=== PATIENT | male | born 1965 | race Caucasian/White ===

== ENCOUNTER 2020-09-05 17:37 | Inpatient (IN) | payer OTHER, SELFPAY ==
--- NOTE | ~2020-09-05 | CT_ITS ---
EXAMINATION: CT ABDOMEN AND PELVIS WITH CONTRAST CLINICAL INFORMATION: Mid abdominal pain COMPARISON: None TECHNIQUE: Multidetector volumetric images were obtained from the superior aspect of the liver through the pubic symphysis following administration 85 mL of Omnipaque 350 intravenous contrast. Sagittal and coronal reformatted images were obtained on the technologist's workstation. Oral contrast: Yes This CT examination was performed using dose optimization techniques as appropriate, variously including the following: *Automated exposure control *Adjustment of mA and/or kV according to patient size (this includes techniques or standardized protocols for targeted exams where dose is matched to indication/reason for exam; i.e. extremities or head) *Use of iterative reconstruction technique DLP: 749 mGy-cm FINDINGS: LUNG BASES: The visualized lung bases are unremarkable. LIVER, GALLBLADDER, AND BILIARY TREE: The liver is low in attenuation suggestive of fatty infiltration. There is mild intra and extrahepatic biliary duct dilatation. The common bile duct measures 1.2 cm. The gallbladder is upper normal in size. There is dependent high attenuation is normal for sludge or small stones. PANCREAS: The pancreas enhances normally. There is a infiltration of the peripancreatic fat. There is a small amount of fluid seen adjacent to the head of the pancreas and in the bilateral pararenal fascia. SPLEEN: Unremarkable. ADRENAL GLANDS: Unremarkable. KIDNEYS AND URETERS: There is a 7 mm lesion exophytic to the lateral mid right kidney. Hounsfield units following contrast measure 47 not compatible with a simple cyst. Is uncertain whether this represents a complex cyst or a solid lesion. The kidneys are otherwise unremarkable. BLADDER: Unremarkable. GASTROINTESTINAL TRACT: There is wall thickening of the duodenum adjacent to the head of the pancreas, stranding of the surrounding fat and small amount of surrounding fluid. It is uncertain whether this is reactive secondary to pancreatitis or could represent primary duodenitis. ABDOMINAL WALL: There is a small umbilical hernia containing fat. There may be a small left inguinal hernia containing fat. LYMPH NODES: There are small peripancreatic lymph nodes. No enlarged lymph nodes are seen. VASCULAR: There is evidence of atherosclerotic disease. No aneurysm is seen. PELVIC VISCERA: Unremarkable. OSSEOUS STRUCTURES: There are degenerative changes of the spine. CT/CT abdomen pelvis w con IMPRESSION: Fatty liver. Mild intrahepatic and extrahepatic biliary duct dilatation. Upper normal-size gallbladder. Question small gallstones versus sludge in the gallbladder. Fat stranding and small amount of fluid surrounding the pancreas questionable for pancreatitis. Wall thickening of the duodenum adjacent to the head of the pancreas and stranding of the surrounding fat and small amount of fluid. This may be reactive related to pancreatitis. Differential would include a primary duodenal process/duodenitis.
--- NOTE | ~2020-09-05 | US_ITS ---
EXAMINATION: US ABDOMEN LIMITED CLINICAL INFORMATION: evaluate stones in gallbladder, ? need for surg. COMPARISON: CT from the same date. TECHNIQUE: Real-time imaging of the gallbladder. FINDINGS: LIVER: Imaged portion of the liver is echogenic, consistent with steatosis. Focal fatty sparing is seen near the gallbladder fossa. The liver contour is normal. There is no intrahepatic biliary duct dilatation seen. Intrahepatic biliary ducts (marked as CBD) measure up to 3 mm in diameter. The common bile duct itself was not measured in the extrahepatic location. GALLBLADDER: Hydropic. No evidence of stones, sludge, polyps, wall thickening or pericholecystic fluid. US/US abdomen limited IMPRESSION: No cholelithiasis is identified on these images. Gallbladder is hydropic without evidence of acute cholecystitis.
[2020-09-05 17:53] VITALS: BP 137/61; PULSE 101; RESP 28; TEMP 35.8; O2SAT 97; BMI 31.5
--- NOTE | 2020-09-05 18:38 | ECG_ITS ---
Test Reason : ABD PAIN Blood Pressure : / mmHG Vent. Rate : 100 BPM Atrial Rate : 098 BPM P-R Int : 000 ms QRS Dur : 070 ms QT Int : 526 ms P-R-T Axes : 000 014 031 degrees QTc Int : 678 ms Normal sinus rhythm Prolonged QT Abnormal ECG When compared with ECG of 28-OCT-2018 16:42, QT has lengthened Referred By: Genaro Barney Electronically Signed By:MAYNOR CLIFTON MD
[2020-09-05 19:06] LABS: MANUAL DIFF FLAG NO
[2020-09-05 19:09] LABS: Basophils Absolute Auto 0.1 X10*3/uL (0.0-0.2); Basophils Percent Auto 0.3 % (0-2); Eosinophils Percent Auto 0.1 % (0-4); Hematocrit 47.6 % (42-52); Hemoglobin 16.9 g/dl (14.0-18.0); Imm Gran Abs Auto 0.09 X10*3/uL (0.00-0.03); Imm Gran Pct Auto 0.6 % (0.0-0.4); Lymphocytes Absolute Auto 0.5 X10*3/uL (1.2-4.9); Lymphocytes Percent Auto 3.3 % (20-40); Mean Corpuscular HGB Conc 35.5 g/dl (31.0-36.0); Mean Corpuscular Hemoglobin 35.1 pg (27.0-33.0); Mean Platelet Volume 10.9 fL (9.4-12.4); Monocytes Absolute Auto 1.2 X10*3/uL (0.1-1.2); Monocytes Percent Auto 7.4 % (2-11); Neutrophils Absolute Auto 14.1 X10*3/uL (2.0-8.3); Neutrophils Percent Auto 88.3 % (45-73); Platelet Count 190 X10*3/uL (160-400); Red Blood Count 4.81 X10*6/uL (4.60-5.80); White Blood Count 15.9 X10*3/uL (4.8-10.8)
[2020-09-05] MEDS: Famotidine/PF 20 MG/2 ML VIAL IVPUSH (19:33)
[2020-09-05] MEDS: Metoclopramide HCl 10 MG/2 ML VIAL IVPUSH (19:33)
[2020-09-05] MEDS: 0.9 % Sodium Chloride 1,000 ML 999 ML IV (19:33)
[2020-09-05 19:35] LABS: Ethanol 20 mg/dL
[2020-09-05 19:40] LABS: Troponin-I High Sensitivity < 3.5 ng/L (<3.5-35.0)
[2020-09-05 19:54] LABS: Alanine Aminotransferase 147 U/L (0-40); Albumin Level 3.9 g/dL (3.5-5.0); Alkaline Phosphatase 89 U/L (39-117); Anion Gap 19 (12-20); Aspartate Amino Transferase 201 U/L (5-37); Bilirubin Direct 2.1 mg/dL (0.0-0.5); Bilirubin Total 2.9 mg/dL (0.0-1.0); Blood Urea Nitrogen 7 mg/dL (9-16); Calcium 9.6 mg/dL (8.4-10.2); Carbon Dioxide 21 mmol/L (22-29); Chloride 102 mmol/L (96-108); Creatinine Clr Calc Pharmacy 123.7; Estimated Glomerular Filt Rate > 60; Glucose Random 90 mg/dL (60-115); Potassium 3.3 mmol/L (3.3-5.1); Sodium 139 mmol/L (135-145); Total Protein 7.9 g/dL (6.5-8.0)
[2020-09-05 20:09] LABS: Lipase 4552 U/L (8-78)
[2020-09-05] MEDS: Famotidine 20 MG TABLET PO (20:19)
[2020-09-05] MEDS: Magnesium Hydrox/Alum Hydrox 30 ML ORAL.SUSP PO (20:19)
[2020-09-05] MEDS: PHENobarb/Hyoscy/Atropine/Scop 10 ML ELIXIR PO (20:19)
[2020-09-05] MEDS: Lidocaine HCl Viscous 2 % 15 ML SOLUTION MUCOUS MEM (20:19)
[2020-09-05 20:49] VITALS: BP 167/70; PULSE 105; RESP 18; O2SAT 98
[2020-09-05] MEDS: iohexoL 350 MG/ML 100 ML INFUS..BTL IV (21:17)
--- NOTE | 2020-09-05 21:38 | ED.ABDPAIN ---
HPI - Abdominal Pain General Chief Complaint: Abdominal Pain <ARMAND Bender Last Filed: 09/05/20 21:48> Stated Complaint: acute abdominal pain <ARMAND Bender Last Filed: 09/05/20 21:48> Time Seen by Provider: 09/05/20 19:51 <ARMAND Bender Last Filed: 09/05/20 21:48> Source: patient <ARMAND Bender Last Filed: 09/05/20 21:48> Mode of arrival: ambulatory <ARMAND Bender Last Filed: 09/05/20 21:48> Limitations: no limitations <ARMAND Bender Last Filed: 09/05/20 21:48> History of Present Illness HPI narrative: patient presents to ED for abdominal pain in the mid gastric area after doing cocaine, heroin, and drinking lots of alcohol. Patient does not want detox. Patient wants to find out why he is having abdominal pain. Patient states also nausea and vomiting. <ARMAND Bender Last Filed: 09/05/20 21:48> MD elicited complaint: abdominal pain <ARMAND Bender Last Filed: 09/05/20 21:48> Related Data Home Medications: Home Medications Medication Instructions Recorded Confirmed amlodipine 1 tab PO DAILY 09/05/20 09/05/20 <ARMAND Bender Last Filed: 09/05/20 21:48> Allergies/Adverse Reactions: Allergies Allergy/AdvReac Type Severity Reaction Status Date / Time No Known Allergies Allergy Unverified 11/23/19 15:10 [No Known Allergies*] <ARMAND Bender Last Filed: 09/05/20 21:48> Review of Systems Review of Systems Yes all other systems are reviewed and are negative <ARMAND Bender Last Filed: 09/05/20 21:48> Constitutional: Reports as per HPI and Reports no additional constitutional complaints <ARMAND Bender Last Filed: 09/05/20 21:48> Eyes: Reports as per HPI and Reports no additional eye complaints <ARMAND Bender Last Filed: 09/05/20 21:48> Reports system reviewed and no additional complaints, except as documented and Reports as per HPI <ARMAND Bender Last Filed: 09/05/20 21:48> Cardiovascular: Reports as per HPI and Reports no additional cardiovascular complaints <ARMAND Bender Last Filed: 09/05/20 21:48> Respiratory: Reports as per HPI and Reports no additional respiratory complaints <ARMAND Bender Last Filed: 09/05/20 21:48> Gastrointestinal: Reports as per HPI, Reports no additional gastrointestinal complaints, Reports abdominal pain, Reports nausea and Reports vomiting <ARMAND Bender Last Filed: 09/05/20 21:48> Genitourinary: Reports no additional male genitourinary complaints and Reports as per HPI <ARMAND Bender Last Filed: 09/05/20 21:48> Musculoskeletal: Reports no additional musculoskeletal complaints and Reports as per HPI <ARMAND Bender Last Filed: 09/05/20 21:48> Reports system reviewed and no additional complaints, except as documented and Reports as per HPI <ARMAND Bender Last Filed: 09/05/20 21:48> Psychiatric: Reports no additional psychiatric complaints and Reports as per HPI <ARMAND Bender Last Filed: 09/05/20 21:48> Physical Exam Vital Signs: Vital Signs: Last Vital Signs Temp 99.4 F 09/05/20 23:41 Pulse 104 H 09/05/20 23:41 Resp 18 09/05/20 23:41 BP 154/96 H 09/05/20 23:41 Pulse Ox 95 09/05/20 23:41 Body Mass Index 31.5 <ARMAND Bender Last Filed: 09/05/20 21:48> Vital Signs: Last Vital Signs Temp 99.4 F 09/05/20 23:41 Pulse 104 H 09/05/20 23:41 Resp 18 09/05/20 23:41 BP 154/96 H 09/05/20 23:41 Pulse Ox 95 09/05/20 23:41 Body Mass Index 31.5 <Maryanne Gonsales PA-C - Last Filed: 09/05/20 23:56> Const: General: cooperative, healthy appearing, comfortable, no acute distress, well developed, alert and awake <ARMAND Bender Last Filed: 09/05/20 21:48> Orientation/consciousness: patient oriented x3 <ARMAND Bender Aleks Last Filed: 09/05/20 21:48> HENMT: Head: Yes normal to inspection, Yes No palpable skull fracture present, Yes normocephalic, Yes atraumatic and No abrasion <ARMAND Bender Aleks Last Filed: 09/05/20 21:48> Eyes: General: appearance normal, both eyes and all related structures <ARMAND Bender Last Filed: 09/05/20 21:48> Neck: Neck: Yes normal visual inspection, Yes full ROM, Yes no lymphadenopathy, Yes no meningeal signs, Yes trachea midline, Yes supple and No tender <ARMAND Bender Last Filed: 09/05/20 21:48> Chest: Chest palpation & inspection: normal inspection of the chest and normal palpation of entire chest wall <ARMAND Bender Aleks Filed: 09/05/20 21:48> Resp: Effort & Inspection: normal respiratory effort and able to speak in complete sentences <ARMAND Bender Last Filed: 09/05/20 21:48> Auscultation: clear to auscultation bilaterally <ARMAND Bender Last Filed: 09/05/20 21:48> Cardio: Jugular venous distension: no JVD <ARMAND Bender Aleks Last Filed: 09/05/20 21:48> Heart sounds: S1 normal heart sound present and S2 normal heart sound present <ARMAND Bender Last Filed: 09/05/20 21:48> GI: Inspection: Yes normal to inspection and No abdominal wall ecchymosis <ARMAND Bender Last Filed: 09/05/20 21:48> Palpation (GI): Soft to palpation, not firm, Tenderness to palpation present (GI) in the epigastrum, no guarding and not rigid <ARMAND Bender Last Filed: 09/05/20 21:48> : General: No CVA tenderness and Yes no CVA tenderness <ARMAND Bender Aleks Last Filed: 09/05/20 21:48> Back/Spine/Pelvis: Back: no CVA tenderness, No CVA tenderness and No back tenderness <ARMAND Bender - Last Filed: 09/05/20 21:48> Skin: General skin exam: no rashes or lesions noted and elasticity normal <ARMAND Bender - Last Filed: 09/05/20 21:48> Neuro: General: patient oriented x3, gait normal, no meningeal signs and CN's II-XI intact bilaterally <ARMAND Bender - Last Filed: 09/05/20 21:48> Cranial nerves: Yes CN's II-XII intact bilaterally <ARMAND Bender - Last Filed: 09/05/20 21:48> Extrem: General: Yes normal to inspection and Yes full ROM <ARMAND Bender - Last Filed: 09/05/20 21:48> Psych: Appearance: grossly normal, well kempt and not disheveled <ARMAND Bender - Last Filed: 09/05/20 21:48> Course Course Course Narrative: Patient will have medical evaluation including labs, EKG, and be given GI cocktail. <ARMAND Bender - Last Filed: 09/05/20 21:48> Reevaluation(s) Reevaluation #1: Patient's troponin negative. Patient's lipase came back over 4000. patient most likely has alcoholic pancreatitis but was sent for CT scan to make sure there is no gallstones. Hospitalist, Dr. Cisneros made aware of case. morphine given on top of GI cocktail. Case signed out to Maryanne <ARMAND Bender - Last Filed: 09/05/20 21:48> CT was unclear if gallstones or sludge in the gallbladder so hospitalist requested ultrasound. Ultrasound showed no stones in the gallbladder, patient to be admitted for alcoholic pancreatitis. [address] [id number] Scan ReportSigned with Addenda Patient: Ye Blanco TMR#: [id number]: 1965Acct:[id number]/Sex: 55 / MADM Date: 09/05/20Loc: [address] Dr: Ordering Physician: RAY GOLDEN Date of Service: 09/05/20 Procedure(s): CT abdomen pelvis w con Accession Number(s): [id number] cc: RAY GOLDEN~ ADDENDUMAddendum: 7 mm right renal lesion not compatible with a simple cyst. Complex cyst and solid mass should be considered. Follow-up elective renal ultrasound recommended. If the lesion cannot be visualized by ultrasound, contrast-enhanced CT or MRI of the kidneys would be recommended. Addendum Dictated By:FERNIE VÁSQUEZ MDAddendum Signed By:<Electronically signed by FERNIE VÁSQUEZ MD in [place]>09/05/202229Addendum Cosigned By:DD/ TD/TT: / EXAMINATION: CT ABDOMEN AND PELVIS WITH CONTRAST CLINICAL INFORMATION: Mid abdominal pain COMPARISON: None TECHNIQUE: Multidetector volumetric images were obtained from the superior aspect of the liver through the pubic symphysis following administration 85 mL of Omnipaque 350 intravenous contrast. Sagittal and coronal reformatted images were obtained on the technologist's workstation. Oral contrast: Yes This CT examination was performed using dose optimization techniques as appropriate, variously including the following: *Automated exposure control *Adjustment of mA and/or kV according to patient size (this includes techniques or standardized protocols for targeted exams where dose is matched to indication/reason for exam; i.e. extremities or head) *Use of iterative reconstruction technique DLP: 749 mGy-cm FINDINGS: LUNG BASES: The visualized lung bases are unremarkable. LIVER, GALLBLADDER, AND BILIARY TREE: The liver is low in attenuation suggestive of fatty infiltration. There is mild intra and extrahepatic biliary duct dilatation. The common bile duct measures 1.2 cm. The gallbladder is upper normal in size. There is dependent high attenuation is normal for sludge or small stones. PANCREAS: The pancreas enhances normally. There is a infiltration of the peripancreatic fat. There is a small amount of fluid seen adjacent to the head of the pancreas and in the bilateral pararenal fascia. SPLEEN: Unremarkable. ADRENAL GLANDS: Unremarkable. KIDNEYS AND URETERS: There is a 7 mm lesion exophytic to the lateral mid right kidney. Hounsfield units following contrast measure 47 not compatible with a simple cyst. Is uncertain whether this represents a complex cyst or a solid lesion. The kidneys are otherwise unremarkable. BLADDER: Unremarkable. GASTROINTESTINAL TRACT: There is wall thickening of the duodenum adjacent to the head of the pancreas, stranding of the surrounding fat and small amount of surrounding fluid. It is uncertain whether this is reactive secondary to pancreatitis or could represent primary duodenitis. ABDOMINAL WALL: There is a small umbilical hernia containing fat. There may be a small left inguinal hernia containing fat. LYMPH NODES: There are small peripancreatic lymph nodes. No enlarged lymph nodes are seen. VASCULAR: There is evidence of atherosclerotic disease. No aneurysm is seen. PELVIC VISCERA: Unremarkable. OSSEOUS STRUCTURES: There are degenerative changes of the spine. CT/CT abdomen pelvis w con IMPRESSION: Fatty liver. Mild intrahepatic and extrahepatic biliary duct dilatation. Upper normal-size gallbladder. Question small gallstones versus sludge in the gallbladder. Fat stranding and small amount of fluid surrounding the pancreas questionable for pancreatitis. Wall thickening of the duodenum adjacent to the head of the pancreas and stranding of the surrounding fat and small amount of fluid. This may be reactive related to pancreatitis. Differential would include a primary duodenal process/duodenitis. Dictated By:FERNIE VÁSQUEZ MDSigned By:<Electronically signed by FERNIE VÁSQUEZ MD in [place]>09/05/202149 DD/ 58TD/TT: Slubber Machine Operator: [address] [id number] ReportSigned Patient: Ye Blanco TMR#: [id number]: 1965Acct:[id number]/Sex: 55 / MADM Date: 09/05/20Loc: E[address] Dr: Ordering Physician: Maryanne Gonsales PA-C Date of Service: 09/05/20 Procedure(s): US abdomen limited Accession Number(s): [id number] cc: Maryanne Gonsales PA-C~ EXAMINATION: US ABDOMEN LIMITED CLINICAL INFORMATION: evaluate stones in gallbladder, ? need for surg. COMPARISON: CT from the same date. TECHNIQUE: Real-time imaging of the gallbladder. FINDINGS: LIVER: Imaged portion of the liver is echogenic, consistent with steatosis. Focal fatty sparing is seen near the gallbladder fossa. The liver contour is normal. There is no intrahepatic biliary duct dilatation seen. Intrahepatic biliary ducts (marked as CBD) measure up to 3 mm in diameter. The common bile duct itself was not measured in the extrahepatic location. GALLBLADDER: Hydropic. No evidence of stones, sludge, polyps, wall thickening or pericholecystic fluid. US/US abdomen limited IMPRESSION: No cholelithiasis is identified on these images. Gallbladder is hydropic without evidence of acute cholecystitis. Dictated By:GIOVANNI ISABEL MDSigned By:<Electronically signed by GIOVANNI ISABEL MD in [place]>09/05/202327 DD/ TD/TT: Slubber Machine Operator: JOSEPH . <Maryanne Gonsales PA-C - Last Filed: 09/05/20 23:56> Time: 21:43 <ARMAND Bender - Last Filed: 09/05/20 21:48> MDM - Abdominal Pain MDM Narrative Medical decision making narrative: pancreatitis <ARMAND Bender - Last Filed: 09/05/20 21:48> Lab Data Result diagrams: : 09/05/20 19:01 09/05/20 19:01 <ARMAND Bender - Last Filed: 09/05/20 21:48> Labs: Lab Results 09/05/20 09/05/20 09/05/20 Range/Units 19:01 19:01 19:01 WBC 15.9 H (4.8-10.8) X10*3/uL RBC 4.81 (4.60-5.80) X10*6/uL Hgb 16.9 (14.0-18.0) g/dl Hct 47.6 (42-52) % MCV 99.0 H (80-98) fL MCH 35.1 H (27.0-33.0) pg MCHC 35.5 (31.0-36.0) g/dl RDW 13.0 (11.0-16.0) % Plt Count 190 (160-400) X10*3/uL MPV 10.9 (9.4-12.4) fL Immature Gran % (Auto) 0.6 H (0.0-0.4) % Neut % (Auto) 88.3 H (45-73) % Lymph % (Auto) 3.3 L (20-40) % Lagrange % (Auto) 7.4 (2-11) % Eos % (Auto) 0.1 (0-4) % Baso % (Auto) 0.3 (0-2) % Lymph # (Auto) 0.5 L (1.2-4.9) X10*3/uL Lagrange # (Auto) 1.2 (0.1-1.2) X10*3/uL Eos # (Auto) 0.0 (0.0-0.4) X10*3/uL Baso # (Auto) 0.1 (0.0-0.2) X10*3/uL Abs Immat Gran (auto) 0.09 H (0.00-0.03) X10*3/uL Absolute Neuts (auto) 14.1 H (2.0-8.3) X10*3/uL Absolute Nucleated RBC 0.000 (0.0-0.012) X10*3/uL Nucleated RBC % (auto) 0.0 (0.0-0.2) /100WBC Sodium 139 (135-145) mmol/L Potassium 3.3 (3.3-5.1) mmol/L Chloride 102 (96-108) mmol/L Carbon Dioxide 21 L (22-29) mmol/L Anion Gap 19 (12-20) BUN 7 L (9-16) mg/dL Creatinine 0.78 (0.5-1.4) mg/dL Estim Creat Clear Calc 123.7 Estimated GFR > 60 Random Glucose 90 (60-115) mg/dL Calcium 9.6 (8.4-10.2) mg/dL Magnesium 1.6 (1.6-2.6) mg/dL Total Bilirubin 2.9 H (0.0-1.0) mg/dL Direct Bilirubin 2.1 H (0.0-0.5) mg/dL AST 201 H (5-37) U/L ALT 147 H (0-40) U/L Alkaline Phosphatase 89 (39-117) U/L Troponin I High Sens < 3.5 (<3.5-35.0) ng/L Total Protein 7.9 (6.5-8.0) g/dL Albumin 3.9 (3.5-5.0) g/dL Lipase 4552 H (8-78) U/L Ethyl Alcohol mg/dL 09/05/20 Range/Units 19:01 WBC (4.8-10.8) X10*3/uL RBC (4.60-5.80) X10*6/uL Hgb (14.0-18.0) g/dl Hct (42-52) % MCV (80-98) fL MCH (27.0-33.0) pg MCHC (31.0-36.0) g/dl RDW (11.0-16.0) % Plt Count (160-400) X10*3/uL MPV (9.4-12.4) fL Immature Gran % (Auto) (0.0-0.4) % Neut % (Auto) (45-73) % Lymph % (Auto) (20-40) % Lagrange % (Auto) (2-11) % Eos % (Auto) (0-4) % Baso % (Auto) (0-2) % Lymph # (Auto) (1.2-4.9) X10*3/uL Lagrange # (Auto) (0.1-1.2) X10*3/uL Eos # (Auto) (0.0-0.4) X10*3/uL Baso # (Auto) (0.0-0.2) X10*3/uL Abs Immat Gran (auto) (0.00-0.03) X10*3/uL Absolute Neuts (auto) (2.0-8.3) X10*3/uL Absolute Nucleated RBC (0.0-0.012) X10*3/uL Nucleated RBC % (auto) (0.0-0.2) /100WBC Sodium (135-145) mmol/L Potassium (3.3-5.1) mmol/L Chloride (96-108) mmol/L Carbon Dioxide (22-29) mmol/L Anion Gap (12-20) BUN (9-16) mg/dL Creatinine (0.5-1.4) mg/dL Estim Creat Clear Calc Estimated GFR Random Glucose (60-115) mg/dL Calcium (8.4-10.2) mg/dL Magnesium (1.6-2.6) mg/dL Total Bilirubin (0.0-1.0) mg/dL Direct Bilirubin (0.0-0.5) mg/dL AST (5-37) U/L ALT (0-40) U/L Alkaline Phosphatase (39-117) U/L Troponin I High Sens (<3.5-35.0) ng/L Total Protein (6.5-8.0) g/dL Albumin (3.5-5.0) g/dL Lipase (8-78) U/L Ethyl Alcohol 20 mg/dL <ARMAND Bender - Last Filed: 09/05/20 21:48> Lab Results 09/05/20 09/05/20 09/05/20 Range/Units 19:01 19:01 19:01 WBC 15.9 H (4.8-10.8) X10*3/uL RBC 4.81 (4.60-5.80) X10*6/uL Hgb 16.9 (14.0-18.0) g/dl Hct 47.6 (42-52) % MCV 99.0 H (80-98) fL MCH 35.1 H (27.0-33.0) pg MCHC 35.5 (31.0-36.0) g/dl RDW 13.0 (11.0-16.0) % Plt Count 190 (160-400) X10*3/uL MPV 10.9 (9.4-12.4) fL Immature Gran % (Auto) 0.6 H (0.0-0.4) % Neut % (Auto) 88.3 H (45-73) % Lymph % (Auto) 3.3 L (20-40) % Lagrange % (Auto) 7.4 (2-11) % Eos % (Auto) 0.1 (0-4) % Baso % (Auto) 0.3 (0-2) % Lymph # (Auto) 0.5 L (1.2-4.9) X10*3/uL [place]range # (Auto) 1.2 (0.1-1.2) X10*3/uL Eos # (Auto) 0.0 (0.0-0.4) X10*3/uL Baso # (Auto) 0.1 (0.0-0.2) X10*3/uL Abs Immat Gran (auto) 0.09 H (0.00-0.03) X10*3/uL Absolute Neuts (auto) 14.1 H (2.0-8.3) X10*3/uL Absolute Nucleated RBC 0.000 (0.0-0.012) X10*3/uL Nucleated RBC % (auto) 0.0 (0.0-0.2) /100WBC Sodium 139 (135-145) mmol/L Potassium 3.3 (3.3-5.1) mmol/L Chloride 102 (96-108) mmol/L Carbon Dioxide 21 L (22-29) mmol/L Anion Gap 19 (12-20) BUN 7 L (9-16) mg/dL Creatinine 0.78 (0.5-1.4) mg/dL Estim Creat Clear Calc 123.7 Estimated GFR > 60 Random Glucose 90 (60-115) mg/dL Calcium 9.6 (8.4-10.2) mg/dL Magnesium 1.6 (1.6-2.6) mg/dL Total Bilirubin 2.9 H (0.0-1.0) mg/dL Direct Bilirubin 2.1 H (0.0-0.5) mg/dL AST 201 H (5-37) U/L ALT 147 H (0-40) U/L Alkaline Phosphatase 89 (39-117) U/L Troponin I High Sens < 3.5 (<3.5-35.0) ng/L Total Protein 7.9 (6.5-8.0) g/dL Albumin 3.9 (3.5-5.0) g/dL Lipase 4552 H (8-78) U/L Ethyl Alcohol mg/dL 09/05/20 Range/Units 19:01 WBC (4.8-10.8) X10*3/uL RBC (4.60-5.80) X10*6/uL Hgb (14.0-18.0) g/dl Hct (42-52) % MCV (80-98) fL MCH (27.0-33.0) pg MCHC (31.0-36.0) g/dl RDW (11.0-16.0) % Plt Count (160-400) X10*3/uL MPV (9.4-12.4) fL Immature Gran % (Auto) (0.0-0.4) % Neut % (Auto) (45-73) % Lymph % (Auto) (20-40) % Lagrange % (Auto) (2-11) % Eos % (Auto) (0-4) % Baso % (Auto) (0-2) % Lymph # (Auto) (1.2-4.9) X10*3/uL Lagrange # (Auto) (0.1-1.2) X10*3/uL Eos # (Auto) (0.0-0.4) X10*3/uL Baso # (Auto) (0.0-0.2) X10*3/uL Abs Immat Gran (auto) (0.00-0.03) X10*3/uL Absolute Neuts (auto) (2.0-8.3) X10*3/uL Absolute Nucleated RBC (0.0-0.012) X10*3/uL Nucleated RBC % (auto) (0.0-0.2) /100WBC Sodium (135-145) mmol/L Potassium (3.3-5.1) mmol/L Chloride (96-108) mmol/L Carbon Dioxide (22-29) mmol/L Anion Gap (12-20) BUN (9-16) mg/dL Creatinine (0.5-1.4) mg/dL Estim Creat Clear Calc Estimated GFR Random Glucose (60-115) mg/dL Calcium (8.4-10.2) mg/dL Magnesium (1.6-2.6) mg/dL Total Bilirubin (0.0-1.0) mg/dL Direct Bilirubin (0.0-0.5) mg/dL AST (5-37) U/L ALT (0-40) U/L Alkaline Phosphatase (39-117) U/L Troponin I High Sens (<3.5-35.0) ng/L Total Protein (6.5-8.0) g/dL Albumin (3.5-5.0) g/dL Lipase (8-78) U/L Ethyl Alcohol 20 mg/dL <Maryanne Gonsales PA-C - Last Filed: 09/05/20 23:56> ECG Data Interpretation: Accelerated Junctional Rhythm. reticular 100. QRS 70. QTC 678 <ARMAND Bender - Last Filed: 09/05/20 21:48> Discharge Plan Discharge Clinical Impression: Pancreatitis <ARMAND Bender - Last Filed: 09/05/20 21:48> Patient Disposition: Admitted As Inpatient <ARMAND Bender - Last Filed: 09/05/20 21:48> Prescriptions: No Action amlodipine 10 mg tablet 1 tab PO DAILY RF: 0 <ARMAND Bender - Last Filed: 09/05/20 21:48> PMFSH Past Medical History Medical History: Medical History (Updated 09/05/20 @ 23:56 by Maryanne Gonsales PA-C) Drug abuse <ARMAND Bender - Last Filed: 09/05/20 21:48> Social History Social History: Social History Alcohol intake: current Patient Tobacco Use Status: Tobacco use Unknown Use of substances other than those prescribed or required for medical reasons: Yes Substance Use Type: Heroin Substance Use Frequency: Chronic Longstanding Last Used Substance: Just Prior to Admission Any prior treatment program specific to substance use: No Advance Directives: No Advance Directives Information Provided: No <ARMAND Bender - Last Filed: 09/05/20 21:48>
[2020-09-05] MEDS: Morphine Sulfate 4 MG/ML CARTRIDGE IVPUSH (21:48)
[2020-09-05 22:06] LABS: Magnesium 1.6 mg/dL (1.6-2.6)
[2020-09-05 23:41] VITALS: BP 154/96; PULSE 104; RESP 18; TEMP 37.4; O2SAT 95
[2020-09-05 23:56] LABS: COVID-19 Test Negative (Negative)
[2020-09-06] VITALS (7 sets, daily range): BP systolic 143–174; BP diastolic 80–91; PULSE 93–119; RESP 16–20; TEMP 36.6–37.2; O2SAT 94–97
--- NOTE | 2020-09-06 | ECG_ITS ---
Test Reason : follow up QTc prolongation Blood Pressure : / mmHG Vent. Rate : 098 BPM Atrial Rate : 098 BPM P-R Int : 176 ms QRS Dur : 068 ms QT Int : 338 ms P-R-T Axes : 021 002 -19 degrees QTc Int : 431 ms Normal sinus rhythm Nonspecific T wave abnormality Abnormal ECG When compared with ECG of 05-SEP-2020 18:53, T wave inversion more evident in Inferior leads Nonspecific T wave abnormality now evident in Lateral leads QT has shortened Referred By: Ace Worrell Electronically Signed By:MAYNOR CLIFTON MD
[2020-09-06] MEDS: Ketorolac Tromethamine 30 MG/ML VIAL IVPUSH (00:02)
[2020-09-06] MEDS: Lactated Ringers 1,000 ML 200 ML IVCONT ×2 (01:07→07:53)
[2020-09-06] MEDS: Potassium Chloride Packet 20 MEQ PACKET 40 MEQ PO ×2 (01:09→04:25)
[2020-09-06] MEDS: PHENobarbitaL sodium 130 MG/ML VIAL 292 MG IM (01:20)
[2020-09-06] MEDS: Magnesium Sulfate/H2O 2 GM/50 ML PIGGYBACK IV (01:20)
[2020-09-06] MEDS: Enoxaparin Sodium 40 MG/0.4 ML SYRINGE SUBCUT ×2 (01:39→02:00)
[2020-09-06] MEDS: Morphine Sulfate 4 MG/ML CARTRIDGE IVPUSH ×6 (01:56→23:41)
[2020-09-06] MEDS: PHENobarbitaL sodium 130 MG/ML VIAL 219 MG IM ×2 (04:24→06:46)
[2020-09-06 05:59] LABS: MANUAL DIFF FLAG NO
[2020-09-06 06:11] LABS: Basophils Percent Auto 0.1 % (0-2); Hematocrit 43.7 % (42-52); Imm Gran Abs Auto 0.09 X10*3/uL (0.00-0.03); Imm Gran Pct Auto 0.6 % (0.0-0.4); Lymphocytes Absolute Auto 0.9 X10*3/uL (1.2-4.9); Lymphocytes Percent Auto 6.1 % (20-40); Mean Corpuscular HGB Conc 34.3 g/dl (31.0-36.0); Mean Corpuscular Volume 101.9 fL (80-98); Mean Platelet Volume 11.2 fL (9.4-12.4); Monocytes Absolute Auto 1.2 X10*3/uL (0.1-1.2); Monocytes Percent Auto 8.6 % (2-11); Neutrophils Absolute Auto 11.7 X10*3/uL (2.0-8.3); Neutrophils Percent Auto 84.6 % (45-73); Platelet Count 170 X10*3/uL (160-400); Red Blood Count 4.29 X10*6/uL (4.60-5.80); Red Cell Distribution Width 13.4 % (11.0-16.0); White Blood Count 13.9 X10*3/uL (4.8-10.8)
--- NOTE | 2020-09-06 06:14 | P.HPHOSP_ITS ---
History of Present Illness Date of Service: 09/05/20 Chief Complaint: abdominal pain 55-year-old male with past medical history of hypertension and alcohol abuse who presents to the hospital with abdominal pain. Patient reports the abdominal pain is localized to the epigastric region, nonradiating, 10/10, worse with laying down, associated with chills, no fever, nausea and vomiting, no diarrhea constipation. symptoms started this morning. Patient denies having any chest pain, no urinary symptoms and no lower extremity edema. No headache or change in vision. No weakness numbness or tingling. patient reports that he drinks about 5 out of 7 times a week, drinks beer, 6-12 beers a day. patient also uses heroin almost daily last use day of admission on arrival vital significant for temp of 96.5?, heart rate of 101, respiratory rate of 28, blood pressure 137/61, satting 97% on room air Labs are significant for WBC count of 15.9, hemoglobin of 16.9, BUN of 2.9, direct bili of 2.1, AST of 201, ALT of 147, lipase of 4552, COVID-19 negative, CT of the abdomen showed fatty liver, mild intrahepatic and extrahepatic biliary duct dilatation, upper normal size gallbladder, question small galls tones versus sludge in the gallbladder, fat stranding and small amount of fluid surrounding the pancreas questionable pancreatitis. Ultrasound of the abdomen was negative for cholecystitis, or cholelithiasis. rest of the review of system negative except as mentioned past medical history as below Review of Systems Review of Systems: Yes all other systems are reviewed and are negative [facility] Medical History (Updated 09/06/20 @ 06:18 by Tyler Hawkins MD) Drug abuse Hypertension Social History Household Members: None Housing: Apartment Do you presently have visiting nurse or other home services: No Alcohol intake: current Patient Tobacco Use Status: Tobacco use Unknown Tobacco use type: Cigarette Smoked in Last 30 Days: Yes Patient Interested in Nicotine Replacement: No Use of substances other than those prescribed or required for medical reasons: Yes Substance Use Type: Heroin Substance Use Frequency: Occasionally Last Used Substance: Just Prior to Admission Currently Displaying Signs/Symptoms of Drug Intoxication Withdrawal: No Any prior treatment program specific to substance use: Yes (methadone) Have you been hit, kicked, punched, or otherwise hurt by someone within the past year? If so, by whom?: No Do you feel safe in your current relationship?: Yes Is there a partner from a previous relationship who is making you feel unsafe now?: No Are you made to feel afraid or neglected: No Advance Directives: No Advance Directives Information Provided: No Advance Directives on File: No Do you have thoughts of harming others: None Do you have a plan to hurt others: No Plan Recently lost weight without trying: No Nutrition Risks: No Nutritional Risk Poor oral hygiene: No Meds Allergies Allergy/AdvReac Type Severity Reaction Status Date / Time No Known Allergies Allergy Unverified 11/23/19 15:10 [No Known Allergies*] Active Medications: Current Medications Generic Name Dose Route Start Last Admin Trade Name Freq PRN Reason Stop Dose Admin Acetaminophen 650 mg 09/05/20 23:49 Acetaminophen Supp 650 Mg Supp.Rect KS Q6H PRN Pain, Mild (Pain Scale 1-3) Amlodipine Besylate 10 mg 09/06/20 09:00 Amlodipine Besylate 10 Mg Tablet PO DAILY BELKIS Protocol Docusate Sodium 100 mg 09/05/20 23:49 Docusate Sodium 100 Mg Capsule PO DAILY PRN Constipation Enoxaparin Sodium 40 mg 09/05/20 01:00 09/06/20 02:00 Enoxaparin Sodium 40 Mg/0.4 Ml Syringe SUBCUT 40 mg Q24H BELKIS Administration Lactated Ringer's 1,000 mls @ 200 mls/hr 09/05/20 23:48 09/06/20 01:07 Lr IVCONT 200 mls/hr .Q5H BELKIS Administration Morphine Sulfate 4 mg 09/05/20 23:50 09/06/20 01:56 Morphine Sulfate 4 Mg/Ml Cartridge IVPUSH 4 mg Q4H PRN Administration Pain, Severe (Pain Scale 7-10) Pharmacy Consult 1 each 09/05/20 23:49 Consult Rx Etoh Phenob Dosing MISCELLANE 09/05/20 23:50 ONCE ONE Protocol Phenobarbital Sodium 219 mg 09/06/20 04:00 09/06/20 04:24 Phenobarbital Sodium 130 Mg/Ml Vial IM 09/06/20 07:01 219 mg Q3H BELKIS Administration Sodium Chloride 3 ml 09/06/20 00:00 09/06/20 01:09 0.9 % Sodium Chloride Flush 3 Ml Syringe IVFLUSH Not Given QSHIFT [facility] Home Medications Medication Instructions Recorded Confirmed Last Taken Type amlodipine 1 tab PO DAILY 09/05/20 09/05/20 Unknown History Physical Exam Vital Signs and Narrative: Vital Signs: Last Vital Signs Temp 98.4 F 09/06/20 01:16 Pulse 119 H 09/06/20 01:16 Resp 18 09/06/20 01:16 BP 174/85 H 09/06/20 01:16 Pulse Ox 97 09/06/20 01:16 Body Mass Index 31.5 Const: Other: patient sitting upright in bed, leaning forward, diaphoretic General: cooperative and no acute distress Orientation/consciousness: patient oriented x3 Eyes: General: appearance normal, both eyes and all related structures Resp: Effort & Inspection: normal respiratory effort and able to speak in complete sentences Cardio: Rate: regular rate Rhythm: regular rhythm GI: Other: significant tenderness in the epigastric region Palpation (GI): Soft to palpation Skin: General skin exam: no rashes or lesions noted Neuro: General: patient oriented x3 Cognition (Neuro): normal cognition Extrem: General: Yes normal to inspection and Yes no pedal edema Results Labs CBC and Chem 7: 09/05/20 19:01 09/05/20 19:01 Labs: Laboratory Results - last 24 hr 09/05/20 09/05/20 09/05/20 19:01 19:01 19:01 MCV 99.0 H MCH 35.1 H MCHC 35.5 RDW 13.0 Plt Count 190 MPV 10.9 Immature Gran % (Auto) 0.6 H Neut % (Auto) 88.3 H Lymph % (Auto) 3.3 L Stewart % (Auto) 7.4 Eos % (Auto) 0.1 Baso % (Auto) 0.3 Lymph # (Auto) 0.5 L Stewart # (Auto) 1.2 Eos # (Auto) 0.0 Baso # (Auto) 0.1 Abs Immat Gran (auto) 0.09 H Absolute Neuts (auto) 14.1 H Absolute Nucleated RBC 0.000 Nucleated RBC % (auto) 0.0 Anion Gap 19 Estim Creat Clear Calc 123.7 Estimated GFR > 60 Random Glucose 90 Calcium 9.6 Magnesium 1.6 Total Bilirubin 2.9 H Direct Bilirubin 2.1 H AST 201 H ALT 147 H Alkaline Phosphatase 89 Troponin I High Sens < 3.5 Total Protein 7.9 Albumin 3.9 Lipase 4552 H Ethyl Alcohol COVID-19 (SUSAN) COVID-19 Clin Com 09/05/20 09/05/20 19:01 23:34 MCV MCH MCHC RDW Plt Count MPV Immature Gran % (Auto) Neut % (Auto) Lymph % (Auto) Stewart % (Auto) Eos % (Auto) Baso % (Auto) Lymph # (Auto) Stewart # (Auto) Eos # (Auto) Baso # (Auto) Abs Immat Gran (auto) Absolute Neuts (auto) Absolute Nucleated RBC Nucleated RBC % (auto) Anion Gap Estim Creat Clear Calc Estimated GFR Random Glucose Calcium Magnesium Total Bilirubin Direct Bilirubin AST ALT Alkaline Phosphatase Troponin I High Sens Total Protein Albumin Lipase Ethyl Alcohol 20 COVID-19 (SUSAN) Negative COVID-19 Clin Com See Note Imaging Radiologist's Impressions: Impressions Abdomen/Pelvis CT 09/05/20 20:59 IMPRESSION: Fatty liver. Mild intrahepatic and extrahepatic biliary duct dilatation. Upper normal-size gallbladder. Question small gallstones versus sludge in the gallbladder. Fat stranding and small amount of fluid surrounding the pancreas questionable for pancreatitis. Wall thickening of the duodenum adjacent to the head of the pancreas and stranding of the surrounding fat and small amount of fluid. This may be reactive related to pancreatitis. Differential would include a primary duodenal process/duodenitis. Abdomen Ultrasound 09/05/20 22:37 IMPRESSION: No cholelithiasis is identified on these images. Gallbladder is hydropic without evidence of acute cholecystitis. Assessment and Plan (1) Acute alcoholic pancreatitis: Status: Acute (2) Alcohol abuse: Status: Acute 55-year-old male with past medical history of alcohol abuse as well as hypertension who presents to the hospital with abdominal pain found to have acute pancreatitis # acute alcoholic pancreatitis - patient daily drinker, - no evidence of gallstones on abdominal ultrasound, although CT abdomen showed possible sludge versus small stones there is no cholecystitis - hemodynamically stable - will start him on IV fluids - pain control - NPO # alcohol abuse with potential withdrawal - will start him on phenobarb protocol - thiamine and folic acid supplement # hypertension - elevated most likely secondary to pain - resume home amlodipine DVT prophylaxis: Lovenox Quality Stroke Does the patient have a stroke diagnosis?: No VTE Prior VTE?: No VTE Risk Level:: Medical - moderate - high VTE Device Contraindication: Treatment Not Indicated VTE Drug Contraindication: N/A - Med Ordered
[2020-09-06 07:17] LABS: Blood Urea Nitrogen 8 mg/dL (9-16); Calcium 8.8 mg/dL (8.4-10.2); Creatinine Clr Calc Pharmacy 119.1; Estimated Glomerular Filt Rate > 60; Glucose Random 84 mg/dL (60-115)
[2020-09-06 07:26] LABS: Anion Gap 14 (12-20); Carbon Dioxide 25 mmol/L (22-29); Chloride 104 mmol/L (96-108); Potassium 5.4 mmol/L (3.3-5.1); Sodium 138 mmol/L (135-145)
[2020-09-06] MEDS: amLODIPine Besylate 10 MG TABLET PO (07:54)
[2020-09-06] MEDS: Thiamine HCL 200 MG/2 ML VIAL 100 MG IVPUSH (07:54)
[2020-09-06] MEDS: Folic Acid 1 MG TABLET PO (07:54)
[2020-09-06] MEDS: 0.9 % Sodium Chloride 1,000 ML 200 ML IVCONT (08:19)
[2020-09-06 08:24] LABS: Magnesium 2.5 mg/dL (1.6-2.6)
--- NOTE | 2020-09-06 09:41 | MHC.CM.PN ---
EMR REVIEWED, PT ADMITTED W/ETOH RELATED PANCREATITIS, CM MET W/PT WHO IS A&O X4, REPORTS HE LIVES ALONE IS FULLY INDEPENDENT AND HAS NO DME/HOME SERVICES, PT HAS HC IN [place] FOR METHADONE MAINTENANCE AND REPORTS HE HAS A COUNSELOR THAT HE SEES THERE, PT DENIES NEED FOR ADDITION SA TX, CARE/TEAM OR RECOVERY SUPPORT, PT UNABLE TO RECALL NAME OF PCP HOWEVER PCP VERIFIED BY CM AND IS [facility] [place]. PT OFFERED ASSISTANCE W/HCP HOWEVER PT DECLINING AT THIS TIME, EDUCATION PROVIDED. D/C PLAN: HOME W/RESUMP OF METHADONE MAINT AND MOM FOR TRANPSORT
--- NOTE | 2020-09-06 10:29 | HO.PM.IMPN ---
Subjective Subjective Date of Service: 09/06/20 Interval History: the patient was seen and evaluated this morning Laying in bed, complaining of pain in his abdomen but nausea feeling improved Denies any fever, chills or shortness of breath No reported other overnight events. Systemic review: No fever, chills or weakness No chest pain, palpitation No shortness of breath or coughing still having abdominal pain but the nausea has improved No urinary symptoms No any rash or wounds Physical Exam Vital Signs: Vital Signs: Last Vital Signs Temp 97.8 F 09/06/20 07:28 Pulse 95 09/06/20 07:54 Resp 19 09/06/20 07:28 BP 147/91 H 09/06/20 07:54 Pulse Ox 95 09/06/20 07:28 Body Mass Index 31.5 Const: Other: Constitutional : Alert, oriented, not in distress Neck : Normal inspection, Supple Cardiovascular : RRR, S1 S2, no lower extremity edema Respiratory : Good bilateral air entry, no crackles, wheezes or rhonchi Gastrointestinal: soft, lax, Normal bowel sounds, epigastric tenderness Skin : Warm/Dry, No rash Neurological : Alert & oriented x3, No focal deficit, no withdrawal symptoms seen Objective Data Current Medications Generic Name Dose Route Start Last Admin Trade Name Freq PRN Reason Stop Dose Admin Acetaminophen 650 mg 09/05/20 23:49 Acetaminophen Supp 650 Mg Supp.Rect NC Q6H PRN Pain, Mild (Pain Scale 1-3) Amlodipine Besylate 10 mg 09/06/20 09:00 09/06/20 07:54 Amlodipine Besylate 10 Mg Tablet PO 10 mg DAILY BELKIS Administration Protocol Clonidine HCl 0.1 mg 09/06/20 09:44 Clonidine Hcl 0.1 Mg Tablet PO TID PRN anxiety/restlessness Protocol Docusate Sodium 100 mg 09/05/20 23:49 Docusate Sodium 100 Mg Capsule PO DAILY PRN Constipation Enoxaparin Sodium 40 mg 09/05/20 01:00 09/06/20 07:19 Enoxaparin Sodium 40 Mg/0.4 Ml Syringe SUBCUT Not Given Q24H BELKIS Folic Acid 1 mg 09/06/20 09:00 09/06/20 07:54 Folic Acid 1 Mg Tablet PO 1 mg DAILY BELKIS Administration Sodium Chloride 1,000 mls @ 200 mls/hr 09/06/20 09:00 09/06/20 08:19 Ns IVCONT 09/06/20 13:59 200 mls/hr .Q5H BELKIS Administration Medication 1 each 09/06/20 09:00 No Benzodiazepines MISCELLANE DAILY [facility] Methadone HCl 70 mg 09/07/20 09:00 Methadone Hcl 1 Mg/0.1 Ml Oral.Conc PO DAILY [facility] Morphine Sulfate 4 mg 09/05/20 23:50 09/06/20 06:50 Morphine Sulfate 4 Mg/Ml Cartridge IVPUSH 4 mg Q4H PRN Administration Pain, Severe (Pain Scale 7-10) Phenobarbital 45 mg 09/06/20 21:00 Phenobarbital 15 Mg Tablet PO 09/08/20 09:01 BID BELKIS Phenobarbital 15 mg 09/08/20 21:00 Phenobarbital 15 Mg Tablet PO 09/10/20 09:01 BID BELKIS Phenobarbital 15 mg 09/10/20 21:00 Phenobarbital 15 Mg Tablet PO 09/11/20 21:01 BEDTIME [facility] Sodium Chloride 3 ml 09/06/20 00:00 09/06/20 07:54 0.9 % Sodium Chloride Flush 3 Ml Syringe IVFLUSH Not Given QSHIFT [facility] Thiamine HCl 100 mg 09/06/20 09:00 09/06/20 07:54 Thiamine Hcl 200 Mg/2 Ml Vial IVPUSH 100 mg DAILY BELKIS Administration Labs CBC & Chem 7: 09/06/20 05:36 09/06/20 05:36 Labs: Laboratory Results - last 24 hr 09/05/20 09/05/20 09/05/20 19:01 19:01 19:01 WBC 15.9 H RBC 4.81 Hgb 16.9 Hct 47.6 MCV 99.0 H MCH 35.1 H MCHC 35.5 RDW 13.0 Plt Count 190 MPV 10.9 Immature Gran % (Auto) 0.6 H Neut % (Auto) 88.3 H Lymph % (Auto) 3.3 L Mcpherson % (Auto) 7.4 Eos % (Auto) 0.1 Baso % (Auto) 0.3 Lymph # (Auto) 0.5 L Mcpherson # (Auto) 1.2 Eos # (Auto) 0.0 Baso # (Auto) 0.1 Abs Immat Gran (auto) 0.09 H Absolute Neuts (auto) 14.1 H Absolute Nucleated RBC 0.000 Nucleated RBC % (auto) 0.0 Sodium 139 Potassium 3.3 Chloride 102 Carbon Dioxide 21 L Anion Gap 19 BUN 7 L Creatinine 0.78 Estim Creat Clear Calc 123.7 Estimated GFR > 60 Random Glucose 90 Calcium 9.6 Magnesium 1.6 Total Bilirubin 2.9 H Direct Bilirubin 2.1 H AST 201 H ALT 147 H Alkaline Phosphatase 89 Troponin I High Sens < 3.5 Total Protein 7.9 Albumin 3.9 Lipase 4552 H Ethyl Alcohol COVID-19 (SUSAN) COVID-19 Clin Com 09/05/20 09/05/20 09/06/20 19:01 23:34 05:36 WBC 13.9 H RBC 4.29 L Hgb 15.0 Hct 43.7 MCV 101.9 H MCH 35.0 H MCHC 34.3 RDW 13.4 Plt Count 170 MPV 11.2 Immature Gran % (Auto) 0.6 H Neut % (Auto) 84.6 H Lymph % (Auto) 6.1 L Mcpherson % (Auto) 8.6 Eos % (Auto) 0.0 Baso % (Auto) 0.1 Lymph # (Auto) 0.9 L Mcpherson # (Auto) 1.2 Eos # (Auto) 0.0 Baso # (Auto) 0.0 Abs Immat Gran (auto) 0.09 H Absolute Neuts (auto) 11.7 H Absolute Nucleated RBC 0.000 Nucleated RBC % (auto) 0.0 Sodium Potassium Chloride Carbon Dioxide Anion Gap BUN Creatinine Estim Creat Clear Calc Estimated GFR Random Glucose Calcium Magnesium Total Bilirubin Direct Bilirubin AST ALT Alkaline Phosphatase Troponin I High Sens Total Protein Albumin Lipase Ethyl Alcohol 20 COVID-19 (SUSAN) Negative COVID-19 Clin Com See Note 09/06/20 05:36 WBC RBC Hgb Hct MCV MCH MCHC RDW Plt Count MPV Immature Gran % (Auto) Neut % (Auto) Lymph % (Auto) Mcpherson % (Auto) Eos % (Auto) Baso % (Auto) Lymph # (Auto) Mcpherson # (Auto) Eos # (Auto) Baso # (Auto) Abs Immat Gran (auto) Absolute Neuts (auto) Absolute Nucleated RBC Nucleated RBC % (auto) Sodium 138 Potassium 5.4 H D Chloride 104 Carbon Dioxide 25 Anion Gap 14 BUN 8 L Creatinine 0.81 Estim Creat Clear Calc 119.1 Estimated GFR > 60 Random Glucose 84 Calcium 8.8 D Magnesium 2.5 Total Bilirubin Direct Bilirubin AST ALT Alkaline Phosphatase Troponin I High Sens Total Protein Albumin Lipase Ethyl Alcohol COVID-19 (SUSAN) COVID-19 Clin Com Quality Stroke Does the patient have a stroke diagnosis?: No VTE Prior VTE?: No VTE Risk Level:: Medical - moderate - high VTE Device Contraindication: Treatment Not Indicated VTE Drug Contraindication: N/A - Med Ordered Assessment and Plan (1) Acute alcoholic pancreatitis: Status: Acute (2) Alcohol abuse: Status: Acute Assessment and Plan: 55-year-old male with past medical history of alcohol abuse as well as hypertension who presents to the hospital with abdominal pain found to have acute pancreatitis # acute alcoholic pancreatitis no evidence of gallstones on abdominal ultrasound, although CT abdomen showed possible sludge versus small stones continue IV fluids morphine for pain control start clear liquids # alcohol abuse with potential withdrawal continue phenobarb protocol continue thiamine and folic acid supplement # history of drug abuse Start home dose methadone # prolonged QTC QTC of 678 at time of admission Recheck magnesium and repeat EKG Correct electrolytes # hypertension elevated most likely secondary to pain resume home amlodipine DVT prophylaxis Lovenox
[2020-09-06 15:18] LABS: Anion Gap 10 (12-20); Blood Urea Nitrogen 8 mg/dL (9-16); Calcium 8.6 mg/dL (8.4-10.2); Carbon Dioxide 26 mmol/L (22-29); Chloride 104 mmol/L (96-108); Creatinine Clr Calc Pharmacy 135.9; Estimated Glomerular Filt Rate > 60; Glucose Random 70 mg/dL (60-115); Potassium 4.8 mmol/L (3.3-5.1); Sodium 135 mmol/L (135-145)
[2020-09-06] MEDS: 0.9 % Sodium Chloride Flush 3 ML SYRINGE IVFLUSH ×2 (15:33→22:02)
[2020-09-06] MEDS: PHENobarbitaL 15 MG TABLET 45 MG PO (19:25)
[2020-09-07 03:34] VITALS: BP 139/92; PULSE 104; RESP 18; TEMP 36.8; O2SAT 94
[2020-09-07 06:53] LABS: Hematocrit 42.7 % (42-52); Mean Corpuscular HGB Conc 35.1 g/dl (31.0-36.0); Mean Corpuscular Volume 102.4 fL (80-98); Mean Platelet Volume 11.4 fL (9.4-12.4); Platelet Count 158 X10*3/uL (160-400); Red Blood Count 4.17 X10*6/uL (4.60-5.80); Red Cell Distribution Width 13.3 % (11.0-16.0); White Blood Count 14.6 X10*3/uL (4.8-10.8)
[2020-09-07 07:17] LABS: Anion Gap 16 (12-20); Blood Urea Nitrogen 9 mg/dL (9-16); Calcium 8.6 mg/dL (8.4-10.2); Carbon Dioxide 20 mmol/L (22-29); Chloride 100 mmol/L (96-108); Creatinine Clr Calc Pharmacy 130.4; Estimated Glomerular Filt Rate > 60; Glucose Random 65 mg/dL (60-115); Potassium 3.9 mmol/L (3.3-5.1); Sodium 132 mmol/L (135-145)
[2020-09-07 07:24] VITALS: BP 157/97; PULSE 104; RESP 17; TEMP 36.8; O2SAT 96
[2020-09-07] MEDS: Thiamine HCL 200 MG/2 ML VIAL 100 MG IVPUSH (08:12)
[2020-09-07] MEDS: PHENobarbitaL 15 MG TABLET 45 MG PO (08:12)
[2020-09-07] MEDS: Folic Acid 1 MG TABLET PO (08:12)
[2020-09-07] MEDS: amLODIPine Besylate 10 MG TABLET PO (08:12)
[2020-09-07] MEDS: 0.9 % Sodium Chloride Flush 3 ML SYRINGE IVFLUSH (08:13)
[2020-09-07] MEDS: Morphine Sulfate 4 MG/ML CARTRIDGE IVPUSH ×2 (08:20→12:53)
--- NOTE | 2020-09-07 10:00 | MHC.CM.PN ---
MALE 55 DXPANCREATITIS PATIENT IS DISCHARGED TO HOME WITH ASSIST FROM FAMILY INCLUDING TRANSPORTATION HOME. HE DECLINED [facility] RECOVERY SERVICES CONSULT.
--- NOTE | 2020-09-07 10:42 | PM.DS ---
DS: Providers Provider Date of Service: 09/07/20 Date of admission: 09/05/20 23:48 Primary care physician: Unknown Physician DS: Diagnosis Discharge Diagnosis (1) Acute alcoholic pancreatitis: Status: Acute (2) Alcohol abuse: Status: Acute DS: Medications Discharge Medications Home Medications: Home Medications Medication Instructions Recorded Confirmed amlodipine 1 tab PO DAILY 09/05/20 09/05/20 methadone 67 mg PO DAILY 09/06/20 09/06/20 DS: Summary Hospital Course Hospital Course: admission note HPI 55-year-old male with past medical history of hypertension and alcohol abuse who presents to the hospital with abdominal pain. Patient reports the abdominal pain is localized to the epigastric region, nonradiating, 10/10, worse with laying down, associated with chills, no fever, nausea and vomiting, no diarrhea constipation. symptoms started this morning. Patient denies having any chest pain, no urinary symptoms and no lower extremity edema. No headache or change in vision. No weakness numbness or tingling. patient reports that he drinks about 5 out of 7 times a week, drinks beer, 6-12 beers a day. patient also uses heroin almost daily last use day of admission on arrival vital significant for temp of 96.5?, heart rate of 101, respiratory rate of 28, blood pressure 137/61, satting 97% on room air Labs are significant for WBC count of 15.9, hemoglobin of 16.9, BUN of 2.9, direct bili of 2.1, AST of 201, ALT of 147, lipase of 4552, COVID-19 negative, CT of the abdomen showed fatty liver, mild intrahepatic and extrahepatic biliary duct dilatation, upper normal size gallbladder, question small gallstones versus sludge in the gallbladder, fat stranding and small amount of fluid surrounding the pancreas questionable pancreatitis. Ultrasound of the abdomen was negative for cholecystitis, or cholelithiasis. Hospital course Patient was admitted for treatment of acute alcoholic pancreatitis. He was started with IV fluids and IV pain medication and kept NPO for the 1st day. He showed some improvement in the pain and clear liquids were started which he tolerated very well. His pain level decreased significantly and was able to ambulate and eat with no reported pain or vomiting. This morning he asked to be discharged home as he will continue to advance his diet slowly over the next few days. He was advised to quit alcohol completely. He was treated with phenobarbital protocol for history of alcohol abuse and high risk for withdrawal. He did not develop withdrawal symptoms during the hospital stay. Time Spent with Patient Time attestation: Total time spent providing and/or coordinating discharge services: Discharge coordination time: Greater than 30 minutes Quality: Stroke Does the patient have a stroke diagnosis?: No Physical Exam Vital Signs: Vital Signs: Last Vital Signs Temp 98.2 F 09/07/20 07:24 Pulse 104 H 09/07/20 07:24 Resp 17 09/07/20 07:24 BP 157/97 H 09/07/20 07:24 Pulse Ox 96 09/07/20 07:24 Body Mass Index 31.5 Const: Other: Constitutional : Alert, oriented, not in distress Neck : Normal inspection, Supple Cardiovascular : RRR, S1 S2, no lower extremity edema Respiratory : Good bilateral air entry, no crackles, wheezes or rhonchi Gastrointestinal: soft, lax, Normal bowel sounds, No more epigastric tenderness Skin : Warm/Dry, No rash Neurological : Alert & oriented x3, No focal deficit, no withdrawal symptoms seen DS: Data Data Completed and Pending Labs on day of discharge: Laboratory Results - last 24 hr 09/06/20 09/07/20 09/07/20 14:39 05:51 05:51 WBC 14.6 H RBC 4.17 L Hgb 15.0 Hct 42.7 MCV 102.4 H MCH 36.0 H MCHC 35.1 RDW 13.3 Plt Count 158 L MPV 11.4 Absolute Nucleated RBC 0.000 Nucleated RBC % (auto) 0.0 Sodium 135 132 L Potassium 4.8 3.9 Chloride 104 100 Carbon Dioxide 26 20 L Anion Gap 10 L 16 BUN 8 L 9 Creatinine 0.71 0.74 Estim Creat Clear Calc 135.9 130.4 Estimated GFR > 60 > 60 Random Glucose 70 65 Calcium 8.6 8.6 Discharge Plan Discharge Patient Disposition: Home, Self-Care Discharge Diagnosis: Acute alcoholic pancreatitis Referrals: Physician,Unknown [Primary Care Provider] - 1 Week Discharge Medications: Continued amlodipine 10 mg tablet 1 tab PO DAILY RF: 0 methadone 5 mg/5 mL Solution 67 mg PO DAILY RF: 0 Discharge Orders: Discharge Order (Routine); Ordered 09/07/20 Ordered By: Ace Worrell Diet: advance to usual diet Activity on Discharge: As tolerated Stand Alone Forms: Patient Portal Discharge page Care Plan Goals: Read below Health Concerns: Read below Plan of Treatment: you were admitted to the hospital for evaluation of abdominal pain. Images of your abdomen were consistent with inflammation of the pancreas. You were treated with IV fluids and pain medication with good response as your diet was advanced slowly over the hospital course. Assessment: Continue to advance your diet slowly over the next week or 2 Drink plenty of water and avoid alcohol totally Can use Advil or Tylenol for pain control
[2020-09-07 11:40] VITALS: BP 133/75; PULSE 90; RESP 17; TEMP 36.7; O2SAT 97
== END 2020-09-07 14:23 | disposition home or self-care (01) | DRG 282 ==
LOC: HO.ED 23:56 → HO.S3 09-06 00:26
PROVIDERS: Physician Assistant; Admitting Provider Internal Medicine; Emergency Provider Internal Medicine; PCP Nurse Practitioner Family; Visit Provider Student in an Organized Health Care Education/Training Program
DX: K85.20 Alcohol induced acute pancreatitis without necrosis or infection (principal); F11.20 Opioid dependence, uncomplicated; I10 Essential (primary) hypertension; R94.31 Abnormal electrocardiogram [ECG] [EKG]; F10.10 Alcohol abuse, uncomplicated; Z20.822 Contact with and (suspected) exposure to COVID-19; Z79.899 Other long term (current) drug therapy
CPT/HCPCS: 36415; 74177; 76705; 80048; 80053; 80076; 82077; 83690; 83735; 84484; 85025; 85027; 87635; 93005; 99285; J1650; J1885; J2270; J2560; J2765; J3411; J3475; Q9967

== ENCOUNTER 2022-01-16 16:27 | Inpatient (IN) | payer OTHER, SELFPAY ==
--- NOTE | ~2022-01-16 | US_ITS ---
EXAMINATION: US DUPLEX ARTERIAL VENOUS CLINICAL INFORMATION: Portal vein thrombosis evaluation. Jaundice. Intrahepatic segments of portal vein not well visualized on MR imaging. COMPARISON: Abdomen MRI from 01/17/2022. Abdomen CT from 01/16/2022. TECHNIQUE: Sonographic imaging of the abdomen is performed. Also, duplex Doppler imaging of portal, hepatic and splenic vessels is performed. FINDINGS: ANATOMIC FINDINGS Cirrhotic liver has nodular surface contour. No focal lesions are seen. Splenomegaly is present. The spleen measures up to 14.9 cm maximum dimension. Gallbladder is hydropic and contains sludge and a few small stones. The gallbladder wall is minimally thickened, likely reactive to the hepatic disease. The visualized proximal common duct measures up to 0.8 cm diameter. The distal duct is obscured by bowel gas. Moderate volume of ascites is seen within the abdomen. DOPPLER IMAGING FINDINGS Portal veins - The right and left portal veins are small in caliber, and not well evaluated with Doppler ultrasound. There is hepatopedal flow within the left portal vein. The diminutive right portal vein is not well seen; unable to document flow within the right portal vein. However, there is opacification of the right portal vein with contrast on 01/16/2022 and 01/17/2022. No portal vein thrombus is seen on the recent CT and MRI exams. There is no significant flow visualized within the main portal vein. Although this is suggestive of thrombosis, there can be lack of visualization of flow in portal venous hypertension. It is important to note that there is no thrombus in the main portal vein on the recent contrast enhanced exams of 01/16/2022 and 01/17/2022. Splenic vein - The visualized splenic vein is normal. Hepatic veins and IVC - The hepatic veins are patent and have normal flow direction. Inferior vena cava is unremarkable. Hepatic artery - The common hepatic artery is patent with peak velocity of 160 cm/sec. The right and left hepatic arteries have normal waveforms. US/US duplex arterial venous comp IMPRESSION: Cirrhotic liver, splenomegaly and ascites. This Doppler imaging examination suggests possibility of thrombosis involving the main portal vein and right portal vein. However, no thrombus is present within these veins on the contrast-enhanced exams from 01/16/2022 or 01/17/2022. The intrahepatic portal veins are not well evaluated due to their small caliber and it is possible that there is lack of well-defined flow in portal veins to the presence of portal hypertension. Hydropic gallbladder contains sludge and stones. Common bile duct is mildly dilated (0.8 cm diameter). There was no choledocholithiasis on the recent MRI from 01/17/2022.
--- NOTE | ~2022-01-16 | MR_ITS ---
EXAMINATION: MR ABDOMEN WITHOUT AND WITH CONTRAST CLINICAL INFORMATION: Jaundice. Clinical concern for common duct calculus. Clinical concern for portal vein thrombosis. COMPARISON: Portions of a CT 01/16/22 TECHNIQUE: MR abdomen was performed without and with use of 10 mL intravenous Gadavist gadolinium contrast. Postcontrast images are performed in multiphase dynamic sequences. Imaging was performed in 3 planes. Thick slab MRCP was attempted FINDINGS: The study is significantly limited. LUNG BASES: There is a small amount of right pleural fluid. There is right lower lung disease. The distal esophagus is not well evaluated. LIVER, GALLBLADDER, AND BILIARY TREE: The right lobe of the liver measures 18.1 cm. The liver contour is irregular. The background hepatic signal is heterogeneous. Multiphasic postcontrast examination is markedly limited. There is no convincing early enhancing liver lesion. My level of confidence is relatively low. The common duct is dilated and measures up to 1.3 cm. The central intrahepatic bile ducts are dilated. No convincing choledocholithiasis. The gallbladder is distended. No definite gallbladder mass. PANCREAS: The pancreas is relatively atrophic. No suspicious mass demonstrated SPLEEN: The spleen is enlarged. The spleen measures 13.6 cm. This is between 1 and 2 standard deviations above the mean expected. ADRENAL GLANDS: No suspicious abnormality KIDNEYS AND URETERS: The lower aspect of the kidneys is not included. This does not allow characterization of a small lesion in the lateral lower right kidney. No dilation of the urinary collecting system. GASTROINTESTINAL TRACT: Limited. ABDOMINAL WALL: Motion limits assessment. No large hernia demonstrated LYMPH NODES: No measurably enlarged lymph nodes. There is a moderate amount of intraperitoneal fluid. VASCULAR: Deangelo aortic aneurysm. The upper aspect of the superior mesenteric vein enhances. The central portion of the portal vein enhances. However, the portal vein is not well visualized at the arthur hepatis or within the central intraparenchymal segments. I cannot exclude either partial thrombus or cavernous transformation as previously suggested. Motion limits detail. OSSEOUS STRUCTURES: No suspicious focal lesion. MR/MR abdomen wo/w con IMPRESSION: Limited study. The gallbladder is distended. There is dilation of the intra and extrahepatic bile ducts without a definite mass. Attempts at MRCP were limited but there is no definite choledocholithiasis. Findings suggest chronic liver disease with portal hypertension including splenomegaly and ascites. The central portion of the portal vein enhances but the intrahepatic segments are not well visualized and thrombus could be present. This study does not allow characterization of small renal masses. Right pleural fluid and right lung base disease.
--- NOTE | ~2022-01-16 | XR_ITS ---
EXAMINATION: XR CHEST CLINICAL INFORMATION: Weakness, rule out pneumonia COMPARISON: 10/04/2018 TECHNIQUE: Frontal view of the chest was obtained. FINDINGS: New coarse interstitial opacity. No focal consolidation or mass. No pleural effusion or pneumothorax. Cardiomediastinal silhouette within normal. No acute osseous abnormality. XR/XR chest 1V IMPRESSION: New coarse interstitial opacity. This can be seen in the setting of bronchitis, interstitial pneumonitis (including viral COVID pneumonitis) or pulmonary edema.
--- NOTE | ~2022-01-16 | XR_ITS ---
EXAMINATION: XR CHEST CLINICAL INFORMATION: Shortness of breath. COMPARISON: Chest x-ray 01/16/2022 TECHNIQUE: Frontal view of the chest was obtained. 10:56 PM FINDINGS: No significant abnormality is noted involving the heart, lungs, mediastinum, bony thorax or soft tissues. XR/XR chest 1V IMPRESSION: Unremarkable examination.
--- NOTE | ~2022-01-16 | US_ITS ---
EXAMINATION: US ABDOMEN LIMITED CLINICAL INFORMATION: Check for ascites. COMPARISON: Previous MRI 01/17/2022 TECHNIQUE: Limited 4 quadrant abdominal ultrasound FINDINGS: Very small amount of ascites seen in the right upper quadrant only adjacent to the liver. US/US abdomen limited IMPRESSION: There are small amount of ascites.
--- NOTE | ~2022-01-16 | NM_ITS ---
EXAMINATION: NM-BILIARY TRACT IMAGING STUDY CLINICAL INDICATION: Elevated bilirubin. Suspected gallbladder obstruction. COMPARISON: Limited abdominal ultrasound done on 01/18/2022, MRI of the abdomen done on 01/17/2022 and abdominal ultrasound and CT of the abdomen and pelvis, both done on 01/16/2022. TECHNIQUE: Scintillation camera images were obtained over the abdomen for an observation of 60 minutes following the intravenous administration of 6 millicuries technetium 99m mebrofenin. Subsequently, delayed images were obtained up to 3.5 hours post injection. FINDINGS: There is good concentration of activity in the liver by 5 minutes post injection. Biliary activity is well visualized by 25 minutes, and there is good visualization of small bowel activity by 35 minutes. The gallbladder remains nonvisualized throughout the entire study up to 3.5 hours post injection. NM/NM hepatobiliary wo pharm IMPRESSION: 1. Nonvisualized gallbladder up to 3.5 hours post injection. Differential diagnostic consideration would include physiologic changes including distended gallbladder (as was documented on multiple prior studies in this particular patient) as well as contracted gallbladder versus pathologic process such as acute cholecystitis. Further differentiation cannot be made based on this imaging appearance alone. 2.The common bile duct is patent. Liver function appears normal.
--- NOTE | ~2022-01-16 | CT_ITS ---
EXAMINATION: CT ABDOMEN AND PELVIS WITH CONTRAST CLINICAL INFORMATION: Abdominal distention. Bilirubin of 19.8. Elevated lipase. COMPARISON: 09/05/2020 TECHNIQUE: Multidetector volumetric images were obtained from the superior aspect of the liver through the pubic symphysis following administration 85 mL of Omnipaque 350 intravenous contrast. Sagittal and coronal reformatted images were obtained on the technologist's workstation. Oral contrast: No This CT examination was performed using dose optimization techniques as appropriate, variously including the following: *Automated exposure control *Adjustment of mA and/or kV according to patient size (this includes techniques or standardized protocols for targeted exams where dose is matched to indication/reason for exam; i.e. extremities or head) *Use of iterative reconstruction technique FINDINGS: LUNG BASES: Small right pleural effusion. Right base consolidation with air bronchograms, most likely atelectasis.. Minimal left base atelectasis. Bilateral gynecomastia. Normal heart size. Enlarged epicardial lymph nodes are seen at the midline anteriorly. No coronary artery calcification. LIVER, GALLBLADDER, AND BILIARY TREE: Liver remains enlarged with a nodular contour consistent with cirrhosis. No focal liver lesion seen. Diminutive portal veins are seen. The main portal vein is far smaller than on the prior study suggesting cavernous transformation. There is intrahepatic biliary ductal dilatation with the dilated common bile duct to 1.5 cm. The gallbladder is significantly distended. No gallbladder wall thickening. There is pericholecystic fluid, a nonspecific finding in the setting of ascites. There is dependent layering density consistent with sludge or noncalcified gallstones. PANCREAS: There is some fluid and fat stranding adjacent the pancreas, a nonspecific finding in the setting of ascites elsewhere. No pancreatic mass. SPLEEN: The spleen is enlarged measuring 17 cm anterior to posterior. ADRENAL GLANDS: Unremarkable. KIDNEYS AND URETERS: Again seen is an 8 mm enhancing exophytic structure from the lateral cortex left mid kidney in image 53/110. No calculi or hydronephrosis. BLADDER: Unremarkable. GASTROINTESTINAL TRACT: Small hiatal hernia. Stomach and small bowel are nondilated. There is right-sided colonic wall thickening with the distribution suggesting portal colopathy. Moderate volume of ascites is present with fluid along both paracolic gutters and dependently in to the pelvis. There is perihepatic and perisplenic free fluid. ABDOMINAL WALL: There is anasarca. Anterior abdominal wall collateral vessels are present. LYMPH NODES: Prominent to mildly enlarged upper retroperitoneal and arthur hepatis lymph nodes are present. VASCULAR: Normal caliber aorta. There are gastric, esophageal, and splenic varices. PELVIC VISCERA: Unremarkable. OSSEOUS STRUCTURES: Unremarkable. CT/CT abdomen pelvis w IV con IMPRESSION: Nodular hepatic contour suggests cirrhosis. Suspect cavernous transformation of the portal vein. Ascites, varices, and splenomegaly in keeping with portal hypertension. Distended gallbladder with pericholecystic fluid, a nonspecific finding given the presence of ascites. Similarly there is some fat stranding adjacent the head of the pancreas but there is fluid elsewhere in the retroperitoneum. Dilated common bile duct, at most 1.5 cm with intrahepatic biliary ductal dilatation as well. The findings are similar to the prior study from 2020. Again seen is an 8 mm indeterminate lesion exophytic from the lateral cortex of the right mid kidney. This could represent a hyperdense cyst or solid mass. Recommend renal protocol CT or MRI for definitive evaluation.
--- NOTE | ~2022-01-16 | US_ITS ---
EXAMINATION: US ABDOMEN LIMITED CLINICAL INFORMATION: Right upper quadrant pain. COMPARISON: CT earlier the same day TECHNIQUE: Real-time imaging of the right upper quadrant abdominal viscera. FINDINGS: PANCREAS: Pancreas obscured by bowel gas. LIVER: The liver is enlarged. There is a nodular hepatic contour consistent with cirrhosis. Coarse heterogeneous echotexture. No focal liver lesion seen. Dilated intrahepatic bile ducts are seen. Perihepatic ascites is present. GALLBLADDER: Gallbladder wall is thickened, a nonspecific finding in the setting of ascites. Dependent echogenic bile or sludge. No shadowing gallstones. COMMON BILE DUCT: Normal in caliber measuring 0.6 cm in diameter. RIGHT KIDNEY: 1.8 cm hypoechoic structure with low level internal echoes in the lateral cortex of the right kidney. No hydronephrosis. No renal calculi or focal parenchymal lesions. The kidney measures 11.2 cm in maximum dimension. FREE FLUID: None. US/US abdomen limited IMPRESSION: Limited study. Cirrhotic liver. Dilated intrahepatic bile ducts and perihepatic ascites are again noted. Gallbladder wall thickening with dependent echogenic bile or sludge. There is a 1.8 cm hypoechoic structure with low-level internal echoes in the lateral cortex of the right mid kidney. It is not certain if this corresponds to the 8 mm exophytic lesion of concern in the right kidney. Renal protocol CT or MRI is still preferred for definitive evaluation.
[2022-01-16 16:48] VITALS: BP 118/51; BP 158/82; PULSE 106; PULSE 98; RESP 18; TEMP 36.8; O2SAT 95; BMI 30.7
--- NOTE | 2022-01-16 17:00 | ED_ITS ---
HPI - General Adult General Chief complaint: Weakness Stated complaint: weakness Time Seen by Provider: 01/16/22 16:59 Source: patient and EMS Mode of arrival: EMS Limitations: no limitations History of Present Illness HPI narrative: This is a 56-year-old male past medical history significant for alcohol abuse, hypertension, substance abuse, hepatitis-C presenting to the emergency department with complaints of weakness, abdominal bloating, painless jaundice for the past week and a half. Patient tells me his skin color was normal up to a week and a half ago he tells me his skin is now all yellow, reports slight discomfort in the abdomen she tells me it is pretty distended when compared to usual. He reports he has never had jaundice before. Patient tells me stopped drinking 10 days ago he typically drinks 1 pt of vodka a day. He reports he used to use IV drugs years ago. However not currently using. He reports some shortness of breath and swelling to lower extremities bilaterally. Patient denies chest pain, nausea, vomiting, fevers, chills, headache, vision changes. Related Data Home Medications Medication Instructions Recorded Confirmed methadone 5 mg/5 mL oral solution 67 mg PO DAILY 09/06/20 01/16/22 Allergies Allergy/AdvReac Type Severity Reaction Status Date / Time No Known Allergies Allergy Unverified 11/23/19 15:10 [No Known Allergies*] Review of Systems Review of Systems: Constitutional : No Weight loss, No Fever, No Chills, No Fatigue, No Malaise ENT/Mouth : No sore throat, No Rhinorrhea Eyes: No Eye Pain, No Swelling, No Redness Cardiovascular : No Chest Pain, No SOB, No Dyspnea on Exertion, No Orthopnea, No Edema, No Palpitations Respiratory : No Cough, No Sputum, No Wheezing Gastrointestinal : No Nausea, No Vomiting, No Diarrhea, No Constipation, + abdominal Pain, No Hematochezia, No Melena Genitourinary : No Dysuria, No Urinary Frequency, No Hematuria, Musculoskeletal : No joint pain, No Myalgias, No Joint Swelling Skin : No Skin Lesions, No rash, + abnormal skin color Neuro : No Weakness, No Numbness, No Dizziness, No Headache Psych : No Anxiety/Panic, No Depression All other systems reviewed and are negative Yes all other systems are reviewed and are negative PMFSH Past Medical History Attestation statement: The following information was validated with the patient. Source: old records reviewed and nursing notes reviewed Medical History Alcohol abuse Drug abuse Hypertension Social History Social History Household Members: None Housing: Apartment Do you presently have visiting nurse or other home services: No Alcohol intake: current Patient Tobacco Use Status: Tobacco use Unknown Tobacco use type: Cigarette Substance Use Type: Heroin Advance Directives: No Advance Directives Information Provided: Yes service: No Current occupational status: unemployed Physical Exam ED Vital Signs: Vital Signs - 24 hr 01/16/22 16:48 01/16/22 19:38 01/16/22 20:27 Temperature 98.2 F 97.9 F 98.3 F Pulse Rate 98 100 96 Respiratory Rate 18 19 15 Blood Pressure 118/51 L 120/59 L 122/66 Pulse Oximetry 95 92 92 Oxygen Delivery Method Room Air Room Air Room Air Oxygen Flow Rate 01/16/22 21:50 Temperature 98.2 F Pulse Rate 93 Respiratory Rate 16 Blood Pressure 136/71 Pulse Oximetry 95 Oxygen Delivery Method Nasal Cannula Oxygen Flow Rate 3 BMI result Body Mass Index 30.7 Appearance: Alert.? Oriented X3.? No acute distress.? Head: Normocephalic, atraumatic, no step-offs or deformities Eyes: Pupils equal, round and reactive to light.? Bilateral icteric sclera. Mouth: Patient with tongue fasciculations. Neck: Normal inspection.? Neck supple.? CVS: Normal heart rate and rhythm.? Pulses normal.? Respiratory: No respiratory distress.? Breath sounds normal.? Abdomen: Soft and nontender. Abdomen distended positive fluid wave..? Skin: Skin warm and dry. Significant jaundice of skin throughout. Normal skin turgor.? Extremities: No lower extremity edema.? No calf ttp. 5/5 strength to bilateral upper and lower extremities. Asterixis noted to bilateral upper extremities. Back: No midline tenderness, no C-spine tenderness, full range of motion, no CVA tenderness bilaterally Neuro: Oriented X 3.? No motor deficit.? No sensory deficit. CN 2-12 intact Course Reevaluation(s) Reevaluation #1: CBC with significant leukocytosis 21.0, macrocytic anemia noted likley secondary to chronic alcohol abuse. Patient's sodium is noted to be 129, noted to have an acute kidney injury, which deviates highly from patient's baseline. Random glucose of 59, will give patient sugar. Patient's total bilirubin 19.8, AST 127 and ALT 65, alk-phos also elevated 146. All of these concerning for possible malignancy and or obstructing process. Ammonia level of 63 concerning for hepatic encephalopathy. Albumin level 1.9 will give albumin at this time. Lipase 445 concerning for pancreatitis. BNP 264, will give 40 of lasix. Lactic and cultures pending. Time: 18:28 Reevaluation #2: Lactic acid negative. CT of the abdomen and pelvis with no acute findings. I discussed this case with Dr. Gatito MEDINA who tells me he recommends a diagnostic paracentesis tonight to rule out SBP, he also recommends an MRI with and without contrast to check for CBD stones given the dilated CBD and further evaluate for any liver masses, portal vein thrombosis or other etiologies. Also recommend sending an alpha-fetoprotein level. Time: 20:58 Reevaluation #3: Patient will be admitted to the hospitalist for further intervention and treatment. Discussed case with hospitalist who accepts admission. Will attempt to do a diagnostic paracentesis after PT INR is back. Medications Administered Discontinued Medications Generic Name Dose Route Start Last Admin Trade Name Freq PRN Reason Stop Dose Admin Furosemide 40 mg 01/16/22 18:28 01/16/22 19:52 Furosemide 40 Mg/4 Ml Vial IVPUSH 01/16/22 18:29 40 mg STAT STA Administration Protocol Ceftriaxone Sodium 1 gm/ 50 mls @ 100 mls/hr 01/16/22 18:26 01/16/22 20:39 Sodium Chloride IV 01/16/22 18:55 Infused ONCE ONE Infusion Albumin Human 100 mls @ 100 mls/hr 01/16/22 18:30 01/16/22 22:27 Kedbumin 25 % IV 01/16/22 20:29 Infused Q1H BELKIS Infusion Sodium Chloride 500 mls @ 500 mls/hr 01/16/22 19:15 01/16/22 21:21 Ns IV 01/16/22 20:14 Not Given .Q1H BELKIS Sodium Chloride 1,000 mls @ 999 mls/hr 01/16/22 19:15 01/16/22 22:27 Ns IV 01/16/22 20:15 Infused .Q1H1M BELKIS Infusion Iohexol 100 ml 01/16/22 19:29 01/16/22 19:29 Iohexol 350 Mg/Ml 100 Ml Infus..Btl IV 01/16/22 19:30 85 ml ONCE ONE Administration Medical Decision Making MDM Narrative Medical decision making narrative: [id number] 56 year old male m presents with weakness, fatigue, malaise, painless jaundice as well as abdominal distension a little over week. PE- jaundice throughout skin, abdomen distended, rrr, lungs clear, neuro non focal. Patient noted to have tongue fasciculations and asterixis upon exam. Concerns for possible pancreatic cancer, hepatitis, pancreatitis, ascites and hepatic encephalopathy, obstructing process. Unlikely Budd-Chiari syndrome, acute abdomen, spontaneous bacterial peritonitis Plan- labs, imaging, urine, ekg Medical Records Medical records reviewed: Yes I reviewed the patient's medical records. Lab Data Lab results reviewed: Yes I reviewed the patient's lab results. Result diagrams: 01/16/22 17:25 01/16/22 21:37 Labs: Lab Results 01/16/22 01/16/22 01/16/22 Range/Units 17:25 17:25 17:25 WBC 21.0 H (4.8-10.8) X10*3/uL RBC 3.14 L (4.60-5.80) X10*6/uL Hgb 11.5 L (14.0-18.0) g/dl Hct 32.1 L (42.0-52.0) % MCV 102.2 H (80.0-98.0) fL MCH 36.6 H (27.0-33.0) pg MCHC 35.8 (31.0-36.0) g/dl RDW 15.6 (11.0-16.0) % Plt Count 226 (160-400) X10*3/uL MPV 10.1 (9.4-12.4) fL Immature Gran % (Auto) 1.0 H (0.0-0.4) % Neut % (Auto) 88.4 H (45-73) % Lymph % (Auto) 4.3 L (20-40) % [place] % (Auto) 6.1 (2-11) % Eos % (Auto) 0.1 (0-4) % Baso % (Auto) 0.1 (0-2) % Lymph # (Auto) 0.9 L (1.2-4.9) X10*3/uL [place] # (Auto) 1.3 H (0.1-1.2) X10*3/uL Eos # (Auto) 0.0 (0.0-0.4) X10*3/uL Baso # (Auto) 0.0 (0.0-0.2) X10*3/uL Abs Immat Gran (auto) 0.21 H (0.00-0.03) X10*3/uL Absolute Neuts (auto) 18.6 H (2.0-8.3) x10*3/uL Absolute Nucleated RBC 0.000 (0.0-0.012) X10*3/uL Nucleated RBC % (auto) 0.0 (0.0-0.2) /100WBC PT (10.0-13.1) SEC INR (0.9-1.1) Sodium 129 L (135-145) mmol/L Potassium 4.4 (3.3-5.1) mmol/L Chloride 97 (96-108) mmol/L Carbon Dioxide 21 L (22-29) mmol/L Anion Gap 15 (12-20) BUN 34 H (9-16) mg/dL Creatinine 1.58 H (0.5-1.4) mg/dL Estim Creat Clear Calc 61.3 Estimated GFR 45 Random Glucose 59 L* (60-115) mg/dL Lactic Acid (0.5-2.0) mmol/L Calcium 7.7 L D (8.4-10.2) mg/dL Magnesium 2.0 (1.6-2.6) mg/dL Total Bilirubin 19.8 H (0.0-1.0) mg/dL Direct Bilirubin 12.6 H (0.0-0.5) mg/dL AST 127 H (5-37) U/L ALT 65 H (0-40) U/L Alkaline Phosphatase 146 H D (39-117) U/L Ammonia (13-55) umol/L B-Natriuretic Peptide (<100) pg/mL Total Protein 7.2 (6.5-8.0) g/dL Albumin 1.9 L D (3.5-5.0) g/dL Lipase 445 H (8-78) U/L Urine Color Urine Appearance Urine pH (5.0-9.0) Ur Specific [place] (1.005-1.025) Urine Protein (Neg-Trace) mg/dL Urine Glucose (UA) (Negative) mg/dL Urine Ketones (Negative) mg/dL Urine Blood (Negative) Urine Nitrite (Negative) Ur Leukocyte Esterase (Negative) COVID-19 (SUSAN) Negative (Negative) COVID-19 Clin Com See Note Influenza Type A (PCR) (Negative) Influenza Type B (PCR) (Negative) RSV RNA Qual (PCR) (Negative) SARS-CoV-2 RNA (RT-PCR) (Negative) 01/16/22 01/16/22 01/16/22 Range/Units 17:25 17:45 18:44 WBC (4.8-10.8) X10*3/uL RBC (4.60-5.80) X10*6/uL Hgb (14.0-18.0) g/dl Hct (42.0-52.0) % MCV (80.0-98.0) fL MCH (27.0-33.0) pg MCHC (31.0-36.0) g/dl RDW (11.0-16.0) % Plt Count (160-400) X10*3/uL MPV (9.4-12.4) fL Immature Gran % (Auto) (0.0-0.4) % Neut % (Auto) (45-73) % Lymph % (Auto) (20-40) % [place]on % (Auto) (2-11) % Eos % (Auto) (0-4) % Baso % (Auto) (0-2) % Lymph # (Auto) (1.2-4.9) X10*3/uL [place] # (Auto) (0.1-1.2) X10*3/uL Eos # (Auto) (0.0-0.4) X10*3/uL Baso # (Auto) (0.0-0.2) X10*3/uL Abs Immat Gran (auto) (0.00-0.03) X10*3/uL Absolute Neuts (auto) (2.0-8.3) x10*3/uL Absolute Nucleated RBC (0.0-0.012) X10*3/uL Nucleated RBC % (auto) (0.0-0.2) /100WBC PT (10.0-13.1) SEC INR (0.9-1.1) Sodium (135-145) mmol/L Potassium (3.3-5.1) mmol/L Chloride (96-108) mmol/L Carbon Dioxide (22-29) mmol/L Anion Gap (12-20) BUN (9-16) mg/dL Creatinine (0.5-1.4) mg/dL Estim Creat Clear Calc Estimated GFR Random Glucose (60-115) mg/dL Lactic Acid 1.9 (0.5-2.0) mmol/L Calcium (8.4-10.2) mg/dL Magnesium (1.6-2.6) mg/dL Total Bilirubin (0.0-1.0) mg/dL Direct Bilirubin (0.0-0.5) mg/dL AST (5-37) U/L ALT (0-40) U/L Alkaline Phosphatase (39-117) U/L Ammonia 63 H (13-55) umol/L B-Natriuretic Peptide 264 H (<100) pg/mL Total Protein (6.5-8.0) g/dL Albumin (3.5-5.0) g/dL Lipase (8-78) U/L Urine Color Urine Appearance Urine pH (5.0-9.0) Ur Specific [place] (1.005-1.025) Urine Protein (Neg-Trace) mg/dL Urine Glucose (UA) (Negative) mg/dL Urine Ketones (Negative) mg/dL Urine Blood (Negative) Urine Nitrite (Negative) Ur Leukocyte Esterase (Negative) COVID-19 (SUSAN) (Negative) COVID-19 Clin Com Influenza Type A (PCR) (Negative) Influenza Type B (PCR) (Negative) RSV RNA Qual (PCR) (Negative) SARS-CoV-2 RNA (RT-PCR) (Negative) 01/16/22 01/16/22 01/16/22 Range/Units 20:20 21:37 21:37 WBC (4.8-10.8) X10*3/uL RBC (4.60-5.80) X10*6/uL Hgb (14.0-18.0) g/dl Hct (42.0-52.0) % MCV (80.0-98.0) fL MCH (27.0-33.0) pg MCHC (31.0-36.0) g/dl RDW (11.0-16.0) % Plt Count (160-400) X10*3/uL MPV (9.4-12.4) fL Immature Gran % (Auto) (0.0-0.4) % Neut % (Auto) (45-73) % Lymph % (Auto) (20-40) % [place] % (Auto) (2-11) % Eos % (Auto) (0-4) % Baso % (Auto) (0-2) % Lymph # (Auto) (1.2-4.9) X10*3/uL [place] # (Auto) (0.1-1.2) X10*3/uL Eos # (Auto) (0.0-0.4) X10*3/uL Baso # (Auto) (0.0-0.2) X10*3/uL Abs Immat Gran (auto) (0.00-0.03) X10*3/uL Absolute Neuts (auto) (2.0-8.3) x10*3/uL Absolute Nucleated RBC (0.0-0.012) X10*3/uL Nucleated RBC % (auto) (0.0-0.2) /100WBC PT 36.5 H (10.0-13.1) SEC INR 3.0 H (0.9-1.1) Sodium 131 L (135-145) mmol/L Potassium 3.7 (3.3-5.1) mmol/L Chloride 99 (96-108) mmol/L Carbon Dioxide 20 L (22-29) mmol/L Anion Gap 16 (12-20) BUN 33 H (9-16) mg/dL Creatinine 1.47 H (0.5-1.4) mg/dL Estim Creat Clear Calc 65.9 Estimated GFR 49 Random Glucose 69 (60-115) mg/dL Lactic Acid (0.5-2.0) mmol/L Calcium 7.3 L (8.4-10.2) mg/dL Magnesium (1.6-2.6) mg/dL Total Bilirubin 16.9 H (0.0-1.0) mg/dL Direct Bilirubin (0.0-0.5) mg/dL AST 103 H (5-37) U/L ALT 55 H (0-40) U/L Alkaline Phosphatase 118 H (39-117) U/L Ammonia (13-55) umol/L B-Natriuretic Peptide (<100) pg/mL Total Protein 6.4 L (6.5-8.0) g/dL Albumin 2.0 L (3.5-5.0) g/dL Lipase (8-78) U/L Urine Color Urine Appearance Urine pH (5.0-9.0) Ur Specific [place] (1.005-1.025) Urine Protein (Neg-Trace) mg/dL Urine Glucose (UA) (Negative) mg/dL Urine Ketones (Negative) mg/dL Urine Blood (Negative) Urine Nitrite (Negative) Ur Leukocyte Esterase (Negative) COVID-19 (SUSAN) (Negative) COVID-19 Clin Com Influenza Type A (PCR) NEGATIVE (Negative) Influenza Type B (PCR) NEGATIVE (Negative) RSV RNA Qual (PCR) NEGATIVE (Negative) SARS-CoV-2 RNA (RT-PCR) NEGATIVE (Negative) 01/16/22 Range/Units 21:53 WBC (4.8-10.8) X10*3/uL RBC (4.60-5.80) X10*6/uL Hgb (14.0-18.0) g/dl Hct (42.0-52.0) % MCV (80.0-98.0) fL MCH (27.0-33.0) pg MCHC (31.0-36.0) g/dl RDW (11.0-16.0) % Plt Count (160-400) X10*3/uL MPV (9.4-12.4) fL Immature Gran % (Auto) (0.0-0.4) % Neut % (Auto) (45-73) % Lymph % (Auto) (20-40) % [place] % (Auto) (2-11) % Eos % (Auto) (0-4) % Baso % (Auto) (0-2) % Lymph # (Auto) (1.2-4.9) X10*3/uL [place] # (Auto) (0.1-1.2) X10*3/uL Eos # (Auto) (0.0-0.4) X10*3/uL Baso # (Auto) (0.0-0.2) X10*3/uL Abs Immat Gran (auto) (0.00-0.03) X10*3/uL Absolute Neuts (auto) (2.0-8.3) x10*3/uL Absolute Nucleated RBC (0.0-0.012) X10*3/uL Nucleated RBC % (auto) (0.0-0.2) /100WBC PT (10.0-13.1) SEC INR (0.9-1.1) Sodium (135-145) mmol/L Potassium (3.3-5.1) mmol/L Chloride (96-108) mmol/L Carbon Dioxide (22-29) mmol/L Anion Gap (12-20) BUN (9-16) mg/dL Creatinine (0.5-1.4) mg/dL Estim Creat Clear Calc Estimated GFR Random Glucose (60-115) mg/dL Lactic Acid (0.5-2.0) mmol/L Calcium (8.4-10.2) mg/dL Magnesium (1.6-2.6) mg/dL Total Bilirubin (0.0-1.0) mg/dL Direct Bilirubin (0.0-0.5) mg/dL AST (5-37) U/L ALT (0-40) U/L Alkaline Phosphatase (39-117) U/L Ammonia (13-55) umol/L B-Natriuretic Peptide (<100) pg/mL Total Protein (6.5-8.0) g/dL Albumin (3.5-5.0) g/dL Lipase (8-78) U/L Urine Color Dark Yellow Urine Appearance Clear Urine pH 6.0 (5.0-9.0) Ur Specific [place] 1.015 (1.005-1.025) Urine Protein Negative (Neg-Trace) mg/dL Urine Glucose (UA) Negative (Negative) mg/dL Urine Ketones Negative (Negative) mg/dL Urine Blood Negative (Negative) Urine Nitrite Negative (Negative) Ur Leukocyte Esterase Negative (Negative) COVID-19 (SUSAN) (Negative) COVID-19 Clin Com Influenza Type A (PCR) (Negative) Influenza Type B (PCR) (Negative) RSV RNA Qual (PCR) (Negative) SARS-CoV-2 RNA (RT-PCR) (Negative) Critical Care Time Critical Care Time Critical Care Time: Yes Total Critical Care Time: 45 Attestation: I attest to this time spent taking care of the patient, obtaining history, physical, reviewing labs, imaging, speaking to my attending, speaking to specialist. Discharge Plan Discharge Clinical Impression: Jaundice, Abdominal distension, Ascites, CEASAR (acute kidney injury) Patient Disposition: Admitted As Inpatient
[2022-01-16 17:29] LABS: MANUAL DIFF FLAG NO
[2022-01-16 17:32] LABS: Basophils Percent Auto 0.1 % (0-2); Eosinophils Percent Auto 0.1 % (0-4); Hematocrit 32.1 % (42.0-52.0); Hemoglobin 11.5 g/dl (14.0-18.0); Imm Gran Abs Auto 0.21 X10*3/uL (0.00-0.03); Lymphocytes Absolute Auto 0.9 X10*3/uL (1.2-4.9); Lymphocytes Percent Auto 4.3 % (20-40); Mean Corpuscular HGB Conc 35.8 g/dl (31.0-36.0); Mean Corpuscular Hemoglobin 36.6 pg (27.0-33.0); Mean Corpuscular Volume 102.2 fL (80.0-98.0); Mean Platelet Volume 10.1 fL (9.4-12.4); Monocytes Absolute Auto 1.3 X10*3/uL (0.1-1.2); Monocytes Percent Auto 6.1 % (2-11); Neutrophils Absolute Auto 18.6 x10*3/uL (2.0-8.3); Neutrophils Percent Auto 88.4 % (45-73); Platelet Count 226 X10*3/uL (160-400); Red Blood Count 3.14 X10*6/uL (4.60-5.80); Red Cell Distribution Width 15.6 % (11.0-16.0)
[2022-01-16 17:49] LABS: B Type Natriuretic Peptide 264 pg/mL (<100)
[2022-01-16 17:53] LABS: Alanine Aminotransferase 65 U/L (0-40); Albumin Level 1.9 g/dL (3.5-5.0); Alkaline Phosphatase 146 U/L (39-117); Anion Gap 15 (12-20); Aspartate Amino Transferase 127 U/L (5-37); Bilirubin Total 19.8 mg/dL (0.0-1.0); Blood Urea Nitrogen 34 mg/dL (9-16); Calcium 7.7 mg/dL (8.4-10.2); Carbon Dioxide 21 mmol/L (22-29); Chloride 97 mmol/L (96-108); Creatinine Clr Calc Pharmacy 61.3; Estimated Glomerular Filt Rate 45; Glucose Random 59 mg/dL (60-115); Lipase 445 U/L (8-78); Potassium 4.4 mmol/L (3.3-5.1); Sodium 129 mmol/L (135-145); Total Protein 7.2 g/dL (6.5-8.0)
[2022-01-16 17:54] LABS: COVID-19 Test Negative (Negative); IDNOW Serial# 16C4AD1C
[2022-01-16 18:05] LABS: Ammonia 63 umol/L (13-55)
[2022-01-16 19:12] LABS: Lactic Acid 1.9 mmol/L (0.5-2.0)
[2022-01-16 19:29] LABS: Bilirubin Direct 12.6 mg/dL (0.0-0.5)
[2022-01-16] MEDS: iohexoL 350 MG/ML 100 ML INFUS..BTL IV (19:29)
[2022-01-16 19:38] VITALS: BP 120/59; PULSE 100; RESP 19; TEMP 36.6; O2SAT 92
[2022-01-16] MEDS: Furosemide 40 MG/4 ML VIAL IVPUSH (19:52)
[2022-01-16] MEDS: Albumin Human 25 % 100 ML IV ×2 (19:52→21:20)
[2022-01-16] MEDS: cefTRIAXone sodium 1 GM in 0.9 % Sodium Chloride 50 ML IV (20:03)
[2022-01-16 20:27] VITALS: BP 122/66; PULSE 96; RESP 15; TEMP 36.8; O2SAT 92
[2022-01-16] MEDS: 0.9 % Sodium Chloride 1,000 ML 999 ML IV (20:42)
--- NOTE | 2022-01-16 20:45 | PC.NURSE ---
Pt O2Sat at 90% RA. Patient placed on 2L of O2 NC. Patient is now at 94% O2.
--- NOTE | 2022-01-16 21:00 | PC.NURSE ---
Pt a&o, no sob or chest pain, Medicated per May. Notified CHEMO Rios
[2022-01-16 21:13] LABS: Influenza A PCR NEGATIVE (Negative); Influenza B PCR NEGATIVE (Negative); Resp Syncy Virus RNA Qual PCR NEGATIVE (Negative); SARS COV2 PCR INHOUSE NEGATIVE (Negative)
--- NOTE | 2022-01-16 21:24 | PC.NURSE ---
medicated per May and notified CHEMO Rios
[2022-01-16 21:49] LABS: Prothrombin Time 36.5 SEC (10.0-13.1)
[2022-01-16 21:50] VITALS: BP 136/71; PULSE 93; RESP 16; TEMP 36.8; O2SAT 95
--- NOTE | 2022-01-16 21:51 | PHA.MEDREC ---
Pharmacy Consult ? Medication Reconciliation Pharmacy has completed the medication reconciliation. Patient states the only regular medication he takes is 67 mg of methadone daily that he gets through the [facility] clinic.
[2022-01-16 22:00] LABS: Appearance Urine Clear; Color Urine Dark Yellow; Glucose Urine UA Negative (Negative); Leukocyte Esterase Urine Negative (Negative); Nitrite Urine Negative (Negative); Specific Gravity - Urine 1.015 (1.005-1.025); Urine Blood Negative (Negative); Urine Ketones Negative (Negative); Urine Protein Negative (Neg-Trace)
[2022-01-16 22:09] LABS: Alanine Aminotransferase 55 U/L (0-40); Alkaline Phosphatase 118 U/L (39-117); Anion Gap 16 (12-20); Aspartate Amino Transferase 103 U/L (5-37); Bilirubin Total 16.9 mg/dL (0.0-1.0); Blood Urea Nitrogen 33 mg/dL (9-16); Calcium 7.3 mg/dL (8.4-10.2); Carbon Dioxide 20 mmol/L (22-29); Chloride 99 mmol/L (96-108); Creatinine Clr Calc Pharmacy 65.9; Estimated Glomerular Filt Rate 49; Glucose Random 69 mg/dL (60-115); Potassium 3.7 mmol/L (3.3-5.1); Sodium 131 mmol/L (135-145); Total Protein 6.4 g/dL (6.5-8.0)
--- NOTE | 2022-01-16 23:28 | P.HPHOSP_ITS ---
History of Present Illness Date of Service: 01/16/22 Chief Complaint: Abdominal distension This is a 56-year-old male with pertinent history of alcohol use disorder, substance use disorder, hepatitis-C (unclear treatment status) who presents to the emergency department with complaints of abdominal distension. Patient states for the last 10 days he has had worsening abdominal discomfort with distention. Also noticed yellowing discoloration of his skin. He has been extremely weak over the last 7-10 days. Patient denies similar complaints in the past. He does consume 1 workup per day but states he has not had a drink in a week. Also admits to IV drug use, last used many years ago. His abdominal discomfort is generalized, constant , nonradiating and without any relieving factors. Patient denies fever, chills, chest discomfort, palpitations. He also noticed change in color of his urine and stool. In the emergency department, patient was found to have leukocytosis, elevated liver enzymes and imaging with dilated bile duct. GI was consulted from the ER who will evaluate the patient in a.m.. Review of Systems Constitutional: Constitutional: Reports fatigue and Reports weakness Cardiovascular: Cardiovascular: Reports no additional cardiovascular complaints Respiratory: Respiratory: Reports no additional respiratory complaints Gastrointestinal: Gastrointestinal: Reports abdominal pain, Reports bloating and Reports change in stool character Genitourinary: Genitourinary: Reports no additional male genitourinary complaints Neurologic: Reports weakness Endocrine: Endocrine: Reports fatigue ON LICENSE OF [facility] Medical History (Updated 01/16/22 @ 23:36 by Josh Alicea MD) Alcohol abuse Drug abuse Hypertension Social History Household Members: None Housing: Apartment Do you presently have visiting nurse or other home services: No Alcohol intake: current Patient Tobacco Use Status: Tobacco use Unknown Tobacco use type: Cigarette Substance Use Type: Heroin Advance Directives: No Advance Directives Information Provided: Yes service: No Current occupational status: unemployed Meds Allergies Allergy/AdvReac Type Severity Reaction Status Date / Time No Known Allergies Allergy Unverified 11/23/19 15:10 [No Known Allergies*] Active Medications: Current Medications Ceftriaxone Sodium 2 gm/ (Sodium Chloride) 50 mls @ 100 mls/hr IV DAILY BELKIS Lactulose (Lactulose 20 Gm/30 Ml Solution) 20 gm PO QID BELKIS Melatonin (Melatonin 3 Mg Tablet) 6 mg PO BEDTIME PRN PRN Reason: Insomnia Ondansetron HCl (Ondansetron Hcl 4 Mg/2 Ml Vial) 4 mg IVPUSH Q8H PRN PRN Reason: Nausea and Vomiting Pharmacy Consult (Consult Rx Perform Med Rec) 1 each MISCELLANE ONCE PRN PRN Reason: Consult order Sodium Chloride (0.9 % Sodium Chloride Flush 3 Ml Syringe) 3 ml IVFLUSH [facility]SHIFT [facility] Home Medications Medication Instructions Recorded Confirmed Last Taken Type methadone 5 mg/5 mL oral solution 67 mg PO DAILY 09/06/20 01/16/22 01/16/22 History Physical Exam Vital Signs and Narrative: Vital Signs: Last Vital Signs Temp 98.2 F 01/16/22 21:50 Pulse 93 01/16/22 21:50 Resp 16 01/16/22 21:50 BP 136/71 01/16/22 21:50 Pulse Ox 95 01/16/22 21:50 O2 Del Method 01/16/22 21:50 O2 Flow Rate 3 01/16/22 21:50 BMI result Body Mass Index 30.7 Middle-aged male lying in bed in no distress Neck supple Regular rate and rhythm, S1-S2 heard decreased sounds at bases, no wheezing appreciated Abdomen distended and firm, fluid thrill present, generalized discomfort with palpation Patient is awake, alert and oriented to self, place, time and person ; no focal motor deficit Psych: Normal mood Results Labs CBC and Chem 7: 01/16/22 17:25 01/16/22 21:37 Labs: Laboratory Results - last 24 hr 01/16/22 01/16/22 01/16/22 17:25 17:25 17:25 MCV 102.2 H MCH 36.6 H MCHC 35.8 RDW 15.6 Plt Count 226 MPV 10.1 Immature Gran % (Auto) 1.0 H Neut % (Auto) 88.4 H Lymph % (Auto) 4.3 L [place] % (Auto) 6.1 Eos % (Auto) 0.1 Baso % (Auto) 0.1 Lymph # (Auto) 0.9 L [place] # (Auto) 1.3 H Eos # (Auto) 0.0 Baso # (Auto) 0.0 Abs Immat Gran (auto) 0.21 H Absolute Neuts (auto) 18.6 H Absolute Nucleated RBC 0.000 Nucleated RBC % (auto) 0.0 PT INR Anion Gap 15 Estim Creat Clear Calc 61.3 Estimated GFR 45 Random Glucose 59 L* Lactic Acid Calcium 7.7 L D Magnesium 2.0 Total Bilirubin 19.8 H Direct Bilirubin 12.6 H AST 127 H ALT 65 H Alkaline Phosphatase 146 H D Ammonia B-Natriuretic Peptide Total Protein 7.2 Albumin 1.9 L D Lipase 445 H Urine Color Urine Appearance Urine pH Ur Specific [place] Urine Protein Urine Glucose (UA) Urine Ketones Urine Blood Urine Nitrite Ur Leukocyte Esterase COVID-19 (SUSAN) Negative COVID-19 Clin Com See Note Influenza Type A (PCR) Influenza Type B (PCR) RSV RNA Qual (PCR) SARS-CoV-2 RNA (RT-PCR) 01/16/22 01/16/22 01/16/22 17:25 17:45 18:44 MCV MCH MCHC RDW Plt Count MPV Immature Gran % (Auto) Neut % (Auto) Lymph % (Auto) [place] % (Auto) Eos % (Auto) Baso % (Auto) Lymph # (Auto) [place] # (Auto) Eos # (Auto) Baso # (Auto) Abs Immat Gran (auto) Absolute Neuts (auto) Absolute Nucleated RBC Nucleated RBC % (auto) PT INR Anion Gap Estim Creat Clear Calc Estimated GFR Random Glucose Lactic Acid 1.9 Calcium Magnesium Total Bilirubin Direct Bilirubin AST ALT Alkaline Phosphatase Ammonia 63 H B-Natriuretic Peptide 264 H Total Protein Albumin Lipase Urine Color Urine Appearance Urine pH Ur Specific [place] Urine Protein Urine Glucose (UA) Urine Ketones Urine Blood Urine Nitrite Ur Leukocyte Esterase COVID-19 (SUSAN) COVID-19 Clin Com Influenza Type A (PCR) Influenza Type B (PCR) RSV RNA Qual (PCR) SARS-CoV-2 RNA (RT-PCR) 01/16/22 01/16/22 01/16/22 20:20 21:37 21:37 MCV MCH MCHC RDW Plt Count MPV Immature Gran % (Auto) Neut % (Auto) Lymph % (Auto) [place] % (Auto) Eos % (Auto) Baso % (Auto) Lymph # (Auto) [place] # (Auto) Eos # (Auto) Baso # (Auto) Abs Immat Gran (auto) Absolute Neuts (auto) Absolute Nucleated RBC Nucleated RBC % (auto) PT 36.5 H INR 3.0 H Anion Gap 16 Estim Creat Clear Calc 65.9 Estimated GFR 49 Random Glucose 69 Lactic Acid Calcium 7.3 L Magnesium Total Bilirubin 16.9 H Direct Bilirubin AST 103 H ALT 55 H Alkaline Phosphatase 118 H Ammonia B-Natriuretic Peptide Total Protein 6.4 L Albumin 2.0 L Lipase Urine Color Urine Appearance Urine pH Ur Specific [place] Urine Protein Urine Glucose (UA) Urine Ketones Urine Blood Urine Nitrite Ur Leukocyte Esterase COVID-19 (SUSAN) COVID-19 Clin Com Influenza Type A (PCR) NEGATIVE Influenza Type B (PCR) NEGATIVE RSV RNA Qual (PCR) NEGATIVE SARS-CoV-2 RNA (RT-PCR) NEGATIVE 01/16/22 21:53 MCV MCH MCHC RDW Plt Count MPV Immature Gran % (Auto) Neut % (Auto) Lymph % (Auto) [place] % (Auto) Eos % (Auto) Baso % (Auto) Lymph # (Auto) [place] # (Auto) Eos # (Auto) Baso # (Auto) Abs Immat Gran (auto) Absolute Neuts (auto) Absolute Nucleated RBC Nucleated RBC % (auto) PT INR Anion Gap Estim Creat Clear Calc Estimated GFR Random Glucose Lactic Acid Calcium Magnesium Total Bilirubin Direct Bilirubin AST ALT Alkaline Phosphatase Ammonia B-Natriuretic Peptide Total Protein Albumin Lipase Urine Color Dark Yellow Urine Appearance Clear Urine pH 6.0 Ur Specific [place] 1.015 Urine Protein Negative Urine Glucose (UA) Negative Urine Ketones Negative Urine Blood Negative Urine Nitrite Negative Ur Leukocyte Esterase Negative COVID-19 (SUSAN) COVID-19 Clin Com Influenza Type A (PCR) Influenza Type B (PCR) RSV RNA Qual (PCR) SARS-CoV-2 RNA (RT-PCR) Imaging Radiologist's Impressions: Impressions Chest X-Ray 01/16/22 18:25 IMPRESSION: New coarse interstitial opacity. This can be seen in the setting of bronchitis, interstitial pneumonitis (including viral COVID pneumonitis) or pulmonary edema. Abdomen/Pelvis CT 01/16/22 19:38 IMPRESSION: Nodular hepatic contour suggests cirrhosis. Suspect cavernous transformation of the portal vein. Ascites, varices, and splenomegaly in keeping with portal hypertension. Distended gallbladder with pericholecystic fluid, a nonspecific finding given the presence of ascites. Similarly there is some fat stranding adjacent the head of the pancreas but there is fluid elsewhere in the retroperitoneum. Dilated common bile duct, at most 1.5 cm with intrahepatic biliary ductal dilatation as well. The findings are similar to the prior study from 2020. Again seen is an 8 mm indeterminate lesion exophytic from the lateral cortex of the right mid kidney. This could represent a hyperdense cyst or solid mass. Recommend renal protocol CT or MRI for definitive evaluation. Abdomen Ultrasound 01/16/22 20:49 IMPRESSION: Limited study. Cirrhotic liver. Dilated intrahepatic bile ducts and perihepatic ascites are again noted. Gallbladder wall thickening with dependent echogenic bile or sludge. There is a 1.8 cm hypoechoic structure with low-level internal echoes in the lateral cortex of the right mid kidney. It is not certain if this corresponds to the 8 mm exophytic lesion of concern in the right kidney. Renal protocol CT or MRI is still preferred for definitive evaluation. Chest X-Ray 01/16/22 23:11 IMPRESSION: Unremarkable examination. Assessment and Plan (1) Decompensation of cirrhosis of liver: Status: Acute (2) Jaundice: Status: Acute (3) CEASAR (acute kidney injury): Status: Acute (4) Alcohol abuse: Status: Acute (5) Drug abuse: Status: Acute Plan This is a 56-year-old male with pertinent history of alcohol use disorder, substance use disorder, hepatitis-C (unclear treatment status) who presents to the emergency department with complaints of abdominal distension. #. Jaundice #. Imaging evidence of dilated ducts -unclear etiology. Obtaining MRI to further delineate etiology. GI consulted from the ER, appreciate assistance. AFP pending #. Acute decompensated liver cirrhosis -likely due to alcohol use. Initiated lactulose. Defer diuretics due to low normal blood pressure. Initiated ceftriaxone until SBP ruled out. Diagnostic paracentesis pending #. Elevated ammonia -initiated lactulose as above #. Acute kidney injury, Stage I -pre-renal. Received crystalloids and colloids in the ER. Monitor creatinine urine output with resuscitation. Avoid nephrotoxins. #. ?1.8cm hypoechoic lesion in right kidney -MRI pending #. Alcohol use disorder - States last drink was [address] on CIWA protocol. Initiated thiamine and folic acid #. Substance use disorder - states has not used IV drugs in many years. UDS pending #. Coagulopathy due to liver disease -hold anticoagulation DVT Prophylaxis: Mechanical. Hold anticoagulation as INR is supratherapeutic Low-salt diet Full code Admit as inpatient and will require two night minimum hospital stay for evaluation and treatment of jaundice and decompensated cirrhosis. GI consult pending Quality Stroke Does the patient have a stroke diagnosis?: No VTE Prior VTE?: No VTE Risk Level:: Medical - moderate - high VTE Device Contraindication: N/A - Device Ordered VTE Drug Contraindication: Treatment Not Indicated
[2022-01-17] VITALS (8 sets, daily range): BP systolic 114–146; BP diastolic 57–70; PULSE 69–91; RESP 12–18; TEMP 35.6–36.9; O2SAT 92–96; BMI 32.1
[2022-01-17] MEDS: Lactulose 20 GM/30 ML SOLUTION PO ×5 (00:35→20:03)
[2022-01-17] MEDS: Lidocaine HCl 1 % 20 ML VIAL SUBCUT (01:24)
[2022-01-17 01:52] LABS: MN% 63.3 %; PMN% 36.7 %; WBC Peritoneal Fluid 0.195 X10*3/uL
[2022-01-17 02:21] LABS: RBC Peritoneal Fluid < 0.002 X10*6/uL
[2022-01-17 02:39] LABS: BF Shift QC OK YES
[2022-01-17 02:40] LABS: Lymphocyte Peritoneal Fl 10 %; Monocytes Peritoneal Fl 17 %; Neutrophils Peritoneal Fluid 33 %
[2022-01-17 02:41] LABS: Other Peritioneal Fl 40 %
[2022-01-17 03:30] LABS: Total Protein Peritoneal Fluid 0.8 GM/DL
[2022-01-17 03:40] LABS: Albumin Peritoneal Fluid 0.2 GM/DL
[2022-01-17 03:42] LABS: Amphetamine Screen Urine Not Detected (Not Detect); Barbiturates, Urine Not Detected (Not Detect); Benzodiazepines Screen Urine Not Detected (Not Detect); Cannabinoid Screen Urine Not Detected (Not Detect); Cocaine Screen Urine Not Detected (Not Detect); Fentanyl, urine Not Detected (Not Detect); Opiate Screen Urine Not Detected (Not Detect); Phencyclidine Screen Urine Not Detected (Not Detect)
[2022-01-17 05:54] LABS: MANUAL DIFF FLAG NO
[2022-01-17 06:00] LABS: Basophils Percent Auto 0.1 % (0-2); Eosinophils Absolute Auto 0.1 X10*3/uL (0.0-0.4); Eosinophils Percent Auto 0.5 % (0-4); Hematocrit 28.6 % (42.0-52.0); Imm Gran Abs Auto 0.13 X10*3/uL (0.00-0.03); Imm Gran Pct Auto 0.9 % (0.0-0.4); Lymphocytes Absolute Auto 1.5 X10*3/uL (1.2-4.9); Lymphocytes Percent Auto 9.8 % (20-40); Mean Corpuscular Hemoglobin 36.1 pg (27.0-33.0); Mean Corpuscular Volume 103.2 fL (80.0-98.0); Mean Platelet Volume 9.8 fL (9.4-12.4); Monocytes Absolute Auto 1.4 X10*3/uL (0.1-1.2); Monocytes Percent Auto 9.2 % (2-11); Neutrophils Absolute Auto 11.9 x10*3/uL (2.0-8.3); Neutrophils Percent Auto 79.5 % (45-73); Platelet Count 186 X10*3/uL (160-400); Red Blood Count 2.77 X10*6/uL (4.60-5.80); Red Cell Distribution Width 15.5 % (11.0-16.0); White Blood Count 14.9 X10*3/uL (4.8-10.8)
[2022-01-17 06:17] LABS: Alanine Aminotransferase 52 U/L (0-40); Albumin Level 2.1 g/dL (3.5-5.0); Alkaline Phosphatase 109 U/L (39-117); Anion Gap 11 (12-20); Aspartate Amino Transferase 95 U/L (5-37); Bilirubin Total 15.4 mg/dL (0.0-1.0); Blood Urea Nitrogen 32 mg/dL (9-16); Calcium 7.8 mg/dL (8.4-10.2); Carbon Dioxide 25 mmol/L (22-29); Chloride 100 mmol/L (96-108); Creatinine Clr Calc Pharmacy 74.5; Estimated Glomerular Filt Rate 55; Glucose Random 81 mg/dL (60-115); Potassium 3.4 mmol/L (3.3-5.1); Sodium 133 mmol/L (135-145); Total Protein 6.5 g/dL (6.5-8.0)
[2022-01-17 07:59] LABS: Glucose, Whole Blood 75 mg/dL (60-115)
[2022-01-17] MEDS: Folic Acid 1 MG TABLET PO (08:25)
[2022-01-17] MEDS: Thiamine HCL 100 MG in 0.9 % Sodium Chloride 100 ML 202 MG IV (08:25)
[2022-01-17] MEDS: 0.9 % Sodium Chloride Flush 3 ML SYRINGE IVFLUSH ×2 (08:27→20:09)
[2022-01-17] MEDS: cefTRIAXone sodium 2 GM in 0.9 % Sodium Chloride 50 ML IV (10:36)
--- NOTE | 2022-01-17 10:46 | MHC.CM.PN ---
PT REPORTS HE LIVES ALONE AND IS INDEPENDENT WITH CARE PT DENIES USE OF DME AND REPORTS HE ATTENDS [facility] IN [place] DAILY FOR MMT HE REPORTS HE HAS A HCP NAMING HIS MOTHER HIS AGENT HE IS DELILAH ANDERSON PCP: TERRY LOVELL DCP: HOME RESUME OUTPATIENT METHADONE TREATMENT PT TO ARRANGE TRANSPORT
--- NOTE | 2022-01-17 12:19 | P.PNIM_ITS ---
Subjective Subjective Date of Service: 01/17/22 Interval History: No acute issues overnight Review of Systems Denies chest pain Denies shortness of breath Denies nausea vomiting diarrhea Denies fever chills Physical Exam Vital Signs: Vital Signs: Last Vital Signs Temp 97.8 F 01/17/22 11:31 Pulse 82 01/17/22 11:31 Resp 18 01/17/22 11:31 BP 131/67 01/17/22 11:31 Pulse Ox 95 01/17/22 11:31 O2 Del Method 01/17/22 11:31 O2 Flow Rate 2 01/17/22 03:17 BMI result Body Mass Index 32.1 Const: Other: Awake alert no acute distress HEENT: Other: Scleral icterus Resp: Other: Clear to auscultation bilaterally no rales rhonchi or wheezes Cardio: Other: No S4; positive S1-S2; no S3 murmurs rubs or gallops GI: Other: Soft distended without palpable fluid wave. Quiet bowel sounds Extrem: Other: No edema bilaterally Objective Data Active Medications Folic Acid (Folic Acid 1 Mg Tablet) 1 mg PO DAILY [facility] Last Admin: 01/17/22 08:25 Dose: 1 mg Documented By: GABBI Thiamine HCl 100 mg/ Sodium (Chloride) 101 mls @ 202 mls/hr IV DAILY [facility] Last Infusion: 01/17/22 09:07 Dose: 0 mls/hr Documented By: TAD Ceftriaxone Sodium 2 gm/ (Sodium Chloride) 50 mls @ 100 mls/hr IV Q24H [facility] Last Infusion: 01/17/22 11:51 Dose: 0 mls/hr Documented By: GABBI Phytonadione 10 mg/ Sodium (Chloride) 51 mls @ 51 mls/hr IV ONCE ONE Stop: 01/17/22 12:28 Lactulose (Lactulose 20 Gm/30 Ml Solution) 20 gm PO QID [facility] Last Admin: 01/17/22 08:26 Dose: 20 gm Documented By: GABBI Melatonin (Melatonin 3 Mg Tablet) 6 mg PO BEDTIME PRN PRN Reason: Insomnia Ondansetron HCl (Ondansetron Hcl 4 Mg/2 Ml Vial) 4 mg IVPUSH Q8H PRN PRN Reason: Nausea and Vomiting Pharmacy Consult (Consult Rx Perform Med Rec) 1 each MISCELLANE ONCE PRN PRN Reason: Consult order Sodium Chloride (0.9 % Sodium Chloride Flush 3 Ml Syringe) 3 ml IVFLUSH QSHIFT [facility] Last Admin: 01/17/22 08:27 Dose: 3 ml Documented By: GABBI Labs CBC & Chem 7: 01/17/22 05:45 01/17/22 05:45 Labs: Laboratory Results - last 24 hr 01/16/22 01/16/22 01/16/22 17:25 17:25 17:25 MCV 102.2 H MCH 36.6 H MCHC 35.8 RDW 15.6 Plt Count 226 MPV 10.1 Immature Gran % (Auto) 1.0 H Neut % (Auto) 88.4 H Lymph % (Auto) 4.3 L [place] % (Auto) 6.1 Eos % (Auto) 0.1 Baso % (Auto) 0.1 Lymph # (Auto) 0.9 L [place] # (Auto) 1.3 H Eos # (Auto) 0.0 Baso # (Auto) 0.0 Abs Immat Gran (auto) 0.21 H Absolute Neuts (auto) 18.6 H Absolute Nucleated RBC 0.000 Nucleated RBC % (auto) 0.0 PT INR Anion Gap 15 Estim Creat Clear Calc 61.3 Estimated GFR 45 POC Glucose Random Glucose 59 L* Lactic Acid Calcium 7.7 L D Magnesium 2.0 Total Bilirubin 19.8 H Direct Bilirubin 12.6 H AST 127 H ALT 65 H Alkaline Phosphatase 146 H D Ammonia B-Natriuretic Peptide Total Protein 7.2 Albumin 1.9 L D Lipase 445 H Urine Color Urine Appearance Urine pH Ur Specific [place] Urine Protein Urine Glucose (UA) Urine Ketones Urine Blood Urine Nitrite Ur Leukocyte Esterase Peritoneal WBC Peritoneal RBC Periton Neutrophils Periton Lymphocytes Peritoneal Monocytes Peritoneal Other Cells Peritoneal Tot Protein Peritoneal Albumin Urine Opiates Screen Urine Fentanyl Screen Ur Barbiturates Screen Ur Phencyclidine Scrn Ur Amphetamines Screen U Benzodiazepines Scrn Urine Cocaine Screen U Marijuana (THC) Screen COVID-19 (SUSAN) Negative COVID-19 Clin Com See Note Hepatitis C Ab (EIA) Influenza Type A (PCR) Influenza Type B (PCR) RSV RNA Qual (PCR) SARS-CoV-2 RNA (RT-PCR) 01/16/22 01/16/22 01/16/22 17:25 17:45 18:44 MCV MCH MCHC RDW Plt Count MPV Immature Gran % (Auto) Neut % (Auto) Lymph % (Auto) [place] % (Auto) Eos % (Auto) Baso % (Auto) Lymph # (Auto) [place] # (Auto) Eos # (Auto) Baso # (Auto) Abs Immat Gran (auto) Absolute Neuts (auto) Absolute Nucleated RBC Nucleated RBC % (auto) PT INR Anion Gap Estim Creat Clear Calc Estimated GFR POC Glucose Random Glucose Lactic Acid 1.9 Calcium Magnesium Total Bilirubin Direct Bilirubin AST ALT Alkaline Phosphatase Ammonia 63 H B-Natriuretic Peptide 264 H Total Protein Albumin Lipase Urine Color Urine Appearance Urine pH Ur Specific [place] Urine Protein Urine Glucose (UA) Urine Ketones Urine Blood Urine Nitrite Ur Leukocyte Esterase Peritoneal WBC Peritoneal RBC Periton Neutrophils Periton Lymphocytes Peritoneal Monocytes Peritoneal Other Cells Peritoneal Tot Protein Peritoneal Albumin Urine Opiates Screen Urine Fentanyl Screen Ur Barbiturates Screen Ur Phencyclidine Scrn Ur Amphetamines Screen U Benzodiazepines Scrn Urine Cocaine Screen U Marijuana (THC) Screen COVID-19 (SUSAN) COVID-19 Clin Com Hepatitis C Ab (EIA) Influenza Type A (PCR) Influenza Type B (PCR) RSV RNA Qual (PCR) SARS-CoV-2 RNA (RT-PCR) 01/16/22 01/16/22 01/16/22 20:20 21:37 21:37 MCV MCH MCHC RDW Plt Count MPV Immature Gran % (Auto) Neut % (Auto) Lymph % (Auto) [place] % (Auto) Eos % (Auto) Baso % (Auto) Lymph # (Auto) [place] # (Auto) Eos # (Auto) Baso # (Auto) Abs Immat Gran (auto) Absolute Neuts (auto) Absolute Nucleated RBC Nucleated RBC % (auto) PT 36.5 H INR 3.0 H Anion Gap 16 Estim Creat Clear Calc 65.9 Estimated GFR 49 POC Glucose Random Glucose 69 Lactic Acid Calcium 7.3 L Magnesium Total Bilirubin 16.9 H Direct Bilirubin AST 103 H ALT 55 H Alkaline Phosphatase 118 H Ammonia B-Natriuretic Peptide Total Protein 6.4 L Albumin 2.0 L Lipase Urine Color Urine Appearance Urine pH Ur Specific [place] Urine Protein Urine Glucose (UA) Urine Ketones Urine Blood Urine Nitrite Ur Leukocyte Esterase Peritoneal WBC Peritoneal RBC Periton Neutrophils Periton Lymphocytes Peritoneal Monocytes Peritoneal Other Cells Peritoneal Tot Protein Peritoneal Albumin Urine Opiates Screen Urine Fentanyl Screen Ur Barbiturates Screen Ur Phencyclidine Scrn Ur Amphetamines Screen U Benzodiazepines Scrn Urine Cocaine Screen U Marijuana (THC) Screen COVID-19 (SUSAN) COVID-19 Clin Com Hepatitis C Ab (EIA) Influenza Type A (PCR) NEGATIVE Influenza Type B (PCR) NEGATIVE RSV RNA Qual (PCR) NEGATIVE SARS-CoV-2 RNA (RT-PCR) NEGATIVE 01/16/22 01/17/22 01/17/22 21:53 00:41 01:38 MCV MCH MCHC RDW Plt Count MPV Immature Gran % (Auto) Neut % (Auto) Lymph % (Auto) [place] % (Auto) Eos % (Auto) Baso % (Auto) Lymph # (Auto) [place] # (Auto) Eos # (Auto) Baso # (Auto) Abs Immat Gran (auto) Absolute Neuts (auto) Absolute Nucleated RBC Nucleated RBC % (auto) PT INR Anion Gap Estim Creat Clear Calc Estimated GFR POC Glucose Random Glucose Lactic Acid Calcium Magnesium Total Bilirubin Direct Bilirubin AST ALT Alkaline Phosphatase Ammonia B-Natriuretic Peptide Total Protein Albumin Lipase Urine Color Dark Yellow Urine Appearance Clear Urine pH 6.0 Ur Specific [place] 1.015 Urine Protein Negative Urine Glucose (UA) Negative Urine Ketones Negative Urine Blood Negative Urine Nitrite Negative Ur Leukocyte Esterase Negative Peritoneal WBC Peritoneal RBC Periton Neutrophils Periton Lymphocytes Peritoneal Monocytes Peritoneal Other Cells Peritoneal Tot Protein Peritoneal Albumin Urine Opiates Screen Not Detected Urine Fentanyl Screen Not Detected Ur Barbiturates Screen Not Detected Ur Phencyclidine Scrn Not Detected Ur Amphetamines Screen Not Detected U Benzodiazepines Scrn Not Detected Urine Cocaine Screen Not Detected U Marijuana (THC) Screen Not Detected COVID-19 (SUSAN) COVID-19 Clin Com Hepatitis C Ab (EIA) Cancelled Influenza Type A (PCR) Influenza Type B (PCR) RSV RNA Qual (PCR) SARS-CoV-2 RNA (RT-PCR) 01/17/22 01/17/22 01/17/22 01:38 01:38 01:38 MCV MCH MCHC RDW Plt Count MPV Immature Gran % (Auto) Neut % (Auto) Lymph % (Auto) [place] % (Auto) Eos % (Auto) Baso % (Auto) Lymph # (Auto) [place] # (Auto) Eos # (Auto) Baso # (Auto) Abs Immat Gran (auto) Absolute Neuts (auto) Absolute Nucleated RBC Nucleated RBC % (auto) PT INR Anion Gap Estim Creat Clear Calc Estimated GFR POC Glucose Random Glucose Lactic Acid Calcium Magnesium Total Bilirubin Direct Bilirubin AST ALT Alkaline Phosphatase Ammonia B-Natriuretic Peptide Total Protein Albumin Lipase Urine Color Urine Appearance Urine pH Ur Specific [place] Urine Protein Urine Glucose (UA) Urine Ketones Urine Blood Urine Nitrite Ur Leukocyte Esterase Peritoneal WBC 0.195 Peritoneal RBC < 0.002 Periton Neutrophils 33 Periton Lymphocytes 10 Peritoneal Monocytes 17 Peritoneal Other Cells 40 Peritoneal Tot Protein 0.8 Peritoneal Albumin 0.2 Urine Opiates Screen Urine Fentanyl Screen Ur Barbiturates Screen Ur Phencyclidine Scrn Ur Amphetamines Screen U Benzodiazepines Scrn Urine Cocaine Screen U Marijuana (THC) Screen COVID-19 (SUSAN) COVID-19 Clin Com Hepatitis C Ab (EIA) Influenza Type A (PCR) Influenza Type B (PCR) RSV RNA Qual (PCR) SARS-CoV-2 RNA (RT-PCR) 01/17/22 01/17/22 01/17/22 05:45 05:45 07:37 MCV 103.2 H MCH 36.1 H MCHC 35.0 RDW 15.5 Plt Count 186 MPV 9.8 Immature Gran % (Auto) 0.9 H Neut % (Auto) 79.5 H Lymph % (Auto) 9.8 L [place] % (Auto) 9.2 Eos % (Auto) 0.5 Baso % (Auto) 0.1 Lymph # (Auto) 1.5 [place] # (Auto) 1.4 H Eos # (Auto) 0.1 Baso # (Auto) 0.0 Abs Immat Gran (auto) 0.13 H Absolute Neuts (auto) 11.9 H Absolute Nucleated RBC 0.000 Nucleated RBC % (auto) 0.0 PT INR Anion Gap 11 L Estim Creat Clear Calc 74.5 Estimated GFR 55 POC Glucose 75 Random Glucose 81 Lactic Acid Calcium 7.8 L D Magnesium Total Bilirubin 15.4 H Direct Bilirubin AST 95 H ALT 52 H Alkaline Phosphatase 109 Ammonia B-Natriuretic Peptide Total Protein 6.5 Albumin 2.1 L Lipase Urine Color Urine Appearance Urine pH Ur Specific [place] Urine Protein Urine Glucose (UA) Urine Ketones Urine Blood Urine Nitrite Ur Leukocyte Esterase Peritoneal WBC Peritoneal RBC Periton Neutrophils Periton Lymphocytes Peritoneal Monocytes Peritoneal Other Cells Peritoneal Tot Protein Peritoneal Albumin Urine Opiates Screen Urine Fentanyl Screen Ur Barbiturates Screen Ur Phencyclidine Scrn Ur Amphetamines Screen U Benzodiazepines Scrn Urine Cocaine Screen U Marijuana (THC) Screen COVID-19 (SUSAN) COVID-19 Clin Com Hepatitis C Ab (EIA) Influenza Type A (PCR) Influenza Type B (PCR) RSV RNA Qual (PCR) SARS-CoV-2 RNA (RT-PCR) Microbiology Microbiology Results: Microbiology 01/16/22 18:44 Blood Culture - Preliminary Blood - Venous Prelim: GNR Gram Stain only 01/17/22 01:38 Gram Stain - Final Ascites Fluid Assessment and Plan (1) Decompensation of cirrhosis of liver: Status: Acute (2) CEASAR (acute kidney injury): Status: Acute Plan This is a 56-year-old male with pertinent history of alcohol use disorder, substance use disorder, hepatitis-C (unclear treatment status) who presents to the emergency department with complaints of abdominal distension. 1.Acute decompensated liver cirrhosis -peritoneal fluid cultures pending continue empiric ceftriaxone -total bili slowly trending downward -hepatitis serologies pending -continue lactulose as order.. . Follow ammonia 2.Acute renal insufficiency -normalized with fluids -cautious IV fluids -follow renals/divalents 3.Hyperprothrombinemia -oral dose of vitamin K -follow-up PT INR in a.m. 4.Alcohol use disorder -CIWA -thiamin and folate 5.Opioid Use Disorder -continue methadone outpatient dosing -addiction medicine consult Full code No anticoagulation at this time secondary to liver disease Patient require ongoing hospitalization to treat alcohol withdrawal Quality Stroke Does the patient have a stroke diagnosis?: No VTE Prior VTE?: No VTE Risk Level:: Medical - moderate - high VTE Device Contraindication: N/A - Device Ordered VTE Drug Contraindication: Treatment Not Indicated
[2022-01-17] MEDS: methADONE HCl 20 MG/2 ML ORAL.CONC 70 MG PO (13:17)
[2022-01-17] MEDS: Phytonadione (Vit K1) 10 MG in 0.9 % Sodium Chloride 50 ML 51 MG IV (14:42)
--- NOTE | 2022-01-17 17:11 | PM.EVENT ---
Event Note Date of Service: 01/17/22 Event Note: GI Consult-Full note dictated Imp: 56 yo male with advanced liver disease due to EtOH and reported chronic Hep C presenting with hepatic decompensation with associated ascites, jaundice, and coagulopathy. There has been no reported GI bleeding. He presently feels OK and denies abdominal pain or any GI symptoms. He has been afebrile. He is tolerating his diet. His last use of EtOH was reportedly 11 days ago. His w/u has revealed no sign of SBP based on cell count of ascites, but he has 1 out of 2 blood cx with GNR. Imaging revealed a dilated CBD on CT, but MRI with MRCP is pending. He does not appear encephalopathic. Rec: Check MRI report when available to R/O CBD stones, liver mass, portal vein thrombosis. Continue antibiotics pending final cultures. Follow LFT's, PT/INR, renal function. Check AFP level when it returns. Start po diuretics once things are more stable and follow renal function. Would hold off on any steroids re: presumed EtOH-hepatitis given suspicion of infection. I advised patient of the severity of his liver disease and need for senior living abstinence from alcohol. Thanks
[2022-01-18] VITALS: BP 139/72; PULSE 79; RESP 16; TEMP 36.7; O2SAT 94
--- NOTE | 2022-01-18 02:54 | CONS_ITS ---
DATE OF SERVICE: 01/17/2022 REASON FOR CONSULTATION: Jaundice, ascites, and abnormal imaging of the bile duct. HISTORY OF PRESENT ILLNESS: This has been obtained from the patient and the medical record. The patient is a 56-year-old male with a longstanding history of alcohol abuse and reported underlying chronic hepatitis C that has never been treated. The patient provides a good history. The patient reports that he stopped drinking about 11 days ago. Prior to that, he was having at least a half a pint of alcohol daily. He describes a history of hepatitis C in the past, but this has never been treated. The patient describes the onset of jaundice and increasing abdominal girth, which prompted his ER visit. He denies any abdominal pain or fevers. He denies any associated vomiting, melena, nor hematochezia. He does describe having been told of liver disease in the past. He was admitted here in September of 2020 with pancreatitis secondary to alcohol abuse. During that admission in September of 2020, his total bilirubin was 2.9, direct bilirubin was 2.1, AST was 201, ALT 147, and alkaline phosphatase was 89. The lipase level was over 4500. During that admission, he did have an abdominal ultrasound that was negative for gallstones. A CT scan in September of 2020 described a common bile duct of 1.2 cm. The patient denies any hospitalizations since that time. Since being here in the hospital, he does report that he is feeling somewhat better. He has been afebrile. He is tolerating his diet. He denies any abdominal pain at the present time. He denies any new medication at home. He denies any known history of liver disease in the family members. He denies any recent drug use. MEDICATIONS: At home apparently only included methadone. His medications here in the hospital include IV ceftriaxone, lactulose, melatonin, methadone, Zofran, thiamine. He did receive a dose of vitamin K. PAST MEDICAL HISTORY: Chronic liver disease in relation to alcohol and hepatitis C. Alcohol-induced pancreatitis. He denies history of CO, diabetes, stroke, lung disease, or kidney disease. His only surgery is elbow surgery. SOCIAL HISTORY: He is single. He is a former smoker. Alcohol as above. Previous substance abuse. REVIEW OF SYSTEMS: CONSTITUTIONAL: He has been feeling somewhat poorly at home with fatigue and some anorexia. CARDIAC: No chest pain. PULMONARY: No cough. No hemoptysis. GI: As above. URINARY: He denies any dysuria or hematuria. PHYSICAL EXAMINATION: GENERAL: The patient is a jaundiced but alert, comfortable-appearing male, in no distress. Icteric sclerae. Multiple spider angiomata on his chest. CHEST: Clear. CARDIAC: Normal S1 and S2. ABDOMEN: Distended with ascites but soft and nontender. No palpable mass. EXTREMITIES: Reveal minimal bipedal edema. NEUROLOGIC: He is alert and oriented with no asterixis. LABORATORY DATA: White count 21,000 on admission and 14.9 today. Hemoglobin 10.0, MCV 103, platelets 186,000. PT was 36.5 with INR 3.0 on admission. Sodium 133, potassium 3.4, chloride 32, creatinine 1.33. Total bilirubin was 16.9 on admission and today is 15.4. AST was 103 yesterday, 95 today. ALT was 55 yesterday and 52 today. Alkaline phosphatase was 109 today. Albumin 2.1. Alpha fetoprotein levels pending. His abdominal ultrasound on this admission revealed findings consistent with cirrhosis, dilated intrahepatic bile ducts, no gallstones, and common duct measuring [address] of the abdomen on this admission describes cirrhosis, a dilated common bile duct of 1.5 cm but no obvious stones, ascites, varices. He did have a paracentesis with a white blood cell count of only 195 and 33% neutrophils. Gram stain was negative. He does have 1 of 2 blood cultures positive for gram-negative rods. IMPRESSION: The patient is a 56-year-old male with chronic alcohol abuse and reported underlying chronic hepatitis C that has never been treated, who presents with hepatic decompensation evidenced by jaundice, ascites, and coagulopathy. There has been no evidence of GI bleeding. He does not appear to be grossly encephalopathic. There is no evidence of spontaneous bacterial peritonitis based on the cell count of his ascites, although he does have one blood culture with gram-negative rods thus far. At this point, I will continue supportive care. The MRI report will be important to check to be sure that we are not dealing with any common bile duct stones contributing to the clinical picture, liver mass, or portal vein thrombosis. I would continue antibiotics for the time being pending the final cultures. I do assume there is a component of alcohol-induced hepatitis, but I would hold off on steroids given the presumed infection at this time. He has an alpha-fetoprotein level pending, which will be important to assess for any component of hepatoma along with the MRI report. He will need oral diuretics at some point, but I would hold off on that for the time being until things are more stable. I have reviewed the severity of his liver disease with the patient in detail and advised him of the need for long-term sobriety if he has any hopes of both short-term and long-term survival. He did understand this. If the MRCP does show choledocholithiasis, then he may need ERCP at some point as well. Thank you for the consultation. MD TORRI Luque/ALEKSEY / [id number] MTDD
[2022-01-18 03:49] VITALS: BP 138/75; PULSE 83; RESP 18; TEMP 36.4; O2SAT 94
[2022-01-18 07:03] LABS: MANUAL DIFF FLAG NO
[2022-01-18 07:07] LABS: Basophils Absolute Auto 0.1 X10*3/uL (0.0-0.2); Basophils Percent Auto 0.4 % (0-2); Eosinophils Absolute Auto 0.2 X10*3/uL (0.0-0.4); Eosinophils Percent Auto 1.3 % (0-4); Hematocrit 29.2 % (42.0-52.0); Hemoglobin 10.1 g/dl (14.0-18.0); Imm Gran Abs Auto 0.13 X10*3/uL (0.00-0.03); Imm Gran Pct Auto 1.1 % (0.0-0.4); Lymphocytes Absolute Auto 1.5 X10*3/uL (1.2-4.9); Lymphocytes Percent Auto 12.9 % (20-40); Mean Corpuscular HGB Conc 34.6 g/dl (31.0-36.0); Mean Corpuscular Hemoglobin 36.2 pg (27.0-33.0); Mean Corpuscular Volume 104.7 fL (80.0-98.0); Mean Platelet Volume 10.1 fL (9.4-12.4); Monocytes Absolute Auto 1.2 X10*3/uL (0.1-1.2); Monocytes Percent Auto 10.2 % (2-11); Neutrophils Absolute Auto 8.5 x10*3/uL (2.0-8.3); Neutrophils Percent Auto 74.1 % (45-73); Platelet Count 182 X10*3/uL (160-400); Red Blood Count 2.79 X10*6/uL (4.60-5.80); Red Cell Distribution Width 15.3 % (11.0-16.0); White Blood Count 11.4 X10*3/uL (4.8-10.8)
[2022-01-18 07:29] LABS: Alanine Aminotransferase 54 U/L (0-40); Albumin Level 2.1 g/dL (3.5-5.0); Alkaline Phosphatase 115 U/L (39-117); Anion Gap 14 (12-20); Aspartate Amino Transferase 92 U/L (5-37); Blood Urea Nitrogen 28 mg/dL (9-16); Calcium 7.8 mg/dL (8.4-10.2); Carbon Dioxide 24 mmol/L (22-29); Chloride 101 mmol/L (96-108); Creatinine Clr Calc Pharmacy 89.2; Estimated Glomerular Filt Rate > 60; Glucose Fasting 72 mg/dL (60-99); Potassium 3.4 mmol/L (3.3-5.1); Sodium 136 mmol/L (135-145); Total Protein 6.6 g/dL (6.5-8.0)
[2022-01-18 08:00] VITALS: BP 129/71; PULSE 69; RESP 19; TEMP 36.2; O2SAT 94
[2022-01-18] MEDS: Folic Acid 1 MG TABLET PO (08:58)
[2022-01-18] MEDS: Thiamine HCL 100 MG in 0.9 % Sodium Chloride 100 ML 202 MG IV (08:58)
[2022-01-18] MEDS: 0.9 % Sodium Chloride Flush 3 ML SYRINGE IVFLUSH ×2 (08:59→14:56)
[2022-01-18] MEDS: methADONE HCl 20 MG/2 ML ORAL.CONC 70 MG PO (08:59)
[2022-01-18] MEDS: Lactulose 20 GM/30 ML SOLUTION PO ×4 (09:11→20:29)
[2022-01-18] MEDS: cefTRIAXone sodium 2 GM in 0.9 % Sodium Chloride 50 ML IV (11:04)
--- NOTE | 2022-01-18 11:17 | HO.PM.IMPN ---
Subjective Subjective Date of Service: 01/18/22 Interval History: Abd discomfort improved No hematemesis or melena Stopped EtOH 12+ days ago Review of Systems Review of Systems: Yes all other systems are reviewed and are negative Physical Exam Vital Signs: Vital Signs: Last Vital Signs Temp 97.1 F 01/18/22 08:00 Pulse 69 01/18/22 08:00 Resp 19 01/18/22 08:00 BP 129/71 01/18/22 08:00 Pulse Ox 94 01/18/22 08:00 O2 Del Method 01/18/22 08:00 O2 Flow Rate 2.0 01/18/22 08:00 BMI result Body Mass Index 32.1 Gen: in no acute distress HEENT: sclera icteric, moist mucus membranes Neck: supple Lungs: clear to auscultation bilaterally Heart: regular rate and rhythm, no murmurs Abd: soft, non-tender, non-tense ascites present Ext: 1+ leg edema Skin: warm/well-perfused Neuro: alert and oriented x3, no focal findings, no asterixis Psych: appropriate affect Objective Data Active Medications Folic Acid (Folic Acid 1 Mg Tablet) 1 mg PO DAILY [facility] Last Admin: 01/18/22 08:58 Dose: 1 mg Documented By: MIKO Thiamine HCl 100 mg/ Sodium (Chloride) 101 mls @ 202 mls/hr IV DAILY [facility] Last Infusion: 01/18/22 09:31 Dose: 0 mls/hr Documented By: MIKO Ceftriaxone Sodium 2 gm/ (Sodium Chloride) 50 mls @ 100 mls/hr IV Q24H [facility] Last Admin: 01/18/22 11:04 Dose: 100 mls/hr Documented By: MIKO Lactulose (Lactulose 20 Gm/30 Ml Solution) 20 gm PO QID [facility] Last Admin: 01/18/22 09:11 Dose: 20 gm Documented By: IMKO Melatonin (Melatonin 3 Mg Tablet) 6 mg PO BEDTIME PRN PRN Reason: Insomnia Methadone HCl (Methadone Hcl 20 Mg/2 Ml Oral.Conc) 70 mg PO DAILY [facility] Last Admin: 01/18/22 08:59 Dose: 70 mg Documented By: MIKO Ondansetron HCl (Ondansetron Hcl 4 Mg/2 Ml Vial) 4 mg IVPUSH Q8H PRN PRN Reason: Nausea and Vomiting Pharmacy Consult (Consult Rx Perform Med Rec) 1 each MISCELLANE ONCE PRN PRN Reason: Consult order Sodium Chloride (0.9 % Sodium Chloride Flush 3 Ml Syringe) 3 ml IVFLUSH QSHIFT [facility] Last Admin: 01/18/22 08:59 Dose: 3 ml Documented By: MIKO Labs CBC & Chem 7: 01/18/22 05:35 01/18/22 05:35 Labs: Laboratory Results - last 24 hr 01/18/22 01/18/22 05:35 05:35 MCV 104.7 H MCH 36.2 H MCHC 34.6 RDW 15.3 Plt Count 182 MPV 10.1 Immature Gran % (Auto) 1.1 H Neut % (Auto) 74.1 H Lymph % (Auto) 12.9 L [place] % (Auto) 10.2 Eos % (Auto) 1.3 Baso % (Auto) 0.4 Lymph # (Auto) 1.5 [place] # (Auto) 1.2 Eos # (Auto) 0.2 Baso # (Auto) 0.1 Abs Immat Gran (auto) 0.13 H Absolute Neuts (auto) 8.5 H Absolute Nucleated RBC 0.000 Nucleated RBC % (auto) 0.0 Anion Gap 14 Estim Creat Clear Calc 89.2 Estimated GFR > 60 Fasting Glucose 72 Calcium 7.8 L Total Bilirubin 12.0 H AST 92 H ALT 54 H Alkaline Phosphatase 115 Total Protein 6.6 Albumin 2.1 L Impressions Abdomen MRI 01/17/22 14:15 IMPRESSION: Limited study. The gallbladder is distended. There is dilation of the intra and extrahepatic bile ducts without a definite mass. Attempts at MRCP were limited but there is no definite choledocholithiasis. Findings suggest chronic liver disease with portal hypertension including splenomegaly and ascites. The central portion of the portal vein enhances but the intrahepatic segments are not well visualized and thrombus could be present. This study does not allow characterization of small renal masses. Right pleural fluid and right lung base disease. Microbiology Microbiology Results: Microbiology 01/17/22 01:38 Gram Stain - Final Ascites Fluid Anaerobic Culture - Preliminary No growth to date. Body Fluid Culture - Preliminary No growth to date. 01/16/22 18:44 Blood Culture - Preliminary Blood - Venous Gram negative alejandrina 01/16/22 18:44 Blood Culture - Preliminary Blood - Venous No growth after 24 hours. Assessment and Plan (1) Decompensation of cirrhosis of liver: Status: Acute (2) CEASAR (acute kidney injury): Status: Acute Plan d#3 56yo M with AUD + untreated HCV presenting with ascites # GNR bacteremia from BCx 01/16/22 - ceftriaxone d#3, follow speciation + susceptibilities # ascites - cell count <SBP threshold, follow Cx - start furosemide + spironolactone when more stable # CEASAR # hypoNa - prerenal/hypovolemic, improved with IV fluids # EtOH hepatitis - no steroids given infection - Tbili improving # decompensated cirrhosis - AFP pending - US to r/o PVT # coagulopathy - given vitamin K PO , recheck INR in AM # HCV infection - GI f/u for treatment, viral load pending # AUD - CIWA - thiamine, folate - Addiction Medicine consult # OUD - continue methadone outpt dosing # VTE ppx: SCDs In my clinical judgment, the patient requires continued inpatient hospitalization for the following reasons: IV ABX Quality Stroke Does the patient have a stroke diagnosis?: No VTE Prior VTE?: No VTE Risk Level:: Medical - moderate - high VTE Device Contraindication: N/A - Device Ordered VTE Drug Contraindication: Treatment Not Indicated
[2022-01-18 11:29] VITALS: BP 133/66; PULSE 73; RESP 18; TEMP 36.3; O2SAT 95
[2022-01-18 16:44] VITALS: BP 130/62; PULSE 74; RESP 14; TEMP 36.6; O2SAT 94
[2022-01-18] MEDS: metroNIDAZOLE/NS 500 MG/100 ML PIGGYBACK 100 MG IV (18:30)
[2022-01-18 19:26] VITALS: BP 130/70; PULSE 71; RESP 18; TEMP 36.2; O2SAT 95
[2022-01-19] VITALS (7 sets, daily range): BP systolic 122–135; BP diastolic 57–71; PULSE 64–89; RESP 16–18; TEMP 36.7–37.1; O2SAT 92–96
[2022-01-19] MEDS: metroNIDAZOLE/NS 500 MG/100 ML PIGGYBACK 100 MG IV ×3 (01:10→18:00)
[2022-01-19] MEDS: 0.9 % Sodium Chloride Flush 3 ML SYRINGE IVFLUSH ×4 (01:10→23:23)
[2022-01-19 05:32] LABS: MANUAL DIFF FLAG NO
[2022-01-19 05:38] LABS: Basophils Absolute Auto 0.1 X10*3/uL (0.0-0.2); Basophils Percent Auto 0.6 % (0-2); Eosinophils Absolute Auto 0.2 X10*3/uL (0.0-0.4); Hematocrit 30.2 % (42.0-52.0); Hemoglobin 10.4 g/dl (14.0-18.0); Imm Gran Abs Auto 0.25 X10*3/uL (0.00-0.03); Lymphocytes Absolute Auto 1.9 X10*3/uL (1.2-4.9); Lymphocytes Percent Auto 15.7 % (20-40); Mean Corpuscular HGB Conc 34.4 g/dl (31.0-36.0); Mean Corpuscular Hemoglobin 36.1 pg (27.0-33.0); Mean Corpuscular Volume 104.9 fL (80.0-98.0); Mean Platelet Volume 9.9 fL (9.4-12.4); Monocytes Absolute Auto 1.4 X10*3/uL (0.1-1.2); Monocytes Percent Auto 11.4 % (2-11); Neutrophils Absolute Auto 8.3 x10*3/uL (2.0-8.3); Neutrophils Percent Auto 68.3 % (45-73); Platelet Count 168 X10*3/uL (160-400); Red Blood Count 2.88 X10*6/uL (4.60-5.80); Red Cell Distribution Width 14.9 % (11.0-16.0); White Blood Count 12.2 X10*3/uL (4.8-10.8)
[2022-01-19 05:56] LABS: Alanine Aminotransferase 53 U/L (0-40); Alkaline Phosphatase 114 U/L (39-117); Anion Gap 10 (12-20); Aspartate Amino Transferase 84 U/L (5-37); Bilirubin Total 10.6 mg/dL (0.0-1.0); Blood Urea Nitrogen 19 mg/dL (9-16); Calcium 7.8 mg/dL (8.4-10.2); Carbon Dioxide 26 mmol/L (22-29); Chloride 104 mmol/L (96-108); Creatinine Clr Calc Pharmacy 116.5; Estimated Glomerular Filt Rate > 60; Glucose Fasting 80 mg/dL (60-99); Magnesium 2.4 mg/dL (1.6-2.6); Sodium 137 mmol/L (135-145); Total Protein 6.7 g/dL (6.5-8.0)
[2022-01-19 08:41] LABS: HIV AB/AG Nonreactive (Nonreactive); HIV Num 1 0.05 S/CO (0.00-0.99)
[2022-01-19 09:08] LABS: HBS Num1 14.32 mIU/mL (0-7.99); HBc Num1 7.13 S/CO (0.00-0.79); HBsAGNum1 0.22 S/CO (0.00-0.99); Hepatitis B Surface Antigen Negative (Negative); ~HepC Num1 14.11 S/CO (0.00-0.79); ~Hepatitis B Surface Antibody REACTIVE (Nonreactive); ~Hepatitis C Antibody Reactive (Nonreactive)
[2022-01-19] MEDS: Thiamine HCL 100 MG in 0.9 % Sodium Chloride 100 ML 202 MG IV (11:03)
[2022-01-19] MEDS: methADONE HCl 20 MG/2 ML ORAL.CONC 70 MG PO (11:04)
[2022-01-19] MEDS: Folic Acid 1 MG TABLET PO (11:05)
[2022-01-19] MEDS: Potassium Chloride ER 20 MEQ TAB.ER.PRT 40 MEQ PO (11:06)
[2022-01-19] MEDS: Lactulose 20 GM/30 ML SOLUTION PO ×3 (11:08→18:01)
[2022-01-19 12:40] LABS: HBc Num2 7.65 S/CO; HBc Num3 7.49 S/CO; Hepatitis B Core Antibody Reactive (Nonreactive)
--- NOTE | 2022-01-19 13:05 | HO.PM.IMPN ---
Subjective Subjective Date of Service: 01/19/22 Interval History: c/o abd distension but no pain no N/V Review of Systems Review of Systems: Yes all other systems are reviewed and are negative Physical Exam Vital Signs: Vital Signs: Last Vital Signs Temp 98.3 F 01/19/22 11:50 Pulse 78 01/19/22 11:50 Resp 18 01/19/22 11:50 BP 129/62 01/19/22 11:50 Pulse Ox 95 01/19/22 11:50 O2 Del Method 01/19/22 11:50 O2 Flow Rate 2 01/19/22 11:50 BMI result Body Mass Index 32.1 Gen: in no acute distress HEENT: sclera icteric, moist mucus membranes Neck: supple Lungs: clear to auscultation bilaterally Heart: regular rate and rhythm, no murmurs Abd: soft, non-tender, non-tense ascites present more than yesterday Ext: 1+ leg edema Skin: warm/well-perfused Neuro: alert and oriented x3, no focal findings, no asterixis Psych: appropriate affect Objective Data Active Medications Folic Acid (Folic Acid 1 Mg Tablet) 1 mg PO DAILY [facility] Last Admin: 01/19/22 11:05 Dose: 1 mg Documented By: MARGARITO Thiamine HCl 100 mg/ Sodium (Chloride) 101 mls @ 202 mls/hr IV DAILY [facility] Last Infusion: 01/19/22 11:51 Dose: 0 mls/hr Documented By: MARGARITO Ceftriaxone Sodium 2 gm/ (Sodium Chloride) 50 mls @ 100 mls/hr IV Q24H [facility] Last Infusion: 01/18/22 11:55 Dose: 0 mls/hr Documented By: MIKO Metronidazole (Flagyl) 500 mg in 100 mls @ 100 mls/hr IV Q8H [facility] Last Admin: 01/19/22 13:00 Dose: 100 mls/hr Documented By: MARGARITO Lactulose (Lactulose 20 Gm/30 Ml Solution) 20 gm PO QID [facility] Last Admin: 01/19/22 11:08 Dose: 20 gm Documented By: MARGARITO Melatonin (Melatonin 3 Mg Tablet) 6 mg PO BEDTIME PRN PRN Reason: Insomnia Methadone HCl (Methadone Hcl 20 Mg/2 Ml Oral.Conc) 70 mg PO DAILY [facility] Last Admin: 01/19/22 11:04 Dose: 70 mg Documented By: MARGARITO Ondansetron HCl (Ondansetron Hcl 4 Mg/2 Ml Vial) 4 mg IVPUSH Q8H PRN PRN Reason: Nausea and Vomiting Pharmacy Consult (Consult Rx Perform Med Rec) 1 each MISCELLANE ONCE PRN PRN Reason: Consult order Sodium Chloride (0.9 % Sodium Chloride Flush 3 Ml Syringe) 3 ml IVFLUSH QSHIFT [facility] Last Admin: 01/19/22 11:04 Dose: 3 ml Documented By: MARGARITO Labs CBC & Chem 7: 01/19/22 05:21 01/19/22 05:22 Labs: Laboratory Results - last 24 hr 01/17/22 01/19/22 01/19/22 00:41 05:21 05:22 MCV 104.9 H MCH 36.1 H MCHC 34.4 RDW 14.9 Plt Count 168 MPV 9.9 Immature Gran % (Auto) 2.0 H Neut % (Auto) 68.3 Lymph % (Auto) 15.7 L [place] % (Auto) 11.4 H Eos % (Auto) 2.0 Baso % (Auto) 0.6 Lymph # (Auto) 1.9 [place] # (Auto) 1.4 H Eos # (Auto) 0.2 Baso # (Auto) 0.1 Abs Immat Gran (auto) 0.25 H Absolute Neuts (auto) 8.3 Absolute Nucleated RBC 0.000 Nucleated RBC % (auto) 0.0 PT INR Anion Gap 10 L Estim Creat Clear Calc 116.5 Estimated GFR > 60 Fasting Glucose 80 Calcium 7.8 L Magnesium 2.4 Total Bilirubin 10.6 H AST 84 H ALT 53 H Alkaline Phosphatase 114 Total Protein 6.7 Albumin 2.0 L Hep Bs Antigen Negative Hep Bs Antibody REACTIVE Hep B Core Total Ab Reactive Hepatitis C Ab (EIA) Reactive H HIV 1&2 Ab/P24 Ag 4thGn 01/19/22 01/19/22 05:22 05:22 MCV MCH MCHC RDW Plt Count MPV Immature Gran % (Auto) Neut % (Auto) Lymph % (Auto) [place] % (Auto) Eos % (Auto) Baso % (Auto) Lymph # (Auto) [place] # (Auto) Eos # (Auto) Baso # (Auto) Abs Immat Gran (auto) Absolute Neuts (auto) Absolute Nucleated RBC Nucleated RBC % (auto) PT 24.0 H INR 2.0 H Anion Gap Estim Creat Clear Calc Estimated GFR Fasting Glucose Calcium Magnesium Total Bilirubin AST ALT Alkaline Phosphatase Total Protein Albumin Hep Bs Antigen Hep Bs Antibody Hep B Core Total Ab Hepatitis C Ab (EIA) HIV 1&2 Ab/P24 Ag 4thGn Nonreactive Impressions Doppler Study Ultrasound 01/18/22 13:44 IMPRESSION: Cirrhotic liver, splenomegaly and ascites. This Doppler imaging examination suggests possibility of thrombosis involving the main portal vein and right portal vein. However, no thrombus is present within these veins on the contrast-enhanced exams from 01/16/2022 or 01/17/2022. The intrahepatic portal veins are not well evaluated due to their small caliber and it is possible that there is lack of well-defined flow in portal veins to the presence of portal hypertension. Hydropic gallbladder contains sludge and stones. Common bile duct is mildly dilated (0.8 cm diameter). There was no choledocholithiasis on the recent MRI from 01/17/2022. Hepatobiliary Scan Nuclear Medicine 01/19/22 12:00 IMPRESSION: 1. Nonvisualized gallbladder up to 3.5 hours post injection. Differential diagnostic consideration would include physiologic changes including distended gallbladder (as was documented on multiple prior studies in this particular patient) as well as contracted gallbladder versus pathologic process such as acute cholecystitis. Further differentiation cannot be made based on this imaging appearance alone. 2.The common bile duct is patent. Liver function appears normal. Microbiology Microbiology Results: Microbiology 01/17/22 01:38 Gram Stain - Final Ascites Fluid Anaerobic Culture - Preliminary No growth to date. Body Fluid Culture - Final No growth after 2 days 01/16/22 18:44 Blood Culture - Final Blood - Venous Escherichia coli 01/16/22 18:44 Blood Culture - Preliminary Blood - Venous Gram negative alejandrina 01/17/22 01:38 Gram Stain - Final Ascites Fluid Routine Culture - Final Assessment and Plan (1) Decompensation of cirrhosis of liver: Status: Acute (2) CEASAR (acute kidney injury): Status: Acute Plan d#4 56yo M with AUD + untreated HCV presenting with ascites # GNR bacteremia from BCx 01/16/22 - ceftriaxone d#4, follow speciation + susceptibilities [E coli rodriguez-sensitive in 1 bottle, GNR in anaerobic bottle- added metronidazole 01/18] # ascites - cell count <SBP threshold, follow Cx - repeat para tomorrow - start furosemide + spironolactone tomorrow # CEASAR # hypoNa - prerenal/hypovolemic, resolved after IV fluids # hypoK - replete, recheck in AM # EtOH hepatitis - no steroids given infection - Tbili improving # decompensated cirrhosis - AFP pending - US to r/o PVT # coagulopathy - given vitamin K PO , recheck INR in AM # HCV infection - GI f/u for treatment, viral load pending # AUD - CIWA - thiamine, folate - Addiction Medicine consult # OUD - continue methadone outpt dosing # VTE ppx: SCDs In my clinical judgment, the patient requires continued inpatient hospitalization for the following reasons: IV ABX Quality Stroke Does the patient have a stroke diagnosis?: No VTE Prior VTE?: No VTE Risk Level:: Medical - moderate - high VTE Device Contraindication: N/A - Device Ordered VTE Drug Contraindication: Treatment Not Indicated
[2022-01-19] MEDS: cefTRIAXone sodium 2 GM in 0.9 % Sodium Chloride 50 ML IV (14:33)
--- NOTE | 2022-01-19 15:04 | MHC.CLN ---
NUTRITION CONSULT FOR POOR PO. PATIENT REPORTED THAT NOT EATING WELL PRIOR TO ADMISSION. CURRENT INTAKE APPEARS GOOD. DOES NOT WANT NUTRITIONAL SUPPLEMENT. DIET=2 GRAM SODIUM. CONTINUE CURRENT DIET.
[2022-01-20] VITALS (7 sets, daily range): BP systolic 116–140; BP diastolic 61–78; PULSE 66–78; RESP 16–18; TEMP 36.4–37; O2SAT 94–95
[2022-01-20] MEDS: metroNIDAZOLE/NS 500 MG/100 ML PIGGYBACK 100 MG IV ×2 (01:35→09:34)
[2022-01-20 05:57] LABS: Basophils Absolute Auto 0.1 X10*3/uL (0.0-0.2); Basophils Percent Auto 0.5 % (0-2); Eosinophils Absolute Auto 0.3 X10*3/uL (0.0-0.4); Eosinophils Percent Auto 1.9 % (0-4); Hematocrit 30.7 % (42.0-52.0); Hemoglobin 10.3 g/dl (14.0-18.0); Imm Gran Abs Auto 0.44 X10*3/uL (0.00-0.03); Imm Gran Pct Auto 2.9 % (0.0-0.4); Lymphocytes Percent Auto 13.2 % (20-40); MANUAL DIFF FLAG SCAN; Mean Corpuscular HGB Conc 33.6 g/dl (31.0-36.0); Mean Corpuscular Hemoglobin 35.8 pg (27.0-33.0); Mean Corpuscular Volume 106.6 fL (80.0-98.0); Mean Platelet Volume 10.3 fL (9.4-12.4); Monocytes Absolute Auto 1.6 X10*3/uL (0.1-1.2); Monocytes Percent Auto 10.8 % (2-11); Neutrophils Absolute Auto 10.6 x10*3/uL (2.0-8.3); Neutrophils Percent Auto 70.7 % (45-73); Platelet Count 165 X10*3/uL (160-400); Red Blood Count 2.88 X10*6/uL (4.60-5.80); Red Cell Distribution Width 14.7 % (11.0-16.0); SCAN SMEAR FLAG 1
[2022-01-20 06:06] LABS: INTERNATIONAL NORM RATIO 2.1 (0.9-1.1)
[2022-01-20 06:10] LABS: Alanine Aminotransferase 55 U/L (0-40); Alkaline Phosphatase 119 U/L (39-117); Anion Gap 9 (12-20); Aspartate Amino Transferase 80 U/L (5-37); Bilirubin Total 9.7 mg/dL (0.0-1.0); Blood Urea Nitrogen 15 mg/dL (9-16); Calcium 7.8 mg/dL (8.4-10.2); Carbon Dioxide 27 mmol/L (22-29); Chloride 105 mmol/L (96-108); Creatinine Clr Calc Pharmacy 122.3; Estimated Glomerular Filt Rate > 60; Glucose Fasting 93 mg/dL (60-99); Glucose Random 92 mg/dL (60-115); Magnesium 2.4 mg/dL (1.6-2.6); Potassium 3.9 mmol/L (3.3-5.1); Sodium 137 mmol/L (135-145); Total Protein 6.9 g/dL (6.5-8.0)
[2022-01-20 06:16] LABS: SLIDE REVIEW VERIFIED
[2022-01-20 09:07] LABS: Immature Retic Fraction 18.8 % (2.3-13.4); Retic HGB Equivalent 39.8 pg (30.0-35.0); Reticulocyte Percent 2.2 % (0.5-1.8); Reticulocytes Absolute 0.063 X10*6/uL (0.026-0.095)
[2022-01-20] MEDS: Lactulose 20 GM/30 ML SOLUTION PO (09:29)
[2022-01-20] MEDS: Folic Acid 1 MG TABLET PO (09:29)
[2022-01-20] MEDS: Thiamine HCL 100 MG TABLET PO (09:29)
[2022-01-20] MEDS: 0.9 % Sodium Chloride Flush 3 ML SYRINGE IVFLUSH ×3 (09:30→21:42)
[2022-01-20] MEDS: methADONE HCl 20 MG/2 ML ORAL.CONC 70 MG PO (09:30)
[2022-01-20 09:47] LABS: C Reactive Protein 2.97 mg/dL (< or = 0.50); Lactate Dehydrogenase 207 U/L (118-273)
[2022-01-20 09:54] LABS: Folate 4.9 ng/mL (> or = 4.0); Vitamin B12 > 2000 pg/mL (200-900)
[2022-01-20] MEDS: cefTRIAXone sodium 2 GM in 0.9 % Sodium Chloride 50 ML IV (10:57)
--- NOTE | 2022-01-20 11:38 | P.PNIM_ITS ---
Subjective Subjective Date of Service: 01/20/22 Interval History: very minimal ascites on US c/o 10 BM/day no abd pain no fever Review of Systems Review of Systems: Yes all other systems are reviewed and are negative Physical Exam Vital Signs: Vital Signs: Last Vital Signs Temp 98.3 F 01/20/22 11:24 Pulse 66 01/20/22 11:24 Resp 18 01/20/22 11:24 BP 127/78 01/20/22 11:24 Pulse Ox 94 01/20/22 11:24 O2 Del Method 01/20/22 11:24 O2 Flow Rate 2 01/19/22 19:16 BMI result Body Mass Index 32.1 Gen: in no acute distress HEENT: sclera icteric, moist mucus membranes Neck: supple Lungs: clear to auscultation bilaterally Heart: regular rate and rhythm, no murmurs Abd: soft, non-tender Ext: 1+ leg edema Skin: warm/well-perfused Neuro: alert and oriented x3, no focal findings, no asterixis Psych: appropriate affect ? Objective Data Active Medications Folic Acid (Folic Acid 1 Mg Tablet) 1 mg PO DAILY [facility] B[facility]S AT [facility] Last Admin: 01/20/22 09:29 Dose: 1 mg Documented By: CANDIDO Ceftriaxone Sodium 2 gm/ (Sodium Chloride) 50 mls @ 100 mls/hr IV Q24H [facility]S [facility] 234 BEDS AT [facility] Last Admin: 01/20/22 10:57 Dose: 100 mls/hr Documented By: CANDIDO Metronidazole (Flagyl) 500 mg in 100 mls @ 100 mls/hr IV Q8H [facility]S [facility] 234 BEDS AT [facility] Last Infusion: 01/20/22 10:51 Dose: 100 mls/hr Documented By: CANDIDO Lactulose (Lactulose 20 Gm/30 Ml Solution) 20 gm PO QID COUNTS [facility]CLUDE 234 BEDS AT [facility] Last Admin: 01/20/22 09:29 Dose: 20 gm Documented By: CANDIDO Melatonin (Melatonin 3 Mg Tablet) 6 mg PO BEDTIME PRN PRN Reason: Insomnia Methadone HCl (Methadone Hcl 20 Mg/2 Ml Oral.Conc) 70 mg PO DAILY [facility]S [facility] Last Admin: 01/20/22 09:30 Dose: 70 mg Documented By: CANDIDO Comments: Ondansetron HCl (Ondansetron Hcl 4 Mg/2 Ml Vial) 4 mg IVPUSH Q8H PRN PRN Reason: Nausea and Vomiting Pharmacy Consult (Consult Rx Perform Med Rec) 1 each MISCELLANE ONCE PRN PRN Reason: Consult order Sodium Chloride (0.9 % Sodium Chloride Flush 3 Ml Syringe) 3 ml IVFLUSH QSHIFT [facility]S [facility]CLUDE 234 BEDS AT [facility] Last Admin: 01/20/22 09:30 Dose: 3 ml Documented By: CANDIDO Thiamine HCl (Thiamine Hcl 100 Mg Tablet) 100 mg PO DAILY [facility] 234 BEDS AT [facility] Last Admin: 01/20/22 09:29 Dose: 100 mg Documented By: CANDIDO Labs CBC & Chem 7: 01/20/22 05:34 01/20/22 05:34 Labs: Laboratory Results - last 24 hr 01/17/22 01/20/22 01/20/22 00:41 05:34 05:34 MCV 106.6 H MCH 35.8 H MCHC 33.6 RDW 14.7 Plt Count 165 MPV 10.3 Immature Gran % (Auto) 2.9 H Neut % (Auto) 70.7 Lymph % (Auto) 13.2 L [place] % (Auto) 10.8 Eos % (Auto) 1.9 Baso % (Auto) 0.5 Lymph # (Auto) 2.0 [place] # (Auto) 1.6 H Eos # (Auto) 0.3 Baso # (Auto) 0.1 Abs Immat Gran (auto) 0.44 H Absolute Neuts (auto) 10.6 H Absolute Nucleated RBC 0.000 Nucleated RBC % (auto) 0.0 Smear Tech's Comments VERIFIED Absolute Retic 0.063 Percent Retic 2.2 H Immature Retic Fraction 18.8 H Retic Hgb Equivalent 39.8 H PT INR Anion Gap 9 L Estim Creat Clear Calc 122.3 Estimated GFR > 60 Random Glucose 92 Fasting Glucose 93 Calcium 7.8 L Magnesium 2.4 Total Bilirubin 9.7 H AST 80 H ALT 55 H Alkaline Phosphatase 119 H Lactate Dehydrogenase 207 C-Reactive Protein 2.97 H Total Protein 6.9 Albumin 2.0 L Vitamin B12 Folate Hep B Core Total Ab Reactive 01/20/22 01/20/22 05:34 05:34 MCV MCH MCHC RDW Plt Count MPV Immature Gran % (Auto) Neut % (Auto) Lymph % (Auto) [place] % (Auto) Eos % (Auto) Baso % (Auto) Lymph # (Auto) [place] # (Auto) Eos # (Auto) Baso # (Auto) Abs Immat Gran (auto) Absolute Neuts (auto) Absolute Nucleated RBC Nucleated RBC % (auto) Smear Tech's Comments Absolute Retic Percent Retic Immature Retic Fraction Retic Hgb Equivalent PT 25.0 H INR 2.1 H Anion Gap Estim Creat Clear Calc Estimated GFR Random Glucose Fasting Glucose Calcium Magnesium Total Bilirubin AST ALT Alkaline Phosphatase Lactate Dehydrogenase C-Reactive Protein Total Protein Albumin Vitamin B12 > 2000 H Folate 4.9 Hep B Core Total Ab Impressions Hepatobiliary Scan Nuclear Medicine 01/19/22 12:00 IMPRESSION: 1. Nonvisualized gallbladder up to 3.5 hours post injection. Differential diagnostic consideration would include physiologic changes including distended gallbladder (as was documented on multiple prior studies in this particular patient) as well as contracted gallbladder versus pathologic process such as acute cholecystitis. Further differentiation cannot be made based on this imaging appearance alone. 2.The common bile duct is patent. Liver function appears normal. Abdomen Ultrasound 01/20/22 08:49 IMPRESSION: There are small amount of ascites. Microbiology Microbiology Results: Microbiology 01/16/22 18:44 Blood Culture - Final Blood - Venous Escherichia coli 01/17/22 01:38 Gram Stain - Final Ascites Fluid Anaerobic Culture - Preliminary No growth to date. Body Fluid Culture - Final No growth after 2 days 01/16/22 18:44 Blood Culture - Final Blood - Venous Escherichia coli Assessment and Plan (1) Decompensation of cirrhosis of liver: Status: Acute (2) CEASAR (acute kidney injury): Status: Acute Plan d#5 56yo M with AUD + untreated HCV presenting with ascites # E coli bacteremia - from BCx 01/16/22 - ceftriaxone d#07/19, d/c metronidazole - plan to complete course as outpt with cefuroxime # ascites - cell count <SBP threshold, follow Cx- no growth to date - start furosemide 20 mg + spironolactone 50 mg daily today # CEASAR # hypoNa - prerenal/hypovolemic, resolved after IV fluids # hypoK - repleted # EtOH hepatitis - no steroids given infection - Tbili continues to improve # decompensated cirrhosis - AFP pending - no AC for PVT per discussion with GI # coagulopathy - given vitamin K PO, INR improved, probably not further correctable due to cirrhosis # HCV infection - outpt GI f/u for treatment, viral load pending # AUD - CIWA - thiamine, folate - Addiction Medicine consult # OUD - continue methadone outpt dosing # VTE ppx: SCDs In my clinical judgment, the patient requires continued inpatient hospitalization for the following reasons: IV ABX, pending ascites final culture Quality Stroke Does the patient have a stroke diagnosis?: No VTE Prior VTE?: No VTE Risk Level:: Medical - moderate - high VTE Device Contraindication: N/A - Device Ordered VTE Drug Contraindication: Treatment Not Indicated
[2022-01-20] MEDS: Furosemide 20 MG TABLET PO (11:52)
[2022-01-20] MEDS: Spironolactone 25 MG TABLET 50 MG PO (11:52)
--- NOTE | 2022-01-20 15:20 | P.CDIC_ITS ---
CDI Concurrent Query Documentation Clarification: PHYSICIAN'S DOCUMENTATION REQUEST Date of Query: 01/20/22 1520 Patient Name: Ye Blanco Admit Date: 01/16/22 Dear Doctor, A review of the medical record indicates additional documentation may be needed. Please review below and update the documentation accordingly. Clinical Indicators: Is there a diagnosis that correlates with the findings below: Risk Factors/Clinical Indicators/Treatments Per provider note on 01/20/22: HCV infection - outpt GI f/u for treatment, viral load pending Per provider note on 01/19/22: + untreated HCV Labs: Hepatitis C Anibody on 01/17: REACTIVE H Based on the above, could you clarify in the Progress Notes the appropriate diagnosis, if significant, that supports the above abnormalities and additional evaluation, monitoring, and/or treatment rendered: * Acute HCV * Chronic HCV * Labs indicate a diagnosis of (please specify) * Other (please specify) * Unable to determine Use of terms such as suspected, likely, concern for, or probable (associated with a specific diagnosis that is being evaluated, monitored, or treated as if it exists) are acceptable and can be coded in the inpatient setting, when documented at the time of discharge. Thank you, Sobia Giron MS, RN, CCRN Extension: [phone] Please use your independent medical judgment in providing your response. THIS QUERY IS PART OF THE PERMANENT MEDICAL RECORD Provider Response: Other Other Diagnosis: chronic hcv
--- NOTE | 2022-01-20 17:05 | HO.ADDICT_ITS ---
History of Present Illness Date of Service: 01/20/2022 Chief Complaint: Abdominal bloating Reason for Consult: history of AUD and REBA HPI Narrative: Patient is a 56 year old male currently medically admitted with decompensated liver cirrhosis. COnsult requested secondary to recenty history of alcohol use Patient seen in room 360. Awake, alert, pleasant and engaged in interview--however providing very brief responses Reporting he has not had any alcohol in about 2 weeks. Is not currently on any medications for alcohol use disorder. Not engaged with any recovery supports Declines any referrals or resources related to AUD. Declined further discussion regarding AUD Review of Systems Constitutional: Reports as per HPI and Reports no additional constitutional complaints Diagnostics Vital Signs (24Hr): Vital Signs - 24 hr 01/19/22 19:16 01/20/22 00:00 01/20/22 04:00 Temperature 98.6 F 98 F 98.6 F Pulse Rate 89 70 70 Respiratory Rate 18 17 17 Blood Pressure 125/67 140/69 H 125/68 Pulse Oximetry 92 94 95 Oxygen Delivery Method Nasal Cannula Room Air Room Air Oxygen Flow Rate 2 01/20/22 07:47 01/20/22 11:24 01/20/22 15:34 Temperature 98.5 F 98.3 F 97.5 F Pulse Rate 78 66 67 Respiratory Rate 18 18 16 Blood Pressure 139/69 127/78 116/66 Pulse Oximetry 95 94 95 Oxygen Delivery Method Room Air Room Air Room Air Oxygen Flow Rate BMI result Body Mass Index 32.1 Labs Results: 01/20/22 05:34 01/20/22 05:34 Labs: Laboratory Results - last 48 hr 01/17/22 01/19/22 01/19/22 00:41 05:21 05:22 WBC 12.2 H RBC 2.88 L Hgb 10.4 L Hct 30.2 L MCV 104.9 H MCH 36.1 H MCHC 34.4 RDW 14.9 Plt Count 168 MPV 9.9 Immature Gran % (Auto) 2.0 H Neut % (Auto) 68.3 Lymph % (Auto) 15.7 L Winn % (Auto) 11.4 H Eos % (Auto) 2.0 Baso % (Auto) 0.6 Lymph # (Auto) 1.9 Winn # (Auto) 1.4 H Eos # (Auto) 0.2 Baso # (Auto) 0.1 Abs Immat Gran (auto) 0.25 H Absolute Neuts (auto) 8.3 Absolute Nucleated RBC 0.000 Nucleated RBC % (auto) 0.0 Smear Tech's Comments Absolute Retic Percent Retic Immature Retic Fraction Retic Hgb Equivalent PT INR Sodium 137 Potassium 3.0 L Chloride 104 Carbon Dioxide 26 Anion Gap 10 L BUN 19 H Creatinine 0.85 Estim Creat Clear Calc 116.5 Estimated GFR > 60 Random Glucose Fasting Glucose 80 Calcium 7.8 L Magnesium 2.4 Total Bilirubin 10.6 H AST 84 H ALT 53 H Alkaline Phosphatase 114 Lactate Dehydrogenase C-Reactive Protein Total Protein 6.7 Albumin 2.0 L Vitamin B12 Folate Hep Bs Antigen Negative Hep Bs Antibody REACTIVE Hep B Core Total Ab Reactive Hep B Core IgM Ab Cancelled Hepatitis C Ab (EIA) Reactive H HIV 1&2 Ab/P24 Ag 4thGn 01/19/22 01/19/22 01/20/22 05:22 05:22 05:34 WBC 15.0 H RBC 2.88 L Hgb 10.3 L Hct 30.7 L MCV 106.6 H MCH 35.8 H MCHC 33.6 RDW 14.7 Plt Count 165 MPV 10.3 Immature Gran % (Auto) 2.9 H Neut % (Auto) 70.7 Lymph % (Auto) 13.2 L Winn % (Auto) 10.8 Eos % (Auto) 1.9 Baso % (Auto) 0.5 Lymph # (Auto) 2.0 Winn # (Auto) 1.6 H Eos # (Auto) 0.3 Baso # (Auto) 0.1 Abs Immat Gran (auto) 0.44 H Absolute Neuts (auto) 10.6 H Absolute Nucleated RBC 0.000 Nucleated RBC % (auto) 0.0 Smear Tech's Comments VERIFIED Absolute Retic 0.063 Percent Retic 2.2 H Immature Retic Fraction 18.8 H Retic Hgb Equivalent 39.8 H PT 24.0 H INR 2.0 H Sodium Potassium Chloride Carbon Dioxide Anion Gap BUN Creatinine Estim Creat Clear Calc Estimated GFR Random Glucose Fasting Glucose Calcium Magnesium Total Bilirubin AST ALT Alkaline Phosphatase Lactate Dehydrogenase C-Reactive Protein Total Protein Albumin Vitamin B12 Folate Hep Bs Antigen Hep Bs Antibody Hep B Core Total Ab Hep B Core IgM Ab Hepatitis C Ab (EIA) HIV 1&2 Ab/P24 Ag 4thGn Nonreactive 01/20/22 01/20/22 01/20/22 05:34 05:34 05:34 WBC RBC Hgb Hct MCV MCH MCHC RDW Plt Count MPV Immature Gran % (Auto) Neut % (Auto) Lymph % (Auto) Winn % (Auto) Eos % (Auto) Baso % (Auto) Lymph # (Auto) Winn # (Auto) Eos # (Auto) Baso # (Auto) Abs Immat Gran (auto) Absolute Neuts (auto) Absolute Nucleated RBC Nucleated RBC % (auto) Smear Tech's Comments Absolute Retic Percent Retic Immature Retic Fraction Retic Hgb Equivalent PT 25.0 H INR 2.1 H Sodium 137 Potassium 3.9 D Chloride 105 Carbon Dioxide 27 Anion Gap 9 L BUN 15 Creatinine 0.81 Estim Creat Clear Calc 122.3 Estimated GFR > 60 Random Glucose 92 Fasting Glucose 93 Calcium 7.8 L Magnesium 2.4 Total Bilirubin 9.7 H AST 80 H ALT 55 H Alkaline Phosphatase 119 H Lactate Dehydrogenase 207 C-Reactive Protein 2.97 H Total Protein 6.9 Albumin 2.0 L Vitamin B12 > 2000 H Folate 4.9 Hep Bs Antigen Hep Bs Antibody Hep B Core Total Ab Hep B Core IgM Ab Hepatitis C Ab (EIA) HIV 1&2 Ab/P24 Ag 4thGn Imaging Radiology Impressions: ITS Impressions Chest X-Ray 01/16/22 18:25 IMPRESSION: New coarse interstitial opacity. This can be seen in the setting of bronchitis, interstitial pneumonitis (including viral COVID pneumonitis) or pulmonary edema. Abdomen/Pelvis CT 01/16/22 19:38 IMPRESSION: Nodular hepatic contour suggests cirrhosis. Suspect cavernous transformation of the portal vein. Ascites, varices, and splenomegaly in keeping with portal hypertension. Distended gallbladder with pericholecystic fluid, a nonspecific finding given the presence of ascites. Similarly there is some fat stranding adjacent the head of the pancreas but there is fluid elsewhere in the retroperitoneum. Dilated common bile duct, at most 1.5 cm with intrahepatic biliary ductal dilatation as well. The findings are similar to the prior study from 2020. Again seen is an 8 mm indeterminate lesion exophytic from the lateral cortex of the right mid kidney. This could represent a hyperdense cyst or solid mass. Recommend renal protocol CT or MRI for definitive evaluation. Abdomen Ultrasound 01/16/22 20:49 IMPRESSION: Limited study. Cirrhotic liver. Dilated intrahepatic bile ducts and perihepatic ascites are again noted. Gallbladder wall thickening with dependent echogenic bile or sludge. There is a 1.8 cm hypoechoic structure with low-level internal echoes in the lateral cortex of the right mid kidney. It is not certain if this corresponds to the 8 mm exophytic lesion of concern in the right kidney. Renal protocol CT or MRI is still preferred for definitive evaluation. Chest X-Ray 01/16/22 23:11 IMPRESSION: Unremarkable examination. Abdomen MRI 01/17/22 14:15 IMPRESSION: Limited study. The gallbladder is distended. There is dilation of the intra and extrahepatic bile ducts without a definite mass. Attempts at MRCP were limited but there is no definite choledocholithiasis. Findings suggest chronic liver disease with portal hypertension including splenomegaly and ascites. The central portion of the portal vein enhances but the intrahepatic segments are not well visualized and thrombus could be present. This study does not allow characterization of small renal masses. Right pleural fluid and right lung base disease. Doppler Study Ultrasound 01/18/22 13:44 IMPRESSION: Cirrhotic liver, splenomegaly and ascites. This Doppler imaging examination suggests possibility of thrombosis involving the main portal vein and right portal vein. However, no thrombus is present within these veins on the contrast-enhanced exams from 01/16/2022 or 01/17/2022. The intrahepatic portal veins are not well evaluated due to their small caliber and it is possible that there is lack of well-defined flow in portal veins to the presence of portal hypertension. Hydropic gallbladder contains sludge and stones. Common bile duct is mildly dilated (0.8 cm diameter). There was no choledocholithiasis on the recent MRI from 01/17/2022. Hepatobiliary Scan Nuclear Medicine 01/19/22 12:00 IMPRESSION: 1. Nonvisualized gallbladder up to 3.5 hours post injection. Differential diagnostic consideration would include physiologic changes including distended gallbladder (as was documented on multiple prior studies in this particular patient) as well as contracted gallbladder versus pathologic process such as acute cholecystitis. Further differentiation cannot be made based on this imaging appearance alone. 2.The common bile duct is patent. Liver function appears normal. Abdomen Ultrasound 01/20/22 08:49 IMPRESSION: There are small amount of ascites. Mental Status Exam Mental Status Exam Patient Appearance: Appropriate Level of Consciousness: Awake, Appropriate and Alert Patient Behavior: Appropriate and Guarded Thought Process: Intact Judgement: Good Medications Medications Current Medications Folic Acid (Folic Acid 1 Mg Tablet) 1 mg PO DAILY [facility] Last Admin: 01/20/22 09:29 Dose: 1 mg Furosemide (Furosemide 20 Mg Tablet) 20 mg PO DAILY [facility]; Protocol Last Admin: 01/20/22 11:52 Dose: 20 mg Ceftriaxone Sodium 2 gm/ (Sodium Chloride) 50 mls @ 100 mls/hr IV Q24H [facility] Last Infusion: 01/20/22 11:48 Dose: Infused Lactulose (Lactulose 20 Gm/30 Ml Solution) 20 gm PO DAILY [facility] Last Admin: 01/20/22 11:53 Dose: Not Given Melatonin (Melatonin 3 Mg Tablet) 6 mg PO BEDTIME PRN PRN Reason: Insomnia Methadone HCl (Methadone Hcl 20 Mg/2 Ml Oral.Conc) 70 mg PO DAILY [facility] Last Admin: 01/20/22 09:30 Dose: 70 mg Ondansetron HCl (Ondansetron Hcl 4 Mg/2 Ml Vial) 4 mg IVPUSH Q8H PRN PRN Reason: Nausea and Vomiting Pharmacy Consult (Consult Rx Perform Med Rec) 1 each MISCELLANE ONCE PRN PRN Reason: Consult order Sodium Chloride (0.9 % Sodium Chloride Flush 3 Ml Syringe) 3 ml IVFLUSH QSHIFT [facility] Last Admin: 01/20/22 16:04 Dose: 3 ml Spironolactone (Spironolactone 25 Mg Tablet) 50 mg PO DAILY [facility]; Protocol Last Admin: 01/20/22 11:52 Dose: 50 mg Thiamine HCl (Thiamine Hcl 100 Mg Tablet) 100 mg PO DAILY [facility] Last Admin: 01/20/22 09:29 Dose: 100 mg Allergies Allergies Allergy/AdvReac Type Severity Reaction Status Date / Time No Known Allergies Allergy Unverified 11/23/19 15:10 [No Known Allergies*] Assessment & Plan Assessment & Plan (1) Alcohol use disorder, severe, dependence: Status: Acute Code(s): F10.20 - Alcohol dependence, uncomplicated Assessment and Plan: * declined referrals or resources * no further follow up indicated at this time I spent ___25___ minutes with the patient and/or on the patient floor today, greater than?50% of which was spent counseling/coordinating care. [facility] Past Medical History Medical History (Updated 01/20/22 @ 17:57 by Kamala Arroyo CNP) Alcohol abuse Drug abuse Hypertension Social History Social History Household Members: None Housing: Apartment Do you presently have visiting nurse or other home services: No Alcohol intake: current Patient Tobacco Use Status: Former Tobacco user Quit Date: 5 months ago Tobacco use type: Cigarette Substance Use Type: Heroin service: No Current occupational status: unemployed
[2022-01-21 03:20] VITALS: BP 134/69; PULSE 63; RESP 18; TEMP 36.6; O2SAT 96
[2022-01-21 06:23] LABS: Hematocrit 29.6 % (42.0-52.0); Mean Corpuscular HGB Conc 33.8 g/dl (31.0-36.0); Mean Corpuscular Hemoglobin 36.1 pg (27.0-33.0); Mean Corpuscular Volume 106.9 fL (80.0-98.0); Mean Platelet Volume 10.8 fL (9.4-12.4); Platelet Count 147 X10*3/uL (160-400); Red Blood Count 2.77 X10*6/uL (4.60-5.80); Red Cell Distribution Width 14.5 % (11.0-16.0); White Blood Count 13.4 X10*3/uL (4.8-10.8)
[2022-01-21 06:48] LABS: Alanine Aminotransferase 48 U/L (0-40); Albumin Level 1.8 g/dL (3.5-5.0); Alkaline Phosphatase 101 U/L (39-117); Anion Gap 11 (12-20); Aspartate Amino Transferase 73 U/L (5-37); Bilirubin Total 9.7 mg/dL (0.0-1.0); Blood Urea Nitrogen 13 mg/dL (9-16); Calcium 7.5 mg/dL (8.4-10.2); Carbon Dioxide 25 mmol/L (22-29); Chloride 104 mmol/L (96-108); Creatinine Clr Calc Pharmacy 137.6; Estimated Glomerular Filt Rate > 60; Glucose Random 67 mg/dL (60-115); Magnesium 2.1 mg/dL (1.6-2.6); Potassium 3.5 mmol/L (3.3-5.1); Sodium 136 mmol/L (135-145); Total Protein 6.6 g/dL (6.5-8.0)
[2022-01-21 07:50] VITALS: BP 126/67; PULSE 75; RESP 19; TEMP 36.3; O2SAT 94
[2022-01-21 07:51] LABS: Hepatitis A Antibody IgM 0.22 Index (0-0.79); ~Hepatitis A Antibody IgM Nonreactive (Nonreactive)
[2022-01-21] MEDS: Spironolactone 25 MG TABLET 50 MG PO (08:15)
[2022-01-21] MEDS: Furosemide 20 MG TABLET PO (08:15)
[2022-01-21] MEDS: Folic Acid 1 MG TABLET PO (08:15)
[2022-01-21] MEDS: Thiamine HCL 100 MG TABLET PO (08:15)
[2022-01-21] MEDS: Lactulose 20 GM/30 ML SOLUTION PO (08:15)
[2022-01-21] MEDS: 0.9 % Sodium Chloride Flush 3 ML SYRINGE IVFLUSH (08:16)
[2022-01-21] MEDS: methADONE HCl 20 MG/2 ML ORAL.CONC 70 MG PO (08:16)
[2022-01-21 11:51] VITALS: BP 108/56; PULSE 75; RESP 17; TEMP 36.8; O2SAT 97
--- NOTE | 2022-01-21 12:14 | P.DS_ITS ---
DS: Providers Provider Date of Service: 01/21/22 Date of admission: 01/16/22 23:18 Date of discharge: 01/21/22 Primary care physician: Renny Allen MD Consults: 01/16/22 21:19 Consult to Gastroenterology Stat Consulting Provider: Rolo Mederos Reason for consultation: Elevated transaminases, bilirubin, jaundice 01/18/22 11:29 Addiction Medicine Routine Consulting Provider: Addiction Covering Reason for consultation: AUD DS: Diagnosis Discharge Diagnosis (1) Alcohol use disorder, severe, dependence: Status: Acute (2) Decompensation of cirrhosis of liver: Status: Acute (3) Jaundice: Status: Acute (4) Ascites: Status: Acute (5) CEASAR (acute kidney injury): Status: Acute (6) E coli bacteremia: Status: Acute (7) Alcoholic hepatitis: Status: Acute (8) Chronic hepatitis C virus infection: Status: Acute (9) Hyponatremia: Status: Acute (10) Hypokalemia: Status: Acute DS: Summary Hospital Course Hospital Course: from admission H+P by hospitalist Trinity Alicea MD, 01/16/22: This is a 56-year-old male with pertinent history of alcohol use disorder, substance use disorder, hepatitis-C (unclear treatment status) who presents to the emergency department with complaints of abdominal distension.? Patient states for the last 10 days he has had worsening abdominal discomfort with distention.? Also noticed yellowing discoloration of his skin.? He has been extremely weak over the last 7-10 days.? Patient denies similar complaints in the past.? He does consume 1 workup per day but states he has not had a drink in a week.? Also admits to IV drug use, last used many years ago. His abdominal discomfort is generalized, constant , nonradiating and without any relieving factors.? Patient denies fever, chills, chest discomfort, palpitations.? He also noticed change in color of his urine and stool. In the emergency department, patient was found to have leukocytosis, elevated liver enzymes and imaging with dilated bile duct.? GI was consulted from the ER who will evaluate the patient in a.m.. 56yo M with AUD + untreated chronic HCV presenting with ascites, admitted to the medical/surgical floor. Hospital course by problem: # E coli bacteremia - From [facility] 01/16/22, rodriguez-sensitive. Treated with 6 days of IV ceftriaxone, discharged on 8 days of PO cefuroxime to complete total 14 days. # ascites - Cell count below SBP threshold and no growth from culture. Started furosemide 20 mg + spironolactone? 50 mg daily and advised to follow low-sodium diet. CMP should be rechecked in 1 week. Ascites cytology pending. # CEASAR # hypoNa - Prerenal/hypovolemic. Resolved after IV fluids. # hypoK - Repleted # EtOH hepatitis - No steroids given infection. Bilirubin improved over course of hospitalization. Not thought to have significant gallbladder disease. # decompensated cirrhosis - AFP pending. Likely chronic portal venous thrombosis; no anticoagulation per discussion with Gastroenterology. # coagulopathy - Given vitamin K PO and INR improved; probably not further correctable due to cirrhosis. # chronic HCV infection - Needs outpt GI follow-up for treatment; viral load pending. # AUD - Abstinent for 10 days prior to admission. No signs of withdrawal. Given t hiamine and folate. Addiction Medicine consulted and patient declined further assistance such as MAT or counseling. He was discharged home with instructions to follow up with Primary Care and Gastroenterology. Time Spent with Patient Time attestation: Total time spent providing and/or coordinating discharge services: 35 Discharge coordination time: Greater than 30 minutes Quality: Safe Use of Opioids Does Pt have an Active Cancer Diagnosis on the Problem List?: No Quality: Stroke Does the patient have a stroke diagnosis?: No Physical Exam Vital Signs: Vital Signs: Last Vital Signs Temp 98.2 F 01/21/22 11:51 Pulse 75 01/21/22 11:51 Resp 17 01/21/22 11:51 BP 108/56 L 01/21/22 11:51 Pulse Ox 97 01/21/22 11:51 O2 Del Method 01/21/22 11:51 O2 Flow Rate 2 01/19/22 19:16 BMI result Body Mass Index 32.1 Gen: in no acute distress HEENT: sclera icteric, moist mucus membranes Neck: supple Lungs: clear to auscultation bilaterally Heart: regular rate and rhythm, no murmurs Abd: soft, non-tender Ext: trace eg edema Skin: warm/well-perfused Neuro: alert and oriented x3, no focal findings, no asterixis Psych: appropriate affect DS: Data Data Completed and Pending Completed studies during hospitalization [Text1]: Laboratory Results WBC 13.4 X10*3/uL (4.8-10.8) H 01/21/22 05:15 RBC 2.77 X10*6/uL (4.60-5.80) L 01/21/22 05:15 Hgb 10.0 g/dl (14.0-18.0) L 01/21/22 05:15 Hct 29.6 % (42.0-52.0) L 01/21/22 05:15 MCV 106.9 fL (80.0-98.0) H 01/21/22 05:15 MCH 36.1 pg (27.0-33.0) H 01/21/22 05:15 MCHC 33.8 g/dl (31.0-36.0) 01/21/22 05:15 RDW 14.5 % (11.0-16.0) 01/21/22 05:15 Plt Count 147 X10*3/uL (160-400) L 01/21/22 05:15 MPV 10.8 fL (9.4-12.4) 01/21/22 05:15 Immature Gran % (Auto) 2.9 % (0.0-0.4) H 01/20/22 05:34 Neut % (Auto) 70.7 % (45-73) 01/20/22 05:34 Lymph % (Auto) 13.2 % (20-40) L 01/20/22 05:34 [place] % (Auto) 10.8 % (2-11) 01/20/22 05:34 Eos % (Auto) 1.9 % (0-4) 01/20/22 05:34 Baso % (Auto) 0.5 % (0-2) 01/20/22 05:34 Lymph # (Auto) 2.0 X10*3/uL (1.2-4.9) 01/20/22 05:34 [place] # (Auto) 1.6 X10*3/uL (0.1-1.2) H 01/20/22 05:34 Eos # (Auto) 0.3 X10*3/uL (0.0-0.4) 01/20/22 05:34 Baso # (Auto) 0.1 X10*3/uL (0.0-0.2) 01/20/22 05:34 Abs Immat Gran (auto) 0.44 X10*3/uL (0.00-0.03) H 01/20/22 05:34 Absolute Neuts (auto) 10.6 x10*3/uL (2.0-8.3) H 01/20/22 05:34 Absolute Nucleated RBC 0.000 X10*3/uL (0.0-0.012) 01/21/22 05:15 Nucleated RBC % (auto) 0.0 /100WBC (0.0-0.2) 01/21/22 05:15 Smear Tech's Comments VERIFIED 01/20/22 05:34 Absolute Retic 0.063 X10*6/uL (0.026-0.095) 01/20/22 05:34 Percent Retic 2.2 % (0.5-1.8) H 01/20/22 05:34 Immature Retic Fraction 18.8 % (2.3-13.4) H 01/20/22 05:34 Retic Hgb Equivalent 39.8 pg (30.0-35.0) H 01/20/22 05:34 PT 25.0 SEC (10.0-13.1) H 01/20/22 05:34 INR 2.1 (0.9-1.1) H 01/20/22 05:34 Sodium 136 mmol/L (135-145) 01/21/22 05:15 Potassium 3.5 mmol/L (3.3-5.1) 01/21/22 05:15 Chloride 104 mmol/L (96-108) 01/21/22 05:15 Carbon Dioxide 25 mmol/L (22-29) 01/21/22 05:15 Anion Gap 11 (12-20) L 01/21/22 05:15 BUN 13 mg/dL (9-16) 01/21/22 05:15 Creatinine 0.72 mg/dL (0.5-1.4) 01/21/22 05:15 Estim Creat Clear Calc 137.6 01/21/22 05:15 Estimated GFR > 60 01/21/22 05:15 POC Glucose 75 mg/dL (60-115) 01/17/22 07:37 Random Glucose 67 mg/dL (60-115) 01/21/22 05:15 Fasting Glucose 93 mg/dL (60-99) 01/20/22 05:34 Lactic Acid 1.9 mmol/L (0.5-2.0) 01/16/22 18:44 Calcium 7.5 mg/dL (8.4-10.2) L 01/21/22 05:15 Magnesium 2.1 mg/dL (1.6-2.6) 01/21/22 05:15 Total Bilirubin 9.7 mg/dL (0.0-1.0) H 01/21/22 05:15 Direct Bilirubin 12.6 mg/dL (0.0-0.5) H 01/16/22 17:25 AST 73 U/L (5-37) H 01/21/22 05:15 ALT 48 U/L (0-40) H 01/21/22 05:15 Alkaline Phosphatase 101 U/L (39-117) 01/21/22 05:15 Ammonia 63 umol/L (13-55) H 01/16/22 17:45 Lactate Dehydrogenase 207 U/L (118-273) 01/20/22 05:34 C-Reactive Protein 2.97 mg/dL (< or = 0.50) H 01/20/22 05:34 B-Natriuretic Peptide 264 pg/mL (<100) H 01/16/22 17:25 Total Protein 6.6 g/dL (6.5-8.0) 01/21/22 05:15 Albumin 1.8 g/dL (3.5-5.0) L 01/21/22 05:15 Lipase 445 U/L (8-78) H 01/16/22 17:25 Vitamin B12 > 2000 pg/mL (200-900) H 01/20/22 05:34 Folate 4.9 ng/mL (> or = 4.0) 01/20/22 05:34 Urine Color Dark Yellow 01/16/22 21:53 Urine Appearance Clear 01/16/22 21:53 Urine pH 6.0 (5.0-9.0) 01/16/22 21:53 Ur Specific [place] 1.015 (1.005-1.025) 01/16/22 21:53 Urine Protein Negative mg/dL (Neg-Trace) 01/16/22 21:53 Urine Glucose (UA) Negative mg/dL (Negative) 01/16/22 21:53 Urine Ketones Negative mg/dL (Negative) 01/16/22 21:53 Urine Blood Negative (Negative) 01/16/22 21:53 Urine Nitrite Negative (Negative) 01/16/22 21:53 Ur Leukocyte Esterase Negative (Negative) 01/16/22 21:53 Peritoneal WBC 0.195 X10*3/uL 01/17/22 01:38 Peritoneal RBC < 0.002 X10*6/uL 01/17/22 01:38 Periton Neutrophils 33 % 01/17/22 01:38 Periton Lymphocytes 10 % 01/17/22 01:38 Peritoneal Monocytes 17 % 01/17/22 01:38 Peritoneal Other Cells 40 % 01/17/22 01:38 Peritoneal Tot Protein 0.8 GM/DL 01/17/22 01:38 Peritoneal Albumin 0.2 GM/DL 01/17/22 01:38 Urine Opiates Screen Not Detected (Not Detect) 01/17/22 01:38 Urine Fentanyl Screen Not Detected (Not Detect) 01/17/22 01:38 Ur Barbiturates Screen Not Detected (Not Detect) 01/17/22 01:38 Ur Phencyclidine Scrn Not Detected (Not Detect) 01/17/22 01:38 Ur Amphetamines Screen Not Detected (Not Detect) 01/17/22 01:38 U Benzodiazepines Scrn Not Detected (Not Detect) 01/17/22 01:38 Urine Cocaine Screen Not Detected (Not Detect) 01/17/22 01:38 U Marijuana (THC) Screen Not Detected (Not Detect) 01/17/22 01:38 COVID-19 (SUSAN) Negative (Negative) 01/16/22 17:25 COVID-19 Clin Com See Note 01/16/22 17:25 Hepatitis A IgM Ab Nonreactive (Nonreactive) 01/17/22 00:41 Hep Bs Antigen Negative (Negative) 01/17/22 00:41 Hep Bs Antibody REACTIVE (Nonreactive) 01/17/22 00:41 Hep B Core Total Ab Reactive (Nonreactive) 01/17/22 00:41 Hep B Core IgM Ab Cancelled 01/17/22 00:41 Hepatitis C Ab (EIA) Cancelled 01/17/22 00:41 Hepatitis C Ab (EIA) Reactive (Nonreactive) H 01/17/22 00:41 HIV 1&2 Ab/P24 Ag 4thGn Nonreactive (Nonreactive) 01/19/22 05:22 Influenza Type A (PCR) NEGATIVE (Negative) 01/16/22 20:20 Influenza Type B (PCR) NEGATIVE (Negative) 01/16/22 20:20 RSV RNA Qual (PCR) NEGATIVE (Negative) 01/16/22 20:20 SARS-CoV-2 RNA (RT-PCR) NEGATIVE (Negative) 01/16/22 20:20 Impressions Abdomen/Pelvis CT 01/16/22 19:38 IMPRESSION: Nodular hepatic contour suggests cirrhosis. Suspect cavernous transformation of the portal vein. Ascites, varices, and splenomegaly in keeping with portal hypertension. Distended gallbladder with pericholecystic fluid, a nonspecific finding given the presence of ascites. Similarly there is some fat stranding adjacent the head of the pancreas but there is fluid elsewhere in the retroperitoneum. Dilated common bile duct, at most 1.5 cm with intrahepatic biliary ductal dilatation as well. The findings are similar to the prior study from 2020. Again seen is an 8 mm indeterminate lesion exophytic from the lateral cortex of the right mid kidney. This could represent a hyperdense cyst or solid mass. Recommend renal protocol CT or MRI for definitive evaluation. Chest X-Ray 01/16/22 23:11 IMPRESSION: Unremarkable examination. Abdomen MRI 01/17/22 14:15 IMPRESSION: Limited study. The gallbladder is distended. There is dilation of the intra and extrahepatic bile ducts without a definite mass. Attempts at MRCP were limited but there is no definite choledocholithiasis. Findings suggest chronic liver disease with portal hypertension including splenomegaly and ascites. The central portion of the portal vein enhances but the intrahepatic segments are not well visualized and thrombus could be present. This study does not allow characterization of small renal masses. Right pleural fluid and right lung base disease. Doppler Study Ultrasound 01/18/22 13:44 IMPRESSION: Cirrhotic liver, splenomegaly and ascites. This Doppler imaging examination suggests possibility of thrombosis involving the main portal vein and right portal vein. However, no thrombus is present within these veins on the contrast-enhanced exams from 01/16/2022 or 01/17/2022. The intrahepatic portal veins are not well evaluated due to their small caliber and it is possible that there is lack of well-defined flow in portal veins to the presence of portal hypertension. Hydropic gallbladder contains sludge and stones. Common bile duct is mildly dilated (0.8 cm diameter). There was no choledocholithiasis on the recent MRI from 01/17/2022. Hepatobiliary Scan Nuclear Medicine 01/19/22 12:00 IMPRESSION: 1. Nonvisualized gallbladder up to 3.5 hours post injection. Differential diagnostic consideration would include physiologic changes including distended gallbladder (as was documented on multiple prior studies in this particular patient) as well as contracted gallbladder versus pathologic process such as acute cholecystitis. Further differentiation cannot be made based on this imaging appearance alone. 2.The common bile duct is patent. Liver function appears normal. Abdomen Ultrasound 01/20/22 08:49 IMPRESSION: There are small amount of ascites. Pending studies at discharge: Pending at discharge 01/20/22 08:42 Cytology [PTH] Routine Discharge Plan Discharge Anticipated Discharge Date/Time: 01/21/22 12:04 Patient Disposition: Home, Self-Care Discharge Diagnosis: # E coli bacteremia # ascites # acute kidney injury # hyponatremia # hypokalemia # alcoholic hepatitis # decompensated cirrhosis # coagulopathy # HCV infection # alcohol use disorder Referrals: Renny Allen MD [Primary Care Provider] - 1 Week Rolo Mederos [Physician] - 1 Week Discharge Medications: New folic acid 1 mg Tablet 1 mg PO DAILY Qty: 30 0RF furosemide 20 mg Tablet 20 mg PO DAILY Qty: 30 0RF Protocol: Hold for SBP< HOLD for SBP < : 90 thiamine mononitrate (vit B1) 100 mg Tablet 100 mg PO DAILY Qty: 30 0RF lactulose 20 gram/30 mL Solution 20 g PO DAILY Qty: 1500 0RF Rx Instructions: Titrate to achieve 3 soft bowel movements daily cefuroxime axetil 500 mg tablet 500 mg PO BID Qty: 16 0RF spironolactone 50 mg tablet 50 mg PO DAILY Qty: 30 0RF Continued methadone 5 mg/5 mL Solution 67 mg PO DAILY Discharge Orders: Discharge Order (Routine); Ordered 01/21/22 Ordered By: Jimena Maher Diet: Low salt diet Activity on Discharge: As tolerated Stand Alone Forms: Patient Portal Discharge page Other Ambulatory Orders: Comprehensive Met. Panel (Routine) Timeframe: 1 Week Facility: [facility] - Location: Laboratory Ordered By: Jimena Maher Care Plan Goals: cure infection healthy liver Health Concerns: # E coli bacteremia - take cefuroxime 500 mg twice daily for 8 days # ascites - low-sodium (less than 2000 mg/d) diet - take spironolactone 50 mg daily plus furosemide 20 mg daily - check labs in 1 week [CMP] # acute kidney injury - resolved # hyponatremia - resolved # hypokalemia - resolved # alcoholic hepatitis - improving; avoid alcohol # decompensated cirrhosis - avoid alcohol; follow up with Dr Rolo Mederos from GI # coagulopathy - improved # HCV infection - follow up with Dr Rolo Mederos from GI for treatment # alcohol use disorder - avoid alcohol Please follow up with your primary care doctor within 1 week. Return to the hospital if you experience recurrent or worsening symptoms. Plan of Treatment: see above Assessment: See Discharge Summary.
--- NOTE | 2022-01-21 12:29 | MHC.CM.PN ---
PT MEDICALLY CLEARED FOR D/C HOME NO NEW SERVICES AND RESUMP OF [facility], PT TO ARRANGE TRANSPORT.
[2022-01-21 13:45] LABS: Alpha Fetoprotein 1.9 ng/mL (<6.1)
[2022-01-21 19:16] LABS: HCV Log PCR <1.18 NOT DETECTED Log IU/mL (NOT DETECTED); HepC Viral Load <15 NOT DETECTED IU/mL (NOT DETECTED)
== END 2022-01-21 14:32 | disposition home or self-care (01) | DRG 280 ==
LOC: HO.ED 21:03 → HO.EDOVER 23:23 → HO.S3 01-17 03:12
PROVIDERS: Hospitalist; Physician Assistant; Admitting Provider Student in an Organized Health Care Education/Training Program; Emergency Provider Student in an Organized Health Care Education/Training Program; PCP Internal Medicine; Visit Provider Family Medicine
DX: K70.31 Alcoholic cirrhosis of liver with ascites (principal); K70.11 Alcoholic hepatitis with ascites; N17.9 Acute kidney failure, unspecified; D68.4 Acquired coagulation factor deficiency; R78.81 Bacteremia; F10.20 Alcohol dependence, uncomplicated; E87.6 Hypokalemia; B96.20 Unspecified Escherichia coli [E. coli] as the cause of diseases classified elsewhere; B18.2 Chronic viral hepatitis C; F11.20 Opioid dependence, uncomplicated; Z20.822 Contact with and (suspected) exposure to COVID-19; Z87.891 Personal history of nicotine dependence; Z79.899 Other long term (current) drug therapy
CPT/HCPCS: 0241U; 36415; 71045; 74177; 74183; 76705; 78226; 80053; 80307; 81003; 82042; 82105; 82140; 82248; 82607; 82746; 82947; 83605; 83615; 83690; 83735; 83880; 84157; 85025; 85027; 85045; 85610; 86140; 86704; 86705; 86706; 86709; 86803; 87040; 87070; 87073; 87077; 87186; 87205; 87340; 87389; 87522; 87635; 89051; 93975; 96361; 96365; 96366; 96367; 96375; 97161; 99285; A9537; A9585; J0696; J1940; J3411; J3430; P9047; Q9967

== ENCOUNTER 2022-02-18 14:16 | Outpatient (REF) | payer OTHER, SELFPAY ==
[2022-02-18 16:36] LABS: Imm Gran Abs Auto 0.02 X10*3/uL (0.00-0.03); Imm Gran Pct Auto 0.4 % (0.0-0.4); MANUAL DIFF FLAG SCAN; PLT CLUMP 1; SCAN SMEAR FLAG 1
[2022-02-18 16:38] LABS: Basophils Absolute Auto 0.1 X10*3/uL (0.0-0.2); Basophils Percent Auto 1.6 % (0-2); Eosinophils Absolute Auto 0.2 X10*3/uL (0.0-0.4); Eosinophils Percent Auto 3.7 % (0-4); Hematocrit 35.6 % (42.0-52.0); Hemoglobin 12.1 g/dl (14.0-18.0); Lymphocytes Absolute Auto 1.2 X10*3/uL (1.2-4.9); Lymphocytes Percent Auto 22.7 % (20-40); Mean Corpuscular Hemoglobin 35.1 pg (27.0-33.0); Mean Corpuscular Volume 103.2 fL (80.0-98.0); Mean Platelet Volume 11.5 fL (9.4-12.4); Monocytes Absolute Auto 0.6 X10*3/uL (0.1-1.2); Monocytes Percent Auto 10.8 % (2-11); Neutrophils Absolute Auto 3.1 x10*3/uL (2.0-8.3); Neutrophils Percent Auto 60.8 % (45-73); Red Blood Count 3.45 X10*6/uL (4.60-5.80); Red Cell Distribution Width 13.5 % (11.0-16.0)
[2022-02-18 16:55] LABS: Anion Gap 11 (12-20); Blood Urea Nitrogen 15 mg/dL (9-16); Calcium 8.9 mg/dL (8.4-10.2); Carbon Dioxide 26 mmol/L (22-29); Chloride 102 mmol/L (96-108); Estimated Glomerular Filt Rate > 60; Glucose Random 109 mg/dL (60-115); Potassium 4.6 mmol/L (3.3-5.1); Sodium 134 mmol/L (135-145)
[2022-02-18 16:56] LABS: Platelet Count 98 X10*3/uL (160-400); White Blood Count 5.1 X10*3/uL (4.8-10.8)
[2022-02-18 16:57] LABS: SLIDE REVIEW VERIFIED
== END 2022-02-18 14:17 | disposition home or self-care (01) ==
LOC: HO.HMGCLDS 14:16
PROVIDERS: PCP Internal Medicine; Visit Provider Internal Medicine
DX: R53.83 Other fatigue (principal); E87.1 Hypo-osmolality and hyponatremia
CPT/HCPCS: 36415; 80048; 85025

== ENCOUNTER 2022-02-19 12:13 | Outpatient (REF) | payer OTHER, SELFPAY ==
[2022-02-19 14:04] LABS: INTERNATIONAL NORM RATIO 1.5 (0.9-1.1); Prothrombin Time 17.2 SEC (10.0-13.1)
[2022-02-19 15:02] LABS: Alanine Aminotransferase 43 U/L (0-40); Albumin Level 2.9 g/dL (3.5-5.0); Alkaline Phosphatase 97 U/L (39-117); Aspartate Amino Transferase 61 U/L (5-37); Bilirubin Direct 2.6 mg/dL (0.0-0.5); Total Protein 7.6 g/dL (6.5-8.0)
== END 2022-02-19 12:14 | disposition home or self-care (01) ==
LOC: HO.HMGCLDS 12:13
PROVIDERS: PCP Internal Medicine; Visit Provider Internal Medicine
DX: K70.31 Alcoholic cirrhosis of liver with ascites (principal)
CPT/HCPCS: 36415; 80076; 85610

== ENCOUNTER 2022-03-16 08:21 | Outpatient (REF) | payer OTHER, SELFPAY ==
[2022-03-16 11:16] LABS: MANUAL DIFF FLAG NO
[2022-03-16 11:30] LABS: Basophils Absolute Auto 0.1 X10*3/uL (0.0-0.2); Basophils Percent Auto 1.1 % (0-2); Eosinophils Absolute Auto 0.2 X10*3/uL (0.0-0.4); Eosinophils Percent Auto 4.9 % (0-4); Hematocrit 31.1 % (42.0-52.0); Hemoglobin 10.3 g/dl (14.0-18.0); Imm Gran Abs Auto 0.01 X10*3/uL (0.00-0.03); Imm Gran Pct Auto 0.2 % (0.0-0.4); Lymphocytes Absolute Auto 1.8 X10*3/uL (1.2-4.9); Lymphocytes Percent Auto 38.6 % (20-40); Mean Corpuscular HGB Conc 33.1 g/dl (31.0-36.0); Mean Corpuscular Hemoglobin 33.9 pg (27.0-33.0); Mean Corpuscular Volume 102.3 fL (80.0-98.0); Mean Platelet Volume 10.7 fL (9.4-12.4); Monocytes Absolute Auto 0.6 X10*3/uL (0.1-1.2); Monocytes Percent Auto 13.7 % (2-11); Neutrophils Absolute Auto 1.9 x10*3/uL (2.0-8.3); Neutrophils Percent Auto 41.5 % (45-73); Platelet Count 106 X10*3/uL (160-400); Red Blood Count 3.04 X10*6/uL (4.60-5.80); Red Cell Distribution Width 14.3 % (11.0-16.0); White Blood Count 4.5 X10*3/uL (4.8-10.8)
== END 2022-03-16 08:22 | disposition home or self-care (01) ==
LOC: HO.HMGCLDS 08:21
PROVIDERS: PCP Internal Medicine; Visit Provider Internal Medicine
DX: D64.9 Anemia, unspecified (principal); R53.83 Other fatigue
CPT/HCPCS: 36415; 85025

== ENCOUNTER 2022-04-09 09:36 | Outpatient (REF) | payer OTHER, SELFPAY ==
[2022-04-09 11:21] LABS: MANUAL DIFF FLAG NO
[2022-04-09 11:38] LABS: Basophils Percent Auto 0.7 % (0-2); Eosinophils Absolute Auto 0.4 X10*3/uL (0.0-0.4); Eosinophils Percent Auto 6.1 % (0-4); Hematocrit 29.3 % (42.0-52.0); Hemoglobin 9.8 g/dl (14.0-18.0); Imm Gran Abs Auto 0.02 X10*3/uL (0.00-0.03); Imm Gran Pct Auto 0.3 % (0.0-0.4); Lymphocytes Absolute Auto 1.7 X10*3/uL (1.2-4.9); Lymphocytes Percent Auto 30.1 % (20-40); Mean Corpuscular HGB Conc 33.4 g/dl (31.0-36.0); Mean Corpuscular Hemoglobin 34.5 pg (27.0-33.0); Mean Corpuscular Volume 103.2 fL (80.0-98.0); Mean Platelet Volume 10.6 fL (9.4-12.4); Monocytes Absolute Auto 0.7 X10*3/uL (0.1-1.2); Monocytes Percent Auto 12.9 % (2-11); Neutrophils Absolute Auto 2.9 x10*3/uL (2.0-8.3); Neutrophils Percent Auto 49.9 % (45-73); Platelet Count 135 X10*3/uL (160-400); Red Blood Count 2.84 X10*6/uL (4.60-5.80); White Blood Count 5.7 X10*3/uL (4.8-10.8)
[2022-04-09 12:04] LABS: Alanine Aminotransferase 20 U/L (0-40); Albumin Level 2.9 g/dL (3.5-5.0); Alkaline Phosphatase 65 U/L (39-117); Anion Gap 8 (12-20); Aspartate Amino Transferase 34 U/L (5-37); Bilirubin Total 2.4 mg/dL (0.0-1.0); Blood Urea Nitrogen 14 mg/dL (9-16); Calcium 8.6 mg/dL (8.4-10.2); Carbon Dioxide 26 mmol/L (22-29); Chloride 109 mmol/L (96-108); Cholesterol 149 mg/dL; Estimated Glomerular Filt Rate > 60; Glucose Fasting 89 mg/dL (60-99); HDL Cholesterol 43 mg/dL; LDL Cholesterol Calculated 86 mg/dl; Potassium 4.7 mmol/L (3.3-5.1); Sodium 138 mmol/L (135-145); Total Protein 6.5 g/dL (6.5-8.0); Triglycerides 101 mg/dL
== END 2022-04-09 09:37 | disposition home or self-care (01) ==
LOC: HO.HMGCLDS 09:36
PROVIDERS: PCP Internal Medicine; Visit Provider Internal Medicine
DX: R53.83 Other fatigue (principal); E78.5 Hyperlipidemia, unspecified
CPT/HCPCS: 36415; 80053; 80061; 85025

== ENCOUNTER 2022-04-25 11:26 | Outpatient (REF) | payer OTHER, SELFPAY ==
[2022-04-25 13:34] LABS: MANUAL DIFF FLAG NO
[2022-04-25 13:37] LABS: Basophils Absolute Auto 0.1 X10*3/uL (0.0-0.2); Basophils Percent Auto 1.1 % (0-2); Eosinophils Absolute Auto 0.3 X10*3/uL (0.0-0.4); Eosinophils Percent Auto 6.3 % (0-4); Hematocrit 31.9 % (42.0-52.0); Hemoglobin 10.6 g/dl (14.0-18.0); Imm Gran Abs Auto 0.02 X10*3/uL (0.00-0.03); Imm Gran Pct Auto 0.4 % (0.0-0.4); Lymphocytes Absolute Auto 1.9 X10*3/uL (1.2-4.9); Mean Corpuscular HGB Conc 33.2 g/dl (31.0-36.0); Mean Corpuscular Hemoglobin 34.1 pg (27.0-33.0); Mean Corpuscular Volume 102.6 fL (80.0-98.0); Mean Platelet Volume 10.7 fL (9.4-12.4); Monocytes Absolute Auto 0.8 X10*3/uL (0.1-1.2); Monocytes Percent Auto 15.5 % (2-11); Neutrophils Absolute Auto 2.1 x10*3/uL (2.0-8.3); Neutrophils Percent Auto 40.7 % (45-73); Platelet Count 128 X10*3/uL (160-400); Red Blood Count 3.11 X10*6/uL (4.60-5.80); Red Cell Distribution Width 14.3 % (11.0-16.0); White Blood Count 5.2 X10*3/uL (4.8-10.8)
[2022-04-25 13:59] LABS: Alanine Aminotransferase 19 U/L (0-40); Albumin Level 3.2 g/dL (3.5-5.0); Alkaline Phosphatase 62 U/L (39-117); Anion Gap 15 (12-20); Aspartate Amino Transferase 36 U/L (5-37); Bilirubin Total 2.1 mg/dL (0.0-1.0); Blood Urea Nitrogen 18 mg/dL (9-16); Calcium 9.2 mg/dL (8.4-10.2); Carbon Dioxide 26 mmol/L (22-29); Chloride 101 mmol/L (96-108); Estimated Glomerular Filt Rate > 60; Glucose Fasting 86 mg/dL (60-99); Potassium 4.1 mmol/L (3.3-5.1); Sodium 138 mmol/L (135-145); Total Protein 7.4 g/dL (6.5-8.0)
== END 2022-04-25 11:27 | disposition home or self-care (01) ==
LOC: HO.HMGCLDS 11:26
PROVIDERS: PCP Internal Medicine; Visit Provider Internal Medicine
DX: R53.83 Other fatigue (principal); K74.60 Unspecified cirrhosis of liver; R18.8 Other ascites
CPT/HCPCS: 36415; 80053; 85025

== ENCOUNTER 2022-05-12 09:49 | Outpatient (REF) | payer OTHER, SELFPAY ==
--- NOTE | ~2022-05-12 | US_ITS ---
EXAMINATION: Complete abdominal ultrasound with Doppler CLINICAL INFORMATION: Alcoholic cirrhosis, rule out portal vein thrombosis. COMPARISON: Doppler ultrasound 01/18/2022. TECHNIQUE: Real-time imaging of the abdominal viscera. Color and spectral Doppler evaluation of the abdominal vasculature. FINDINGS: LIVER: Cirrhotic liver with nodular contour and heterogeneous parenchyma. No discrete liver mass. No intrahepatic ductal dilatation. SPLENIC VEIN: Patent with normal waveform. HEPATIC VEINS: Patent with normal waveforms. PORTAL VEINS: Patent with normal waveforms and hepatopetal flow. HEPATIC ARTERIES: Normal upstroke and diastolic flow. INFERIOR VENA CAVA: Patent with normal waveform. GALLBLADDER: Cholelithiasis without evidence of cholecystitis. COMMON BILE DUCT: Mildly dilated measuring 1.1 cm which is a chronic appearance. No choledocholithiasis demonstrated. PANCREAS: Normal. The visualized pancreatic head and body are normal in appearance. The remainder of the pancreas is obscured from visualization by the overlying bowel gas. RIGHT KIDNEY: There is a small exophytic anechoic lesion consistent with a simple cyst measuring 1.0 cm from the lateral mid kidney. No hydronephrosis. No renal calculi or focal parenchymal lesions. The kidney measures 10.3 cm in maximum dimension LEFT KIDNEY: Normal. No hydronephrosis. No renal calculi or focal parenchymal lesions. The kidney measures 10.8 cm in maximum dimension. SPLEEN: Enlarged measuring 13.6 cm. ABDOMINAL AORTA: The visualized proximal segment is normal in caliber. FREE FLUID: None. US/US duplex arterial venous comp IMPRESSION: Cirrhotic liver. No discrete liver mass. No ascites. The Doppler study demonstrates normally directed flow in the portal venous system without evidence of thrombosis. There is portal hypertension with an enlarged spleen. Cholelithiasis without evidence of cholecystitis. Chronic mildly dilated common bile duct measuring 1.1 cm.
--- NOTE | ~2022-05-12 | US_ITS ---
EXAMINATION: Complete abdominal ultrasound with Doppler CLINICAL INFORMATION: Alcoholic cirrhosis, rule out portal vein thrombosis. COMPARISON: Doppler ultrasound 01/18/2022. TECHNIQUE: Real-time imaging of the abdominal viscera. Color and spectral Doppler evaluation of the abdominal vasculature. FINDINGS: LIVER: Cirrhotic liver with nodular contour and heterogeneous parenchyma. No discrete liver mass. No intrahepatic ductal dilatation. SPLENIC VEIN: Patent with normal waveform. HEPATIC VEINS: Patent with normal waveforms. PORTAL VEINS: Patent with normal waveforms and hepatopetal flow. HEPATIC ARTERIES: Normal upstroke and diastolic flow. INFERIOR VENA CAVA: Patent with normal waveform. GALLBLADDER: Cholelithiasis without evidence of cholecystitis. COMMON BILE DUCT: Mildly dilated measuring 1.1 cm which is a chronic appearance. No choledocholithiasis demonstrated. PANCREAS: Normal. The visualized pancreatic head and body are normal in appearance. The remainder of the pancreas is obscured from visualization by the overlying bowel gas. RIGHT KIDNEY: There is a small exophytic anechoic lesion consistent with a simple cyst measuring 1.0 cm from the lateral mid kidney. No hydronephrosis. No renal calculi or focal parenchymal lesions. The kidney measures 10.3 cm in maximum dimension LEFT KIDNEY: Normal. No hydronephrosis. No renal calculi or focal parenchymal lesions. The kidney measures 10.8 cm in maximum dimension. SPLEEN: Enlarged measuring 13.6 cm. ABDOMINAL AORTA: The visualized proximal segment is normal in caliber. FREE FLUID: None. US/US abdomen complete IMPRESSION: Cirrhotic liver. No discrete liver mass. No ascites. The Doppler study demonstrates normally directed flow in the portal venous system without evidence of thrombosis. There is portal hypertension with an enlarged spleen. Cholelithiasis without evidence of cholecystitis. Chronic mildly dilated common bile duct measuring 1.1 cm.
[2022-05-12 11:15] LABS: MANUAL DIFF FLAG NO
[2022-05-12 11:36] LABS: Basophils Percent Auto 0.8 % (0-2); Eosinophils Absolute Auto 0.3 X10*3/uL (0.0-0.4); Eosinophils Percent Auto 4.9 % (0-4); Hemoglobin 10.6 g/dl (14.0-18.0); Imm Gran Abs Auto 0.02 X10*3/uL (0.00-0.03); Imm Gran Pct Auto 0.4 % (0.0-0.4); Lymphocytes Absolute Auto 1.7 X10*3/uL (1.2-4.9); Lymphocytes Percent Auto 33.4 % (20-40); Mean Corpuscular HGB Conc 34.2 g/dl (31.0-36.0); Mean Corpuscular Hemoglobin 34.5 pg (27.0-33.0); Mean Platelet Volume 10.4 fL (9.4-12.4); Monocytes Absolute Auto 0.7 X10*3/uL (0.1-1.2); Neutrophils Absolute Auto 2.4 x10*3/uL (2.0-8.3); Neutrophils Percent Auto 46.5 % (45-73); Platelet Count 121 X10*3/uL (160-400); Red Blood Count 3.07 X10*6/uL (4.60-5.80); White Blood Count 5.2 X10*3/uL (4.8-10.8)
[2022-05-12 12:40] LABS: Alanine Aminotransferase 29 U/L (0-40); Albumin Level 3.1 g/dL (3.5-5.0); Alkaline Phosphatase 63 U/L (39-117); Anion Gap 11 (12-20); Aspartate Amino Transferase 46 U/L (5-37); Blood Urea Nitrogen 17 mg/dL (9-16); Calcium 8.7 mg/dL (8.4-10.2); Carbon Dioxide 28 mmol/L (22-29); Chloride 103 mmol/L (96-108); Cholesterol 148 mg/dL; Estimated Glomerular Filt Rate > 60; Glucose Fasting 89 mg/dL (60-99); HDL Cholesterol 45 mg/dL; LDL Cholesterol Calculated 90 mg/dl; Potassium 4.2 mmol/L (3.3-5.1); Sodium 138 mmol/L (135-145); Triglycerides 67 mg/dL
[2022-05-21 20:08] LABS: Estradiol Free 0.37 pg/mL; Estradiol, Ultrasensitive 18 pg/mL (< OR = 29)
== END 2022-05-12 09:50 | disposition home or self-care (01) ==
LOC: HO.HMGCLDS 09:49
PROVIDERS: PCP Internal Medicine; Visit Provider Internal Medicine
DX: R53.83 Other fatigue (principal); E78.00 Pure hypercholesterolemia, unspecified; R53.81 Other malaise; K76.9 Liver disease, unspecified
CPT/HCPCS: 36415; 76700; 80053; 80061; 82670; 82681; 85025; 93975

== ENCOUNTER → 2022-05-27 13:57 | Outpatient (REF) | payer OTHER, SELFPAY ==
--- NOTE | 2022-05-27 14:06 | CA_ITS ---
Transthoracic Echocardiogram Patient (Last, First, Middle): Ye Blanco T Gender: Male Date of : 1965 Age: 56 Procedure Date: 05/27/2022 Procedure Type: Transthoracic Echocardiogram Location: OP Height: 180.34 cm Weight: 99.79 kg BSA: 2.20 m2 Heart Rate: 61 bpm BP: 120 / 60 mmHg Special Delivery Carrier: SOL Referring MD: Renny Allen MD Game Manager: Braulio Shelton MD Symptoms: NEW AORTIC MURMUR Study Quality: Adequate ECG Rhythm: Sinus Conclusions: - 1. Normal LV systolic function with mild LVH 2. Mildly dilated left atrium 3. Mild fibrocalcific aortic valve changes noted without clear aortic stenosis 4. Mildly dilated ascending aorta 5. No gross pericardial effusion Findings Left Ventricle Normal left ventricular size and systolic function. There is mildly increased left ventricular wall thickness. The visually estimated ejection fraction is between 60-65%. Spectral Doppler is indicative of a normal filling pattern. Right Ventricle Normal right ventricular cavity size and systolic function. Atria The left atrium is mildly dilated. Interatrial shunt cannot be excluded. The right atrium is normal in size. Aortic Valve There is mild calcification of the aortic valve. There is mild thickening of the aortic valve. There is no aortic valve stenosis. There is no aortic valve regurgitation. increased gradient across aortic valve, without any obvious stenosis Mitral Valve There is mild anterior and posterior mitral leaflet thickening. There is trace mitral valve regurgitation. There is no mitral valve stenosis. Pulmonic Valve The pulmonic valve was not well visualized. Tricuspid Valve Likely normal tricuspid valve structure and function. Tricuspid regurgitation envelope is inadequate for calculation of right ventricular systolic pressure. Normal right atrial pressure. Great Vessels The pulmonary artery was not well visualized. There is mild dilatation of the ascending aorta measuring 3.80 cm. Venous The inferior vena cava is normal in size and collapses greater than 50% with inspiration. Pericardium/Pleural There is no evidence of pericardial effusion. Prior Study Comparison No prior study available for comparison. Measurements 2D Linear Measurements IVSd: 1.31 0.6-0.9/0.6-1.0 cm LVIDd: 4.38 3.9-5.3/4.2-5.9 cm LVIDd Index: 1.99 2.4-3.2/2.2-3.1 cm/m2 LVIDs: 2.41 2.0-3.6 cm LVPWd: 1.34 0.7-1.1 cm LA Diam: 3.90 2.7-3.8/3.0-4.0 cm LAIDs Index: 1.77 1.5-2.3 cm/m2 LV Mass: 273.94 67-162/88-224 g LV Mass Index: 124.52 43-95/49-115 g/m2 LVOT Diam: 2.00 3.0+(-)1.3 cm 2D Systolic Function EF 4C: 57.20 >55% EF 2C: 63.30 >55% EF BiP: 60.10 >55% Mitral Valve MV Pk E: 1.28 MV PK A: 1.05 MV Decel Time: 223.00 E/A: 1.20 E'Lateral: 12.00 E'Medial: 8.49 E/E' Med: 15.10 E/E' Lat: 10.70 PHT: 65.00 MVA PHT: 3.38 Decel [place]: 5.73 Aortic Valve AoV Pk Norris: 1.95 AoV Mn Norris: 1.42 AoV VTI: 0.41 AoV Pk Grad: 15.00 Aov Mn Grad: 9.00 CHRISTIE Cont.VTI: 2.64 LVOT LVOT Pk Norris: 1.77 LVOT Mn Norris: 1.16 LVOT VTI: 0.34 LVOT Pk Grad: 13.00 LVOT Mn Grad: 7.00 LVOT Diam: 2.00 LVOT Area: 3.14 Diastolic Function MV Pk E: 1.28 MV Pk A: 1.05 E/A: 1.20 E'Medial: 8.49 E/E' Med: 15.10 E' Laterial: 12.00 E/E' Lat: 10.70 Right Ventricle TAPSE (mm): 29.50 TVS' Norris: 21.90 Tricuspid Valve RA Press: 3.00 Great Vessels Aorta Sinus of Valsalva: 3.40 2.0-3.5 cm Ao Asc: 3.80 2.1-3.4 cm Pulmonary Valve PV Pk Norris: 1.36 Peak PV Grad: 7.00 Updated in Other Vendor System with Status of Final Braulio Shelton MD electronically signed on 05/28/2022 9:09:50 AM with status of Final
== END ==
LOC: HO.CARD 13:57
PROVIDERS: Visit Provider Internal Medicine
DX: R01.1 Cardiac murmur, unspecified (principal)
CPT/HCPCS: 93306

== ENCOUNTER 2022-06-15 11:54 | Outpatient (REF) | payer OTHER, SELFPAY ==
--- NOTE | ~2022-06-15 | XR_ITS ---
EXAMINATION: XR LUMBOSACRAL SPINE CLINICAL INFORMATION: Low back pain. COMPARISON: CT abdomen and pelvis 01/16/2022. TECHNIQUE: Three views of the lumbosacral spine. FINDINGS: There is a scoliosis convex to the right. Vertebral body heights are well maintained. There is mild disc space narrowing at L4-L5. Spondylitic endplate changes are present at most levels with some sclerosis and endplate osteophytes. No fractures or bony destructive lesions. Vascular calcifications are present. XR/XR lumbar spine 2-3V IMPRESSION: Scoliosis and mild degenerative changes. No acute finding.
== END 2022-06-15 11:55 | disposition home or self-care (01) ==
LOC: HO.HMGCX 11:54
PROVIDERS: PCP Internal Medicine; Visit Provider Internal Medicine
DX: M54.50 Low back pain, unspecified (principal)
CPT/HCPCS: 72100

== ENCOUNTER 2023-05-21 09:34 | Outpatient (REF) | payer MEDICAID, SELFPAY ==
--- NOTE | ~2023-05-21 | US_ITS ---
EXAMINATION: US ABDOMEN LIMITED CLINICAL INFORMATION: Rule out ascites. COMPARISON: Ultrasound abdomen complete 05/12/2022. Ultrasound abdomen limited 01/20/2022. CT abdomen and pelvis 01/16/2022. TECHNIQUE: Real-time imaging of the abdomen. FINDINGS: Targeted ultrasound images were obtained by the bb shot packer of the area of concern as indicated by the patient in the upper, and lower right and left quadrants of the abdomen as well as umbilical region and midline and demonstrated no discrete ascites. Limited visualization due to bowel gas. Radiologist was not in attendance. Images were later provided for interpretation. US/US abdomen limited IMPRESSION: No discrete ascites identified in the areas of concern as indicated by the patient in the abdomen.
== END 2023-05-21 09:35 | disposition home or self-care (01) ==
LOC: HO.HMGCX 09:34
PROVIDERS: PCP Internal Medicine; Visit Provider Internal Medicine
DX: R18.8 Other ascites (principal)
CPT/HCPCS: 76705

== ENCOUNTER 2024-07-20 14:05 | Outpatient (REF) | payer MEDICAID, SELFPAY ==
--- NOTE | ~2024-07-20 | XR_ITS ---
EXAMINATION: XR LUMBOSACRAL SPINE CLINICAL INFORMATION: LOW BACK PAIN COMPARISON: None available. TECHNIQUE: Three views of the lumbosacral spine. FINDINGS: There is normal lumbar lordosis. There is mild dextroscoliosis of dorsolumbar spine. The vertebral heights and alignment is normal. The disc heights are preserved. There is mild ventral spondylosis mid lumbar spine. No lytic or sclerotic process seen. SI joints are symmetrical and normal. XR/XR lumbar spine 2-3V IMPRESSION: Mild dextroscoliosis of dorsolumbar spine with ventral spondylosis L3-4 and L4-5 disc levels. Electronically signed by: Markie Pulido MD 07/20/2024 04:16 PM EDT
--- OUTSIDE RECORDS SUMMARY | 2024-07-20 14:49 | XMS_ITS ---
Author Organization [facility] Address [address] [place] [id number] Care Team Providers Care Java Web User Interface Developer Name Role Phone Tiffany GIBSON, Renny Primary Care Provider Unavailab Rolo Alfonso [facility] [phone] REASON FOR VISIT Patient presents today for cirrhosis Medications Medication SIG (Take, Route, Frequency, Duration) Notes Start Date End Date Status Spironolactone 50 MG Oral for 30 Active Furosemide 20 MG Oral for 30 A ctive Thiamine HCl 100 MG Oral for 30 Active Cefuroxime Axetil 500 MG Oral for 8 Not-Taking Folic Acid 1 MG Oral for 30 Ac tive Methadone HCl Active Encounters Encounter Location Date Provider Diagnosis [facility] [address] [address] 02/02/2023 Rolo Mederos Plan Of Treatment No Information Progress Notes * COREY ACOSTAOB:1965 (58 yo M)Acc No.[id number]:02/02/2023 Progress Notes Patient:?SKY ACOSTA Provider:?Rolo Mederos MD :1965???Age:57 Y???Sex:Male Bassem e:02/02/2023 [facility] Pcp:Renny Allen MD Subjective: * Chief Complaints: * ???1. Patient presents today for cirrhosis. * Medical History:? * Medications:?Taking Methadon e HCl , Taking Furosemide 20 MG Tablet Oral , Taking Spironolactone 50 MG Tablet Oral , Taking Thiamine HCl 100 MG Tablet Oral , Taking Folic Acid 1 MG Tablet Oral , Not-Taking/PRN Cefuroxime Axetil 500 MG Tablet Oral Objective: * Vitals:? Assessment: Plan: * Treatment: * * The named appointment provid er may or may not be the originator of this progress note, and it is not deemed complete until electronically signed by the appointment provider. Sign off status: Pending * Provider:?Rolo Mederos MD Date:? 023 Generated for Vincent mary/Tasneem/Leanderitting on:?07/20/2024 02:49 PM EDT
--- OUTSIDE RECORDS SUMMARY | 2024-07-20 14:49 | XMS_ITS | Patient Health Record ---
Author Organization [facility] Address [address] [place] [address] Care Team Providers Care Bead Supervisor Name Role Phone Renny Allen MD Primary Care Provider Rolo Delgado [phone] Allergies No Known Allergies Reason For Referral No Information Medications Medication SIG (Take, Route, Frequency, Duration) Notes Start Date End Date Status Methadone HCl Active Spironolactone 50 MG Oral for 30 Active Furosemide 20 MG Oral for 30 A ctive Thiamine HCl 100 MG Oral for 30 Active Cefuroxime Axetil 500 MG Oral for 8 Not-Taking Folic Acid 1 MG Oral for 30 Ac tive Immunizations Vaccine Route Administration Date Status Comme nts Influenza Unknown 02/19/2022 Refused Social History Tobacco Use: Social History Observation Description Date Details (start date - stop date) Former Smoker NA - NA Tobacco Use/Smoking Question Answer Notes Patient is a former smoker How long has it been since you last smoked? 6-12 months Alcohol Screen Question Answer Notes Did you have a drink containing alcohol in the p ast year? No Points 0 Interpretation Negative Section Notes: Nonsmoker since 08/2021; subs tance abuse but abstinent and on methadone as of the 01/2022 office visit; alcohol abuse with sobriety since 01/16/22 hospitalization Nonsmoker since 08/2021; subs tance abuse but abstinent and on methadone as of the 01/2022 office visit; alcohol abuse with sobriety since his 01/2022 hospitalization Nonsmoker since 08/2021; subs tance abuse but abstinent and on methadone as of the 01/2022 office visit; alcohol abuse with sobriety since his 01/2022 hospitalization Problems Problem Type SNOMED Code ICD Code Onset Dates Problem Status W/U Status Risk Notes Problem 816968933 Colon cancer screening (Z12.11) Active confirmed Problem 953309885 History of adenomatous polyp of colon (Z86.010) Active confirmed Problem Alcoholic cirrhosis (493792528) Alcoholic cirrhosis of liver with ascites (K70.31) Active confirmed Problem 253345764 Chronic hepatiti s C without hepatic coma (B18.2) Active confirmed Problem 084982851 Hepatitis C antibody test positive (R76.8) Active confirmed Problem 100375082 Lower extremity edema (R60.0) Active confirmed Problem 69252470 Hepatic encephalopathy (K76.82) Active confirmed Plan Of Treatment Pending Test Test Name Order Date CHEM 7 PROFILE 07/31/2022 BUN 04/28/2022 LIVER PROFILE 08/01/2015 LIVER PROFILE 02/19/2022 LIVER PROFILE 07/31/2022 LIVER PROFILE 04/28/2022 CBC w DIFF 07/31/2022 CBC w DIFF 04/28/2022 CBC w/o DIFF 08/01/2015 ALPHA-FETOPROTEIN,TUMOR MARKER 3 HEPATITIS C VIRAL LOAD 08/01/2015 HEPATITIS C GENOTYPE 08/01/2015 CT COLON SCREENING NO CONTRAST 6 HCV LIVER FIBROSIS, FIBRO TEST 6 Prothrombin Time INR 07/31/2022 Prothrombin Time INR 04/28/2022 Electrolytes 04/28/2022 Creatinine 04/28/2022 Ammonia 04/28/2022 Ammonia 07/31/2022 US abdomen complete 04/28/2022 Future Test Test Name Order Date COLONOSCOPY 08/01/2015 Insurance Providers Payer Name Payer Address Payer Phone Subscriber Number Group Number Insured Name Patient Relationship to Insured Coverage Start Date Coverage End Date [facility] [address] [place] [id number] SKY ORDOÑEZ Self - patient is the insured Medical (General) History Medical History History ICD Code Positive hepatitis C antibod y but nondetectable hepatitis C viral load in January of 2022-he never had to be treated for the hepatitis C- Substance abuse, but currently abstinent and on methadone Colonoscopy in 2015 was limi jolie to the sigmoid colon with removal of a tubular adenoma. 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 This improved with supportive care and abstinence. He did not require steroids. Gallstones-asymptomatic as of the 07/2022 OV Abdominal ultrasound in 2022 was negative for ascites and negative for portal vein thrombosis Surgical History Surgery Date(Month/Year) Elbow surgery
--- OUTSIDE RECORDS SUMMARY | 2024-07-20 14:49 | XMS_ITS ---
Author Organization [facility] Address [address] [place] [address] Care Team Providers Care Cultural Anthropology Professor Name Role Phone Renny Allen MD Primary Care Provider Unavailab Rolo Alfonso [phone] Encounters Encounter Location Date Provider Diagnosis [facility] [address] [place] [address] 02/02/2023 Rolo Mederos Plan Of Treatment No Information Progress Notes * KARLA, DANICURTOB:1965 (57 yo M)Acc No.[id number]:02/02/2023 Patient:?SKY ACOSTA :1965???Age:57 Y???Sex:Male Address:[address] [place] [address] [facility] [place] [address] * true * Date:? Generated for Vincent mary/Tasneem/eTransmitting on:?07/20/2024 02:48 PM EDT
== END 2024-07-20 14:06 | disposition home or self-care (01) ==
LOC: HO.HMGCX 14:05
PROVIDERS: PCP Internal Medicine; Visit Provider Internal Medicine
DX: M54.50 Low back pain, unspecified (principal)
CPT/HCPCS: 72100

== ENCOUNTER → 2024-07-20 14:15 | Outpatient (BNV) | payer MEDICAID, SELFPAY | PROVIDERS: PCP Internal Medicine; Visit Provider Radiology Diagnostic Radiology | DX: M47.896 Other spondylosis, lumbar region (principal) | CPT/HCPCS: 72100 ==

== ENCOUNTER 2024-10-31 14:22 | Outpatient (AMB) | payer MEDICARE, MEDICAID, SELFPAY ==
--- NOTE | 2024-10-31 14:26 | A.OFFPC_ITS ---
Vital Signs 10/31/24 14:30 Height 5 ft 10 in Weight 328 lb BMI 47.1 BP 160/80 H Blood Pressure Location Rt brachial Position Sitting Respiration 20 Pulse 102 H Pulse Source Pulse Oximeter Temp 97 F Temp Source Temporal Artery Scan Pulse Oximetry (%) 95 Oxygen Delivery Method Room Air Intake Visit Reasons: Routine-Mugg pt - see comments Field Case Manager Required: No Accompanied by: Self / Same As Patient Allergies No Known Allergies (No Known Allergies*) Allergy (Verified 10/31/24 14:27) Tobacco use date assessed: 10/31/24 HPI HPI Comments History of Present Illness Details The patient is a 59-year-old male presenting with shortness of breath and lower extremity edema. The shortness of breath has been progressively worsening over the past month. The patient notes significant difficulty breathing upon exertion and reports gaining over 100 pounds in the last three years, which he believes is contributing to his current condition. He denies chest pain or wheezing. The lower extremity edema has been developing for approximately three to four months. The patient admits to leg swelling without identifying factors that exacerbate or relieve the swelling. The patient associates his swelling with his significant weight gain. The patient has a history of alcoholic liver disease and pancreatitis due to alcohol use, with admission to the hospital for these issues in the past. He has stopped alcohol use several months ago without withdrawal symptoms. His last known assessment was approximately six months ago, which reportedly showed no significant heart dysfunction, though no records are available to verify this. Medical History: - Alcoholic Cirrhosis - Hypertension - Chronic Pancreatitis - History of Hepatitis C exposure, resol baldo - Morbid Obesity - Shortness of Breath - Depression - Nicotine Dependence Surgical History: - Colonoscopy (2016) Medications: - Water pill (Diuretic) - for edema - Lactulose 20g daily - for liver cirrho sis [facility] Medical History (Updated 10/31/24 @ 14:59 by Zheng Landon MD) Decompensation of cirrhosis of liver Screening for lung cancer Lower extremity edema Alcohol use disorder, severe, dependence CEASAR (acute kidney injury) Ascites Abdominal distension Jaundice Alcohol abuse Hypertension Drug abuse Surgical History (Updated 10/30/24 @ 16:35 by Adriana Nava) History of colonoscopy (~11/20/15) Social History Household Members: None Housing: Apartment Do you presently have visiting nurse or other home services: No Alcohol intake: current Patient Tobacco Use Status: Current everyday Tobacco user Tobacco use type: Cigarette Cigarette Packs Per Day: 0.5 e-Cigarette/Vaping Use: Never Used Substance Use Type: Heroin service: No Current occupational status: unemployed Questionnaire PHQ-9 Over the last 2 weeks, how often have you been bothered by any of the following problems? 1. Little interest or pleasure in doing things: not at all 2. Feeling down, depressed, or hopeless: not at all 3. Trouble falling or staying asleep, or sleeping too much: not at all 4. Feeling tired or having little energy: not at all 5. Poor appetite or overeating: not at all 6. Feeling bad about yourself - or that you are a failure or have let yourself or your family down: not at all 7. Trouble concentrating on things, such as reading the newspaper or watching television: not at all 8. Moving or speaking so slowly that other people could have noticed. Or the opp osite - being so fidgety or restless that you have been moving around a lot more than usual: not at all 9. Thoughts that you would be better off or of hurting yourself in some way: not at all Total score: 0 Depression Screening Interpretation: Negative Depression Screening Done: Yes 44569 - PHQ-9 Billing: Yes Source: Developed by Drs. Rolo De La Fuente, Latosha Rivera, Bryn Pereira and colleagues, with an educational kelby from [employer]. AUDIT C Alcohol Use Questionnaire (AUDIT-C) 1. How often do you have a drink containing alcohol?: Never 3. How often do you have six or more drinks on one occasion?: Never Total Score: 0 Score Reviewed/Action Taken: Yes PILAR-7 AMB Questionnaire PILAR-7 Feeling nervous, anxious, or on edge: 0 = Not at all Not being able to stop or control worryin = Not at all Worrying too much about different things: 0 = Not at all Trouble relaxin = Not at all Being so restless that it is hard to sit still: 0 = Not at all Becoming easily annoyed or irritable: 0 = Not at all Feeling afraid as if something awful might happen: 0 = Not at all Total PILAR-7 score (0-4 normal; 5-9 mild; 10-14 moderate; 15-21 severe): 0 Source: Developed by Drs. Rolo De La Fuente, Latosha Rivera, Bryn Pereira and colleagues, with an educational kelby from [employer]. PILAR-7 Assessment Billing PILAR-7 Assessment Tool: PILAR-7 Assessment 09664 Review of Systems Const Details: - Respiratory: Reports shortness of breath, denies wheezing - Cardiovascular: Denies chest pain - Musculoskeletal: Reports back pain, relieved by Naproxen; denies new/worsening pain - Gastrointestinal: Reports normal bowel and urinary function - Neurological: Denies headaches, visual changes, trouble concentrating - Psychiatric: Reports feeling down; denies hopelessness, suicidal ideation All systems reviewed & are unremarkable except as noted in HPI and below Physical exam (Primary Care) Vital Signs: Last Vital Signs Temp 97 F 10/31/24 14:30 Pulse 102 H 10/31/24 14:30 Resp 20 10/31/24 14:30 BP 160/80 H 10/31/24 14:30 Pulse Ox 95 10/31/24 14:30 Oxygen Delivery Method Room Air 10/31/24 14:30 BMI result Body Mass Index 47.1 Tobacco/Smoking Status: Tobacco use Status Tobacco use date assessed 10/31/24 10/31/24 14:36 Patient Tobacco Use Status Current everyday Tobacco 10/31/24 14:36 Tobacco use type Cigarette 10/31/24 14:36 e-Cigarette/Vaping Use Never Used 10/31/24 14:36 Depression Screening Interpretation: Negative Const Other: General: Alert and oriented, Well nourished, Overweight No acute distress. Eye: Pupils are equal, round and reactive to light, Intact accommodation, Extraocular movements are intact, Normal conjunctiva, Vision unchanged. HENT: Normocephalic, Atraumatic, Tympanic membranes are clear, Normal hearing, Oral mucosa is moist, No pharyngeal erythema, Ear canals patent. Respiratory: Lungs CTA bilaterally, No wheeze, Respirations are non-labored, Shortness of breath noted. Cardiovascular: Regular rate, Regular rhythm, S1 auscultated, S2 auscultated, No murmur, Good pulses equal in all extremities, Normal peripheral perfusion, 1+ pitting edema on bilateral legs. Gastrointestinal: Soft, Non-tender, Non-distended, Normal bowel sounds, No organomegaly, Whitt's sign negative, No splenomegaly, Hepatomegaly present. Musculoskeletal: Normal range of motion, Normal strength, No tenderness, No swelling, No deformity, Normal gait, Back is hunched. Integumentary: Warm, Dry, [place], Intact, Diffuse skin excoriation of the lower extremity. Neurologic: Alert, Oriented, Normal sensory, Normal motor function, No focal defects, Cranial Nerves II-XII are grossly intact, Normal deep tendon reflexes. Psychiatric: Cooperative, Appropriate mood & affect, Normal judgment, Reports feeling a little down. Coding Level of Care Code New Pt Level 5 (07759) New Pt Prev Care 40-64y(79449) Diagnoses Chronic hepatitis C without hepatic coma B18.2 Hepatic coma status: without hepatic coma Lower extremity edema R60.0 Decompensation of cirrhosis of liver K72.90; K74.60 Screening for lung cancer Z12.2 Additional Codes PHQ-9 - 11478 - PHQ-9 Billing: Yes ([id number]) PILAR-7 Assessment Billing - PILAR-7 Assessment Tool: PILAR-7 Assessment 78107 ([id number]) Time Spent (min) 80 Assessment & Plan Assessment & Plan (1) Chronic hepatitis C virus infection: Comment: Previous documentation that patient had hepatitis-C however unclear of treatment status. Patient reports he is unsure if it was treated on not. Obtain hepatitis panel and ultrasound of the abdomen to rule out any intra-abdominal lesions within the hepatic parenchyma and tests for viral load. Code(s): B18.2 - Chronic viral hepatitis C Category: Medical Qualifiers: Hepatic coma status: without hepatic coma Qualified Code(s): B18.2 - Chronic viral hepatitis C Plan: Order hepatitis panel Order ultrasound of the abdomen (2) Lower extremity edema: Comment: Worsening edema of the lower extremity per patient over the past few months. Does appear that he is on furosemide but could be for his underlying alcoholic cirrhosis. On exam does have excoriations of his bilateral lower extremity and also has pitting edema while this could be secondary to heart failure could also be secondary to venous insufficiency therefore we will obtain an echo to rule out any cardiac etiology Code(s): R60.0 - Localized edema Category: Medical Plan: Order echo (3) Decompensation of cirrhosis of liver: Comment: History of decompensated cirrhosis of the liver and home medications include spironolactone and furosemide. On exam does have abdominal distention and hepatomegaly. No other stigmata of liver disease visualized such as spider angiomas or palmar erythema however does have gynecomastia. This time we will obtain an abdominal ultrasound to evaluate for hepatic stricture and also refer to GI for EGD for possible evaluation of varices. Denies any variceal bleed Code(s): K72.90 - Hepatic failure, unspecified without coma; K74.60 - Unspecified cirrhosis of liver Category: Medical Plan: Refer to GI Order abdominal ultrasound (4) Screening for lung cancer: Comment: Has an extensive smoking history of over a pack per day for 20 years therefore will order lung cancer screening Code(s): Z12.2 - Encounter for screening for malignant neoplasm of respiratory organs Category: Medical Plan: Order low-dose CT screening for lung Plan I reviewed the current health conditions related to the patient's reported symptoms, including obesity leading to chronic shortness of breath and swelling. I emphasized the risks involved with his liver conditions, respiratory, and card iac health, compounded by his history of alcohol use and smoking. I advised on necessary lifestyle changes such as cessation of smoking, adherence to prescribed medications, and the importance of weight management. Further, I explained diagnostic tests including blood panels, imaging, and echocardiogram, which aim to assess the heart's function and liver's health accurately. Follow- ups are scheduled to re-evaluate the health status after results are available, with anticipatory guidance in place. Orders: Orders CA echo transthoracic complete Today R60.0 - Localized edema, Z00.00 - Encounter for general adult medical examination without abnormal findings Hemoglobin A1c Today Z00.00 - Encounter for general adult medical examination without abnormal findings Hepatitis A,B,C Profile Today Z00.00 - Encounter for general adult medical examination without abnormal findings HIV Ab/Ag Today Z00.00 - Encounter for general adult medical examination without abnormal findings Vitamin D 25-OH Total Today Z00.00 - Encounter for general adult medical examination without abnormal findings Syphilis Screen Today Z00.00 - Encounter for general adult medical examination without abnormal findings CT lung screening Today Z00.00 - Encounter for general adult medical examination without abnormal findings, Z12.2 - Encounter for screening for malignant neoplasm of respiratory organs US abdomen limited Today B18.2 - Chronic viral hepatitis C, K70.10 - Alcoholic hepatitis without ascites, Z00.00 - Encounter for general adult medical examination without abnormal findings Comprehensive Met. Panel Today Z00. - Encounter for general adult medical examination without abnormal findings Lipid Panel Today Z. - Encounter for general adult medical examination without abnormal findings TSH reflex Free T4 Today Z00. - Encounter for general adult medical examination without abnormal findings Referrals Gastroenterology Referral B18.2 - Chronic viral hepatitis C, K70.10 - Alcoholic hepatitis without ascites, Z00. - Encounter for general adult medical examination without abnormal findings Medications: Discontinued cefuroxime axetil Discontinued Reason: Patient Completed Course 500 mg PO BID 16 tabs 0RF Patient Instructions: - Continue taking medications as directed. - You should elevate your legs to help with swelling. - Measure your blood pressure every day with a home monitor. - Write down your blood pressures and bring those notes to your follow-up visit. - Schedule the blood tests, liver ultrasound, and heart echo as soon as possible. - Avoid smoking and gradually work towards quitting. - Maintain a healthy diet aiming to lose weight over time. - Return for a follow-up in a month or sooner if you experience increased shortness of breath or swelling.
[2024-10-31 14:30] VITALS: BP 160/80; PULSE 102; RESP 20; TEMP 36.1; O2SAT 95; BMI 47.1
--- OUTSIDE RECORDS SUMMARY | 2024-10-31 15:21 | XMS_ITS | Patient Health Record ---
Author Organization [facility] Address [address] [place] [address] Care Team Providers Care Office Clinician Name Role Phone Tiffany (RETIRED) Renny GIBSON Primary Care Provider Unavailable Rolo Mederos Unavailable [phone] Allergies No Known Allergies Reason For Referral [...] Problem Status W/U Status Risk Notes Problem 426674304 Colon cancer screening (Z12.11) Active confirmed Problem 026599473 History of adenomatous polyp of colon (Z86.010) Active confirmed Problem Alcoholic cirrhosis (446849425) Alcoholic cirrhosis of liver with ascites (K70.31) Active confirmed Problem 607846154 Chronic hepatiti s C without hepatic coma (B18.2) Active confirmed Problem 387200163 Hepatitis C antibody test positive (R76.8) Active confirmed Problem 359283189 Lower extremity edema (R60.0) Active confirmed Problem 41675207 Hepatic encephalopathy (K76.82) Active confirmed Plan Of Treatment Pending Test Test Name Order Date CHEM 7 PROFILE 07/31/2022 BUN 04/28/2022 LIVER PROFILE 08/01/2015 LIVER PROFILE 02/19/2022 LIVER PROFILE 07/31/2022 LIVER PROFILE 04/28/2022 CBC w DIFF 04/28/2022 CBC w DIFF 07/31/2022 CBC w/o DIFF 08/01/2015 ALPHA-FETOPROTEIN,TUMOR MARKER 3 [...] Start Date Coverage End Date [facility] [address] [place] [phone] [id number] SKY ORDOÑEZ Self - patient is the [...] but he never went for that Denies [place],DM,CVA,Lung disease,renal dise ase Alcohol-induced pancreatitis in 2020. [...]
== END 2024-10-31 16:26 | disposition home or self-care (01) ==
LOC: HO.HMCHD 14:23
PROVIDERS: PCP Student in an Organized Health Care Education/Training Program; Visit Provider Student in an Organized Health Care Education/Training Program
DX: B18.2 Chronic viral hepatitis C (principal); R60.0 Localized edema; K72.90 Hepatic failure, unspecified without coma; K74.60 Unspecified cirrhosis of liver; Z12.2 Encounter for screening for malignant neoplasm of respiratory organs; Z00.00 Encounter for general adult medical examination without abnormal findings

== ENCOUNTER → 2024-10-31 14:22 | Outpatient (BNVA) | payer MEDICARE, MEDICAID, SELFPAY | PROVIDERS: PCP Internal Medicine; Visit Provider Student in an Organized Health Care Education/Training Program | DX: Z00.00 Encounter for general adult medical examination without abnormal findings (principal); B18.2 Chronic viral hepatitis C; R60.0 Localized edema; K72.90 Hepatic failure, unspecified without coma; K70.30 Alcoholic cirrhosis of liver without ascites; I10 Essential (primary) hypertension; Z13.31 Encounter for screening for depression | CPT/HCPCS: 96127; 99202; 99386 ==

== ENCOUNTER 2024-11-05 18:46 | Inpatient (IN) | payer MEDICARE, MEDICAID, SELFPAY ==
--- NOTE | ~2024-11-05 | US_ITS ---
EXAMINATION: US TRIPLEX LOWER EXTREMITY, BILATERAL CLINICAL INFORMATION: Bilateral lower extremity edema. COMPARISON: None available. TECHNIQUE: Color-flow triplex imaging with spectral analysis and compression Doppler were performed on the bilateral lower extremities. FINDINGS: As per technologist note, limited exam due to patient habitus and lower extremity edema. Respiratory variation, normal compression and augmented flow are noted throughout the bilateral lower extremities. The visualized common femoral vein, superficial femoral vein, profunda femoral vein, popliteal vein and midcalf peroneal and posterior tibial venous segments show no evidence of deep venous thrombosis bilaterally. There is no Laws's cyst. There are reactive appearing lymph nodes within the right groin. US/US venous duplex LE BI IMPRESSION: No evidence of deep venous thrombosis involving the bilateral lower extremities. Electronically signed by: Hernando Yip MD 11/07/2024 09:43 AM EDT
--- NOTE | ~2024-11-05 | XR_ITS ---
CLINICAL HISTORY: generalized weakness, r o PNA 1 view chest x-ray Comparison: CR/SR - XR CHEST 2 VIEWS - 01/16/22 22:56 EST CR/SR - XR CHEST 2 VIEWS - 01/16/22 18:14 EST Findings: The lungs are clear. Normal size heart. No acute fracture. IMPRESSION: 1. No acute findings. This document has been electronically signed by: Javi Maldonado MD on 11/05/2024 20:12:49
--- NOTE | ~2024-11-05 | CT_ITS ---
CLINICAL HISTORY: abd pain, fall CT abdomen and pelvis with contrast Comparison: MR/SD/SR - MR ABDOMEN WITHOUT THEN WITH IV CONTRAST - 01/17/22 13:43 EST Findings: The liver surface is diffusely nodular consistent with cirrhosis. No focal hepatic lesion is seen. Mild intrahepatic and extrahepatic biliary duct dilation is stable from the prior MRI. No biliary obstruction is identified. There is cholelithiasis. There is mild splenomegaly. The pancreas and adrenal glands are unremarkable. There are couple small bilateral nonobstructing renal stones measuring up to 4 mm in the left kidney. There is mild wall thickening of the 2nd portion of the duodenum and mild periduodenal fat stranding consistent with duodenitis. The gastrointestinal tract is otherwise unremarkable. There is no ascites. There are no enlarged lymph nodes. The aorta is within normal limits in diameter. The bladder is unremarkable. There are subacute appearing bilateral sacral ala fractures minimally displaced on the right and nondisplaced on the left. There is sclerosis surrounding the fractures. IMPRESSION: 1. No evidence of acute injury in the abdomen or pelvis. 2. Subacute appearing bilateral sacral ala fractures. 3. Mild wall thickening and periduodenal fat stranding involving the 2nd portion of the duodenum consistent with duodenitis. 4. Cirrhosis. 5. Additional chronic findings as above. This document has been electronically signed by: Juan Dalal MD on 11/06/2024 00:09:08
--- NOTE | ~2024-11-05 | CT_ITS ---
CLINICAL HISTORY: dyspnea, hypoxia, moderate risk wells CT angiography chest with contrast. 3D Postprocessing. Comparison: None provided Findings: There is no pulmonary embolism. Heart size is within normal limits. There is no pericardial effusion. Thoracic aorta is normal in diameter. There are no enlarged lymph nodes. There is bilateral gynecomastia. There is minimal bilateral atelectasis. Lungs appear otherwise clear. Trachea and central bronchi are widely patent. There are multiple minimal and mild chronic appearing thoracic compression fractures in the mid and lower thoracic spine. There are several slightly angulated bilateral anterior rib fractures without a visible fracture line favored to be chronic. There is no suspicious lytic or sclerotic lesion. IMPRESSION: 1. No pulmonary embolism. 2. Minimal and mild chronic appearing thoracic compression fractures in the mid and lower thoracic spine. 3. Several slightly angulated bilateral anterior rib fractures without a visible fracture line favored to be chronic. This document has been electronically signed by: Juan Dalal MD on 11/06/2024 00:16:11
--- NOTE | ~2024-11-05 | CT_ITS ---
CLINICAL HISTORY: ICH r o given multiple falls,thrombocytopenia,AMS CT head without contrast Comparison: None provided Findings: No intra-axial mass, midline shift, hydrocephalus, or acute hemorrhage. No significant atrophy-like change or white matter disease. Mucous retention cyst in the right maxillary sinus. The orbits are unremarkable. No skull fracture. IMPRESSION: 1. No acute intracranial findings. This document has been electronically signed by: Sonido Jesus DO on 11/06/2024 13:42:27
[2024-11-05 19:02] VITALS: BP 129/68; BP 147/84; PULSE 105; PULSE 98; RESP 16; TEMP 37.5; O2SAT 93; O2SAT 97; BMI 47.0
--- NOTE | 2024-11-05 19:18 | ECG_ITS ---
Test Reason : WEAKNESS Blood Pressure : */* mmHG Vent. Rate : 94 BPM Atrial Rate : 94 BPM P-R Int : 158 ms QRS Dur : 80 ms QT Int : 352 ms P-R-T Axes : 23 5 22 degrees QTcB Int : 440 ms Poor data quality, interpretation may be adversely affected Normal sinus rhythm Normal ECG When compared with ECG of 06-Sep-2020 08:59, Nonspecific T wave abnormality has replaced inverted T waves in Inferior leads Referred By: Jorje Akhtar Electronically Signed By: MAYNOR CLIFTON MD
--- NOTE | 2024-11-05 19:21 | ED_ITS ---
HPI - Weakness General Chief complaint: Weakness Stated complaint: sick x 3 days, weakness x1 day Time Seen by Provider: 11/05/24 19:08 Source: patient, EMS and old records reviewed Mode of arrival: EMS Limitations: no limitations History of Present Illness ED Provider: DR. Akhtar HPI Narrative: 59-year-old male with pertinent history of alcohol use disorder (patient has been clean for over a year), substance use disorder (patient declined using any drugs currently), hepatitis-C and liver cirrhosis secondary to alcohol use disorder patient lives home by himself caring for himself, patient stated that for the last 3 days decreased p.o. intake and feel dehydrated, generalized weakness with generalized body ache. No subjective fever, no chills, no CP, no SOB, no coughing, no runny nose, no sneezing, no abdominal pain, no nausea, no vomiting, no diarrhea. Related Data Home Medications ?Medication ?Instructions ?Recorded ?Confirmed methadone 5 mg/5 mL oral solution 68 mg PO DAILY 09/0611/06/24 ammonium lactate 12 % lotion 1 appl topical DAILY 10/0711/06/24 furosemide 20 mg tablet 40 mg PO DAILY 11/06/2404/01 metoprolol succinate 50 mg 50 mg PO DAILY 11/06/2404/01 tablet,extended release 24 hr Previous Rx's ?Medication ?Instructions ?Recorded folic acid 1 mg tablet 1 mg PO DAILY #30 tabs 01/21 spironolactone 50 mg tablet 50 mg PO DAILY #30 tabs thiamine mononitrate (vit B1) 100 100 mg PO DAILY #30 tabs 01/21/22 mg tablet Allergies Allergy/AdvReac Type Severity Reaction Status Date / Time No Known Allergies (No Known Allergy Verified 11/05/24 19:07 Allergies*) Review of Systems 2 Review of Systems: All other systems are reviewed and are negative Constitutional: Reports as per HPI and Reports no additional constitutional complaints Eyes: Reports as per HPI and Reports no additional eye complaints Reports system reviewed and no additional complaints, except as documented Cardiovascular: Reports as per HPI and Reports no additional cardiovascular complaints Respiratory: Reports as per HPI and Reports no additional respiratory complaints Gastrointestinal: Reports as per HPI and Reports no additional gastrointestinal complaints Genitourinary: Reports no additional female genitourinary complaints Musculoskeletal: Reports no additional musculoskeletal complaints Skin/Breast: Reports system reviewed and no additional complaints, except as docu Psychiatric: Reports no additional psychiatric complaints Endocrine: Reports no additional endocrine complaints Hematologic/Lymphatic: Reports no additional hematologic/lymphatic complaints Allergic/Immunologic: Reports no additional allergic/immunologic complaints Reports system reviewed and no additional complaints, except as documented and Reports Abnormal speech present [facility] Past Medical History Medical History Decompensation of cirrhosis of liver Screening for lung cancer Lower extremity edema Alcohol use disorder, severe, dependence CEASAR (acute kidney injury) Ascites Abdominal distension Jaundice Alcohol abuse Hypertension Drug abuse Surgical History History of colonoscopy (~11/20/15) Social History Social History Household Members: None Housing: Apartment Do you presently have visiting nurse or other home services: No Alcohol intake: current Alcohol intake frequency: former alcohol drinker Patient Tobacco Use Status: Current everyday Tobacco user Tobacco use type: Cigarette Cigarette Packs Per Day: 0.5 Cigarettes Per Day: 10.0 e-Cigarette/Vaping Use: Never Used Substance Use Type: Marijuana service: No Current occupational status: unemployed Physical Exam 2 Vital Signs: Vital Signs: Last Vital Signs Temp 98.1 F 11/06/24 23:32 Pulse 88 11/06/24 23:32 Resp 17 11/06/24 23:32 BP 131/77 11/06/24 23:32 Pulse Ox 91 L 11/06/24 23:32 O2 Del Method Nasal Cannula 11/06/24 23:32 O2 Flow Rate 2 11/06/24 23:32 BMI result Body Mass Index 47.0 Vital signs have been reviewed and appear to be correct. Blood pressure elevated. Heart rate normal. Respiratory rate normal. Temperature normal. Oxygen saturation normal. Appearance: Alert. Oriented X3. No acute distress. Head: Normal external exam. Normocephalic. Atraumatic. No Mukherjee signs noted. No raccoon eyes noted Eyes: PERRLA. EOMI. Conjunctiva and sclera normal. Eyelids normal. ENT: TM's Normal. Pharynx normal. Uvula midline. Dry mucous membranes. No trismus noted. No drooling noted. No muffled voice noted. Neck: Normal inspection. Neck supple. FROM. No adenopathy. Thyroid Normal. No meningeal signs. No neck mass noted. CVS: Normal heart rate and rhythm. Heart sound normal. No murmurs noted. Pulses normal throughout. Respiratory: No respiratory distress. Painless inspiration. Breath sounds normal. No wheezes/rales/rhonchi noted. Chest nontender. No accessory muscle usage noted or decreased air movement noted. Abdomen: Soft and nontender. Bowel sounds normal in all 4 quadrants. No distention noted. No organomegaly noted. No visible injury noted. Back: No CVA tenderness. Full range of motion noted. Skin: Skin warm and dry. Normal skin color. Normal skin turgor. No rashes/lesions/lacerations noted. Extremities: Right thigh: 10 x 12 cm area of redness, hotness, no fluctuation appears like cellulitis. Neuro: Oriented X 3. Cranial nerve exam: II-XII are grossly intact No motor deficit. No sensory deficit. Reflexes normal. Course Reevaluation(s) Reevaluation #1: Nonspecific generalized weakness. Labs reveal mild anemia, mild hyponatremia, chronic LFTs elevation, lipase is 85. Right thigh cellulitis with no sepsis will start on doxycycline. Will start on doxycycline orally, hydration with normal saline for mild hyponatremia, will check total CPK to rule out rhabdomyolysis. Await for UA. Signed out to Dr. Serrano. Time: 20:57 Reevaluation #2: Assumed care from previous provider after a detailed discussion regarding patient's case.? [id number] evaluation has taken place with no new change in management.? Patient is awaiting lab work, imaging and final disposition. Patient complaining of chest pain and dyspnea with minimal exertion. Will add on CTA chest, CT abd/pel to evaluate further. He is in rhabdo with a CPK of 3,638. IVF initiated. He remains afebrile, resting with normal vitals but is again, dyspneic and tachycardic with even minimal exertion, sitting up in bed, concern for potential lung process. Time: 21:31 Reevaluation #3: CT does not show acute traumatic process though he does have multiple old rib fractures, compression fractures of the T-spine as well as sacral fractures. All of this appears to be chronic. Patient remains slightly hypoxic on room air. I suspect there is a component of obesity hypoventilation. Ammonia level slightly elevated as well as his CPK, concern for hepatic encephalopathy and rhabdomyolysis. We will admit to hospitalist for further care and evaluation. Patient understands and agrees with plan for admission. Admitted in guarded condition. Time: 01:30 Medications Administered Generic Name Dose Route Start Last Admin Trade Name Freq PRN Reason Stop Dose Admin Doxycycline Monohydrate 100 mg 11/06/24 09:00 11/06/24 22:09 Doxycycline Monohydrate 100 Mg Capsule PO 100 mg Q12H BELKIS Administration Enoxaparin Sodium 40 mg 11/06/24 02:15 11/07/24 03:01 Enoxaparin Sodium 40 Mg/0.4 Ml Syringe SUBCUT 40 mg Q24H BELKIS Administration Folic Acid 1 mg 11/06/24 09:00 11/06/24 08:24 Folic Acid 1 Mg Tablet PO 1 mg DAILY BELKIS Administration Sodium Chloride 1,000 mls @ 100 mls/hr 11/06/24 02:15 11/07/24 03:00 Ns IVCONT 100 mls/hr .Q10H BELKIS Administration Lactulose 30 gm 11/06/24 02:13 11/06/24 22:10 Lactulose 20 Gm/30 Ml Solution PO 30 gm BID BELKIS Administration Lidocaine 2 patch 11/06/24 10:15 11/06/24 11:26 Lidocaine 4 % Patch Adh..Patch TRANSDERMA Not Given DAILY [facility] Protocol Methocarbamol 500 mg 11/06/24 09:00 11/06/24 22:10 Methocarbamol 500 Mg Tablet PO 500 mg TID BELKIS Administration Multivitamins/Vitamin C 1 tab 11/06/24 09:00 11/06/24 08:24 Multivitamin Tablet PO 1 tab DAILY BELKIS Administration Nicotine 14 mg 11/06/24 09:00 11/06/24 08:40 Nicotine 14 Mg Patch.Td24 TRANSDERMA Not Given DAILY [facility] Omeprazole 20 mg 11/06/24 15:15 11/07/24 05:29 Omeprazole 20 Mg Capsule.Dr PO 20 mg DAILY@0630 BELKIS Administration Oxycodone HCl 5 mg 11/06/24 08:40 11/07/24 05:35 Oxycodone Hcl Immed Release 5 Mg Tablet PO 5 mg Q6H PRN Administration Pain, Moderate(Pain Scale 4-6) Senna 17.2 mg 11/06/24 21:00 11/06/24 22:09 Sennosides 8.6 Mg Tablet PO 17.2 mg BEDTIME BELKIS Administration Sodium Chloride 3 ml 11/06/24 08:00 11/06/24 22:14 0.9 % Sodium Chloride Flush 3 Ml Syringe IVFLUSH 3 ml QSHIFT BELKIS Administration Thiamine HCl 100 mg 11/06/24 09:00 11/06/24 08:24 Thiamine Hcl 100 Mg Tablet PO 100 mg DAILY BELKIS Administration Discontinued Medications Generic Name Dose Route Start Last Admin Trade Name Ainsley PRN Reason Stop Dose Admin Doxycycline Monohydrate 100 mg 11/05/24 20:53 11/05/24 22:23 Doxycycline Monohydrate 100 Mg Capsule PO 11/05/24 20:54 100 mg ONCE ONE Administration Famotidine 20 mg 11/06/24 09:00 11/06/24 08:24 Famotidine/Pf 20 Mg/2 Ml Vial IVPUSH 20 mg DAILY BELKIS Administration Sodium Chloride 1,000 mls @ 999 mls/hr 11/05/24 20:53 11/06/24 00:45 Ns IV 11/05/24 21:53 Infused .Q1H1M ONE Infusion Sodium Chloride 1,000 mls @ 999 mls/hr 11/06/24 02:15 11/06/24 04:52 Ns IV 11/06/24 03:15 Infused .Q1H1M BELKIS Infusion Iohexol 100 ml 11/05/24 23:11 11/05/24 23:17 Iohexol 350 Mg/Ml 100 Ml Infus..Btl IV 11/05/24 23:12 100 ml ONCE ONE Administration Morphine Sulfate 4 mg 11/05/24 21:28 11/05/24 22:22 Morphine Sulfate 4 Mg/Ml Cartridge IVPUSH 11/05/24 21:29 4 mg ONCE ONE Administration Protocol Ondansetron HCl 4 mg 11/05/24 21:28 11/05/24 22:22 Ondansetron Hcl 4 Mg/2 Ml Vial IVPUSH 11/05/24 21:29 4 mg ONCE ONE Administration Pantoprazole Sodium 40 mg 11/06/24 06:30 11/06/24 06:35 Pantoprazole Sodium 40 Mg/10 Ml Vial IVPUSH 40 mg DAILY@0630 [facility] Administration Medical Decision Making Differential Diagnosis Differential Diagnoses: The differential diagnosis associated with the presentation includes (Pneumonia, UTI, sepsis, rhabdomyolysis, electrolyte derangement, dehydration, severe anemia.) Admission/Observation Consideration of admission/observation: Escalation of care including admission/observation considered Lab Data MDM Lab Attestation statement: I reviewed the patient's lab results. 11/06/24 06:10 11/06/24 06:10 Labs: Lab Results 11/05/24 11/05/24 Range/Units 19:53 22:14 WBC 9.5 (4.8-10.8) X10*3/uL RBC 3.94 L D (4.60-5.80) X10*6/uL Hgb 13.6 L D (14.0-18.0) g/dl Hct 37.4 L D (42.0-52.0) % MCV 94.9 (80.0-98.0) fL MCH 34.5 H (27.0-33.0) pg MCHC 36.4 H (31.0-36.0) g/dl RDW 15.9 (11.0-16.0) % Plt Count 77 L D (160-400) X10*3/uL MPV 12.0 (9.4-12.4) fL Immature Gran % (Auto) 1.4 H (0.0-0.4) % Neut % (Auto) 72.4 (45-73) % Lymph % (Auto) 12.3 L (20-40) % Geary % (Auto) 12.2 H (2-11) % Eos % (Auto) 1.2 (0-4) % Baso % (Auto) 0.5 (0-2) % Lymph # (Auto) 1.2 (1.2-4.9) X10*3/uL Geary # (Auto) 1.2 (0.1-1.2) X10*3/uL Eos # (Auto) 0.1 (0.0-0.4) X10*3/uL Baso # (Auto) 0.1 (0.0-0.2) X10*3/uL Abs Immat Gran (auto) 0.13 H (0.00-0.03) X10*3/uL Absolute Neuts (auto) 6.9 (2.0-8.3) x10*3/uL Absolute Nucleated RBC 0.000 (0.0-0.012) X10*3/uL Nucleated RBC % (auto) 0.0 (0.0-0.2) /100WBC PT 16.0 H (10.9-12.4) SEC INR 1.4 H (0.9-1.1) Sodium 134 L (135-145) mmol/L Potassium 3.8 (3.3-5.1) mmol/L Chloride 99 (96-108) mmol/L Carbon Dioxide 25 (22-29) mmol/L Anion Gap 14 (12-20) BUN 15 (9-16) mg/dL Creatinine 0.69 (0.5-1.4) mg/dL Estim Creat Clear Calc 159.3 Estimated GFR > 60 Random Glucose 87 (60-115) mg/dL Calcium 8.1 L D (8.4-10.2) mg/dL Total Bilirubin 2.2 H (0.0-1.0) mg/dL Direct Bilirubin 1.1 H (0.0-0.5) mg/dL AST 328 H (5-37) U/L ALT 87 H (0-40) U/L Alkaline Phosphatase 96 (39-117) U/L Ammonia 59 H (13-55) umol/L Total Creatine Kinase 3638 H (38-174) U/L Troponin I High Sens 4.1 (<3.5-35.0) ng/L B-Natriuretic Peptide 34 (<100) pg/mL Total Protein 6.8 (6.5-8.0) g/dL Albumin 3.1 L (3.5-5.0) g/dL Lipase 85 H (8-78) U/L TSH 1.89 (0.32-4.0) uIU/mL Ethyl Alcohol < 10 mg/dL Influenza Type A (PCR) NEGATIVE (Negative) Influenza Type B (PCR) NEGATIVE (Negative) RSV RNA Qual (PCR) NEGATIVE (Negative) SARS-CoV-2 RNA (RT-PCR) NEGATIVE (Negative) Independent Interpretation I performed an independent interpretation of an: Plain X-Ray (Chest: No acute findings.) Radiology Impression Discussion of test interpretation with radiology: I have reviewed the radiologist's reading. Procedures Procedure Narrative Procedure Narrative: Ultrasound-guided IV 20 gauge 1.16 in IV placed in left upper extremity. Adequate blood return, flushes well, secured with Tegaderm. Performed by Margarita Blue PA-C Discharge Plan Discharge Clinical Impression: Episode of generalized weakness, Cellulitis of right thigh, Acute hepatic encephalopathy Rhabdomyolysis Qualifiers: Rhabdomyolysis type: traumatic Encounter type: initial encounter Qualified Code(s): T79.6XXA - Traumatic ischemia of muscle, initial encounter Patient Disposition: Admitted As Inpatient Interventions: Admission Worksheet (ED) Last Done: 11/06/24 15:22 Discharge Date/Time: 11/06/24 16:03
[2024-11-05 19:25] VITALS: O2SAT 88
[2024-11-05 19:28] VITALS: O2SAT 94
--- NOTE | 2024-11-05 19:28 | PC.NURSE ---
pt desat to 88% on RA pt placed on 2lpm NC spo2 on 2l 93% dr finn made aware
--- OUTSIDE RECORDS SUMMARY | 2024-11-05 19:45 | XMS_ITS | Patient Health Record ---
Author Organization [facility] Address [address] [place] [address] Care Team Providers Care Broker In Charge Name Role Phone Tiffany (RETIRED) Renny GIBSON Primary Care Provider Unavailable Rolo Mederos Unavailable [phone] Allergies No Known Allergies Reason For Referral [...] Problem Status W/U Status Risk Notes Problem 396864548 Colon cancer screening (Z12.11) Active confirmed Problem 541142258 History of adenomatous polyp of colon (Z86.010) Active confirmed Problem Alcoholic cirrhosis (290996389) Alcoholic cirrhosis of liver with ascites (K70.31) Active confirmed Problem 318029444 Chronic hepatiti s C without hepatic coma (B18.2) Active confirmed Problem 141469707 Hepatitis C antibody test positive (R76.8) Active confirmed Problem 264901912 Lower extremity edema (R60.0) Active confirmed Problem 21964048 Hepatic encephalopathy (K76.82) Active confirmed Plan Of [...] Start Date Coverage End Date [facility] [address] [place] [id number] [id number] SKY ORDOÑEZ Self - patient is the [...] but he never went for that Denies IL,DM,CVA,Lung disease,renal dise ase Alcohol-induced pancreatitis in 2020. [...]
[2024-11-05 19:59] LABS: MANUAL DIFF FLAG NO
[2024-11-05 20:14] LABS: Alanine Aminotransferase 87 U/L (0-40); Albumin Level 3.1 g/dL (3.5-5.0); Alkaline Phosphatase 96 U/L (39-117); Anion Gap 14 (12-20); Aspartate Amino Transferase 328 U/L (5-37); Blood Urea Nitrogen 15 mg/dL (9-16); Calcium 8.1 mg/dL (8.4-10.2); Carbon Dioxide 25 mmol/L (22-29); Chloride 99 mmol/L (96-108); Creatinine Clr Calc Pharmacy 159.3; Estimated Glomerular Filt Rate > 60; Lipase 85 U/L (8-78); Potassium 3.8 mmol/L (3.3-5.1); Sodium 134 mmol/L (135-145); Total Protein 6.8 g/dL (6.5-8.0)
[2024-11-05 20:16] LABS: NRBC Abs Auto 0.000 X10*3/uL (0.0-0.012); NRBC Pct Auto 0.0 /100WBC (0.0-0.2)
[2024-11-05 20:21] LABS: Troponin-I High Sensitivity 4.1 ng/L (<3.5-35.0)
[2024-11-05 20:33] LABS: Hematocrit 37.4 % (42.0-52.0); Hemoglobin 13.6 g/dl (14.0-18.0); Imm Gran Abs Auto 0.13 X10*3/uL (0.00-0.03); Imm Gran Pct Auto 1.4 % (0.0-0.4); Lymphocytes Absolute Auto 1.2 X10*3/uL (1.2-4.9); Mean Corpuscular HGB Conc 36.4 g/dl (31.0-36.0); Mean Corpuscular Hemoglobin 34.5 pg (27.0-33.0); Mean Corpuscular Volume 94.9 fL (80.0-98.0); Red Blood Count 3.94 X10*6/uL (4.60-5.80); White Blood Count 9.5 X10*3/uL (4.8-10.8)
[2024-11-05 20:34] LABS: B Type Natriuretic Peptide 34 pg/mL (<100); Platelet Count 77 X10*3/uL (160-400)
[2024-11-05 20:36] LABS: Resp Syncy Virus RNA Qual PCR NEGATIVE (Negative); SARS COV2 PCR INHOUSE NEGATIVE (Negative)
[2024-11-05 21:09] VITALS: BP 151/69; PULSE 90; RESP 16; TEMP 36.8; O2SAT 94
--- NOTE | 2024-11-05 21:30 | PC.NURSE ---
late entry- this rn discussed plan of care with dr finn and dr appiah, pt reports did not fall but was sleeping on the ground pt sister who called states pt was unsure if pt fell and was on the ground for multiple days. dr appiah to bedside for additional assessment
--- NOTE | 2024-11-05 21:44 | PC.NURSE ---
this rn and additonal rn attempted x2 each for iv placement. unable to place iv. dr appiah made aware
--- NOTE | 2024-11-05 22:27 | PC.NURSE ---
jennifer placed ultrasound guided iv line in L AC pt tolerated well. pt medicated according to mar
[2024-11-05 22:34] LABS: INTERNATIONAL NORM RATIO 1.4 (0.9-1.1); Prothrombin Time 16.0 SEC (10.9-12.4)
[2024-11-05 22:38] LABS: Ammonia 59 umol/L (13-55)
[2024-11-05] MEDS: iohexoL 350 MG/ML 100 ML INFUS..BTL IV (23:17)
[2024-11-05 23:31] VITALS: BP 147/60; PULSE 92; RESP 18; TEMP 36.7; O2SAT 88
[2024-11-06] VITALS (8 sets, daily range): BP systolic 131–148; BP diastolic 54–77; PULSE 84–93; RESP 16–20; TEMP 36.3–37.2; O2SAT 90–96; BMI 46.2
--- NOTE | 2024-11-06 02:22 | P.HPHOSP_ITS ---
History of Present Illness Date of Service: 11/06/24 Attending physician on admission: Bartolome Wu Chief Complaint: weakness s/p fall Patient is a 59-year-old male with past medical history alcohol use disorder with cessation 1 year prior, substance use disorder on methadone (history of heroin use), tobacco dependence, cirrhosis of the liver, hypertension, obesity, hyponatremia presents to the emergency department status post a fall. Patient is a poor historian when it comes to overall history of the last few days. Patient states he fell Wednesday evening (went back and forth with Wednesday vs Wednesday evening)approximately 19:00 from the couch to the floor. Patient ended up sleeping on the floor as he could not get himself up. By Wednesday morning patient felt better and was able to get up but continued to feel weak with no strength. Patient did call his aunt who called 911 and this occurred on Wednesday. Patient's story line appears unreliable. Patient found with soiled skin (possible feces on bottom of feet) and report of bottles filled with urine in the home per sister's report to nursing. Sister lives in [place] and per patient she has been cleaning his home but because she lives in [place] that does not appear to be possible. It is not currently clear if patient has a healthcare proxy but his sister is available for assistance in decision making as needed. Due to patient's elevated ammonia level, we will not be able to complete healthcare proxy at this time of admission. Work-up in ED notes elevated CK level over 3000 indicating rhabdomyolosis. Renal fx WNL. Ammonia 59. CT scan of the abdomen pelvis and chest were completed. Patient has duodenitis, chronic cirrhosis of the liver, nonacute fractures of the rib anteriorly and thoracic spine along with subacute fractures of the sacrum. Pt currently is not able to walk indepenently. Nursing staff noted that patient was hypoxic with ambulation only. Patient currently on 2 L O2 nasal cannula. CTA negative for PE, PNA, pulmonary edema, pleural effusion, CM. BNP was WNL. Patient also retaining urine while in the emergency department and Blue was placed and upon Blue placement patient had 800 cc of output. UA pending. Toxicology screen pending. Due to pt's level of encephalopathy, it might be possible that pt is taking more of his methadone than prescrbed noting elevated ammonia level. 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 Pt recently saw his PCP and was fold that he gained over 100 pounds over the last year. Review of Systems 2 Review of Systems: Patient denies any chest pain, shortness breath at rest, nausea or vomiting. Patient does report increased edema in lower extremities and overall weakness with lack of strength especially over the last 2 days. Yes all other systems are reviewed and are negative [facility] Medical History Decompensation of cirrhosis of liver Screening for lung cancer Lower extremity edema Alcohol use disorder, severe, dependence CEASAR (acute kidney injury) Ascites Abdominal distension Jaundice Alcohol abuse Hypertension Drug abuse Functional capacity: bed bound Pertinent family history: Mother passed age 72 from cancer in her leg Father passed age 74 from cancer, unknown type Surgical History History of colonoscopy (~11/20/15) Social History Household Members: None Housing: Apartment Do you presently have visiting nurse or other home services: No Alcohol intake: current Alcohol intake frequency: former alcohol drinker Patient Tobacco Use Status: Current everyday Tobacco user Tobacco use type: Cigarette Cigarette Packs Per Day: 0.5 Smoked in Last 30 Days: No e-Cigarette/Vaping Use: Never Used Substance Use Type: Marijuana Advance Directives: No Advance Directives Information Provided: Yes Do you have a plan to hurt others: No Plan Nutrition Risks: No Nutritional Risk service: No Current occupational status: unemployed Ebola Risk: Travel/Contact With Anyone From Affected Area/s: No Has Patient Experienced Ebola Symptoms: No Meds Allergies Allergy/AdvReac Type Severity Reaction Status Date / Time No Known Allergies (No Known Allergy Verified 11/05/24 19:07 Allergies*) Active Medications: Current Medications Acetaminophen (Acetaminophen 325 Mg Tablet) 650 mg PO Q6H PRN PRN Reason: Pain, Mild 1-3,fever,headache Albuterol/Ipratropium (Albuterol/Iprat 2.5/0.5mg 3 Ml Ampul.Neb) 3 ml INHALE Q4H PRN PRN Reason: Shortness of Breath/Wheezing Calcium Carbonate (Calcium Carbonate 750 Mg Tab.Chew) 750 mg PO Q4H PRN PRN Reason: Heartburn Enoxaparin Sodium (Enoxaparin Sodium 40 Mg/0.4 Ml Syringe) 40 mg SUBCUT Q24H REPLACED BY [facility] Sodium Chloride (Ns) 1,000 mls @ 999 mls/hr IV .Q1H1M BELKIS Stop: 11/06/24 03:15 Sodium Chloride (Ns) 1,000 mls @ 100 mls/hr IVCONT .Q10H REPLACED BY [facility] Lactulose (Lactulose 20 Gm/30 Ml Solution) 30 gm PO BID REPLACED BY [facility] Magnesium Hydroxide (Milk Of Magnesia 30 Ml Oral.Susp) 30 ml PO DAILY PRN PRN Reason: Constipation Melatonin (Melatonin 3 Mg Tablet) 6 mg PO BEDTIME PRN PRN Reason: Insomnia Nicotine (Nicotine 14 Mg Patch.Td24) 14 mg TRANSDERMA DAILY REPLACED BY [facility] Ondansetron HCl (Ondansetron Hcl 4 Mg/2 Ml Vial) 4 mg IVPUSH Q8H PRN PRN Reason: Nausea and Vomiting Polyethylene Glycol (Polyethylene Glycol 3350 17 Gm Powd.Pack) 17 gm PO DAILY PRN PRN Reason: Constipation Senna (Sennosides 8.6 Mg Tablet) 17.2 mg PO BEDTIME REPLACED BY [facility] Sodium Chloride (0.9 % Sodium Chloride Flush 3 Ml Syringe) 3 ml IVFLUSH QSHIFT REPLACED BY [facility] Home Medications ?Medication ?Instructions ?Recorded ?Confirmed ?Last Taken ?Type methadone 5 mg/5 mL oral solution 67 mg PO DAILY 09/0601/16/22 01/16/22 History ammonium lactate 12 % lotion topical DAILY 10/31/24 U nknown History naproxen 500 mg tablet 500 mg PO BID 10/31/24 Unkn own History Physical Exam 2 Vital Signs and Narrative: Vital Signs: Last Vital Signs Temp 98.3 F 11/06/24 02:15 Pulse 93 11/06/24 02:15 Resp 16 11/06/24 02:15 BP 148/68 H 11/06/24 02:15 Pulse Ox 95 11/06/24 02:15 O2 Del Method Nasal Cannula 11/06/24 02:15 O2 Flow Rate 2 11/06/24 02:15 BMI result Body Mass Index 47.0 Alert and orientated X3, unable to provide accurate timeline of recent events, fall Neuro: CN II-X11 intact, visual acuity intact, pt able to protect airway and follow commands EYES: PERRLA, EOM intact, sclera nonicteric, conjunctiva pink ENT: hearing intact, no issues with swallowing, uvula midline, lips moist, nares patent no epistaxis Cardiac: S1 S2 RRR, no murmur, no JVD, moderatge edema in Lower ext Pulmonary: lungs diminshed bilaterally Abdominal: BS active in all 4 quadrants, no guarding, tenderness, rebounding, obese MSK: strength 2/5 upper and lower extremities : no CVA tenderness . active bladder distension Extremities: moderate edema in lower extremities, Right upper thigh slightly warm to the touch, PT and DP pulses palpable +2 Psych: mood stable, judgement and insight poor Skin: cellulitis mild in R leg upper thigh, soiled skin BLE's possible feces on sole of both feet, dry and caked mild excoriations noted on extremities Results Labs 11/06/24 06:10 11/05/24 19:53 Labs: Laboratory Results - last 24 hr 11/05/24 11/05/24 19:53 22:14 MCV 94.9 MCH 34.5 H MCHC 36.4 H RDW 15.9 Plt Count 77 L D MPV 12.0 Immature Gran % (Auto) 1.4 H Neut % (Auto) 72.4 Lymph % (Auto) 12.3 L Randolph % (Auto) 12.2 H Eos % (Auto) 1.2 Baso % (Auto) 0.5 Lymph # (Auto) 1.2 Randolph # (Auto) 1.2 Eos # (Auto) 0.1 Baso # (Auto) 0.1 Abs Immat Gran (auto) 0.13 H Absolute Neuts (auto) 6.9 Absolute Nucleated RBC 0.000 Nucleated RBC % (auto) 0.0 PT 16.0 H INR 1.4 H Anion Gap 14 Estim Creat Clear Calc 159.3 Estimated GFR > 60 Random Glucose 87 Calcium 8.1 L D Total Bilirubin 2.2 H Direct Bilirubin 1.1 H AST 328 H ALT 87 H Alkaline Phosphatase 96 Ammonia 59 H Total Creatine Kinase 3638 H B-Natriuretic Peptide 34 Total Protein 6.8 Albumin 3.1 L Lipase 85 H TSH 1.89 Ethyl Alcohol < 10 Influenza Type A (PCR) NEGATIVE Influenza Type B (PCR) NEGATIVE RSV RNA Qual (PCR) NEGATIVE SARS-CoV-2 RNA (RT-PCR) NEGATIVE ECG Attestation: I personally reviewed and interpreted this ECG as follows: (NSR, QTC 440 ) Prior ECG tracings: available for review Imaging Radiologist's Impressions: CT ABD PELVIS IMPRESSION: 1. No evidence of acute injury in the abdomen or pelvis. 2. Subacute appearing bilateral sacral ala fractures. 3. Mild wall thickening and periduodenal fat stranding involving the 2nd portion of the duodenum consistent with duodenitis. 4. Cirrhosis. 5. Additional chronic findings as above. CTA CHEST IMPRESSION: 1. No pulmonary embolism. 2. Minimal and mild chronic appearing thoracic compression fractures in the mid and lower thoracic spine. 3. Several slightly angulated bilateral anterior rib fractures without a visible fracture line favored to be chronic. Assessment and Plan (1) Rhabdomyolysis: Qualifiers: Encounter type: initial encounter Rhabdomyolysis type: traumatic Q ualified Code(s): T79.6XXA - Traumatic ischemia of muscle, initial encounter Status: Acute (2) Acute hepatic encephalopathy: Status: Acute Plan Patient is a 59-year-old male with past medical history alcohol use disorder with cessation 1 year prior, substance use disorder on methadone (history of heroin use), cirrhosis of the liver, hypertension, obesity, hyponatremia presents to the emergency department status post a fall. Patient is a poor historian when it comes to overall history of last few days. Patient states he fell Wednesday evening approximately 19:00 from the couch to the floor. Patient ended up sleeping on the floor as he could not get himself up. By Wednesday morning patient felt better and was able to get up but continued to feel weak with no strength. Patient did call his aunt who called 911 and this occured on Wednesday. It should be noted though that patient did not arrive to the ED until WednesdayNovember 05. Patient's story line appears unreliable. Patient being admitted with the following medical problems: Rhabdomyolosis Continue fluid bolus and hourly hydration Monitor BMP and CK daily Duodenitis Will start Protonix and Pepcid Holding off ABX as no fever or leukocytosis No reportted hx of Hpylori Clear diet ordered Hepatic encephalopathy with elevated Ammonia/ LFTs, hx of cirrhosis Pt started on lactulose Ammonia level recheck for 11/08 GI consulted Once Ammonia level normalizes, if memory remains impaired, pt may need evaluation for capacity due to obvious self care deficit S/P fall with subacute fracture of sacral bones, chronic rib fxs and chronic thoracic fxs PT eval ordered Fall prevention measures needed Ortho consult if indicated Possible mild cellulitis of right upper thigh and rule out DVT Pt started on doxycycline in ED, will continue Venous dopplers ordered BLE's R upper thigh marked with surgical pen Urinary retention (+800) Blue placed UA pending Substance use disorder on methadone Methadone dose confirmation pending Nonobstructing renal stones Renal fx WNL continue hydration Hx of alcohol abuse, last drink per pt one year prior No indication for CIWA or phenobarbitol Alcohol level <10 Pt on thiamine and folic acid, add MVI Self care deficit CM consulted Sister in [place] has concerns about pt continuing to live alone DVT Prophylaxis: lovenox MED REC PENDING and confirmation of methadone dose also pending FULL CODE STATUS Quality Stroke Does the patient have a stroke diagnosis?: No VTE Prior VTE?: No VTE Risk Level:: Medical - moderate - high VTE Device Contraindication: Treatment Not Tolerated VTE Drug Contraindication: N/A - Med Ordered
[2024-11-06 02:50] LABS: Appearance Urine Clear; Glucose Urine UA Negative (Negative); PH 7.0 (5.0-9.0); Specific Gravity - Urine >= 1.030 (1.005-1.025); UMIC TRIGGER UACC YES
[2024-11-06 03:01] LABS: Cannabinoid Screen Urine Not Detected (Not Detect)
--- NOTE | 2024-11-06 03:33 | PC.NURSE ---
this rn placed 16french ricci catheter. pt tolerated well. initial output of 800ml of dark yellow urine output. pt medicated according to mar pt pending admission bed assignment
--- NOTE | 2024-11-06 03:36 | PC.NURSE ---
upon marketing education teacher performing pt belonging list. pt methadone bottle found in pocket this rn obtained med. med to be brought to pharmacy in am
[2024-11-06 06:21] LABS: MANUAL DIFF FLAG NO
[2024-11-06 06:24] LABS: Hematocrit 37.5 % (42.0-52.0); Hemoglobin 12.8 g/dl (14.0-18.0); Imm Gran Abs Auto 0.10 X10*3/uL (0.00-0.03); Imm Gran Pct Auto 1.2 % (0.0-0.4); Lymphocytes Absolute Auto 1.3 X10*3/uL (1.2-4.9); Mean Corpuscular HGB Conc 34.1 g/dl (31.0-36.0); Mean Corpuscular Hemoglobin 33.7 pg (27.0-33.0); Mean Corpuscular Volume 98.7 fL (80.0-98.0); NRBC Abs Auto 0.000 X10*3/uL (0.0-0.012); NRBC Pct Auto 0.0 /100WBC (0.0-0.2); Platelet Count 73 X10*3/uL (160-400); Red Blood Count 3.80 X10*6/uL (4.60-5.80); White Blood Count 8.4 X10*3/uL (4.8-10.8)
[2024-11-06 06:38] LABS: Alanine Aminotransferase 79 U/L (0-40); Albumin Level 2.7 g/dL (3.5-5.0); Alkaline Phosphatase 83 U/L (39-117); Anion Gap 14 (12-20); Aspartate Amino Transferase 283 U/L (5-37); Blood Urea Nitrogen 13 mg/dL (9-16); Calcium 7.6 mg/dL (8.4-10.2); Carbon Dioxide 20 mmol/L (22-29); Chloride 106 mmol/L (96-108); Creatinine Clr Calc Pharmacy 177.2; Estimated Glomerular Filt Rate > 60; Lipase 140 U/L (8-78); Potassium 4.8 mmol/L (3.3-5.1); Sodium 135 mmol/L (135-145); Total Protein 6.2 g/dL (6.5-8.0)
--- NOTE | 2024-11-06 07:42 | P.PNIM_ITS ---
Subjective Subjective Date of Service: 11/06/24 Interval History: Pt reports Rib cage pain from prior falls - bilateral anterior rib fractures Head CT ordered given falls, thrombocytopenia - ruled out Acute IC pathology GI consulted - no acute mx indicated at this time from GI standpoint Review of Systems Review of Systems: Yes all other systems are reviewed and are negative Physical Exam 2 Exam: Exam: General: AOx3, no acute distress Resp: CTA bilaterally CVS: S1, S2, RRR GI: +BS, NT, no distention Skin: Warm, dry Neuro: Cranial nerves II-XII grossly intact bilaterally. Motor grossly intact bilaterally Extremities: No edema Psych: Appropriate affect Vital Signs: Vital Signs: Last Vital Signs Temp 98.4 F 11/06/24 06:27 Pulse 84 11/06/24 06:27 Resp 16 11/06/24 06:27 BP 134/54 L 11/06/24 06:27 Pulse Ox 94 11/06/24 06:27 O2 Del Method Nasal Cannula 11/06/24 06:27 O2 Flow Rate 2 11/06/24 06:27 BMI result Body Mass Index 47.0 Objective Data Active Medications Acetaminophen (Acetaminophen 325 Mg Tablet) 650 mg PO Q6H PRN PRN Reason: Pain, Mild 1-3,fever,headache Albuterol/Ipratropium (Albuterol/Iprat 2.5/0.5mg 3 Ml Ampul.Neb) 3 ml INHALE Q4H PRN PRN Reason: Shortness of Breath/Wheezing Calcium Carbonate (Calcium Carbonate 750 Mg Tab.Chew) 750 mg PO Q4H PRN PRN Reason: Heartburn Doxycycline Monohydrate (Doxycycline Monohydrate 100 Mg Capsule) 100 mg PO Q12H BELKIS Enoxaparin Sodium (Enoxaparin Sodium 40 Mg/0.4 Ml Syringe) 40 mg SUBCUT Q24H [facility] Last Admin: 11/06/24 03:18 Dose: 40 mg Documented By: SALVADOR Famotidine (Famotidine/Pf 20 Mg/2 Ml Vial) 20 mg IVPUSH DAILY [facility] Folic Acid (Folic Acid 1 Mg Tablet) 1 mg PO DAILY [facility] Sodium Chloride (Ns) 1,000 mls @ 100 mls/hr IVCONT .Q10H [facility] Last Admin: 11/06/24 04:52 Dose: 100 mls/hr Documented By: SALVADOR Lactulose (Lactulose 20 Gm/30 Ml Solution) 30 gm PO BID [facility] Last Admin: 11/06/24 03:18 Dose: 30 gm Documented By: SALVADOR Magnesium Hydroxide (Milk Of Magnesia 30 Ml Oral.Susp) 30 ml PO DAILY PRN PRN Reason: Constipation Melatonin (Melatonin 3 Mg Tablet) 6 mg PO BEDTIME PRN PRN Reason: Insomnia Multivitamins/Vitamin C (Multivitamin Tablet) 1 tab PO DAILY [facility] Nicotine (Nicotine 14 Mg Patch.Td24) 14 mg TRANSDERMA DAILY [facility] Ondansetron HCl (Ondansetron Hcl 4 Mg/2 Ml Vial) 4 mg IVPUSH Q8H PRN PRN Reason: Nausea and Vomiting Pantoprazole Sodium (Pantoprazole Sodium 40 Mg/10 Ml Vial) 40 mg IVPUSH DAILY@0630 [facility] Last Admin: 11/06/24 06:35 Dose: 40 mg Documented By: SALVADOR Polyethylene Glycol (Polyethylene Glycol 3350 17 Gm Powd.Pack) 17 gm PO DAILY PRN PRN Reason: Constipation Senna (Sennosides 8.6 Mg Tablet) 17.2 mg PO BEDTIME [facility] Sodium Chloride (0.9 % Sodium Chloride Flush 3 Ml Syringe) 3 ml IVFLUSH QSHIFT [facility] Thiamine HCl (Thiamine Hcl 100 Mg Tablet) 100 mg PO DAILY [facility] Labs 11/06/24 06:10 11/06/24 06:10 Labs: Laboratory Results - last 24 hr 11/05/24 11/05/24 11/06/24 19:53 22:14 02:17 MCV 94.9 MCH 34.5 H MCHC 36.4 H RDW 15.9 Plt Count 77 L D MPV 12.0 Immature Gran % (Auto) 1.4 H Neut % (Auto) 72.4 Lymph % (Auto) 12.3 L Leslie % (Auto) 12.2 H Eos % (Auto) 1.2 Baso % (Auto) 0.5 Lymph # (Auto) 1.2 Leslie # (Auto) 1.2 Eos # (Auto) 0.1 Baso # (Auto) 0.1 Abs Immat Gran (auto) 0.13 H Absolute Neuts (auto) 6.9 Absolute Nucleated RBC 0.000 Nucleated RBC % (auto) 0.0 PT 16.0 H INR 1.4 H Anion Gap 14 Estim Creat Clear Calc 159.3 Estimated GFR > 60 Random Glucose 87 Calcium 8.1 L D Total Bilirubin 2.2 H Direct Bilirubin 1.1 H AST 328 H ALT 87 H Alkaline Phosphatase 96 Ammonia 59 H Total Creatine Kinase 3638 H B-Natriuretic Peptide 34 Total Protein 6.8 Albumin 3.1 L Lipase 85 H TSH 1.89 Urine Color Dark Yellow Urine Appearance Clear Urine pH 7.0 Ur Specific Mcalister >= 1.030 H Urine Protein Negative Urine Glucose (UA) Negative Urine Ketones Trace Urine Blood Trace H Urine Nitrite Negative Ur Leukocyte Esterase Trace H Urine RBC 3-5 H Urine WBC 0-5 Ur Squamous Epith Cells 0-2 Urine Bacteria 4+ Hyaline Casts 0-2 Urine Opiates Screen POSITIVE H Ur Buprenorphine Scrn Not Detected Ur Oxycodone Screen Not Detected Urine Methadone Screen Positive H Urine Fentanyl Screen Not Detected Ur Barbiturates Screen Not Detected Ur Phencyclidine Scrn Not Detected Ur Amphetamines Screen Not Detected U Benzodiazepines Scrn Not Detected Urine Cocaine Screen Not Detected U Marijuana (THC) Screen Not Detected Ethyl Alcohol < 10 Influenza Type A (PCR) NEGATIVE Influenza Type B (PCR) NEGATIVE RSV RNA Qual (PCR) NEGATIVE SARS-CoV-2 RNA (RT-PCR) NEGATIVE 11/06/24 06:10 MCV 98.7 H MCH 33.7 H MCHC 34.1 RDW 16.0 Plt Count 73 L MPV 12.4 Immature Gran % (Auto) 1.2 H Neut % (Auto) 64.8 Lymph % (Auto) 16.0 L Leslie % (Auto) 15.8 H Eos % (Auto) 1.7 Baso % (Auto) 0.5 Lymph # (Auto) 1.3 Leslie # (Auto) 1.3 H Eos # (Auto) 0.1 Baso # (Auto) 0.0 Abs Immat Gran (auto) 0.10 H Absolute Neuts (auto) 5.4 Absolute Nucleated RBC 0.000 Nucleated RBC % (auto) 0.0 PT INR Anion Gap 14 Estim Creat Clear Calc 177.2 Estimated GFR > 60 Random Glucose 76 Calcium 7.6 L D Total Bilirubin 1.8 H Direct Bilirubin AST 283 H ALT 79 H Alkaline Phosphatase 83 Ammonia Total Creatine Kinase 2389 H B-Natriuretic Peptide Total Protein 6.2 L Albumin 2.7 L Lipase 140 H TSH Urine Color Urine Appearance Urine pH Ur Specific Mcalister Urine Protein Urine Glucose (UA) Urine Ketones Urine Blood Urine Nitrite Ur Leukocyte Esterase Urine RBC Urine WBC Ur Squamous Epith Cells Urine Bacteria Hyaline Casts Urine Opiates Screen Ur Buprenorphine Scrn Ur Oxycodone Screen Urine Methadone Screen Urine Fentanyl Screen Ur Barbiturates Screen Ur Phencyclidine Scrn Ur Amphetamines Screen U Benzodiazepines Scrn Urine Cocaine Screen U Marijuana (THC) Screen Ethyl Alcohol Influenza Type A (PCR) Influenza Type B (PCR) RSV RNA Qual (PCR) SARS-CoV-2 RNA (RT-PCR) Assessment and Plan (1) Decompensation of cirrhosis of liver: Status: Acute Plan Pt with PMH of history of AUD (stated sobriety since 8 months), REBA on methadone, ETOH induced liver cirrhosis, HTN, obesity, hyponatremia, presented to the ED s/p fall past Wednesday. Poor historian at baseline was noted to have Rhabomyolysis 2/2 fall with unclear downtime (at least from Wednesday into Wednesday morning per HPI). 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 Continue Protonix and Pepcid Decompensated liver cirrhosis 2/2 Etoh Hepatic encephalopathy with elevated Ammonia/ LFTs, hx of cirrhosis Pt initiated on lactulose,w ill continue Ammonia level recheck for 11/08 GI consulted - no acute mx indicated Once Ammonia level normalizes, if memory remains impaired, pt may need evaluation for capacity due to obvious self care deficit S/P fall with subacute fracture of sacral bones, chronic rib fxs and chronic thoracic fxs PT eval ordered Fall prevention measures needed B12, folate ordered Tele , trop, seizure precautions Possible mild cellulitis of right upper thigh and rule out DVT Pt started on doxycycline in ED, will continue Venous dopplers ordered BLE's R upper thigh marked with surgical pen Urinary retention (+800) Blue placed UA pending Substance use disorder on methadone Methadone dose confirmed, ordered Nonobstructing renal stones Renal fx WNL continue hydration Hx of alcohol abuse, last drink per pt one year prior No indication for CIWA or phenobarbitol Alcohol level <10 Pt on thiamine and folic acid, add MVI Self care deficit CM consulted Sister in [place] has concerns about pt continuing to live alone DVT Prophylaxis: lovenox FULL CODE STATUS Quality Stroke Does the patient have a stroke diagnosis?: No VTE Prior VTE?: No VTE Risk Level:: Medical - moderate - high VTE Device Contraindication: Treatment Not Tolerated VTE Drug Contraindication: N/A - Med Ordered
[2024-11-06] MEDS: oxyCODONE HCl Immed Release 5 MG TABLET PO ×3 (09:14→22:08)
--- NOTE | 2024-11-06 09:25 | MHC.CM.PN ---
Addendum entered by Shima Moran 11/06/24 09:27: NEW PCP IS GLENNY ROWELL Original Note: PT REPORTS HE LIVES ALONE AND IS INDEPENDENT WITH SELF CARE HE HAS A CANE HE USES DME AND HIS SISTER IS HIS HIGHWAY CONSTRUCTION INSPECTOR, HOWEVER HE ONLY HAS A FEW HOURS PER WEEK PT IS ACTIVE WITH [facility] IN [place] FOR MAT COPY OF HCP REQUESTED HE IS UNSURE WHO HIS PCP IS, HE WAS WITH DR LOVELL UNTIL HE RETIRED DCP: PENDING PT EVAL HOME, RESUME HIGHWAY [employer]STRUCTION INS[employer]OR AND NEW VNA VS STR
--- NOTE | 2024-11-06 09:39 | PC.NURSE ---
multiple calls to [facility] and unable to reach someone to verify methadone. Called five different [facility] numbers inclunding after-hours line due to holiday. phone answer service repeats it self every time and unable to connect. pt did bring in a bottle of their home methadone which was sent to pharmacy
--- NOTE | 2024-11-06 11:14 | PHA.MEDREC ---
Pharmacy Consult ? Medication Reconciliation Pharmacy has completed the medication reconciliation. pt fill history is inconsistent but he states he is still taking medications last filled in April 2024. Left them on home med list based on patient ability to identify medications. He states he filled the naproxen last week for back pain but already stopped taking it so it was left off of the list.
--- NOTE | 2024-11-06 15:15 | P.EN_ITS ---
Event Note Date of Service: 11/06/24 Event Note: GI Consult-Full note dictated Imp: EtOH-induced cirrhosis but without any signs of decompensation at this time. He describes sobriety for at least 8 months from EtOH and > 1 year from substance abuse. There is no sign of ascites, hepatic encephalopathy, GI bleedin g, nor jaundice. The elevated liver enzymes might be related to his fall and some component of hypotension with component of shock liver. The AST elevation could be from muscle as well given the elevated CK levels. Rec: Supportive care, treat any other acute process causing his presentation, continue his usual meds of his diuretics and Lactulose, change to a po PPI, diet as tolerated, and F/U labs in the AM. I don't think he needs any specific intervention on my part at this time. Thanks Time Spent With Patient Time: Total time managing care of this patient today ____ minutes.
--- NOTE | 2024-11-06 15:35 | HE.PHANOTE ---
Addendum entered by Gualberto Campos [facility] 11/07/24 12:06: Patient said his last dose at home was 2 days ago per nurse Jo on 11/07/24. Original Note: Methadone verified 11/06/24 68 mg [facility] Adrien, last dose(s) given 10/25/24 10:25 with take home bottles to last until 11/07/24
[2024-11-06] MEDS: 0.9 % Sodium Chloride Flush 3 ML SYRINGE IVFLUSH ×2 (16:50→22:14)
[2024-11-06 20:25] LABS: Folate 11.4 ng/mL (> or = 4.0); Vitamin B12 > 2000 pg/mL (200-900)
--- NOTE | 2024-11-07 01:25 | CONS_ITS ---
DATE OF SERVICE: 11/06/2024 REASON FOR CONSULTATION: Cirrhosis. HISTORY OF PRESENT ILLNESS: The patient is a 59-year-old male with a known history of cirrhosis in relation to previous alcohol abuse, although he describes sobriety for at least 8 months now. He also has a previous history of substance abuse, but with sobriety for that for well over 1 year by his report. He is maintained on outpatient methadone. The patient was brought to the ER and admitted last evening after having trouble at home with his balance resulting in a fall as well as overall feeling poorly and weak. He was found to have a markedly elevated CPK on admission and a minimally elevated ammonia level. The patient does report that he is presently feeling better today than he was yesterday. He is conversing normally and answers all questions appropriately. He denies any abdominal pain. He has not noticed any jaundice. He reports he has been eating fairly well, though the last couple of days his appetite has been diminished. He denies any dysphagia, nausea, nor vomiting. Again, he has not noticed any jaundice, increasing abdominal girth, nor abdominal pain. He describes 100 pounds weight gain over the past year. He does have some chronic edema. He reports his bowel movements have been brown and without any sign of melena nor hematochezia. He does have a prescription for lactulose at home, but has not been using that. MEDICATIONS: His medication at home according to the medication list includes folic acid, furosemide 40 mg daily, methadone, metoprolol, spironolactone 50 mg daily, and vitamins. His medications here in the hospital include acetaminophen p.r.n., inhaler p.r.n., Tums, p.o. doxycycline, Lovenox, IV famotidine, folic acid, melatonin p.r.n., milk of magnesia p.r.n., multivitamins, nicotine patch, Zofran p.r.n., oxycodone p.r.n., IV Protonix, MiraLAX p.r.n., Senokot p.r.n., and thiamine. PAST MEDICAL HISTORY: Elbow surgery. He denies any history of other significant surgeries as far as he can recall. 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 He has a positive hepatitis C antibody, but a nondetectable hepatitis C viral load. Alcohol and substance abuse with sobriety from each by his description. History of alcohol-induced pancreatitis in 2020. Chronic dilatation noted of the biliary tree on imaging studies, but with MRCP negative for any obstructing lesion or stones. He denies history of OK, diabetes, stroke, lung disease or kidney disease. SOCIAL HISTORY: Alcohol and substance abuse as above. He is single. FAMILY HISTORY: Noncontributory. REVIEW OF SYSTEMS: CONSTITUTIONAL: He has been feeling poorly the last few days at least with weakness and some anorexia. CARDIAC: No chest pain. PULMONARY: No coughing or hemoptysis. GI: As above. URINARY: No dysuria, no hematuria. NEUROLOGIC: No headaches or seizures. PHYSICAL EXAMINATION: GENERAL: The patient is a pleasant, alert, comfortable-appearing male. He answers all questions appropriately and is oriented to person, place, and year. He did remember me from previous meetings. HEENT: Anicteric sclerae. Moist mucous membranes. NECK: Supple without lymphadenopathy. CARDIAC: No S1, S2. ABDOMEN: Soft, nondistended, nontender without palpable organomegaly or mass. EXTREMITIES: With some chronic pretibial edema. LABORATORY DATA: He did have a CT scan of the abdomen and pelvis, which was negative for any ascites. There were some gallstones, but no worsening of chronic biliary obstruction. He has mild splenomegaly. The liver was consistent with cirrhosis. The pancreas appeared normal. There was some evidence of possible duodenitis. Head CT was negative for any type of intracranial bleed or other abnormalities. CT scan of the chest was negative for pulmonary embolus or other acute pathology. White blood cell count 8.4, hemoglobin 12.8, MCV 99, platelets 73,000. PT 16.0 with INR 1.4. Normal electrolytes. BUN 13, creatinine 0.6. Total bilirubin is 1.8, AST 23, ALT 79, alkaline phosphatase 83. Total CK was 2389. Ammonia level was 59. Albumin 2.7. Lipase 140. IMPRESSION: The patient is a 59-year-old male with underlying cirrhosis in relation to previous alcohol abuse, who presents to the ER with some generalized symptoms of weakness, feeling poorly, anorexia, and trouble with falling at home. He does not show any particular signs of liver decompensation at this time. His examination was negative for asterixis and he is alert and oriented without any gross evidence of encephalopathy. His ammonia level was only minimally elevated. Therefore, I do not think this is a major issue at the present time, but I would recommend continuing his maintenance lactulose and/or Xifaxan that he is on at home. He has not had any other complicating features of his cirrhosis such as GI bleeding, recurrent ascites, or worsening coagulopathy. His LFTs are elevated despite his saying that he has been sober from alcohol. The current elevations could be related to his recent falling at home and perhaps with some relative hypotension causing some component of shock liver. The elevated AST might actually be from muscle as opposed to liver given the elevated CPK. In any event, he does not show any signs of worsening liver function from the baseline cirrhosis. At this point, I do not think he needs any particular intervention from my standpoint. I would continue supportive care. I would continue his baseline diuretics in regard to his history of ascites and edema. I would continue acid suppression, but I think he can just be on an oral PPI at this time. I would continue diet as tolerated. Given no report of ascites on his imaging studies, is certainly good news as far as his liver function is concerned. At this point, I do not think he needs any other specific intervention on my part, but I will be available if things were to change. I did review all of this in detail with the patient. Please contact me if I can be of any further assistance during his hospitalization. Thank you for the consultation. MD TORRI Luque/ALEKSEY / [phone] MERLYN
[2024-11-07] MEDS: oxyCODONE HCl Immed Release 5 MG TABLET PO ×2 (05:35→20:10)
[2024-11-07 07:29] VITALS: BP 156/75; PULSE 91; RESP 20; TEMP 36.7; O2SAT 91
[2024-11-07 08:07] LABS: MANUAL DIFF FLAG NO
[2024-11-07 08:15] LABS: Hematocrit 35.4 % (42.0-52.0); Hemoglobin 12.3 g/dl (14.0-18.0); Imm Gran Abs Auto 0.19 X10*3/uL (0.00-0.03); Imm Gran Pct Auto 2.4 % (0.0-0.4); Lymphocytes Absolute Auto 1.0 X10*3/uL (1.2-4.9); Mean Corpuscular HGB Conc 34.7 g/dl (31.0-36.0); Mean Corpuscular Hemoglobin 33.7 pg (27.0-33.0); Mean Corpuscular Volume 97.0 fL (80.0-98.0); NRBC Abs Auto 0.000 X10*3/uL (0.0-0.012); NRBC Pct Auto 0.0 /100WBC (0.0-0.2); Red Blood Count 3.65 X10*6/uL (4.60-5.80); White Blood Count 7.9 X10*3/uL (4.8-10.8)
[2024-11-07 08:17] LABS: INTERNATIONAL NORM RATIO 1.5 (0.9-1.1); Platelet Count 70 X10*3/uL (160-400); Prothrombin Time 17.2 SEC (10.9-12.4)
[2024-11-07 08:21] LABS: Ammonia 72 umol/L (13-55)
[2024-11-07 08:33] LABS: Alanine Aminotransferase 77 U/L (0-40); Albumin Level 2.7 g/dL (3.5-5.0); Alkaline Phosphatase 85 U/L (39-117); Anion Gap 8 (12-20); Aspartate Amino Transferase 223 U/L (5-37); Blood Urea Nitrogen 12 mg/dL (9-16); Calcium 7.6 mg/dL (8.4-10.2); Carbon Dioxide 25 mmol/L (22-29); Chloride 107 mmol/L (96-108); Creatinine Clr Calc Pharmacy 186.8; Estimated Glomerular Filt Rate > 60; Potassium 4.0 mmol/L (3.3-5.1); Sodium 136 mmol/L (135-145); Total Protein 5.9 g/dL (6.5-8.0)
[2024-11-07] MEDS: Lidocaine 4 % Patch ADH..PATCH 2 PATCH TRANSDERMA (10:35)
--- NOTE | 2024-11-07 11:00 | HO.WOUND ---
Wound Consult: Initial 59 yr old male admitted to [facility] on - See progress notes and H&P for detailed history. Wound consult placed for right thigh redness. Patient agreeable to assessment and photo documentation. patient reports fall at home with downtime overnight, reports being prone. Etiology: Left elbow unstageable pressure injury Present on Admission Measurements: 1cm x 3cm x 0.1cm Wound Bed: largely covered in brown/yellow nonviable tissue, small area of moist pink/red, full thickness tissue loss. Drainage / Odor: scant serosanguinous, no odor Edges: ? attached Reshma wound: ? No Induration, Fluctuance or Warmth noted, mild localized redness Pain: none Goals of Treatment: ? offloading, moist wound healing with medihoney to promote an optimal moist wound healing environment including reducing edmea, lowering wound pH, debriding slough and mild antimicrobial effect. Etiology: right thigh redness Measurements: Wound Bed: intact skin with large area of redness with induration from anterior thigh extending medially to posterior thigh. Drainage / Odor: none Edges: ? attached Reshma wound: ? mild Induration, no Fluctuance, mild Warmth noted Pain: none Goals of Treatment: ? leave open to air, monitor for changes Recommendations: 1. Turn and Reposition every 2 hours and as needed for patient comfort. Use pillows or wedges to support off loading positions. 2. Off Load all bony prominences with use of pillows and heel boots if needed. Apply Preventative foams where needed. 3. Monitor for incontinence and moisture control, use barrier creams when needed for prevention and treatment. 4. Provide adequate and supplemental nutrition. 5. Order or Continue low air loss mattress. 6. When applicable maintain blood glucose levels per Providers order. Left elbow: Off Load Pressure with Q2 hr turns and use of pillows - Cleanse with PH balance spray or wipes, pat dry. ?Apply layer of Medihoney to wound bed. Cover with foam dressing to aid in off loading and protection from friction. Change every 3 days and PRN. Medihoney available from wound nurse ? tube left at bedside for use. Right thigh: leave open to air, monitor for changes Re-consult wound care Nurse for wound deterioration or wound changes.
--- NOTE | 2024-11-07 11:03 | MHC.CM.PN ---
Addendum entered by Nadia Gupta 11/07/24 11:11: Per , Patient received Methadone yesterday; MD ordered 80MG which was confirmed by Pharmacy med REC. Original Note: CM received permission from Patient to speak with his Sister/Ophelia @ [phone]. Per Ophelia's request, LISA has asked MD to look into Patient receiving his Methadone here (per Patient & Sister, Patient has not yet received Methadone since being hospitalized). a PT Eval is ordered to assist with disposition and Patient is approved through [facility] for only 5 hours/week. CM will follow.
[2024-11-07 11:27] VITALS: BP 144/68; PULSE 87; RESP 20; TEMP 37; O2SAT 94
[2024-11-07] MEDS: methADONE HCl 20 MG/2 ML ORAL.CONC 68 MG PO (12:39)
[2024-11-07 15:20] VITALS: BP 130/65; PULSE 80; RESP 20; TEMP 36.3; O2SAT 94
--- NOTE | 2024-11-07 16:57 | P.PNIM_ITS ---
Subjective Subjective Date of Service: 11/07/24 Interval History: Patient is refusing lactulose as he reports he had a rough night Patient's bedside RN was present during my interaction when I was reinforcing with the patient the need for taking his lactulose Patient has hyperammonemia is worsening Review of Systems Review of Systems: Yes all other systems are reviewed and are negative Physical Exam 2 Exam: Exam: General: AOx3, no acute distress Resp: CTA bilaterally CVS: S1, S2, RRR GI: +BS, NT, slightly distended abdomen Patient is refusing medication currently has capacity but we will likely lose capacity as he will continue to have hyperammonemia if he refuses lactulose Vital Signs: Vital Signs: Last Vital Signs Temp 97.4 F 11/07/24 15:20 Pulse 80 11/07/24 15:20 Resp 20 11/07/24 15:20 BP 130/65 11/07/24 15:20 Pulse Ox 94 11/07/24 15:20 O2 Del Method Nasal Cannula 11/07/24 15:20 O2 Flow Rate 2 11/07/24 15:20 BMI result Body Mass Index 46.2 Objective Data Active Medications Acetaminophen (Acetaminophen 325 Mg Tablet) 650 mg PO Q6H PRN PRN Reason: Pain, Mild 1-3,fever,headache Albuterol/Ipratropium (Albuterol/Iprat 2.5/0.5mg 3 Ml Ampul.Neb) 3 ml INHALE Q4H PRN PRN Reason: Shortness of Breath/Wheezing Calcium Carbonate (Calcium Carbonate 750 Mg Tab.Chew) 750 mg PO Q4H PRN PRN Reason: Heartburn Doxycycline Monohydrate (Doxycycline Monohydrate 100 Mg Capsule) 100 mg PO Q12H [facility] Last Admin: 11/07/24 09:56 Dose: 100 mg Documented By: JACKY Enoxaparin Sodium (Enoxaparin Sodium 40 Mg/0.4 Ml Syringe) 40 mg SUBCUT Q24H [facility] Last Admin: 11/07/24 03:01 Dose: 40 mg Documented By: TERRI Folic Acid (Folic Acid 1 Mg Tablet) 1 mg PO DAILY [facility] Last Admin: 11/07/24 09:56 Dose: 1 mg Documented By: JACKY Furosemide (Furosemide 40 Mg Tablet) 40 mg PO DAILY [facility]; Protocol Last Admin: 11/07/24 12:34 Dose: 40 mg Documented By: JACKY Sodium Chloride (Ns) 1,000 mls @ 100 mls/hr IVCONT .Q10H [facility] Last Admin: 11/07/24 10:51 Dose: Not Given Documented By: JACKY Non-Admin Reason: IV Running Lactulose (Lactulose 20 Gm/30 Ml Solution) 30 gm PO BID [facility] Last Admin: 11/07/24 10:03 Dose: Not Given Documented By: JACKY Non-Admin Reason: Patient Refused Lidocaine (Lidocaine 4 % Patch Adh..Patch) 2 patch TRANSDERMA DAILY [facility]; Protocol Last Admin: 11/07/24 10:35 Dose: 2 patch Documented By: JACKY Magnesium Hydroxide (Milk Of Magnesia 30 Ml Oral.Susp) 30 ml PO DAILY PRN PRN Reason: Constipation Melatonin (Melatonin 3 Mg Tablet) 6 mg PO BEDTIME PRN PRN Reason: Insomnia Methadone HCl (Methadone Hcl 20 Mg/2 Ml Oral.Conc) 68 mg PO DAILY [facility] Last Admin: 11/07/24 12:39 Dose: 68 mg Documented By: JACKY Co-signed By: HENRY Methocarbamol (Methocarbamol 500 Mg Tablet) 500 mg PO TID [facility] Last Admin: 11/07/24 09:56 Dose: 500 mg Documented By: JCAKY Multivitamins/Vitamin C (Multivitamin Tablet) 1 tab PO DAILY [facility] Last Admin: 11/07/24 09:56 Dose: 1 tab Documented By: JACKY Nicotine (Nicotine 14 Mg Patch.Td24) 14 mg TRANSDERMA DAILY [facility] Last Admin: 11/07/24 09:58 Dose: Not Given Documented By: JACKY Non-Admin Reason: Patient Refused Omeprazole (Omeprazole 20 Mg Capsule.) 20 mg PO DAILY@0630 [facility] Last Admin: 11/07/24 05:29 Dose: 20 mg Documented By: TERRI Ondansetron HCl (Ondansetron Hcl 4 Mg/2 Ml Vial) 4 mg IVPUSH Q8H PRN PRN Reason: Nausea and Vomiting Oxycodone HCl (Oxycodone Hcl Immed Release 5 Mg Tablet) 5 mg PO Q6H PRN PRN Reason: Pain, Moderate(Pain Scale 4-6) Last Admin: 11/07/24 05:35 Dose: 5 mg Documented By: TERRI Polyethylene Glycol (Polyethylene Glycol 3350 17 Gm Powd.Pack) 17 gm PO DAILY PRN PRN Reason: Constipation Senna (Sennosides 8.6 Mg Tablet) 17.2 mg PO BEDTIME [facility] Last Admin: 11/06/24 22:09 Dose: 17.2 mg Documented By: TERRI Sodium Chloride (0.9 % Sodium Chloride Flush 3 Ml Syringe) 3 ml IVFLUSH QSHIFT [facility] Last Admin: 11/07/24 10:50 Dose: Not Given Documented By: JACKY Non-Admin Reason: IV Running Spironolactone (Spironolactone 25 Mg Tablet) 50 mg PO DAILY [facility]; Protocol Last Admin: 11/07/24 12:34 Dose: 50 mg Documented By: JACKY Thiamine HCl (Thiamine Hcl 100 Mg Tablet) 100 mg PO DAILY [facility] Last Admin: 11/07/24 09:56 Dose: 100 mg Documented By: JACKY Labs 11/07/24 08:00 11/07/24 08:00 Labs: Laboratory Results - last 24 hr 11/06/24 11/07/24 19:19 08:00 MCV 97.0 MCH 33.7 H MCHC 34.7 RDW 15.9 Plt Count 70 L MPV 11.6 Immature Gran % (Auto) 2.4 H Neut % (Auto) 69.0 Lymph % (Auto) 13.0 L [place] % (Auto) 12.8 H Eos % (Auto) 2.2 Baso % (Auto) 0.6 Lymph # (Auto) 1.0 L [place] # (Auto) 1.0 Eos # (Auto) 0.2 Baso # (Auto) 0.1 Abs Immat Gran (auto) 0.19 H Absolute Neuts (auto) 5.4 Absolute Nucleated RBC 0.000 Nucleated RBC % (auto) 0.0 PT 17.2 H INR 1.5 H Anion Gap 8 L Estim Creat Clear Calc 186.8 Estimated GFR > 60 Random Glucose 91 Fasting Glucose 90 Calcium 7.6 L Total Bilirubin 2.2 H Direct Bilirubin 1.2 H AST 223 H ALT 77 H Alkaline Phosphatase 85 Ammonia 72 H Total Protein 5.9 L Albumin 2.7 L Vitamin B12 > 2000 H Folate 11.4 Assessment and Plan (1) Decompensation of cirrhosis of liver: Status: Acute Plan Pt with PMH of history of AUD (stated sobriety since 8 months), REBA on methadone, ETOH induced liver cirrhosis, HTN, obesity, hyponatremia, presented to the ED s/p fall past Wednesday. Poor historian at baseline was noted to have Rhabomyolysis 2/2 fall with unclear downtime (at least from Wednesday into Wednesday morning per HPI). 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 Continue Protonix and Pepcid Decompensated liver cirrhosis 2/2 Etoh Hepatic encephalopathy with elevated Ammonia/ LFTs, hx of cirrhosis Patient is refusing lactulose as he reports he had a rough night Patient's bedside RN was present during my interaction when I was reinforcing with the patient the need for taking his lactulose Patient has hyperammonemia is worsening Ammonia level daily until patient has stabilized GI consulted - no acute mx indicated Once Ammonia level normalizes, if memory remains impaired, pt may need evaluation for capacity due to obvious self care deficit S/P fall with subacute fracture of sacral bones, chronic rib fxs and chronic thoracic fxs PT eval ordered Fall prevention measures needed B12, folate ordered Tele , trop, seizure precautions Possible mild cellulitis of right upper thigh and rule out DVT Pt started on doxycycline in ED, will continue Venous dopplers ordered BLE's R upper thigh marked with surgical pen Urinary retention (+800) Blue placed UA pending Substance use disorder on methadone Methadone dose confirmed, ordered Nonobstructing renal stones Renal fx WNL continue hydration Hx of alcohol abuse, last drink per pt one year prior No indication for CIWA or phenobarbitol Alcohol level <10 Pt on thiamine and folic acid, add MVI Self care deficit CM consulted Sister in [place] has concerns about pt continuing to live alone DVT Prophylaxis: lovenox FULL CODE STATUS Quality Stroke Does the patient have a stroke diagnosis?: No VTE Prior VTE?: No VTE Risk Level:: Medical - moderate - high VTE Device Contraindication: Treatment Not Tolerated VTE Drug Contraindication: N/A - Med Ordered
[2024-11-07] MEDS: 0.9 % Sodium Chloride Flush 3 ML SYRINGE IVFLUSH ×2 (18:18→20:12)
[2024-11-07 20:00] VITALS: BP 143/73; PULSE 90; RESP 16; TEMP 36.7; O2SAT 92
--- NOTE | 2024-11-07 21:39 | P.PNGI_ITS ---
Subjective Subjective Date of Service: 11/07/24 Interval History: Patient is feeling better. Reports walking in [place] with PT. Eating OK. His main issue is the loose stools from Lactulose. There has been no bleeding. Denies N/V. Critical Care Time (minutes): 0 Physical Exam 2 Vital Signs: Vital Signs: Last Vital Signs Temp 98.0 F 11/07/24 20:00 Pulse 90 11/07/24 20:00 Resp 16 11/07/24 20:00 BP 143/73 H 11/07/24 20:00 Pulse Ox 92 11/07/24 20:00 O2 Del Method Nasal Cannula 11/07/24 20:00 O2 Flow Rate 2 11/07/24 20:00 BMI result Body Mass Index 46.2 Const: General: cooperative, comfortable, no acute distress, alert and awake Eyes: Other: Anicteric sclerae GI: Other: Abd-Soft, +BS, NT, Nondistended Neuro: Other: +Asterixis, Alert, Oriented to person, p lace, and time. Answers questions appropriately. Objective Data Labs 11/07/24 08:00 11/07/24 08:00 Labs: Laboratory Results - last 24 hr 11/07/24 08:00 WBC 7.9 RBC 3.65 L Hgb 12.3 L Hct 35.4 L MCV 97.0 MCH 33.7 H MCHC 34.7 RDW 15.9 Plt Count 70 L MPV 11.6 Immature Gran % (Auto) 2.4 H Neut % (Auto) 69.0 Lymph % (Auto) 13.0 L [place] % (Auto) 12.8 H Eos % (Auto) 2.2 Baso % (Auto) 0.6 Lymph # (Auto) 1.0 L [place] # (Auto) 1.0 Eos # (Auto) 0.2 Baso # (Auto) 0.1 Abs Immat Gran (auto) 0.19 H Absolute Neuts (auto) 5.4 Absolute Nucleated RBC 0.000 Nucleated RBC % (auto) 0.0 PT 17.2 H INR 1.5 H Sodium 136 Potassium 4.0 Chloride 107 Carbon Dioxide 25 Anion Gap 8 L BUN 12 Creatinine 0.60 Estim Creat Clear Calc 186.8 Estimated GFR > 60 Random Glucose 91 Fasting Glucose 90 Calcium 7.6 L Total Bilirubin 2.2 H Direct Bilirubin 1.2 H AST 223 H ALT 77 H Alkaline Phosphatase 85 Ammonia 72 H Total Protein 5.9 L Albumin 2.7 L Procedures Date of Service Date of Service: 11/07/24 Progress Note: A&P Assessment and plan (1) Cirrhosis: Status: Acute (2) Hepatic encephalopathy: Status: Acute Assessment and Plan: Imp: Cirrhosis remains stable without significant decompensation. The hepatic encephalopathy is stable, albeit the ammonia has risen slightly and there is some asterixis. There has been no GI bleeding. Rec: I will add Xifaxan to his regimen given his difficulties from the Lactulose-induced diarrhea. He can continue the Lactulsoe as tolerated although I don't think it can be increased due to the diarrhea. Will also give a dose of IV Vit K regarding the elevated PT/INR, although it may not help much. Continue the oral PPI. Continue supportive care otherwise. Thanks Time Spent With Patient Time: Total time managing care of this patient today ____ minutes. Quality Stroke Does the patient have a stroke diagnosis?: No VTE Prior VTE?: No VTE Risk Level:: Medical - moderate - high VTE Device Contraindication: Treatment Not Tolerated VTE Drug Contraindication: N/A - Med Ordered
[2024-11-08] VITALS (7 sets, daily range): BP systolic 128–148; BP diastolic 61–79; PULSE 79–97; RESP 18–20; TEMP 35.9–37.2; O2SAT 88–95
[2024-11-08] MEDS: 0.9 % Sodium Chloride Flush 3 ML SYRINGE IVFLUSH ×3 (08:07→21:39)
--- NOTE | 2024-11-08 08:12 | HO.PM.IMPN ---
Subjective Subjective Date of Service: 11/08/24 Interval History: Capacity eval requested - deemed pt has capacity Pt reports being more receptive to taking lactulose Pt was initiated on Rifaximin Review of Systems Review of Systems: Yes Unobtainable due to mental condition and Unobtainable due to mental status Physical Exam Exam: Exam: General: AOx3, no acute distress Resp: CTA bilaterally CVS: S1, S2, RRR GI: +BS, NT, slightly distended abdomen Patient seems to have capapcity for now Vital Signs: Vital Signs: Last Vital Signs Temp 97.4 F 11/07/24 15:20 Pulse 80 11/07/24 15:20 Resp 20 11/07/24 15:20 BP 130/65 11/07/24 15:20 Pulse Ox 94 11/07/24 15:20 O2 Del Method Nasal Cannula 11/07/24 15:20 O2 Flow Rate 2 11/07/24 15:20 BMI result Body Mass Index 46.2 Objective Data Active Medications Acetaminophen (Acetaminophen 325 Mg Tablet) 650 mg PO Q6H PRN PRN Reason: Pain, Mild 1-3,fever,headache Albuterol/Ipratropium (Albuterol/Iprat 2.5/0.5mg 3 Ml Ampul.Neb) 3 ml INHALE Q4H PRN PRN Reason: Shortness of Breath/Wheezing Calcium Carbonate (Calcium Carbonate 750 Mg Tab.Chew) 750 mg PO Q4H PRN PRN Reason: Heartburn Doxycycline Monohydrate (Doxycycline Monohydrate 100 Mg Capsule) 100 mg PO Q12H [facility] Last Admin: 11/07/24 20:10 Dose: 100 mg Documented By: TERRI Folic Acid (Folic Acid 1 Mg Tablet) 1 mg PO DAILY [facility] Last Admin: 11/07/24 09:56 Dose: 1 mg Documented By: JACKY Furosemide (Furosemide 40 Mg Tablet) 40 mg PO DAILY [facility]; Protocol Last Admin: 11/07/24 12:34 Dose: 40 mg Documented By: JACKY Lactulose (Lactulose 20 Gm/30 Ml Solution) 30 gm PO BID@0900,1700 [facility] Lidocaine (Lidocaine 4 % Patch Adh..Patch) 2 patch TRANSDERMA DAILY [facility]; Protocol Last Admin: 11/07/24 10:35 Dose: 2 patch Documented By: JACKY Magnesium Hydroxide (Milk Of Magnesia 30 Ml Oral.Susp) 30 ml PO DAILY PRN PRN Reason: Constipation Melatonin (Melatonin 3 Mg Tablet) 6 mg PO BEDTIME PRN PRN Reason: Insomnia Methadone HCl (Methadone Hcl 20 Mg/2 Ml Oral.Conc) 68 mg PO DAILY [facility] Last Admin: 11/07/24 12:39 Dose: 68 mg Documented By: JACKY Co-signed By: HENRY Methocarbamol (Methocarbamol 500 Mg Tablet) 500 mg PO TID [facility] Last Admin: 11/07/24 20:10 Dose: 500 mg Documented By: ETRRI Multivitamins/Vitamin C (Multivitamin Tablet) 1 tab PO DAILY [facility] Last Admin: 11/07/24 09:56 Dose: 1 tab Documented By: JACKY Nicotine (Nicotine 14 Mg Patch.Td24) 14 mg TRANSDERMA DAILY [facility] Last Admin: 11/07/24 09:58 Dose: Not Given Documented By: JACKY Non-Admin Reason: Patient Refused Omeprazole (Omeprazole 20 Mg Capsule.Dr) 20 mg PO DAILY@0630 [facility] Last Admin: 11/08/24 04:44 Dose: 20 mg Documented By: TERRI Ondansetron HCl (Ondansetron Hcl 4 Mg/2 Ml Vial) 4 mg IVPUSH Q8H PRN PRN Reason: Nausea and Vomiting Oxycodone HCl (Oxycodone Hcl Immed Release 5 Mg Tablet) 5 mg PO Q6H PRN PRN Reason: Pain, Moderate(Pain Scale 4-6) Last Admin: 11/07/24 20:10 Dose: 5 mg Documented By: TERRI Polyethylene Glycol (Polyethylene Glycol 3350 17 Gm Powd.Pack) 17 gm PO DAILY PRN PRN Reason: Constipation Rifaximin (Rifaximin 550 Mg Tablet) 550 mg PO BID [facility] Last Admin: 11/07/24 22:18 Dose: 550 mg Documented By: TERRI Senna (Sennosides 8.6 Mg Tablet) 17.2 mg PO BEDTIME [facility] Last Admin: 11/07/24 20:10 Dose: 17.2 mg Documented By: TERRI Sodium Chloride (0.9 % Sodium Chloride Flush 3 Ml Syringe) 3 ml IVFLUSH QSHIFT [facility] Last Admin: 11/08/24 08:07 Dose: 3 ml Documented By: JACKY Spironolactone (Spironolactone 25 Mg Tablet) 50 mg PO DAILY [facility]; Protocol Last Admin: 11/07/24 12:34 Dose: 50 mg Documented By: JACKY Thiamine HCl (Thiamine Hcl 100 Mg Tablet) 100 mg PO DAILY [facility] Last Admin: 11/07/24 09:56 Dose: 100 mg Documented By: JACKY Labs 11/07/24 08:00 11/08/24 07:39 Labs: Laboratory Results - last 24 hr 11/07/24 11/08/24 08:00 07:39 MCV 97.0 MCH 33.7 H MCHC 34.7 RDW 15.9 Plt Count 70 L MPV 11.6 Immature Gran % (Auto) 2.4 H Neut % (Auto) 69.0 Lymph % (Auto) 13.0 L [place] % (Auto) 12.8 H Eos % (Auto) 2.2 Baso % (Auto) 0.6 Lymph # (Auto) 1.0 L [place] # (Auto) 1.0 Eos # (Auto) 0.2 Baso # (Auto) 0.1 Abs Immat Gran (auto) 0.19 H Absolute Neuts (auto) 5.4 Absolute Nucleated RBC 0.000 Nucleated RBC % (auto) 0.0 Hold Purple Top SEE NOTE PT 17.2 H INR 1.5 H Anion Gap 8 L Estim Creat Clear Calc 186.8 Estimated GFR > 60 Random Glucose 91 Fasting Glucose 90 Calcium 7.6 L Total Bilirubin 2.2 H Direct Bilirubin 1.2 H AST 223 H ALT 77 H Alkaline Phosphatase 85 Ammonia 72 H Total Protein 5.9 L Albumin 2.7 L Assessment and Plan (1) Decompensation of cirrhosis of liver: Status: Acute Plan Pt with PMH of history of AUD (stated sobriety since 8 months), REBA on methadone, ETOH induced liver cirrhosis, HTN, obesity, hyponatremia, presented to the ED s/p fall past Wednesday. Poor historian at baseline was noted to have Rhabomyolysis 2/2 fall with unclear downtime (at least from Wednesday into Wednesday morning per HPI). Rhabdomyolosis 2/2 fall unknown , but presumed prolonged downtime - resolved Decompensated liver cirrhosis 2/2 Etoh Hepatic encephalopathy with elevated Ammonia/ LFTs, hx of cirrhosis Hyperammonemia - 2/2 pt's refusal of Lactulose - started on Rifaximin Patient agreeable today to take Lactulose Started on Rifaximin given uptrending Ammonia Patient has hyperammonemia is worsening Ammonia level daily until patient has stabilized GI consulted following Per Psych, deemed to have capacity Substance use disorder on methadone Methadone dose confirmed, ordered S/P fall with subacute fracture of sacral bones, chronic rib fxs and chronic thoracic fxs PT eval ordered Will likely need ARF upon DC Fall prevention measures Possible mild cellulitis of right upper thigh and rule out DVT Pt started on doxycycline in ED, will continue - will DC 1-2 days Urinary retention (+800) Nonobstructing renal stones Renal fx WNL continue oral hydration Will BS and remove Blue Hx of alcohol abuse, last drink per pt one year prior No indication for CIWA or phenobarbitol Alcohol level <10 Pt on thiamine and folic acid, add MVI Duodenitis likely 2/2 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 While every effort has been made to ensure accuracy, billing administrator errors may have been included. Quality Stroke Does the patient have a stroke diagnosis?: No VTE Prior VTE?: No VTE Risk Level:: Medical - moderate - high VTE Device Contraindication: Treatment Not Tolerated VTE Drug Contraindication: N/A - Med Ordered
[2024-11-08 08:17] LABS: Ammonia 85 umol/L (13-55)
[2024-11-08 08:21] LABS: Alanine Aminotransferase 71 U/L (0-40); Albumin Level 2.6 g/dL (3.5-5.0); Alkaline Phosphatase 81 U/L (39-117); Anion Gap 7 (12-20); Aspartate Amino Transferase 153 U/L (5-37); Blood Urea Nitrogen 11 mg/dL (9-16); Calcium 7.5 mg/dL (8.4-10.2); Carbon Dioxide 30 mmol/L (22-29); Chloride 103 mmol/L (96-108); Creatinine Clr Calc Pharmacy 180.8; Estimated Glomerular Filt Rate > 60; Potassium 4.0 mmol/L (3.3-5.1); Sodium 136 mmol/L (135-145); Total Protein 5.6 g/dL (6.5-8.0)
[2024-11-08] MEDS: methADONE HCl 20 MG/2 ML ORAL.CONC 68 MG PO (09:32)
[2024-11-08] MEDS: Lidocaine 4 % Patch ADH..PATCH 2 PATCH TRANSDERMA (09:38)
--- NOTE | 2024-11-08 11:06 | MHC.CM.PN ---
Per ROUNDS discussion, Patient is not yet medically cleared for dc (needs formal Capacity Eval); PT is recommending STR and CM will continue to follow.
--- NOTE | 2024-11-08 12:34 | P.CNPS_ITS ---
History of Present Illness Date of Service: 11/08/2024 Chief Complaint: Gen Weakness Reason for Consult: Capacity assessment Requesting physician: Shayna Bedoya Discussed with referring provider: Yes Sources of Information: patient interviewed and chart reviewed HPI Narrative: Pt with PMH of history of AUD (stated sobriety since 8 months), REBA on methadone, ETOH induced liver cirrhosis, HTN, obesity, hyponatremia, presented to the ED s/p fall past Wednesday. Poor historian at baseline was noted to have Rhabomyolysis 04/09 with unclear downtime (at least from Wednesday into Wednesday morning per HPI). Patient is seen for capacity assessment. Provider and nursing reports the patient's ammonia level continues to increase. However, he has not been taking lactulose as prescribed. He has been taking 20 mg twice daily instead of prescribed 40 mg twice daily since yesterday. He refused some doses the day before yesterday. On interview with his provider, patient is alert and oriented x4, speech is clear and coherent. He has good insight and judgment. He notes he has been taking less of the required dose of lactulose because I don't wanna shit my ass out. Instructed on the risks and complications of elevated lactulose level and encouraged to take the medication as prescribed. He verbalized understanding and notes that he will start taking the medication as prescribed. He denies anxiety, depression, SI/HI/AVH. He is not in acute distress at this time. Patient has capacity to make his healthcare decisions at this time. He will likely be compliant with taking lactulose with continued teaching/reinforcement. Medical Evaluation Reviewed: Yes Review of Systems Review of Systems Musculoskeletal: Reports pain to anterior upper ribcage [facility] Medical History Decompensation of cirrhosis of liver Screening for lung cancer Lower extremity edema Alcohol use disorder, severe, dependence CEASAR (acute kidney injury) Ascites Abdominal distension Jaundice Alcohol abuse Hypertension Drug abuse Surgical History History of colonoscopy (~11/20/15) Diagnostics Vital Signs (24Hr): Vital Signs - 24 hr 11/07/24 15:20 11/07/24 20:00 11/08/24 00:00 Temperature 97.4 F 98.0 F 99.0 F Pulse Rate 80 90 93 Respiratory Rate 20 16 20 Blood Pressure 130/65 143/73 H 148/79 H Pulse Oximetry 94 92 92 Oxygen Delivery Method Nasal Cannula Nasal Cannula Nasal Cannula Oxygen Flow Rate 2 2 2 11/08/24 04:00 11/08/24 07:29 11/08/24 11:05 Temperature 97.9 F 97.4 F 98.0 F Pulse Rate 91 79 88 Respiratory Rate 20 20 18 Blood Pressure 129/62 128/61 135/63 Pulse Oximetry 93 95 92 Oxygen Delivery Method Nasal Cannula Nasal Cannula Room Air Oxygen Flow Rate 2 2 BMI result Body Mass Index 46.2 Labs 11/07/24 08:00 11/09/24 07:07 Labs: Laboratory Results - last 48 hr 11/06/24 11/07/24 11/08/24 19:19 08:00 07:39 WBC 7.9 RBC 3.65 L Hgb 12.3 L Hct 35.4 L MCV 97.0 MCH 33.7 H MCHC 34.7 RDW 15.9 Plt Count 70 L MPV 11.6 Immature Gran % (Auto) 2.4 H Neut % (Auto) 69.0 Lymph % (Auto) 13.0 L [place] % (Auto) 12.8 H Eos % (Auto) 2.2 Baso % (Auto) 0.6 Lymph # (Auto) 1.0 L [place] # (Auto) 1.0 Eos # (Auto) 0.2 Baso # (Auto) 0.1 Abs Immat Gran (auto) 0.19 H Absolute Neuts (auto) 5.4 Absolute Nucleated RBC 0.000 Nucleated RBC % (auto) 0.0 Hold Purple Top SEE NOTE PT 17.2 H INR 1.5 H Sodium 136 136 Potassium 4.0 4.0 Chloride 107 103 Carbon Dioxide 25 30 H Anion Gap 8 L 7 L BUN 12 11 Creatinine 0.60 0.62 Estim Creat Clear Calc 186.8 180.8 Estimated GFR > 60 > 60 Random Glucose 91 105 Fasting Glucose 90 Calcium 7.6 L 7.5 L Total Bilirubin 2.2 H 2.2 H Direct Bilirubin 1.2 H AST 223 H 153 H ALT 77 H 71 H Alkaline Phosphatase 85 81 Ammonia 72 H 85 H Total Protein 5.9 L 5.6 L Albumin 2.7 L 2.6 L Vitamin B12 > 2000 H Folate 11.4 Imaging Radiology Impressions: ITS Impressions Venous Duplex 11/07/24 07:40 IMPRESSION: No evidence of deep venous thrombosis involving the bilateral lower extremities. Electronically signed by: Hernando Yip MD 11/07/2024 09:43 AM EDT RP Mental Status Exam Mental Status Exam Narrative: Appearance: Casually dressed in hospital gown, adequate hygiene Behavior: Calm and cooperative throughout the interview. Eye contact is appropriate, and there are no signs of psychomotor agitation or retardation Speech: Normal volume and prosody Thought process: Logical and goal-directed Thought content: Future oriented no self-harming thoughts Mood: Euthymic Affect: Full, mood-congruent SI:denies HI:denies VH/AH:none Delusions: None Insight/judgment: Good insight and judgment Memory/cog: Alert, oriented x 4. grossly intact to conversational testing Medications Medications Current Medications Acetaminophen (Acetaminophen 325 Mg Tablet) 650 mg PO Q6H PRN PRN Reason: Pain, Mild 1-3,fever,headache Albuterol/Ipratropium (Albuterol/Iprat 2.5/0.5mg 3 Ml Ampul.Neb) 3 ml INHALE Q4H PRN PRN Reason: Shortness of Breath/Wheezing Calcium Carbonate (Calcium Carbonate 750 Mg Tab.Chew) 750 mg PO Q4H PRN PRN Reason: Heartburn Doxycycline Monohydrate (Doxycycline Monohydrate 100 Mg Capsule) 100 mg PO Q12H [facility] Last Admin: 11/08/24 09:38 Dose: 100 mg Folic Acid (Folic Acid 1 Mg Tablet) 1 mg PO DAILY [facility] Last Admin: 11/08/24 09:37 Dose: 1 mg Furosemide (Furosemide 40 Mg Tablet) 40 mg PO DAILY [facility]; Protocol Last Admin: 11/08/24 09:38 Dose: 40 mg Lactulose (Lactulose 20 Gm/30 Ml Solution) 30 gm PO BID@0900,1700 [facility] Last Admin: 11/08/24 09:31 Dose: 30 gm Lidocaine (Lidocaine 4 % Patch Adh..Patch) 2 patch TRANSDERMA DAILY [facility]; Protocol Last Admin: 11/08/24 09:38 Dose: 2 patch Magnesium Hydroxide (Milk Of Magnesia 30 Ml Oral.Susp) 30 ml PO DAILY PRN PRN Reason: Constipation Melatonin (Melatonin 3 Mg Tablet) 6 mg PO BEDTIME PRN PRN Reason: Insomnia Methadone HCl (Methadone Hcl 20 Mg/2 Ml Oral.Conc) 68 mg PO DAILY [facility] Last Admin: 11/08/24 09:32 Dose: 68 mg Methocarbamol (Methocarbamol 500 Mg Tablet) 500 mg PO TID [facility] Last Admin: 11/08/24 09:37 Dose: 500 mg Multivitamins/Vitamin C (Multivitamin Tablet) 1 tab PO DAILY [facility] Last Admin: 11/08/24 09:37 Dose: 1 tab Nicotine (Nicotine 14 Mg Patch.Td24) 14 mg TRANSDERMA DAILY [facility] Last Admin: 11/08/24 11:27 Dose: Not Given Omeprazole (Omeprazole 20 Mg Capsule.Dr) 20 mg PO DAILY@0630 [facility] Last Admin: 11/08/24 04:44 Dose: 20 mg Ondansetron HCl (Ondansetron Hcl 4 Mg/2 Ml Vial) 4 mg IVPUSH Q8H PRN PRN Reason: Nausea and Vomiting Oxycodone HCl (Oxycodone Hcl Immed Release 5 Mg Tablet) 5 mg PO Q6H PRN PRN Reason: Pain, Moderate(Pain Scale 4-6) Last Admin: 11/07/24 20:10 Dose: 5 mg Polyethylene Glycol (Polyethylene Glycol 3350 17 Gm Powd.Pack) 17 gm PO DAILY PRN PRN Reason: Constipation Rifaximin (Rifaximin 550 Mg Tablet) 550 mg PO BID [facility] Last Admin: 11/08/24 09:37 Dose: 550 mg Senna (Sennosides 8.6 Mg Tablet) 17.2 mg PO BEDTIME [facility] Last Admin: 11/07/24 20:10 Dose: 17.2 mg Sodium Chloride (0.9 % Sodium Chloride Flush 3 Ml Syringe) 3 ml IVFLUSH QSHIFT [facility] Last Admin: 11/08/24 08:07 Dose: 3 ml Spironolactone (Spironolactone 25 Mg Tablet) 50 mg PO DAILY [facility]; Protocol Last Admin: 11/08/24 09:37 Dose: 50 mg Thiamine HCl (Thiamine Hcl 100 Mg Tablet) 100 mg PO DAILY [facility] Last Admin: 11/08/24 09:38 Dose: 100 mg Allergies Allergies Allergy/AdvReac Type Severity Reaction Status Date / Time No Known Allergies (No Known Allergy Verified 11/05/24 19:07 Allergies*) Assessment & Plan Assessment & Plan (1) Hepatic encephalopathy: Status: Acute Code(s): K76.82 - Hepatic encephalopathy (2) Decompensation of cirrhosis of liver: Status: Acute Code(s): K72.90 - Hepatic failure, unspecified without coma; K74.60 - Unspecified cirrhosis of liver Plan On interview with his provider, patient is alert and oriented x4, speech is clear and coherent. He has good insight and judgment. He notes he has been taking less of the required dose of lactulose because I don't wanna shit my ass out. Instructed on the risks and complications of elevated lactulose level and encouraged to take the medication as prescribed. He verbalized understanding and notes that he will start taking the medication as prescribed. He denies anxiety, depression, SI/HI/AVH. He is not in acute distress at this time. Patient has capacity to make his healthcare decisions at this time. He will likely be compliant with taking lactulose with continued teaching/reinforcement. Total time managing care of this patient today ____ minutes. Patient educated on: diagnosis, medication risk/benefits, therapeutic strategies and medical condition
[2024-11-08] MEDS: oxyCODONE HCl Immed Release 5 MG TABLET PO (15:25)
[2024-11-09 04:00] VITALS: BP 133/64; PULSE 88; RESP 20; TEMP 37.1; O2SAT 90
[2024-11-09 07:13] VITALS: BP 141/81; PULSE 87; RESP 18; TEMP 36.7; O2SAT 92
[2024-11-09 07:29] LABS: Ammonia 86 umol/L (13-55)
[2024-11-09 07:32] LABS: INTERNATIONAL NORM RATIO 1.6 (0.9-1.1); Prothrombin Time 17.9 SEC (10.9-12.4)
[2024-11-09 07:49] LABS: Alanine Aminotransferase 67 U/L (0-40); Albumin Level 2.7 g/dL (3.5-5.0); Alkaline Phosphatase 81 U/L (39-117); Anion Gap 9 (12-20); Aspartate Amino Transferase 117 U/L (5-37); Blood Urea Nitrogen 11 mg/dL (9-16); Calcium 7.9 mg/dL (8.4-10.2); Carbon Dioxide 27 mmol/L (22-29); Chloride 100 mmol/L (96-108); Creatinine Clr Calc Pharmacy 190.0; Estimated Glomerular Filt Rate > 60; Potassium 3.4 mmol/L (3.3-5.1); Sodium 133 mmol/L (135-145); Total Protein 6.2 g/dL (6.5-8.0)
[2024-11-09] MEDS: 0.9 % Sodium Chloride Flush 3 ML SYRINGE IVFLUSH ×3 (08:27→20:16)
[2024-11-09] MEDS: Lidocaine 4 % Patch ADH..PATCH 2 PATCH TRANSDERMA (08:37)
[2024-11-09] MEDS: methADONE HCl 20 MG/2 ML ORAL.CONC 68 MG PO (08:40)
--- NOTE | 2024-11-09 08:51 | HO.PM.IMPN ---
Subjective Subjective Date of Service: 11/09/24 Interval History: Patient is severely deconditioned, appears to more compliant with his medication Patient unsure why his ammonia is not going down despite multiple reassurances We will continue with the current regimen of lactulose and Xifaxan and if continues to be plateauing or not downtrending-we will likely increase lactulose Review of Systems Review of Systems: Yes all other systems are reviewed and are negative Physical Exam Exam: Exam: General: AOx3, no acute distress Resp: CTA bilaterally CVS: S1, S2, RRR GI: +BS, NT, slightly distended abdomen Patient seems to have capapcity for now Vital Signs: Vital Signs: Last Vital Signs Temp 98.0 F 11/09/24 07:13 Pulse 87 11/09/24 07:13 Resp 18 11/09/24 07:13 BP 141/81 H 11/09/24 07:13 Pulse Ox 92 11/09/24 07:13 O2 Del Method Room Air 11/09/24 07:13 O2 Flow Rate 2 11/08/24 07:29 BMI result Body Mass Index 46.2 Objective Data Active Medications Acetaminophen (Acetaminophen 325 Mg Tablet) 650 mg PO Q6H PRN PRN Reason: Pain, Mild 1-3,fever,headache Albuterol/Ipratropium (Albuterol/Iprat 2.5/0.5mg 3 Ml Ampul.Neb) 3 ml INHALE Q4H PRN PRN Reason: Shortness of Breath/Wheezing Calcium Carbonate (Calcium Carbonate 750 Mg Tab.Chew) 750 mg PO Q4H PRN PRN Reason: Heartburn Doxycycline Monohydrate (Doxycycline Monohydrate 100 Mg Capsule) 100 mg PO Q12H [facility] Last Admin: 11/09/24 08:39 Dose: 100 mg Documented By: AKIL Folic Acid (Folic Acid 1 Mg Tablet) 1 mg PO DAILY [facility] Last Admin: 11/09/24 08:39 Dose: 1 mg Documented By: AKIL Furosemide (Furosemide 40 Mg Tablet) 40 mg PO DAILY [facility]; Protocol Last Admin: 11/09/24 08:39 Dose: 40 mg Documented By: AKIL Phytonadione 2.5 mg/ Sodium (Chloride) 50.25 mls @ 50.25 mls/hr IV ONCE ONE Stop: 11/09/24 09:08 Lactulose (Lactulose 20 Gm/30 Ml Solution) 30 gm PO BID@0900,1700 [facility] Last Admin: 11/08/24 16:54 Dose: 30 gm Documented By: JACKY Lidocaine (Lidocaine 4 % Patch Adh..Patch) 2 patch TRANSDERMA DAILY [facility]; Protocol Last Admin: 11/09/24 08:37 Dose: 2 patch Documented By: AKIL Magnesium Hydroxide (Milk Of Magnesia 30 Ml Oral.Susp) 30 ml PO DAILY PRN PRN Reason: Constipation Melatonin (Melatonin 3 Mg Tablet) 6 mg PO BEDTIME PRN PRN Reason: Insomnia Methadone HCl (Methadone Hcl 20 Mg/2 Ml Oral.Conc) 68 mg PO DAILY [facility] Last Admin: 11/09/24 08:40 Dose: 68 mg Documented By: AKIL Co-signed By: BONIFACIO Methocarbamol (Methocarbamol 500 Mg Tablet) 500 mg PO TID [facility] Last Admin: 11/09/24 08:39 Dose: 500 mg Documented By: AKIL Multivitamins/Vitamin C (Multivitamin Tablet) 1 tab PO DAILY [facility] Last Admin: 11/09/24 08:39 Dose: 1 tab Documented By: AKIL Nicotine (Nicotine 14 Mg Patch.Td24) 14 mg TRANSDERMA DAILY [facility] Last Admin: 11/09/24 08:47 Dose: Not Given Documented By: AKIL Non-Admin Reason: Patient Refused Omeprazole (Omeprazole 20 Mg Capsule.Dr) 20 mg PO DAILY@0630 [facility] Last Admin: 11/09/24 06:12 Dose: 20 mg Documented By: TANJA Ondansetron HCl (Ondansetron Hcl 4 Mg/2 Ml Vial) 4 mg IVPUSH Q8H PRN PRN Reason: Nausea and Vomiting Oxycodone HCl (Oxycodone Hcl Immed Release 5 Mg Tablet) 5 mg PO Q6H PRN PRN Reason: Pain, Moderate(Pain Scale 4-6) Last Admin: 11/08/24 15:25 Dose: 5 mg Documented By: JACKY Polyethylene Glycol (Polyethylene Glycol 3350 17 Gm Powd.Pack) 17 gm PO DAILY PRN PRN Reason: Constipation Rifaximin (Rifaximin 550 Mg Tablet) 550 mg PO BID [facility] Last Admin: 11/09/24 08:39 Dose: 550 mg Documented By: AKIL Senna (Sennosides 8.6 Mg Tablet) 17.2 mg PO BEDTIME [facility] Last Admin: 11/08/24 21:37 Dose: 17.2 mg Documented By: TAHIR Sodium Chloride (0.9 % Sodium Chloride Flush 3 Ml Syringe) 3 ml IVFLUSH QSHIFT [facility] Last Admin: 11/09/24 08:27 Dose: 3 ml Documented By: AKIL Spironolactone (Spironolactone 25 Mg Tablet) 50 mg PO DAILY [facility]; Protocol Last Admin: 11/09/24 08:39 Dose: 50 mg Documented By: AKIL Thiamine HCl (Thiamine Hcl 100 Mg Tablet) 100 mg PO DAILY [facility] Last Admin: 11/09/24 08:39 Dose: 100 mg Documented By: AKIL Labs 11/07/24 08:00 11/09/24 07:07 Labs: Laboratory Results - last 24 hr 11/09/24 11/09/24 07:07 07:08 PT 17.9 H INR 1.6 H Anion Gap 9 L Estim Creat Clear Calc 190.0 Estimated GFR > 60 Random Glucose 103 Calcium 7.9 L Total Bilirubin 2.9 H AST 117 H ALT 67 H Alkaline Phosphatase 81 Ammonia 86 H Total Protein 6.2 L Albumin 2.7 L Assessment and Plan (1) Decompensation of cirrhosis of liver: Status: Acute Plan Pt with PMH of history of AUD (stated sobriety since 8 months), REBA on methadone, ETOH induced liver cirrhosis, HTN, obesity, hyponatremia, presented to the ED s/p fall past Wednesday. Poor historian at baseline was noted to have Rhabomyolysis 2/2 fall with unclear downtime (at least from Wednesday into Wednesday morning per HPI). Rhabdomyolosis 2/2 fall unknown , but presumed prolonged downtime - resolving Decompensated liver cirrhosis 2/2 Etoh Hepatic encephalopathy with elevated Ammonia/ LFTs, hx of cirrhosis Hyperammonemia - 2/2 pt's refusal of Lactulose - started on Rifaximin Patient agreeable to take Lactulose Started on Rifaximin on 11/08/24 given uptrending Ammonia , is currently plateauing If continues to plateau or not downtrend-we will continue to increase lactulose 1st before considering other medical management Patient does not appear to have any acute AMS given hyperammonemia However he does appear to have some cognitive dysfunction which will likely be managed outpatient setting with the PCP Per Psych, deemed to have capacity Substance use disorder on methadone Methadone dose confirmed, ordered S/P fall with subacute fracture of sacral bones, chronic rib fxs and chronic thoracic fxs PT eval ordered Will likely need ARF upon DC Fall prevention measures Possible mild cellulitis of right upper thigh and rule out DVT Pt started on doxycycline in ED, will continue - will DC 1-2 days Urinary retention (+800) Nonobstructing renal stones Renal fx WNL continue oral hydration Will BS and remove Blue Hx of alcohol abuse, last drink per pt one year prior No indication for CIWA or phenobarbitol Alcohol level <10 Pt on thiamine and folic acid, add MVI Duodenitis likely 2/2 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 While every effort has been made to ensure accuracy, memory care program director errors may have been included. Quality Stroke Does the patient have a stroke diagnosis?: No VTE Prior VTE?: No VTE Risk Level:: Medical - moderate - high VTE Device Contraindication: Treatment Not Tolerated VTE Drug Contraindication: N/A - Med Ordered
[2024-11-09] MEDS: Phytonadione (Vit K1) 2.5 MG in 0.9 % Sodium Chloride 50 ML 50.25 MG IV (09:36)
[2024-11-09 11:45] VITALS: BP 122/58; PULSE 86; RESP 18; TEMP 36.6; O2SAT 89
--- NOTE | 2024-11-09 14:08 | MHC.CM.PN ---
Addendum entered by Nadia Gupta 11/09/24 15:59: Jerri Lara [facility] has accepted Patient. Addendum entered by Nadia Gupta 11/09/24 14:39: Jennifer [facility] is unable to accept Patient; additional [facility] referrals have been sent. Original Note: Patient has named his Sister/Ophelia as his HCP Agent. Patient does not want to go to SNF/STR; per Patient's request, a referral has been made to [facility]. CM will follow.
[2024-11-09 16:00] VITALS: BP 146/67; PULSE 94; RESP 20; TEMP 36.5; O2SAT 92
[2024-11-09 19:56] VITALS: BP 122/56; PULSE 86; RESP 20; TEMP 37.2; O2SAT 92
[2024-11-09] MEDS: oxyCODONE HCl Immed Release 5 MG TABLET PO (20:20)
[2024-11-10] VITALS: BP 135/60; PULSE 93; RESP 20; TEMP 36.9; O2SAT 91
[2024-11-10 03:27] VITALS: BP 147/68; PULSE 89; RESP 18; TEMP 36.6; O2SAT 92
[2024-11-10 07:25] LABS: Ammonia 63 umol/L (13-55)
[2024-11-10 07:56] VITALS: BP 141/66; PULSE 87; RESP 18; TEMP 37; O2SAT 92
[2024-11-10 08:04] LABS: Alanine Aminotransferase 59 U/L (0-40); Albumin Level 2.8 g/dL (3.5-5.0); Alkaline Phosphatase 81 U/L (39-117); Anion Gap 12 (12-20); Aspartate Amino Transferase 87 U/L (5-37); Blood Urea Nitrogen 10 mg/dL (9-16); Calcium 8.0 mg/dL (8.4-10.2); Carbon Dioxide 28 mmol/L (22-29); Chloride 100 mmol/L (96-108); Creatinine Clr Calc Pharmacy 169.9; Estimated Glomerular Filt Rate > 60; Potassium 3.9 mmol/L (3.3-5.1); Sodium 136 mmol/L (135-145); Total Protein 6.4 g/dL (6.5-8.0)
[2024-11-10] MEDS: methADONE HCl 20 MG/2 ML ORAL.CONC 68 MG PO (08:15)
[2024-11-10] MEDS: Lidocaine 4 % Patch ADH..PATCH 2 PATCH TRANSDERMA (08:16)
[2024-11-10] MEDS: 0.9 % Sodium Chloride Flush 3 ML SYRINGE IVFLUSH ×3 (08:27→21:36)
--- NOTE | 2024-11-10 10:40 | MHC.CM.PN ---
Patient is not yet medically cleared for dc (refusing Lactulose);Patient refuses STR and wants to go home with new VNA. CM will continue to follow.
[2024-11-10 11:59] VITALS: BP 142/59; PULSE 92; RESP 20; TEMP 36.6; O2SAT 94
--- NOTE | 2024-11-10 12:16 | HO.PM.IMPN ---
Subjective Subjective Date of Service: 11/10/24 Interval History: pt refusng to take lactulose , anticipate ammonia to trend up again Spoke to sister healthcare proxy Bala PT recommends STR-patient adamant he does not want any STR Review of Systems Review of Systems: Yes Unobtainable due to mental status Physical Exam Exam: Exam: General: AOx3, no acute distress Resp: CTA bilaterally CVS: S1, S2, RRR GI: +BS, NT, slightly distended abdomen Patient seems to have capapcity for now Vital Signs: Vital Signs: Last Vital Signs Temp 97.9 F 11/10/24 11:59 Pulse 92 11/10/24 11:59 Resp 20 11/10/24 11:59 BP 142/59 H 11/10/24 11:59 Pulse Ox 94 11/10/24 11:59 O2 Del Method Room Air 11/10/24 11:59 O2 Flow Rate 2 11/08/24 07:29 BMI result Body Mass Index 46.2 Objective Data Active Medications Acetaminophen (Acetaminophen 325 Mg Tablet) 650 mg PO Q6H PRN PRN Reason: Pain, Mild 1-3,fever,headache Albuterol/Ipratropium (Albuterol/Iprat 2.5/0.5mg 3 Ml Ampul.Neb) 3 ml INHALE Q4H PRN PRN Reason: Shortness of Breath/Wheezing Calcium Carbonate (Calcium Carbonate 750 Mg Tab.Chew) 750 mg PO Q4H PRN PRN Reason: Heartburn Doxycycline Monohydrate (Doxycycline Monohydrate 100 Mg Capsule) 100 mg PO Q12H [facility] Last Admin: 11/10/24 08:15 Dose: 100 mg Documented By: MIKO Folic Acid (Folic Acid 1 Mg Tablet) 1 mg PO DAILY [facility] Last Admin: 11/10/24 08:15 Dose: 1 mg Documented By: MIKO Furosemide (Furosemide 40 Mg Tablet) 40 mg PO DAILY [facility]; Protocol Last Admin: 11/10/24 08:15 Dose: 40 mg Documented By: MIKO Lactulose (Lactulose 20 Gm/30 Ml Solution) 30 gm PO BID@0900,1700 [facility] Last Admin: 11/10/24 08:15 Dose: 30 gm Documented By: MIKO Lidocaine (Lidocaine 4 % Patch Adh..Patch) 2 patch TRANSDERMA DAILY [facility]; Protocol Last Admin: 11/10/24 08:16 Dose: 2 patch Documented By: MIKO Magnesium Hydroxide (Milk Of Magnesia 30 Ml Oral.Susp) 30 ml PO DAILY PRN PRN Reason: Constipation Melatonin (Melatonin 3 Mg Tablet) 6 mg PO BEDTIME PRN PRN Reason: Insomnia Methadone HCl (Methadone Hcl 20 Mg/2 Ml Oral.Conc) 68 mg PO DAILY [facility] Last Admin: 11/10/24 08:15 Dose: 68 mg Documented By: MIKO Co-signed By: SHARON Methocarbamol (Methocarbamol 500 Mg Tablet) 500 mg PO TID [facility] Last Admin: 11/10/24 08:15 Dose: 500 mg Documented By: MIKO Multivitamins/Vitamin C (Multivitamin Tablet) 1 tab PO DAILY [facility] Last Admin: 11/10/24 08:15 Dose: 1 tab Documented By: MIKO Nicotine (Nicotine 14 Mg Patch.Td24) 14 mg TRANSDERMA DAILY [facility] Last Admin: 11/10/24 08:16 Dose: Not Given Documented By: MIKO Non-Admin Reason: Patient Refused Omeprazole (Omeprazole 20 Mg Capsule.Dr) 20 mg PO DAILY@0630 [facility] Last Admin: 11/10/24 05:44 Dose: 20 mg Documented By: EVA Ondansetron HCl (Ondansetron Hcl 4 Mg/2 Ml Vial) 4 mg IVPUSH Q8H PRN PRN Reason: Nausea and Vomiting Oxycodone HCl (Oxycodone Hcl Immed Release 5 Mg Tablet) 5 mg PO Q6H PRN PRN Reason: Pain, Moderate(Pain Scale 4-6) Last Admin: 11/09/24 20:20 Dose: 5 mg Documented By: EVA Polyethylene Glycol (Polyethylene Glycol 3350 17 Gm Powd.Pack) 17 gm PO DAILY PRN PRN Reason: Constipation Rifaximin (Rifaximin 550 Mg Tablet) 550 mg PO BID [facility] Last Admin: 11/10/24 08:16 Dose: 550 mg Documented By: MIKO Senna (Sennosides 8.6 Mg Tablet) 17.2 mg PO BEDTIME [facility] Last Admin: 11/09/24 20:16 Dose: 17.2 mg Documented By: EVA Sodium Chloride (0.9 % Sodium Chloride Flush 3 Ml Syringe) 3 ml IVFLUSH QSHIFT [facility] Last Admin: 11/10/24 08:27 Dose: 3 ml Documented By: MIKO Spironolactone (Spironolactone 25 Mg Tablet) 50 mg PO DAILY [facility]; Protocol Last Admin: 11/10/24 08:15 Dose: 50 mg Documented By: MIKO Thiamine HCl (Thiamine Hcl 100 Mg Tablet) 100 mg PO DAILY [facility] Last Admin: 11/10/24 08:15 Dose: 100 mg Documented By: MIKO Labs 11/07/24 08:00 11/10/24 07:07 Labs: Laboratory Results - last 24 hr 11/10/24 07:07 Hold Purple Top SEE NOTE Anion Gap 12 Estim Creat Clear Calc 169.9 Estimated GFR > 60 Random Glucose 92 Calcium 8.0 L Total Bilirubin 2.8 H AST 87 H ALT 59 H Alkaline Phosphatase 81 Ammonia 63 H Total Protein 6.4 L Albumin 2.8 L Assessment and Plan (1) Decompensation of cirrhosis of liver: Status: Acute Plan Pt with PMH of history of AUD (stated sobriety since 8 months), REBA on methadone, ETOH induced liver cirrhosis, HTN, obesity, hyponatremia, presented to the ED s/p fall past Wednesday. Poor historian at baseline was noted to have Rhabomyolysis 2/2 fall with unclear downtime (at least from Wednesday into Wednesday morning per HPI). Rhabdomyolosis 2/2 fall unknown , but presumed prolonged downtime - resolving Decompensated liver cirrhosis 2/2 Etoh Hepatic encephalopathy with elevated Ammonia/ LFTs, hx of cirrhosis Hyperammonemia - 2/2 pt's refusal of Lactulose - started on Rifaximin Patient refusing to take Lactulose Cont on Rifaximin on 11/08/24 Care Limited given patient's refusal to take lactulose Patient does not appear to have any acute AMS given hyperammonemia However he does appear to have some cognitive dysfunction which will likely be managed outpatient setting with the PCP Per Psych, deemed to have capacity No indication for CIWA or phenobarbitol Alcohol level <10 Pt on thiamine and folic acid, add MVI Substance use disorder on methadone Methadone dose confirmed, ordered S/P fall with subacute fracture of sacral bones, chronic rib fxs and chronic thoracic fxs PT eval ordered Will likely need ARF upon DC Fall prevention measures Patient refusing STR Possible mild cellulitis of right upper thigh and rule out DVT Pt started on doxycycline in ED, will continue - will DC 1-2 days Urinary retention (+800) Nonobstructing renal stones Renal fx WNL continue oral hydration Will BS and remove Blue Duodenitis likely 2/2 chronic 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 While every effort has been made to ensure accuracy, logistics analytics manager errors may have been included. Quality Stroke Does the patient have a stroke diagnosis?: No VTE Prior VTE?: No VTE Risk Level:: Medical - moderate - high VTE Device Contraindication: Treatment Not Tolerated VTE Drug Contraindication: N/A - Med Ordered
[2024-11-10 16:00] VITALS: BP 126/55; PULSE 99; RESP 20; TEMP 36.5; O2SAT 92
[2024-11-10] MEDS: oxyCODONE HCl Immed Release 5 MG TABLET PO (16:14)
[2024-11-10 20:00] VITALS: BP 131/75; PULSE 87; RESP 20; TEMP 36.7; O2SAT 91
[2024-11-11] VITALS: BP 137/70; PULSE 84; RESP 20; TEMP 36.8; O2SAT 92
[2024-11-11 03:15] VITALS: BP 140/76; PULSE 82; RESP 18; TEMP 36.7; O2SAT 92
[2024-11-11] MEDS: oxyCODONE HCl Immed Release 5 MG TABLET PO (06:08)
[2024-11-11 07:42] LABS: Alanine Aminotransferase 52 U/L (0-40); Albumin Level 2.7 g/dL (3.5-5.0); Alkaline Phosphatase 83 U/L (39-117); Anion Gap 11 (12-20); Aspartate Amino Transferase 69 U/L (5-37); Blood Urea Nitrogen 10 mg/dL (9-16); Calcium 8.1 mg/dL (8.4-10.2); Carbon Dioxide 28 mmol/L (22-29); Chloride 100 mmol/L (96-108); Creatinine Clr Calc Pharmacy 177.9; Estimated Glomerular Filt Rate > 60; Potassium 3.4 mmol/L (3.3-5.1); Sodium 136 mmol/L (135-145); Total Protein 6.4 g/dL (6.5-8.0)
--- NOTE | 2024-11-11 07:55 | P.PNIM_ITS ---
Subjective Subjective Date of Service: 11/11/24 Physical Exam 2 Vital Signs: Vital Signs: Last Vital Signs Temp 98.1 F 11/11/24 03:15 Pulse 82 11/11/24 03:15 Resp 18 11/11/24 03:15 BP 140/76 H 11/11/24 03:15 Pulse Ox 92 11/11/24 03:15 O2 Del Method Room Air 11/11/24 03:15 O2 Flow Rate 2 11/08/24 07:29 BMI result Body Mass Index 46.2 Objective Data Active Medications Acetaminophen (Acetaminophen 325 Mg Tablet) 650 mg PO Q6H PRN PRN Reason: Pain, Mild 1-3,fever,headache Albuterol/Ipratropium (Albuterol/Iprat 2.5/0.5mg 3 Ml Ampul.Neb) 3 ml INHALE Q4H PRN PRN Reason: Shortness of Breath/Wheezing Calcium Carbonate (Calcium Carbonate 750 Mg Tab.Chew) 750 mg PO Q4H PRN PRN Reason: Heartburn Doxycycline Monohydrate (Doxycycline Monohydrate 100 Mg Capsule) 100 mg PO Q12H [facility] Last Admin: 11/10/24 21:35 Dose: 100 mg Documented By: ROCHELLE Folic Acid (Folic Acid 1 Mg Tablet) 1 mg PO DAILY [facility] Last Admin: 11/10/24 08:15 Dose: 1 mg Documented By: MIKO Furosemide (Furosemide 40 Mg Tablet) 40 mg PO DAILY [facility]; Protocol Last Admin: 11/10/24 08:15 Dose: 40 mg Documented By: MIKO Lactulose (Lactulose 20 Gm/30 Ml Solution) 30 gm PO BID@0900,1700 [facility] Last Admin: 11/10/24 16:15 Dose: Not Given Documented By: MIKO Non-Admin Reason: Patient Refused Lidocaine (Lidocaine 4 % Patch Adh..Patch) 2 patch TRANSDERMA DAILY [facility]; Protocol Last Admin: 11/10/24 08:16 Dose: 2 patch Documented By: MIKO Magnesium Hydroxide (Milk Of Magnesia 30 Ml Oral.Susp) 30 ml PO DAILY PRN PRN Reason: Constipation Melatonin (Melatonin 3 Mg Tablet) 6 mg PO BEDTIME PRN PRN Reason: Insomnia Methadone HCl (Methadone Hcl 20 Mg/2 Ml Oral.Conc) 68 mg PO DAILY [facility] Last Admin: 11/10/24 08:15 Dose: 68 mg Documented By: MIKO Co-signed By: SHARON Methocarbamol (Methocarbamol 500 Mg Tablet) 500 mg PO TID [facility] Last Admin: 11/10/24 21:35 Dose: 500 mg Documented By: ROCHELLE Multivitamins/Vitamin C (Multivitamin Tablet) 1 tab PO DAILY [facility] Last Admin: 11/10/24 08:15 Dose: 1 tab Documented By: MIKO Nicotine (Nicotine 14 Mg Patch.Td24) 14 mg TRANSDERMA DAILY [facility] Last Admin: 11/10/24 08:16 Dose: Not Given Documented By: MIKO Non-Admin Reason: Patient Refused Omeprazole (Omeprazole 20 Mg Capsule.Dr) 20 mg PO DAILY@0630 [facility] Last Admin: 11/11/24 06:05 Dose: 20 mg Documented By: ROCHELLE Ondansetron HCl (Ondansetron Hcl 4 Mg/2 Ml Vial) 4 mg IVPUSH Q8H PRN PRN Reason: Nausea and Vomiting Oxycodone HCl (Oxycodone Hcl Immed Release 5 Mg Tablet) 5 mg PO Q6H PRN PRN Reason: Pain, Moderate(Pain Scale 4-6) Last Admin: 11/11/24 06:08 Dose: 5 mg Documented By: ROCHELLE Polyethylene Glycol (Polyethylene Glycol 3350 17 Gm Powd.Pack) 17 gm PO DAILY PRN PRN Reason: Constipation Rifaximin (Rifaximin 550 Mg Tablet) 550 mg PO BID [facility] Last Admin: 11/10/24 21:35 Dose: 550 mg Documented By: ROCHELLE Senna (Sennosides 8.6 Mg Tablet) 17.2 mg PO BEDTIME [facility] Last Admin: 11/10/24 21:35 Dose: 17.2 mg Documented By: ROCHELLE Sodium Chloride (0.9 % Sodium Chloride Flush 3 Ml Syringe) [facility] Admin: 11/10/24 21:36 Dose: 3 ml Documented By: ROCHELLE Spironolactone (Spironolactone 25 Mg Tablet) 50 mg PO DAILY [facility]; Protocol Last Admin: 11/10/24 08:15 Dose: 50 mg Documented By: MIKO Thiamine HCl (Thiamine Hcl 100 Mg Tablet) 100 mg PO DAILY [facility] Last Admin: 11/10/24 08:15 Dose: 100 mg Documented By: MIKO Labs 11/07/24 08:00 11/11/24 06:45 Labs: Laboratory Results - last 24 hr 11/10/24 11/11/24 07:07 06:45 Anion Gap 12 11 L Estim Creat Clear Calc 169.9 177.9 Estimated GFR > 60 > 60 Random Glucose 92 94 Calcium 8.0 L 8.1 L Total Bilirubin 2.8 H 2.4 H AST 87 H 69 H ALT 59 H 52 H Alkaline Phosphatase 81 83 Total Protein 6.4 L 6.4 L Albumin 2.8 L 2.7 L Quality Stroke Does the patient have a stroke diagnosis?: No VTE Prior VTE?: No VTE Risk Level:: Medical - moderate - high VTE Device Contraindication: Treatment Not Tolerated VTE Drug Contraindication: N/A - Med Ordered
[2024-11-11 08:00] VITALS: BP 145/82; PULSE 85; RESP 18; TEMP 36.2; O2SAT 96
[2024-11-11] MEDS: methADONE HCl 20 MG/2 ML ORAL.CONC 68 MG PO (08:49)
[2024-11-11] MEDS: 0.9 % Sodium Chloride Flush 3 ML SYRINGE IVFLUSH ×2 (08:50→14:46)
[2024-11-11 09:09] LABS: Ammonia 42 umol/L (13-55)
[2024-11-11 11:03] VITALS: BP 131/64; PULSE 88; RESP 20; TEMP 36.4; O2SAT 96
--- NOTE | 2024-11-11 12:18 | PM.DS ---
DS: Providers Provider Date of Service: 11/11/24 Date of admission: 11/06/24 01:44 Date of discharge: 11/11/24 Primary care physician: Zheng Landon MD Consults: 11/06/24 02:57 Consult to Gastroenterology Routine Consulting Provider: Rolo Mederos Reason for consultation: hepatic encephalopthy, elevated ammonia, duodentitis no hx fo h pylori Has provider been notified: No 11/06/24 16:36 Consult to Wound Care Routine Reason for consultation: right thigh- red/ warm- ? rug burn from fall on carpeted floor Has provider been notified: Yes 11/08/24 08:12 Consult to Psychiatry Routine Consulting Provider: [facility] Psych Covering Reason for consultation: Capacity eval DS: Diagnosis Discharge Diagnosis (1) Decompensation of cirrhosis of liver: Status: Acute DS: Summary Hospital Course Hospital Course: Rhabdomyolosis 2/2 fall unknown , but presumed prolonged downtime - resolving Decompensated liver cirrhosis 2/2 Etoh - chronic Hepatic encephalopathy with elevated Ammonia/ LFTs, hx of cirrhosis Hyperammonemia - 2/2 pt's refusal of Lactulose - started on Rifaximin this admission Pt with PMH of history of AUD (stated sobriety since 8 months), REBA on methadone, ETOH induced liver cirrhosis, HTN, obesity, hyponatremia, presented to the ED s/p fall past Wednesday. Poor historian at baseline was noted to have Rhabomyolysis 2/2 fall with unclear downtime (at least from Wednesday into Wednesday morning per HPI). Patient refusing to take Lactulose Cont on Rifaximin BID, will continue until seen by GI physician OP setting Care Limited given patient's refusal to take lactulose - he is high risk of readmission Patient does not appear to have any acute AMS given hyperammonemia However he does appear to have some cognitive dysfunction which will likely be managed outpatient setting with the PCP Per Psych this admission, deemed to have capacity Was not on CIWA or phenobarbitol as Alcohol level <10 and reports sobreity since 8 months Pt on thiamine and folic acid, add MVI Substance use disorder on methadone Methadone dose confirmed, ordered S/P fall with subacute fracture of sacral bones, chronic rib fxs and chronic thoracic fxs PT eval ordered Will likely need ARF upon DC Fall prevention measures Patient refusing STR Possible mild cellulitis of right upper thigh Pt rx with 5 days of Doxycycline with good effect DVT r/o with usg Urinary retention (+800) Nonobstructing renal stones Blue was briefly introduced and removed appropriately F/u chronicn contditions with OP Urology Duodenitis likely 2/2 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 While every effort has been made to ensure accuracy, motorboat mechanic inboard/outboard errors may have been included. Time spent discussing smoking cessation with patient: more than 10 minutes Time Attestation Discharge Coordination Time (in mins): 35 Quality: Safe Use of Opioids Does Pt have an Active Cancer Diagnosis on the Problem List?: No Quality: Stroke Does the patient have a stroke diagnosis?: No Physical Exam Vital Signs: Vital Signs: Last Vital Signs Temp 97.6 F 11/11/24 11:03 Pulse 88 11/11/24 11:03 Resp 20 11/11/24 11:03 BP 131/64 11/11/24 11:03 Pulse Ox 96 11/11/24 11:03 O2 Del Method Room Air 11/11/24 11:03 O2 Flow Rate 2 11/08/24 07:29 BMI result Body Mass Index 46.2 DS: Data Data Completed and Pending Completed studies during hospitalization [Text1]: Procedures Detoxification Services for Substance Abuse Treatment (09/05/20) Drainage of Peritoneal Cavity with Drainage Device, Percutaneous Approach (01/16/22) Labs on day of discharge: Laboratory Results - last 24 hr 11/11/24 11/11/24 06:45 08:42 Hold Purple Top SEE NOTE Sodium 136 Potassium 3.4 Chloride 100 Carbon Dioxide 28 Anion Gap 11 L BUN 10 Creatinine 0.63 Estim Creat Clear Calc 177.9 Estimated GFR > 60 Random Glucose 94 Calcium 8.1 L Total Bilirubin 2.4 H AST 69 H ALT 52 H Alkaline Phosphatase 83 Ammonia 42 Total Protein 6.4 L Albumin 2.7 L Discharge Plan Discharge Anticipated Discharge Date/Time: 11/11/24 11:12 Patient Disposition: Home, Self-Care Discharge Diagnosis: Acute hepatic encephalopathy secondary to medication noncompliance Referrals: Zheng Landon MD [Primary Care Provider, Internal Medicine] - 1 Week Discharge Medications: New lactulose 10 gram/15 mL Solution 30 g PO BID@0900,1700 30 Days Qty: 2700 0RF Xifaxan 550 mg Tablet 550 mg PO BID 30 Days Qty: 60 0RF Continued methadone 5 mg/5 mL Solution 68 mg PO DAILY folic acid 1 mg Tablet 1 mg PO DAILY Qty: 30 0RF thiamine mononitrate (vit B1) 100 mg Tablet 100 mg PO DAILY Qty: 30 0RF spironolactone 50 mg tablet 50 mg PO DAILY Qty: 30 0RF furosemide 20 mg tablet 40 mg PO DAILY Protocol: Hold for SBP< HOLD for SBP < : 90 metoprolol succinate 50 mg tablet extended release 24 hr 50 mg PO DAILY ammonium lactate 12 % lotion 1 appl topical DAILY Protocol: Apply to: Apply to: back Discharge Orders: Discharge Order (Routine); Ordered 11/11/24 Ordered By: Shayna Bedoya Activity on Discharge: As tolerated Stand Alone Forms: Patient Portal Discharge page Print Language: Serbian Care Plan Goals: Continued to have intake of lactulose Health Concerns: Continuing medication adherence Plan of Treatment: Lactulose, rifaximin, GI follow-up Assessment: See above
--- NOTE | 2024-11-11 14:01 | MHC.CM.PN ---
Patient medically cleared for dc home w/ [facility]. Will transport home via Ly[employer], as sister is [place] of state. IMM delivered.
--- NOTE | 2024-11-11 14:05 | W.MHC.F2F ---
Service Date Service Date: 11/11/24 Encounter Date of encounter: 11/11/24 Reasons for Services Signs and symptoms assessed: PT, unstable gait, physicial deconditioning MD Overseeing Care: Zheng Landon Homebound: Leaving the home is medically contraindicated at this time without the asist of a device and/or another person due th the listed conditions above and below. Reason homebound: unsteady gait / fall risk, poor balance / fall risk and psychologically impaired / unsafe Certification: Based on the above findings, I certify that this patient is confined to the home and needs intermittent usp care, physical therapy and/or speech therapy, or continues to need occupational therapy. The patient is under my care, and I have initiated the establishment of the plan of care. The patient will be followed by a physician who will periodically review the plan of care. Time Spent With Patient Time: Total time managing care of this patient today ____ minutes.
--- NOTE | 2024-12-18 20:02 | P.CDIM_ITS ---
PROVIDER RESPONSE TEXT: To clarify, the appropriate diagnosis supported by the clinical indicators: Shock liver: Possible shock liver, suspected, can not rule out QUERY TEXT: PHYSICIAN'S DOCUMENTATION REQUEST Date of Query: 11/08/2024 07:43 AM EDT Patient Name: SKY ACOSTA Admit Date: 11/06/2024 Dear Shayna Bedoya MD, A review of the medical record indicates additional documentation may be needed. Please review below and update the documentation accordingly Clinical Indicators: GI Consultation note dated 11/06/24 - The elevated liver enzymes might be related to his fall and some component of hypotension with component of Shock liver. 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 Consistency of a diagnosis documented within the medical record: If agree possible to place this diagnosis within the Plan of the next progress note? Shock liver possible, probable, suspected, cannot rule out After study Shock liver has been ruled out Other specified Shock, unknown type Other (explain) Clinically unable to determine (explain) Thank you, Ariella Saleem, CCS, CDIS Use of terms such as suspected, likely, concern for, or probable (associated with a specific diagnosis that is being evaluated, monitored, or treated as if it exists) are acceptable and can be coded in the inpatient setting, when documented at the time of discharge. Please use your independent medical judgment in providing your response. THIS QUERY IS PART OF THE PERMANENT MEDICAL RECORD
== END 2024-11-11 16:20 | disposition home health service (06) | DRG 557 ==
LOC: HO.ED 11-06 01:32 → HO.EDOVER 11-06 01:54 → HO.IMC 11-06 15:18
PROVIDERS: Emergency Medicine; Internal Medicine; Nurse Practitioner Family; Admitting Provider Hospitalist; Emergency Provider Emergency Medicine; PCP Student in an Organized Health Care Education/Training Program; Visit Provider Student in an Organized Health Care Education/Training Program
DX: M62.82 Rhabdomyolysis (principal); K72.00 Acute and subacute hepatic failure without coma; F11.20 Opioid dependence, uncomplicated; L03.115 Cellulitis of right lower limb; E72.20 Disorder of urea cycle metabolism, unspecified; W19.XXXA Unspecified fall, initial encounter; F17.210 Nicotine dependence, cigarettes, uncomplicated; Z71.6 Tobacco abuse counseling; R29.6 Repeated falls; Z91.81 History of falling; N20.0 Calculus of kidney; R33.9 Retention of urine, unspecified; K29.50 Unspecified chronic gastritis without bleeding; Z74.2 Need for assistance at home and no other household member able to render care; F10.21 Alcohol dependence, in remission; K70.30 Alcoholic cirrhosis of liver without ascites; K29.80 Duodenitis without bleeding; K76.82 Hepatic encephalopathy; Z91.148 Patient's other noncompliance with medication regimen for other reason; Z20.822 Contact with and (suspected) exposure to COVID-19; Z79.899 Other long term (current) drug therapy
CPT/HCPCS: 36415; 70450; 71045; 71275; 74177; 80048; 80053; 80076; 80307; 81001; 82140; 82550; 82607; 82746; 83690; 83880; 84443; 84484; 85025; 85610; 87637; 93005; 93970; 97116; 97162; 97530; 99285; J1308; J1650; J2270; J2405; J2470; J3430; Q9967

== ENCOUNTER → 2024-11-05 19:18 | Outpatient (BNV) | payer MEDICARE, MEDICAID, SELFPAY | PROVIDERS: Admitting Provider Hospitalist; Emergency Provider Emergency Medicine; Visit Provider Internal Medicine Cardiovascular Disease | DX: R53.1 Weakness (principal) | CPT/HCPCS: 93010 ==

== ENCOUNTER → 2024-11-05 19:19 | Outpatient (BNV) | payer MEDICARE, MEDICAID, SELFPAY | PROVIDERS: Emergency Provider Emergency Medicine; Visit Provider Radiology Diagnostic Radiology | DX: K74.60 Unspecified cirrhosis of liver (principal); R06.00 Dyspnea, unspecified | CPT/HCPCS: 71275; 74177 ==

== ENCOUNTER 2024-11-06 01:44 | Outpatient (BNV) | payer MEDICARE, MEDICAID, SELFPAY | END 2024-11-06 12:35 | PROVIDERS: Admitting Provider Hospitalist; Emergency Provider Emergency Medicine; Visit Provider Family Medicine | DX: R53.1 Weakness (principal) | CPT/HCPCS: 70450 ==

== ENCOUNTER 2024-11-06 01:44 | Outpatient (BNV) | payer MEDICARE, MEDICAID, SELFPAY | END 2024-11-07 07:40 | PROVIDERS: Admitting Provider Hospitalist; Emergency Provider Emergency Medicine; Visit Provider Radiology Diagnostic Radiology | DX: R22.43 Localized swelling, mass and lump, lower limb, bilateral (principal) | CPT/HCPCS: 93970 ==

== ENCOUNTER → 2024-11-06 01:44 | Outpatient (BNV) | payer MEDICARE, MEDICAID, SELFPAY | PROVIDERS: Admitting Provider Hospitalist; Emergency Provider Emergency Medicine; Visit Provider Nurse Practitioner Family | DX: K72.90 Hepatic failure, unspecified without coma (principal); K74.60 Unspecified cirrhosis of liver; T79.6XXA Traumatic ischemia of muscle, initial encounter; K76.82 Hepatic encephalopathy | CPT/HCPCS: 99223; 99499 ==

== ENCOUNTER → 2024-11-06 01:44 | Outpatient (BNV) | payer MEDICARE, MEDICAID, SELFPAY | PROVIDERS: Admitting Provider Hospitalist; Emergency Provider Emergency Medicine; PCP Student in an Organized Health Care Education/Training Program; Visit Provider Nurse Practitioner Family | DX: F10.21 Alcohol dependence, in remission (principal); K70.30 Alcoholic cirrhosis of liver without ascites; K76.82 Hepatic encephalopathy; K72.90 Hepatic failure, unspecified without coma | CPT/HCPCS: 99222 ==

== ENCOUNTER 2024-12-14 15:31 | Outpatient (AMB) | payer MEDICARE, MEDICAID, SELFPAY ==
--- NOTE | 2024-12-14 09:49 | A.OFFPC_ITS ---
Vital Signs 12/14/24 15:33 Height 5 ft 10 in Weight 300 lb BMI 43.0 BP 128/76 Blood Pressure Location Rt brachial Position Sitting Respiration 20 Pulse 95 Pulse Source Pulse Oximeter Temp 97.7 F Temp Source Temporal Artery Scan Pulse Oximetry (%) 96 Oxygen Delivery Method Room Air Intake Visit Reasons: 1 month f/u Junior Administrative Assistant Required: No Accompanied by: Self / Same As Patient Allergies No Known Allergies (No Known Allergies*) Allergy (Verified 12/05/24 12:48) Tobacco use date assessed: 10/31/24 [facility] Medical History Decompensation of cirrhosis of liver Screening for lung cancer Lower extremity edema Alcohol use disorder, severe, dependence CEASAR (acute kidney injury) Ascites Abdominal distension Jaundice Alcohol abuse Hypertension Drug abuse Surgical History History of colonoscopy (~11/20/15) Social History Household Members: None Housing: Apartment Do you presently have visiting nurse or other home services: No Alcohol intake: current Alcohol intake frequency: former alcohol drinker Comment: refusing bed alarm Patient Tobacco Use Status: Current everyday Tobacco user Tobacco use type: Cigarette Cigarette Packs Per Day: 0.5 Cigarettes Per Day: 10.0 e-Cigarette/Vaping Use: Never Used Substance Use Type: Marijuana service: No Current occupational status: unemployed Questionnaire Thrive Questionnaire Date Thrive assessed: 11/06/24 Physical exam (Primary Care) Tobacco/Smoking Status: Tobacco use Status Tobacco use date assessed 10/31/24 12/14/24 09:49 Patient Tobacco Use Status Current everyday Tobacco 12/14/24 09:49 Tobacco use type Cigarette 12/14/24 09:49 e-Cigarette/Vaping Use Never Used 12/14/24 09:49 Thrive Assessment: Date of Thrive Assessment Date Thrive assessed 11/06/24 12/14/24 09:49 Coding
[2024-12-14 15:33] VITALS: BP 128/76; PULSE 95; RESP 20; TEMP 36.5; O2SAT 96; BMI 43.0
--- NOTE | 2024-12-14 15:50 | A.OFFPC_ITS ---
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: No Allergies No Known Allergies (No Known Allergies*) Allergy (Verified 12/05/24 12:48) Medication List - Last Reconciled 12/14/24 by Zheng Landon MD ammonium lactate 12% 1 appl See Protocol topical DAILY folic acid 1 mg PO DAILY furosemide 40 mg See Protocol PO DAILY lactulose 30 grams (45 mL) PO BID@0900,1700 30 days methadone 68 mg PO DAILY spironolactone 50 mg PO DAILY thiamine mononitrate (vit B1) 100 mg PO DAILY walker (Ultra-Light Rollator misc) As directed Tobacco use date assessed: 10/31/24 Dental Screening Did you have a dental visit in the last 12 months?: Yes HPI HPI Comments History of Present Illness Details The patient is a 59 year old male presenting with a follow-up for management of high ammonia levels related to decompensated liver cirrhosis. The patient reported being admitted to the hospital for six days after falling and being unable to get up. He mentioned that he was diagnosed with high ammonia levels during this hospitalization, which were attributed to poor liver function. Since then, the ammonia levels have decreased. Currently, he is managing the condition with lactulose to maintain two to three bowel movements daily, which helps in controlling the ammonia levels. Regarding his weight, the patient shared that he had been experiencing obesity, with significant weight loss from 321 pounds to 300 pounds, a reduction of over 30 pounds. He once weighed 190 pounds previously and expressed a desire to continue losing weight as it has helped improve his back pain and overall mood. The patient is adjusting to life with reduced activity levels due to frequent bowel movements and the need for immediate access to a bathroom. Despite this limitation, he remains motivated to pursue further weight loss. The patient's social history includes a history of alcohol use, managed with folic acid supplementation, and a history of opiate use disorder, currently managed with methadone. He was previously on metoprolol for hypertension but has discontinued it. His current medications also include spironolactone and thiamine, which support liver function. There were no additional hospitalizations reported since his recent discharge. Medical History: - Decompensated Liver Cirrhosis - High Ammonia Levels - Chronic Back Pain - Obesity - History of Alcohol Use Disorder - Prior Opiate Use Disorder - Essential Hypertension Medications: - Folic Acid: For alcohol use history - Water Pill (likely Furosemide 40 mg): For volume overload/leg swelling - Lactulose: For high ammonia levels (tw ice a day) - Spironolactone: For liver disease - Thiamine: For alcohol use disorder - Methadone: 68 mg for prior opiate use Social History: - History of alcohol use managed with fo lic acid - Prior opiate use disorder managed with methadone - Smoking reduction with active attempts to quit - Engages in physical therapy twice week ly - Significant weight loss of over 30 yenifer nds, currently at 300 pounds from 321 pounds - Limited physical activity due to frequ ent bowel movements [facility] Medical History (Updated 12/14/24 @ 15:58 by Zheng Landon MD) Chronic back pain Essential (primary) hypertension Opiate dependence Alcohol use disorder in remission Cirrhosis Decompensation of cirrhosis of liver Screening for lung cancer Lower extremity edema Alcohol use disorder, severe, dependence CEASAR (acute kidney injury) Ascites Abdominal distension Jaundice Alcohol abuse Hypertension Drug abuse Surgical History History of colonoscopy (~11/20/15) Social History Household Members: None Housing: Apartment Do you presently have visiting nurse or other home services: No Alcohol intake: current Alcohol intake frequency: former alcohol drinker Comment: refusing bed alarm Patient Tobacco Use Status: Current everyday Tobacco user Tobacco use type: Cigarette Cigarette Packs Per Day: 0.5 Cigarettes Per Day: 10.0 e-Cigarette/Vaping Use: Never Used Substance Use Type: Marijuana service: No Current occupational status: unemployed Questionnaire Thrive Questionnaire Date Thrive assessed: 11/06/24 Review of Systems Const Details: - Gastrointestinal: Reports frequent bowel movements - Musculoskeletal: Denies back pain - Respiratory: Denies chest pain, shortness of breath - Neurological: Denies headaches, vision changes All systems reviewed & are unremarkable except as reviewed in HPI and above Physical exam (Primary Care) Vital Signs: Last Vital Signs Temp 97.7 F 12/14/24 15:33 Pulse 95 12/14/24 15:33 Resp 20 10/09/25 15:33 BP 128/76 12/14/24 15:33 Pulse Ox 96 12/14/24 15:33 Oxygen Delivery Method Room Air 12/14/24 15:33 BMI result Body Mass Index 43.0 Tobacco/Smoking Status: Tobacco use Status Tobacco use date assessed 10/31/24 10/31/24 14:36 Patient Tobacco Use Status Current everyday Tobacco 11/11/24 13:33 Tobacco use type Cigarette 11/06/24 16:16 e-Cigarette/Vaping Use Never Used 11/06/24 16:16 Are you ready to quit: Yes Tobacco cessation counseling provided: Yes Relapse Prevention: discussed the importance of a supportive environment and discussed extending NRT Number of minutes spent counselin CPT code: 51513 - 4-10 Minutes Const Other: General: +Alert and oriented, Well nourished, No acute distress. Eye: Pupils are equal, round and reactive to light, Intact accommodation, Extraocular movements are intact, Normal conjunctiva, Vision unchanged. HENT: Normocephalic, Atraumatic, Tympanic membranes are clear, Normal hearing, Oral mucosa is moist, No pharyngeal erythema, Ear canals patent. Respiratory: Lungs CTA bilaterally, No wheeze, Respirations are non-labored. Cardiovascular: Regular rate, Regular rhythm, S1 auscultated, S2 auscultated, No murmur, Good pulses equal in all extremities, Normal peripheral perfusion, No edema. Gastrointestinal: Soft, Non-tender, Non-distended, Normal bowel sounds, No organomegaly. Musculoskeletal: Normal range of motion, Normal strength, No tenderness, No swelling, No deformity, Normal gait. Integumentary: Warm, Dry, [place], Intact. Neurologic: Alert, Oriented, Normal sensory, Normal motor function, No focal defects, Cranial Nerves II-XII are grossly intact, Normal deep tendon reflexes. Psychiatric: Cooperative, Appropriate mood & affect, Normal judgment. Coding Level of Care Code Est Pt Level 4 (44626) Complex EM visit Add On G2211 Diagnoses Decompensation of cirrhosis of liver K72.90; K74.60 Chronic hepatitis C without hepatic coma B18.2 Hepatic coma status: without hepatic coma Lower extremity edema R60.0 Alcohol use disorder in remission F10.91 Opioid dependence in remission F11.21 Substance use status: in remission Essential (primary) hypertension I10 Chronic bilateral low back pain without sciatica M54.50; G89.29 Back pain location: low back pain Back pain laterality: bilateral Sciatica presence: without sciatica Additional Codes Vital Signs *Quality* - CPT code: 59981 - 4-10 Minutes ([id number]) Assessment & Plan Assessment & Plan (1) Decompensation of cirrhosis of liver: Comment: - Recently admitted for decompensated liver failure with elevation in ammonia - Continue management with lactulose to maintain 2-3 bowel movements daily. - Reinforce importance of regular bowel movements to prevent ammonia buildup. Code(s): K72.90 - Hepatic failure, unspecified without coma; K74.60 - Unspecified cirrhosis of liver Category: Medical (2) Chronic hepatitis C virus infection: Comment: Previous documentation that patient had hepatitis-C however unclear of treatment status. Patient reports he is unsure if it was treated on not. Obtain hepatitis panel Code(s): B18.2 - Chronic viral hepatitis C Category: Medical Qualifiers: Hepatic coma status: without hepatic coma Qualified Code(s): B18.2 - Chronic viral hepatitis C (3) Lower extremity edema: Comment: Has had improvement with lasix and leg elevation Code(s): R60.0 - Localized edema Category: Medical (4) Alcohol use disorder in remission: Comment: - Support ongoing use of folic acid and thiamine. Code(s): F10.91 - Alcohol use, unspecified, in remission Category: Medical (5) Opiate dependence: Comment: - Maintain current methadone regimen - Follows at methadone clinic Code(s): F11.20 - Opioid dependence, uncomplicated Category: Medical Qualifiers: Substance use status: in remission Qualified Code(s): F11.21 - Opioid dependence, in remission (6) Essential (primary) hypertension: Comment: - Monitor blood pressure and re-evaluate need for antihypertensive medication if necessary Code(s): I10 - Essential (primary) hypertension Category: Medical (7) Chronic back pain: Comment: - Had had improvement with weight loss and methadone Code(s): M54.9 - Dorsalgia, unspecified; G89.29 - Other chronic pain Category: Medical Qualifiers: Back pain location: low back pain Back pain laterality: bilateral Sciatica presence: without sciatica Qualified Code(s): M54.50 - Low back pain, unspecified; G89.29 - Other chronic pain Plan: Health Maintenance: - Continued encouragement to quit smoking within four months - Weight management with a focus on achieving a healthier body weight Patient was informed and verbally consented to the use of an ambient scribe for clinic note documentation during this visit. Plan During the consultation, I discussed the need to maintain bowel movements to control ammonia levels and avoid re-hospitalization. The importance of ongoing weight management to help with back pain and overall health improvement was emphasized. Moreover, lifestyle changes, particularly smoking cessation within four months, were encouraged with a promise from the patient to quit. The plan to monitor liver function and blood pressure was outlined, and the necessity of regular follow-up was made clear. No new medications were proposed as the current treatment appears effective. I also reinforced the significance of compliance with methadone and regular physical therapy. Patient Instructions: - Continue taking lactulose as directed to ensure 2-3 bowel movements per day. - Maintain weight loss efforts. Aim to weigh around 280 pounds in four months. - Avoid alcohol and tobacco; stop smoking within the next four months. - Monitor for symptoms of confusion or lethargy and contact the clinic if they arise. - Follow up with regular appointments and ensure any blood work is done in advance of visits.
== END 2024-12-14 15:53 | disposition home or self-care (01) ==
LOC: HO.HMCHD 15:31
PROVIDERS: PCP Student in an Organized Health Care Education/Training Program; Visit Provider Student in an Organized Health Care Education/Training Program
DX: K72.90 Hepatic failure, unspecified without coma (principal); K74.60 Unspecified cirrhosis of liver; B18.2 Chronic viral hepatitis C; R60.0 Localized edema; F10.91 Alcohol use, unspecified, in remission; F11.21 Opioid dependence, in remission; I10 Essential (primary) hypertension; M54.50 Low back pain, unspecified; G89.29 Other chronic pain

== ENCOUNTER → 2024-12-14 15:31 | Outpatient (BNVA) | payer MEDICARE, MEDICAID, SELFPAY | PROVIDERS: PCP Student in an Organized Health Care Education/Training Program; Visit Provider Student in an Organized Health Care Education/Training Program | DX: K72.90 Hepatic failure, unspecified without coma (principal); K74.60 Unspecified cirrhosis of liver; B18.2 Chronic viral hepatitis C; R60.0 Localized edema; F10.91 Alcohol use, unspecified, in remission; F11.20 Opioid dependence, uncomplicated; I10 Essential (primary) hypertension; M54.50 Low back pain, unspecified; G89.29 Other chronic pain; F17.210 Nicotine dependence, cigarettes, uncomplicated; Z79.899 Other long term (current) drug therapy | CPT/HCPCS: 99212 ==